=== PATIENT | female | born 1945 | race Caucasian/White ===

== ENCOUNTER → 2017-10-27 08:13 | Outpatient (CLI) | payer MEDICARE, OTHER, SELFPAY ==
[2017-10-27 10:37] LABS: AST(SGOT) 28 U/L (15-37); Alanine Aminotransfer ALT/SGPT 30 U/L (13-56); Albumin, Serum 3.7 g/dL (3.2-5.0); Alkaline Phosphatase 87 U/L (45-117); Bilirubin, Direct 0.11 mg/dL (0.00-0.30); Cholesterol 174 mg/dL (200); Globulin 3.9 g/dL (2.2-4.2); High Density Lipoprotein 54 mg/dL; Protein, Total 7.6 g/dL (6.4-8.2); Triglycerides 175 mg/dL; Very Low Density Lipoprotein 35 mg/dL (5-40)
== END ==
PROVIDERS: Family Provider Nurse Practitioner Family; PCP Nurse Practitioner Family; Visit Provider Internal Medicine Cardiovascular Disease
DX: E78.5 Hyperlipidemia, unspecified (principal); Z79.899 Other long term (current) drug therapy
CPT/HCPCS: 36415; 80061; 80076

== ENCOUNTER → 2017-12-30 12:24 | Outpatient (CLI) | payer MEDICARE, OTHER, SELFPAY ==
[2017-12-30 14:24] LABS: Absolute Neutrophil Count 4.5 X10^3/uL (2.0-7.7); Basophil# 0.02 X10^3/uL; Basophil% 0.3 % (0-1); Eosinophil# 0.13 X10^3/uL; Hematocrit 38.9 % (37-47); Hemoglobin 13.1 g/dl (12.0-15.0); Lymphocyte % 19.9 % (19-41); Mean Corp Hgb Conc 33.7 g/gl (32-36); Mean Corpuscular Hgb 30.3 pg (27.0-32.0); Mean Platelet Vol. 10.5 fl (6.2-12.0); Monocyte# 0.57 X10^3/uL; Monocyte% 8.7 % (0-10); Neutrophil % 68.9 % (47-70); Platelet Count 205 K/mm3 (150-450); RBC Distribution Width CV 12.7 % (11.6-14.6); RBC Distribution Width SD 40.9 fl (35.1-43.9); Red Blood Count 4.32 M/mm3 (4.2-5.4); White Blood Count 6.5 K/mm3 (4.4-11.0)
[2017-12-30 14:35] LABS: POSITIVE COUNT NO; POSITIVE DIFFERENTIAL NO; POSITIVE MORPHOLOGY NO
== END ==
PROVIDERS: Family Provider Nurse Practitioner Family; PCP Nurse Practitioner Family; Visit Provider Internal Medicine Gastroenterology
DX: K62.5 Hemorrhage of anus and rectum (principal)
CPT/HCPCS: 36415; 85025

== ENCOUNTER → 2018-08-05 09:30 | Outpatient (CLI) | payer MEDICARE, OTHER, SELFPAY ==
[2018-08-05 12:34] LABS: AST(SGOT) 26 U/L (15-37); Alanine Aminotransfer ALT/SGPT 34 U/L (13-56); Albumin, Serum 3.9 g/dL (3.2-5.0); Alkaline Phosphatase 93 U/L (45-117); Bilirubin, Direct 0.15 mg/dL (0.00-0.30); Cholesterol 191 mg/dL (200); High Density Lipoprotein 59 mg/dL; Protein, Total 7.9 g/dL (6.4-8.2); Triglycerides 155 mg/dL; Very Low Density Lipoprotein 31 mg/dL (5-40)
== END ==
PROVIDERS: Family Provider Nurse Practitioner Family; PCP Nurse Practitioner Family; Referring Provider Internal Medicine Cardiovascular Disease; Visit Provider Internal Medicine Cardiovascular Disease
DX: E78.5 Hyperlipidemia, unspecified (principal)
CPT/HCPCS: 36415; 80061; 80076

== ENCOUNTER → 2019-06-01 08:41 | Outpatient (CLI) | payer MEDICARE, OTHER, SELFPAY ==
[2018-08-12 11:14] VITALS: BMI 27.8
[2019-06-01 11:09] LABS: AST(SGOT) 23 U/L (15-37); Alanine Aminotransfer ALT/SGPT 33 U/L (13-56); Albumin, Serum 3.8 g/dL (3.2-5.0); Alkaline Phosphatase 91 U/L (45-117); Bilirubin, Direct 0.11 mg/dL (0.00-0.30); Cholesterol 175 mg/dL (200); Globulin 3.8 g/dL (2.2-4.2); High Density Lipoprotein 58 mg/dL; Protein, Total 7.6 g/dL (6.4-8.2); Triglycerides 184 mg/dL; Very Low Density Lipoprotein 37 mg/dL (5-40)
== END ==
PROVIDERS: Family Provider Nurse Practitioner Family; PCP Nurse Practitioner Family; Referring Provider Internal Medicine Cardiovascular Disease; Visit Provider Internal Medicine Cardiovascular Disease
DX: E78.5 Hyperlipidemia, unspecified (principal)
CPT/HCPCS: 36415; 80061; 80076

== ENCOUNTER → 2019-08-22 07:51 | Outpatient (CLI) | payer MEDICARE, OTHER, SELFPAY ==
[2019-08-16 09:43] VITALS: BMI 28.1
--- NOTE | 2019-08-22 07:52 | CDU_ITS ---
Reason For Study: SYNCOPE Rt. Velocities/BP Lt. Velocities/BP Prox CCA 103.4/27.8 cm/sec. Prox CCA 119.8/26.7 cm/sec. Mid CCA 90.8/23.0 cm/sec. Mid CCA 118.0/30.3 cm/sec. Dist CCA 79.0/16.4 cm/sec. Dist CCA 132.5/12.0 cm/sec. Prox ICA 142.4/37.1 cm/sec. Prox ICA 121.5/26.6 cm/sec. Mid ICA 146.8/30.5 cm/sec. Mid ICA 123.3/23.0 cm/sec. Dist ICA 78.7/21.5 cm/sec. Dist ICA 94.1/19.2 cm/sec. Rt. ICA/CCA = 146.8/103.4=1.4. Lt. ICA/CCA = 123.3/132.5=0.9. Prox ECA 122.7/4.2 cm/sec. Prox ECA 114.2/4.7 cm/sec. Rt. Vert. 75.2/12.8 cm/sec. Lt. Vert. 65.8/14.2 cm/sec. Right Extracranial There is homogeneous, smooth atherosclerotic plaque noted in the right common carotid artery. There is homogeneous, smooth atherosclerotic plaque noted in the right internal carotid artery. There is homogeneous, smooth atherosclerotic plaque noted in the right external carotid artery. Antegrade flow is noted in the right vertebral artery. There is heterogeneous, irregular atherosclerotic plaque noted in the left bulb. Left Extracranial There is homogeneous, smooth atherosclerotic plaque noted in the left common carotid artery. There is homogeneous, smooth atherosclerotic plaque noted in the left internal carotid artery. There is homogeneous, smooth atherosclerotic plaque noted in the left external carotid artery. Antegrade flow is noted in the left vertebral artery. There is homogeneous, smooth atherosclerotic plaque noted in the left bulb. Interpretation Summary Moderate (50-69%) stenosis right extracranial internal carotid. Moderate (50-69%) stenosis left extracranial internal carotid. Flow within the vertebral arteries is antegrade bilaterally. Ordering Physician: Wild Watkins Referring Physician: Jacob Claudio Performed By: Tammy Nichols, ASA, RVT
== END ==
PROVIDERS: PCP Nurse Practitioner Family; Referring Provider Internal Medicine Cardiovascular Disease; Visit Provider Internal Medicine Cardiovascular Disease
DX: I65.23 Occlusion and stenosis of bilateral carotid arteries (principal)
CPT/HCPCS: 93880

== ENCOUNTER → 2020-06-04 08:07 | Outpatient (CLI) | payer MEDICARE, OTHER, SELFPAY ==
[2019-08-16 09:43] VITALS: BMI 28.1
[2020-06-04 10:29] LABS: AST(SGOT) 22 U/L (15-37); Alanine Aminotransfer ALT/SGPT 32 U/L (13-56); Albumin, Serum 3.8 g/dL (3.2-5.0); Alkaline Phosphatase 89 U/L (45-117); Bilirubin, Direct 0.13 mg/dL (0.00-0.30); Cholesterol 193 mg/dL (200); Globulin 3.8 g/dL (2.2-4.2); High Density Lipoprotein 76 mg/dL; Protein, Total 7.6 g/dL (6.4-8.2); Triglycerides 84 mg/dL; Very Low Density Lipoprotein 17 mg/dL (5-40)
== END ==
PROVIDERS: PCP Nurse Practitioner Family; Referring Provider Internal Medicine Cardiovascular Disease; Visit Provider Internal Medicine Cardiovascular Disease
DX: E78.5 Hyperlipidemia, unspecified (principal); I25.10 Atherosclerotic heart disease of native coronary artery without angina pectoris; I73.9 Peripheral vascular disease, unspecified; I77.9 Disorder of arteries and arterioles, unspecified
CPT/HCPCS: 36415; 80061; 80076

== ENCOUNTER → 2020-10-18 10:17 | Outpatient (CLI) | payer MEDICARE, OTHER, SELFPAY ==
[2019-08-16 09:43] VITALS: BMI 28.1
--- NOTE | 2020-10-18 10:26 | BD_ITS ---
STUDY: DUAL ENERGY X-RAY ABSORPTIOMETRY / DXA REASON FOR EXAM: Female, 75 years old. [id number] -- POST SHAUNA. TECHNIQUE: Bone Mineral Density (BMD) measurements of lumbar spine and bilateral hips were obtained. COMPARISON: Comparison is made with prior study dated 06/02/2017. FINDINGS: Lumbar Spine (L1-L4): g/cm2 (1.077) / T-score (-0.9) / Z-score (0.9) Findings are suggestive of normal bone density with a low fracture risk. Left Femur Total: g/cm2 (1.069) / T-score (0.5) / Z-score (2.3) Left Femoral Neck: g/cm2 (1.012) / T-score (-0.2) / Z-score (1.8) Right Femur Total: g/cm2 (1.109) / T-score (0.8) / Z-score (2.6) Right Femoral Neck: g/cm2 (1.024) / T-score (-0.1) / Z-score (1.9) The T-Scores on the most recent prior examination were: Lumbar Spine (L1-L4): There has been worsening of bone density since the previous examination. Left Femur Total: which represents an improvement of 1.4%. Right Femur Total: which represents an improvement of 0.2%. BD/Dexa Bone Density Study IMPRESSION: The patient is considered normal as outlined below according to [place] Organization (WHO) criteria with a low fracture risk. There has been improvement of bone density since the previous examination. Reference Information: The T-score is the number of standard deviations above or below the standard which is normal for young adults at their peak bone mineral density. The World Health Organization (WHO) interprets the T-scores as follows: Above -1 Normal bone density Between -1 and -2.5 Osteopenia Equal to / or below -2.5 Osteoporosis As a practical clinical guideline, osteopenia may be graded as follows: Mild -1 through -1.5 Moderate -1.6 through -2.0 Severe -2.1 through -2.4 The Z-score is the number of standard deviations above or below age-matched controls. A Z-score of less than -1.5 would be considered abnormal. References: 1. NIH Osteoporosis and Related Bone Diseases www osteo.org 2. International Society for Clinical Densitometry www iscd.org 3. National Osteoporosis Foundation www nof.org Electronically Signed: Jake Starr MD at 12:21 EDT , Service support ,
== END ==
PROVIDERS: PCP Nurse Practitioner Family; Referring Provider Nurse Practitioner Family; Visit Provider Nurse Practitioner Family
DX: Z78.0 Asymptomatic menopausal state (principal)
CPT/HCPCS: 77080

== ENCOUNTER 2021-02-05 10:45 | Emergency (ER) | payer MEDICARE, OTHER, SELFPAY ==
[2021-02-05 10:47] VITALS: BP 177/80; PULSE 56; RESP 18; TEMP 36.1; O2SAT 100; BMI 29.5
[2021-02-05 11:01] VITALS: PULSE 59
--- NOTE | 2021-02-05 11:09 | NURSING ---
NO OLD EKGS
--- NOTE | 2021-02-05 11:28 | EKG12_ITS ---
Test Reason : CHEST PAIN Blood Pressure : / mmHG Vent. Rate : 059 BPM Atrial Rate : 059 BPM P-R Int : 124 ms QRS Dur : 072 ms QT Int : 428 ms P-R-T Axes : 056 035 047 degrees QTc Int : 423 ms Sinus bradycardia Otherwise normal ECG Confirmed by SARAH BARR, ALFA ([id number]), staff editor FRANNY ALEJANDRO ([id number]) on 02/07/2021 9:56:42 AM Referred By: DACIA Confirmed By:ALFA SMITH MD
--- NOTE | 2021-02-05 11:29 | EDS_ITS ---
HPI History of Present Illness Chief Complaint: Palpitations Informant: patient Narrative Narrative: 75-year-old female presents to the emergency room with palpitations. Patient states that between the hours of 3-5 she felt her heart racing. She states that it would not go away. Finally it did subside and she went to bed but was not having much restful sleep throughout the course of the morning. When she got up she felt an uneasy feeling in her chest and some slight dyspnea. She states she has had coronary artery disease and follows with Dr. Watkins. She denies any history of palpitations or dysrhythmias. The patient states that she has had episodes of heart racing but they have only lasted a few minutes and gone away. She has never had a Holter monitor. [facility] Medical History Atherosclerotic heart disease of [place] coronary artery without angina pectoris CAD (coronary artery disease) Carotid artery disease Carotid bruit CHF (congestive heart failure) Chronic diastolic (congestive) heart failure HLD (hyperlipidemia) Hypertension PVD (peripheral vascular disease) Renal artery stenosis Home Medications aspirin 81 mg PO DAILY 04/10/17 [History Last Taken Unknown] nitroglycerin 0.4 mg sublingual tablet 0.4 mg SUBLINGUAL Q5M PRN #90 tab 08/12/18 [Rx Last Taken Unknown] atenolol 50 mg tablet 50 mg PO DAILY #90 tab 03/15/20 [Rx Last Taken Unknown] clopidogrel 75 mg tablet 75 mg PO DAILY #90 tab 03/15/20 [Rx Last Taken Unknown] hydrochlorothiazide 25 mg tablet 25 mg PO DAILY #90 tab 03/15/20 [Rx Last Taken Unknown] lisinopril 40 mg tablet 40 mg PO DAILY #90 tab 03/15/20 [Rx Last Taken Unknown] simvastatin 40 mg tablet 40 mg PO DAILY #90 tab 03/15/20 [Rx Last Taken Unknown] Allergy/AdvReac Type Severity Reaction Status Date / Time PAIN MEDICATION AdvReac Nausea Uncoded 11/04/17 13:42 Family History Father CAD (coronary artery disease) Mother CAD (coronary artery disease) CVA (cerebral vascular accident) Brother CAD (coronary artery disease) Sister CAD (coronary artery disease) Hypertension Sister Hypertension Brother Hypertension Surgical History History of bilateral carotid endarterectomy History of dental surgery History of tubal ligation Presence of stent in coronary artery Social History Smoking Status: Former smoker alcohol intake: never substance use type: does not use ROS ROS ED Constitutional Constitutional ED: Denies chills or weight loss Eyes Eyes: Denies change in vision or diplopia ENT ENT ED: Denies ear pain, rhinorrhea or sore throat Cardiovascular Cardiovascular: Reports chest pain and racing heartbeat; Denies orthopnea Respiratory/Chest Respiratory/Chest: Reports dyspnea; Denies cough or orthopnea Gastrointestinal Gastrointestinal: Denies abdominal pain, diarrhea, nausea or vomiting Genitourinary Genitourinary ED: Denies dysuria, hematuria or urinary frequency Musculoskeletal Musculoskeletal: Denies arthralgias or myalgias Integumentary Denies abscess or rash Neurologic Neurologic: Denies headache(s) or weakness Psychiatric Psychiatric: Denies anxiety, depression, suicidal ideation or suicidal thoughts Endocrine Endocrinology: Denies polydipsia, polyphagia or polyuria Allergic/Immunologic Allergic/Immunologic ED: Denies mouth swelling, tongue swelling or urticaria EXAM Physical Exam Const Vital Signs: 02/05/21 10:47 02/05/21 10:58 02/05/21 11:01 Temperature 96.9 F L Temperature Source Temporal Pulse Rate 56 L 59 L Respiratory Rate 18 Respiratory Effort Normal Non-Labored Blood Pressure 177/80 H Blood Pressure Mean 112 Pulse Ox 100 Oxygen Delivery Method 02/05/21 12:08 Temperature Temperature Source Pulse Rate 109 H Respiratory Rate 23 H Respiratory Effort Blood Pressure 159/102 H Blood Pressure Mean 121 Pulse Ox 93 Oxygen Delivery Method Room Air Positive well nourished and well developed General Appearance ED: well developed HEENT Reports normocephalic, head/scalp atraumatic and moist mucous membranes Eyes PERRL and EOMs intact bilaterally Neck no lymphadenopathy, supple and no JVD Resp normal respiratory effort and clear to auscultation bilaterally Cardio regular rate, regular rhythm and no murmurs GI normal to inspection, nondistended, normoactive bowel sounds and non-tender Palpation: soft Back/Spine no CVA tenderness and normal ROM Extremity normal to inspection General Extremety ED: Negative for edema General Extremity: Negative for edema Neuro oriented x3 and CN's II-XII intact bilaterally Sensorium / Orientation: alert Motor Exam: strength 5/5 throughout Psych mental status grossly normal Mood & Affect: Negative for depressed or tearful Skin no rashes or lesions noted and no wounds Heart Score History: Slightly/Non-Suspicious ECG: Normal Age: >/= 65 years Risk Factors: >/= 3 Risk Factors or History of CAD Troponin: </= Normal Limit Score: 4 MDM MDM MDM Narrative Medical decision making narrative: Basic blood work is normal. D-dimer 0.32. TSH 2.93. Troponin negative magnesium negative. Mitral rotation of the chest x-ray is no acute process. Patient has been in a normal sinus rhythm her ED visit. She will be discharged home instructions to follow-up with cardiology she may require a Holter monitor. Lab Data Attestation: I reviewed the patient's lab results. Labs: Laboratory Results - last 24 hr 02/05/21 02/05/21 02/05/21 11:33 11:33 11:40 WBC 8.1 RBC 4.63 Hgb 14.0 Hct 42.5 MCV 91.8 MCH 30.2 MCHC 32.9 RDW Std Deviation 42.5 RDW Coeff of Manav 12.6 Plt Count 237 MPV 10.0 Immature Gran % (Auto) 0.200 Neut % (Auto) 78.7 H Lymph % (Auto) 13.7 L [place] % (Auto) 5.7 Eos % (Auto) 1.1 Baso % (Auto) 0.6 Absolute Neuts (auto) 6.4 Absolute Lymphs (auto) 1.11 Nucleated RBC % 0 D-Dimer Quant (PE/DVT) 0.32 Sodium 137 Potassium 3.8 Chloride 101 Carbon Dioxide 35.0 H Anion Gap 1 L BUN 16 Creatinine 0.66 Estim Creat Clear Calc 50.04 Est GFR (MDRD) Af Amer 113 Est GFR (MDRD) Non-Af 93 BUN/Creatinine Ratio 24.4 H Glucose 133 H Calcium 9.8 Magnesium 2.1 Troponin I High Sens 28 TSH 2.93 Radiography Diagnostic Testing: Radiology Impression Chest X-Ray 02/05/21 12:30 IMPRESSION: Normal x-ray examination of the chest. Electronically Signed: Jake Starr MD at 12:49 EDT , Service support , EKG Initial EKG: Attestation: I personally reviewed and interpreted this EKG as follows: Comments: Sinus bradycardia with a ventricular rate of 59 bpm. Discharge Plan Triage Chief Complaint: Palpitations ED Provider: Richie Whiteside Dx/Rx/DC Orders Prescriptions: No Action nitroglycerin [Nitrostat] 0.4 mg tablet, sublingual 0.4 mg SUBLINGUAL Q5M PRN (Reason: chest pain) Qty: 90 RF: 6 aspirin 81 MG tablet,chewable 81 mg PO DAILY RF: 0 clopidogrel 75 mg tablet 75 mg PO DAILY Qty: 90 RF: 6 atenolol 50 mg tablet 50 mg PO DAILY Qty: 90 RF: 6 lisinopril 40 mg tablet 40 mg PO DAILY Qty: 90 RF: 6 simvastatin 40 mg tablet 40 mg PO DAILY Qty: 90 RF: 6 hydrochlorothiazide 25 mg tablet 25 mg PO DAILY Qty: 90 RF: 6 Primary Care Provider: Jacob Claudio NP Referrals: Jacob Claudio NP, REGULATORY AFFAIRS ASSISTANT-C [Primary Care Provider] -
[2021-02-05 11:43] LABS: Absolute Lymphocyte Count 1.11 X10^3/uL (0.83-4.51); Absolute Neutrophil Count 6.4 X10^3/uL (2.0-7.7); Basophil# 0.05 X10^3/uL; Basophil% 0.6 % (0-1); Eosinophil# 0.09 X10^3/uL; Eosinophils% 1.1 % (0-5); Hematocrit 42.5 % (37-47); Lymphocyte # 1.11 X10^3/ul (0.83-4.51); Lymphocyte % 13.7 % (19-41); Mean Corp Hgb Conc 32.9 g/dL (32-36); Mean Corpuscular Hgb 30.2 pg (27.0-32.0); Mean Corpuscular Volume 91.8 fL (81-99); Monocyte# 0.46 X10^3/uL; Monocyte% 5.7 % (0-10); NRBC Flagged by Analyzer 0 % (0-5); Neutrophil # 6.37 X10^3/uL (2.7-7.7); Neutrophil % 78.7 % (47-70); Platelet Count 237 K/mm3 (150-450); RBC Distribution Width CV 12.6 % (11.6-14.6); RBC Distribution Width SD 42.5 fl (35.1-43.9); Red Blood Count 4.63 M/mm3 (4.2-5.4); White Blood Count 8.1 K/mm3 (4.4-11.0)
[2021-02-05] MEDS: Aspirin 81 MG TAB.CHEW 324 MG PO (11:44)
[2021-02-05 11:57] LABS: D-Dimer Quantitative (DVT/PE) 0.32 FEU/ug/m (0.27-0.49)
[2021-02-05 12:08] VITALS: BP 159/102; PULSE 109; RESP 23; O2SAT 93
[2021-02-05 12:08] LABS: Anion Gap 1 (5-15); BUN 16 mg/dL (7-18); BUN/Creat Ratio 24.4 RATIO (10-20); Calcium,Total 9.8 mg/dL (8.5-10.1); Chloride 101 mmol/L (98-107); Creatinine, Serum 0.66 mg/dL (0.55-1.02); EST Glomerular Filtration Rate 93 mL/min (>60); Est Glom Filt Rate - Afr Amer 113 mL/min (>60); Estimated Creatinine Clearance 50.04 ml/min; Glucose 133 mg/dL (74-106); Magnesium 2.1 mg/dL (1.6-2.6); Potassium 3.8 mmol/L (3.5-5.1); Sodium Level 137 mmol/L (136-145); Thyroid Stim Hormone (TSH) 2.93 uIU/mL (0.358-3.74); Troponin-I HS 28 pg/mL (3.0-54.0)
--- NOTE | 2021-02-05 12:30 | RAD_ITS ---
STUDY: X-RAY CHEST REASON FOR EXAM: Female, 75 years old. Tachycardia. Chest pressure. TECHNIQUE: Single AP portable view of the chest. COMPARISON: Comparison is made with prior examination 05/09/2014. FINDINGS: EKG electrodes are seen. The lungs are clear and expanded. There is no demonstrated pleural abnormality. Normal size heart. Normal mediastinum and ele. Normal visualized pulmonary arteries. There is atherosclerotic calcification of the aortic arch with tortuosity. Normal visualized thoracic spine. Normal visualized ribs, clavicles, and shoulders. There is no demonstrated abnormality of the visualized soft tissue structures of the upper abdomen. RAD/Chest 1 View (Portable) IMPRESSION: Normal x-ray examination of the chest. Electronically Signed: Jake Starr MD at 12:49 EDT , Service support ,
[2021-02-05 13:08] VITALS: BP 193/73; PULSE 75; RESP 16
== END 2021-02-05 13:09 | disposition home or self-care (01) ==
PROVIDERS: Emergency Provider Emergency Medicine; PCP Nurse Practitioner Family
DX: R00.2 Palpitations (principal); I25.10 Atherosclerotic heart disease of native coronary artery without angina pectoris; I11.0 Hypertensive heart disease with heart failure; I50.32 Chronic diastolic (congestive) heart failure; E78.5 Hyperlipidemia, unspecified; Z79.82 Long term (current) use of aspirin; Z79.02 Long term (current) use of antithrombotics/antiplatelets; Z79.899 Other long term (current) drug therapy; Z87.891 Personal history of nicotine dependence
CPT/HCPCS: 71045; 80048; 83735; 84443; 84484; 85025; 85379; 93005; 99284

== ENCOUNTER → 2021-02-11 07:53 | Outpatient (CLI) | payer MEDICARE, OTHER, SELFPAY | PROVIDERS: PCP Nurse Practitioner Family; Referring Provider Internal Medicine Cardiovascular Disease; Visit Provider Internal Medicine Cardiovascular Disease | DX: R00.2 Palpitations (principal); I25.10 Atherosclerotic heart disease of native coronary artery without angina pectoris; I11.0 Hypertensive heart disease with heart failure; I50.32 Chronic diastolic (congestive) heart failure | CPT/HCPCS: 93225; 93226 ==

== ENCOUNTER → 2021-02-13 08:58 | Outpatient (CLI) | payer MEDICARE, OTHER, SELFPAY ==
[2021-02-13 10:44] LABS: BNP,B-Type NATRIURETIC PEPTIDE 100.7 pg/mL (0-100)
[2021-02-13 10:56] LABS: AST(SGOT) 18 U/L (15-37); Alanine Aminotransfer ALT/SGPT 29 U/L (13-56); Albumin, Serum 3.8 g/dL (3.2-5.0); Alkaline Phosphatase 92 U/L (45-117); Bilirubin, Direct 0.14 mg/dL (0.00-0.30); Cholesterol 176 mg/dL (200); Globulin 3.8 g/dL (2.2-4.2); High Density Lipoprotein 61 mg/dL; Protein, Total 7.6 g/dL (6.4-8.2); Triglycerides 122 mg/dL; Very Low Density Lipoprotein 24 mg/dL (5-40)
== END ==
PROVIDERS: PCP Nurse Practitioner Family; Referring Provider Internal Medicine Cardiovascular Disease; Visit Provider Internal Medicine Cardiovascular Disease
DX: E78.00 Pure hypercholesterolemia, unspecified (principal); R05 Cough; R00.2 Palpitations; I25.10 Atherosclerotic heart disease of native coronary artery without angina pectoris; I50.32 Chronic diastolic (congestive) heart failure; I11.0 Hypertensive heart disease with heart failure; I77.9 Disorder of arteries and arterioles, unspecified; I70.1 Atherosclerosis of renal artery; Z95.5 Presence of coronary angioplasty implant and graft
CPT/HCPCS: 36415; 80061; 80076; 83880

== ENCOUNTER → 2021-04-23 12:36 | Outpatient (CLI) | payer MEDICARE, OTHER, SELFPAY ==
--- NOTE | 2021-04-23 12:57 | RAD_ITS ---
STUDY: X-RAY CHEST REASON FOR EXAM: Female, 75 years old. CHRONIC COUGH TECHNIQUE: PA and lateral views of the chest. COMPARISON: 05/08/2014, 02/05/2021 FINDINGS: The lungs are clear and expanded. Chronically coarsened lung markings. There is no demonstrated pleural abnormality. Normal size heart. Normal mediastinum and ele. Normal visualized pulmonary arteries. There is atherosclerotic calcification of the aortic arch with tortuosity. Calcific abdominal aorta. RAD/Chest PA and Lateral IMPRESSION: No acute abnormal cardiopulmonary finding. Chronically coarsened lung markings. Electronically Signed: Miquel Chaidez MD at 6:39 EST Tel , Service support ,
[2021-04-23 13:25] LABS: Hematocrit 39.6 % (37-47); Hemoglobin 13.1 g/dL (12.0-15.0); Mean Corp Hgb Conc 33.1 g/dL (32-36); Mean Corpuscular Hgb 30.9 pg (27.0-32.0); Mean Corpuscular Volume 93.4 fL (81-99); Mean Platelet Vol. 10.5 fl (6.2-12.0); Platelet Count 222 K/mm3 (150-450); RBC Distribution Width CV 13.4 % (11.6-14.6); RBC Distribution Width SD 45.4 fl (35.1-43.9); Red Blood Count 4.24 M/mm3 (4.2-5.4); White Blood Count 6.6 K/mm3 (4.4-11.0)
[2021-04-23 14:12] LABS: BNP,B-Type NATRIURETIC PEPTIDE 355.5 pg/mL (0-100)
[2021-04-23 14:22] LABS: ALB/GLOB Ratio 0.9 RATIO (0.9-2.4); AST(SGOT) 25 U/L (15-37); Alanine Aminotransfer ALT/SGPT 33 U/L (13-56); Albumin, Serum 3.6 g/dL (3.2-5.0); Alkaline Phosphatase 103 U/L (45-117); Anion Gap 3 (5-15); BUN 16 mg/dL (7-18); CRP 4.11 mg/L (0.0-3.0); Calcium,Total 9.1 mg/dL (8.5-10.1); Chloride 106 mmol/L (98-107); Creatinine, Serum 0.73 mg/dL (0.55-1.02); EST Glomerular Filtration Rate 83 mL/min (>60); Est Glom Filt Rate - Afr Amer 100 mL/min (>60); Globulin 3.8 g/dL (2.2-4.2); Glucose 110 mg/dL (74-106); Potassium 4.1 mmol/L (3.5-5.1); Protein, Total 7.4 g/dL (6.4-8.2); Sodium Level 139 mmol/L (136-145)
[2021-04-26 13:39] LABS: B. pertussis IgA 1.9 index (0.0-0.9); B. pertussis IgG 2.97 index (0.00-0.94); B. pertussis IgM 1.1 index (0.0-0.9)
== END ==
PROVIDERS: PCP Nurse Practitioner Family; Referring Provider Nurse Practitioner Family; Visit Provider Nurse Practitioner Family
DX: R05.3 Chronic cough (principal); R06.2 Wheezing; R01.1 Cardiac murmur, unspecified
CPT/HCPCS: 36415; 71046; 80053; 83880; 85027; 85379; 86140

== ENCOUNTER → 2021-05-03 12:55 | Outpatient (CLI) | payer MEDICARE, OTHER, SELFPAY ==
--- NOTE | 2021-05-03 13:00 | ECHOD_ITS ---
Reason For Study: Palpitations, Murmur Procedure This was a 2D Doppler, Color Flow transthoracic echocardiogram. Exam performed in department. Left Ventricle Normal LV size. Left ventricular systolic function is normal. The estimated ejection fraction is 60 %. Stage 1 diastolic dysfunction. No regional wall motion abnormalities noted. Right Ventricle Normal RV size. Normal systolic function. Atria The left atrium is mildly enlarged. Normal right atrium. Mitral Valve Normal mitral valve. Tricuspid Valve Normal tricuspid valve. Mild (1+) tricuspid valve insufficiency. Aortic Valve Trisinus/trileaflet aortic valve. Mild focal aortic valve calcification. Pulmonic Valve Normal pulmonic valve. Mild (1+) pulmonic valve insufficiency. Great Vessels Normal aortic root. The pulmonary artery is normal size. Normal inferior vena cava. Pericardium/Pleural No pericardial effusion. MMode/2D Measurements & Calculations LVIDd: 4.4 cm IVSd: 0.86 cm LVOT diam: 1.9 cm LVIDs: 2.6 cm LVPWd: 1.0 cm LVOT area: 2.8 cm2 FS: 41.2 % LA dimension: 3.9 cm LAV(MOD-bp): 56.8 ml LA A4 area: 19.0 cm2 LAV(MOD-bp) Indexed: 34.7 ml/m2 LAV(MOD-sp2): 60.3 ml LAV(MOD-sp4): 53.6 ml RA A4 area: 13.3 cm2 Time Measurements MV dec time: 0.20 sec Doppler Measurements & Calculations MV E max mayank: 123.5 cm/sec Lat Peak E' [place]: 6.6 cm/sec Med Peak E' [place]ank: 7.2 cm/sec MV A max mayank: 53.9 cm/sec E/E' lat: 18.6 E/E' med: 17.1 MV E/A: 2.3 MV V2 max: 153.1 cm/sec MV P1/2t max mayank: 153.1 cm/sec Ao V2 max: 166.5 cm/sec MV max P.4 mmHg MV P1/2t: 81.9 msec Ao max P.1 mmHg MV V2 mean: 57.5 cm/sec MV dec slope: 547.8 cm/sec2 Ao V2 mean: 116.9 cm/sec MV mean P.9 mmHg Ao mean P.1 mmHg MV V2 VTI: 42.1 cm MVA(P1/2t): 2.7 cm2 Ao V2 VTI: 41.4 cm MVA(VTI): 1.3 cm2 GABRIEL(I,D): 1.4 cm2 GABRIEL(V,D): 1.4 cm2 LV V1 max: 83.0 cm/sec MR max mayank: 507.3 cm/sec SV(LVOT): 55.9 ml LV V1 max P.8 mmHg MR max P.9 mmHg LV V1 mean P.4 mmHg LV V1 mean: 55.7 cm/sec LV V1 VTI: 20.3 cm PA V2 max: 103.0 cm/sec PI end-d mayank: 112.7 cm/sec TR max mayank: 300.1 cm/sec TR max P.0 mmHg ECHO/Echo Complete Interpretation Summary Normal LV size. Left ventricular systolic function is normal. The estimated ejection fraction is 60 %. Stage 1 diastolic dysfunction. Ordering Physician: Jacob Claudio Referring Physician: Jacob Claudio Performed By: Hi Gomez RCS
== END ==
PROVIDERS: PCP Nurse Practitioner Family; Referring Provider Nurse Practitioner Family; Visit Provider Nurse Practitioner Family
DX: R01.1 Cardiac murmur, unspecified (principal); R00.2 Palpitations; R05.3 Chronic cough
CPT/HCPCS: 93306

== ENCOUNTER → 2022-01-13 | Outpatient (CLI) | payer MEDICARE, OTHER, SELFPAY ==
[2022-01-13 15:32] LABS: Absolute Lymphocyte Count 1.94 X10^3/uL (0.83-4.51); Absolute Neutrophil Count 5.2 X10^3/uL (2.0-7.7); Basophil# 0.07 X10^3/uL; Basophil% 0.9 % (0-1); Eosinophil# 0.37 X10^3/uL; Eosinophils% 4.5 % (0-5); Hematocrit 42.7 % (37-47); Hemoglobin 13.7 g/dL (12.0-15.0); Lymphocyte # 1.94 X10^3/ul (0.83-4.51); Lymphocyte % 23.8 % (19-41); Mean Corp Hgb Conc 32.1 g/dL (32-36); Mean Corpuscular Hgb 29.4 pg (27.0-32.0); Mean Corpuscular Volume 91.6 fL (81-99); Mean Platelet Vol. 10.5 fl (6.2-12.0); Monocyte# 0.52 X10^3/uL; Monocyte% 6.4 % (0-10); NRBC Flagged by Analyzer 0 % (0-5); Neutrophil # 5.23 X10^3/uL (2.7-7.7); Neutrophil % 64.2 % (47-70); Platelet Count 252 K/mm3 (150-450); RBC Distribution Width CV 12.4 % (11.6-14.6); RBC Distribution Width SD 41.5 fl (35.1-43.9); Red Blood Count 4.66 M/mm3 (4.2-5.4); White Blood Count 8.2 K/mm3 (4.4-11.0)
[2022-01-13 16:35] LABS: Anion Gap 4 (5-15); BUN 24 mg/dL (7-18); BUN/Creat Ratio 30.7 RATIO (10-20); Calcium,Total 9.5 mg/dL (8.5-10.1); Chloride 99 mmol/L (98-107); Creatinine, Serum 0.78 mg/dL (0.55-1.02); EST Glomerular Filtration Rate 76 mL/min (>60); Est Glom Filt Rate - Afr Amer 92 mL/min (>60); Glucose 111 mg/dL (74-106); Magnesium 2.2 mg/dL (1.6-2.6); Potassium 3.8 mmol/L (3.5-5.1); Sodium Level 137 mmol/L (136-145)
== END | disposition home or self-care (01) ==
LOC: LAB 14:26
PROVIDERS: PCP Nurse Practitioner Family; Referring Provider Physician Assistant Medical; Visit Provider Physician Assistant Medical
DX: R00.2 Palpitations (principal); I25.10 Atherosclerotic heart disease of native coronary artery without angina pectoris; I10 Essential (primary) hypertension; E78.00 Pure hypercholesterolemia, unspecified
CPT/HCPCS: 36415; 80048; 83735; 84443; 85025

== ENCOUNTER → 2022-04-21 | Outpatient (CLI) | payer MEDICARE, OTHER, SELFPAY ==
[2022-04-21 10:39] LABS: AST(SGOT) 18 U/L (15-37); Alanine Aminotransfer ALT/SGPT 22 U/L (13-56); Albumin, Serum 3.6 g/dL (3.2-5.0); Alkaline Phosphatase 81 U/L (45-117); Bilirubin, Direct 0.11 mg/dL (0.00-0.30); Cholesterol 185 mg/dL (200); Globulin 3.7 g/dL (2.2-4.2); High Density Lipoprotein 57 mg/dL; Protein, Total 7.3 g/dL (6.4-8.2); Triglycerides 168 mg/dL; Very Low Density Lipoprotein 34 mg/dL (5-40)
== END | disposition home or self-care (01) ==
PROVIDERS: PCP Nurse Practitioner Family; Referring Provider Internal Medicine Cardiovascular Disease; Visit Provider Internal Medicine Cardiovascular Disease
DX: E78.00 Pure hypercholesterolemia, unspecified (principal)
CPT/HCPCS: 36415; 80061; 80076

== ENCOUNTER 2023-02-02 16:40 | Emergency (ER) | payer MEDICARE, OTHER, SELFPAY ==
[2023-02-02 16:41] VITALS: BP 221/89; PULSE 67; RESP 18; TEMP 36.3; O2SAT 99; BMI 26.8
--- NOTE | 2023-02-02 17:19 | EDS_ITS ---
HPI History of Present Illness Chief Complaint: Hypertension Narrative Narrative: 77-year-old female presenting with nausea/vomiting. She states that she had dinner on Thursday and had fish and after this she became ill and had nausea and vomiting. She states that Thursday and Thursday she did take her blood pressure medicine due to being nauseous. She says she was able to eat some food and drink some fluids. Just ate some cereal yesterday and today. She has not vomited. She is making urine and stool. Patient has not had a fever at home. She went with her to an office visit for him to get a shot in his shoulder today and wanted to check her blood pressure and she states that her 's primary care physician said her pressure was too high. She cannot tell me the number but she states it was high. Patient denies any acute onset headache. Visual changes. She is able to ambulate without difficulty. No paresthesias. She is using all 4 extremities. [facility] Medical History Atherosclerotic heart disease of [place] coronary artery without angina pectoris Carotid artery disease Carotid bruit Chronic diastolic (congestive) heart failure Essential hypertension HLD (hyperlipidemia) PVD (peripheral vascular disease) Renal artery stenosis Home Medications aspirin 81 mg chewable tablet 81 mg PO DAILY 04/10/17 [History Last Taken Unknown] nitroglycerin 0.4 mg sublingual tablet (Nitrostat) 0.4 mg sublingual Q5-15M PRN chest pain #25 tabs 01/13/22 [Rx Last Taken Unknown] atenolol 25 mg tablet 25 mg PO DAILY #90 tabs 05/07/22 [Rx Last Taken Unknown] clopidogrel 75 mg tablet 75 mg PO DAILY #90 tabs 05/07/22 [Rx Last Taken Unknown] losartan 50 mg tablet 50 mg PO DAILY #90 tabs 05/07/22 [Rx Last Taken Unknown] simvastatin 40 mg tablet 40 mg PO DAILY #90 tabs 05/07/22 [Rx Last Taken Unknown] hydrochlorothiazide 25 mg tablet 25 mg PO DAILY #90 tabs 08/05/22 [Rx Last Taken Unknown] ondansetron 4 mg disintegrating tablet 4 mg PO Q8H PRN PRN Nausea #14 tabs 02/02/23 [Rx Last Taken Unknown] Allergy/AdvReac Type Severity Reaction Status Date / Time lisinopril AdvReac cough Verified 02/02/23 16:41 PAIN MEDICATION AdvReac Nausea Uncoded 05/07/22 13:39 Family History Father CAD (coronary artery disease) Mother CAD (coronary artery disease) CVA (cerebral vascular accident) Brother CAD (coronary artery disease) Sister CAD (coronary artery disease) Hypertension Sister Hypertension Brother Hypertension Surgical History History of bilateral carotid endarterectomy History of coronary artery stent placement (05/18/14) History of dental surgery History of tubal ligation Social History Smoking Status: Former smoker alcohol intake: never substance use type: does not use ROS ROS ED Constitutional Constitutional ED: Denies chills, fever(s) or sweats Eyes Eyes: Denies blurry vision or change in vision ENT ENT ED: Denies ear pain or sore throat Cardiovascular Cardiovascular: Denies chest pain, palpitations or racing heartbeat Respiratory/Chest Respiratory/Chest: Denies cough, dyspnea or sputum Gastrointestinal Gastrointestinal: Reports nausea; Denies abdominal pain, constipation, diarrhea or vomiting Genitourinary Genitourinary ED: Denies dysuria, hematuria or urinary frequency Musculoskeletal Musculoskeletal: Denies arthralgias, myalgias or neck pain Integumentary Denies abscess, Abrasions or rash Neurologic Neurologic: Denies headache(s), paresthesias or weakness Psychiatric Psychiatric: Denies anxiety, depression, suicidal ideation or suicidal thoughts Endocrine Endocrinology: Denies polydipsia or polyuria EXAM Physical Exam Const Vital Signs: 02/02/23 16:41 02/02/23 17:28 02/02/23 17:38 Temperature 97.3 F L Temperature Source Temporal Pulse Rate 67 57 L Respiratory Rate 18 20 H Respiratory Effort Normal Respiratory Pattern Normal Blood Pressure 221/89 H 214/76 H Blood Pressure Mean 133 122 Pulse Ox 99 98 Oxygen Delivery Method Room Air Room Air 02/02/23 18:02 02/02/23 18:25 02/02/23 21:33 Temperature Temperature Source Pulse Rate 61 Respiratory Rate 12 Respiratory Effort Respiratory Pattern Blood Pressure 207/83 H 201/79 H 174/68 H Blood Pressure Mean 124 119 103 Pulse Ox 97 Oxygen Delivery Method Room Air Positive well nourished General Appearance ED: NAD; Negative for pallor HEENT Reports moist mucous membranes Eyes PERRL and EOMs intact bilaterally Chest Wall inspection of chest normal and palpation of chest normal Resp normal respiratory effort and clear to auscultation bilaterally Auscultation: Negative for rales, rhonchi or wheezes Cardio regular rate and regular rhythm GI normal to inspection, nondistended, normoactive bowel sounds Neuro oriented x3 and CN's II-XII intact bilaterally Sensorium / Orientation: alert Motor Exam: strength 5/5 throughout Skin no rashes or lesions noted General Skin Exam: Negative for jaundice or pallor MDM MDM MDM Narrative Medical decision making narrative: Patient with nausea/vomiting which started 3 days ago after eating fish. Her symptoms are improving and she is able to eat and drink however she has not taken her blood pressure medicine. Her blood pressure here is 161/100 after being left to settle. Her note procedural arriving blood pressure was 221/89. Patient does not have any acute stroke symptoms or acute onset headache symptoms. She only has nausea and vomiting which she presumes is due to food poisoning. Differential includes dehydration, electrolyte normalities, UTI, food poisoning. Patient has not taken her atenolol 25 mg p.o., hydrochlorothiazide 25 mg p.o., losartan 50 mg p.o. x3 days. Patient will be given Zofran and a liter of normal saline. I will obtain a CBC to assess white blood cell count, hemoglobin, platelets. CMP to assess liver function, renal function, electrolytes. Lipase to assess for pancreatitis. Urinalysis to assess for UTI. CBC shows no leukocytosis. Hemoglobin hematocrit stable. Platelets are normal. Liver function, renal function and within normal limits. Electrolytes are normal. Lipase is negative. On reevaluation the patient still having some nausea and she was given Phenergan. Given her blood pressure is still high and she still having nausea and vomiting I did opt to have a CT brain. She was given hydralazine 5 mg to bring her blood pressure down. Its currently 182/94. Blood pressure is now improved at 1 7468. Patient's nausea is better. She ambulated to the bathroom and feels much better. She will be given a prescription for Zofran for home. I recommend she follow-up with her PCP to ensure resolution. Turn precautions discussed. Impression: 1. Food poisoning 2. Nausea/vomiting sign 3. Hypertension Lab Data Attestation: I reviewed the patient's lab results. Labs: Laboratory Results - last 24 hr 02/02/23 17:00 WBC 8.4 RBC 4.84 Hgb 14.4 Hct 44.9 MCV 92.8 MCH 29.8 MCHC 32.1 RDW Std Deviation 41.6 RDW Coeff of Manav 12.2 Plt Count 266 MPV 9.9 Immature Gran % (Auto) 0.200 Neut % (Auto) 66.9 Lymph % (Auto) 21.8 [place] % (Auto) 8.2 Eos % (Auto) 2.1 Baso % (Auto) 0.8 Absolute Neuts (auto) 5.6 Absolute Lymphs (auto) 1.84 Nucleated RBC % 0 Sodium 137 Potassium 3.5 Chloride 101 Carbon Dioxide 31.0 Anion Gap 5 BUN 14 Creatinine 0.70 Estim Creat Clear Calc 44.12 Est GFR (MDRD) Af Amer 105 Est GFR (MDRD) Non-Af 86 BUN/Creatinine Ratio 20.1 H Glucose 125 H Calcium 10.1 Total Bilirubin 0.40 AST 19 ALT 24 Alkaline Phosphatase 91 Total Protein 8.2 Albumin 4.1 Globulin 4.1 Albumin/Globulin Ratio 1.0 Lipase 62 Radiography Diagnostic Testing: Clinical Impression(s) from Imaging Studies Brain CT 02/02/23 18:46 IMPRESSION: No acute intracranial findings. Electronically Signed: Blue Bass MD at 20:10 EDT Reading Location ID and State: [facility] [place] Tel , Service support , Discharge Plan Triage Chief Complaint: Hypertension ED Provider: Luc Campos Dx/Rx/DC Orders Instructions: ED Food Poisoning (Adult), ED Hypertension, Established Prescriptions: New ondansetron 4 mg tablet,disintegrating 4 mg PO Q8H PRN PRN (Reason: Nausea) Qty: 14 0RF No Action atenolol 25 mg tablet 25 mg PO DAILY Qty: 90 3RF clopidogrel 75 mg tablet 75 mg PO DAILY Qty: 90 3RF simvastatin 40 mg tablet 40 mg PO DAILY Qty: 90 3RF losartan 50 mg tablet 50 mg PO DAILY Qty: 90 3RF nitroglycerin [Nitrostat] 0.4 mg tablet, sublingual 0.4 mg SUBLINGUAL Q5-15M PRN (Reason: chest pain) Qty: 25 3RF aspirin 81 MG tablet,chewable 81 mg PO DAILY hydrochlorothiazide 25 mg tablet 25 mg PO DAILY Qty: 90 3RF Primary Care Provider: Jacob Claudio NP Referrals: Jacob Claudio NP, CONTRACTS OFFICER-C [Primary Care Provider] - Disposition Disposition: Home, Self Care Discharge Date/Time: 02/02/23 21:34
[2023-02-02] MEDS: Ondansetron 4 MG/2 ML Vial IV (17:24)
[2023-02-02] MEDS: 0.9% Normal Saline 1,000 ML 1000 ML IV (17:24)
[2023-02-02 17:28] LABS: Absolute Lymphocyte Count 1.84 X10^3/uL (0.83-4.51); Absolute Neutrophil Count 5.6 X10^3/uL (2.0-7.7); Basophil# 0.07 X10^3/uL; Basophil% 0.8 % (0-1); Eosinophil# 0.18 X10^3/uL; Eosinophils% 2.1 % (0-5); Hematocrit 44.9 % (37-47); Hemoglobin 14.4 g/dL (12.0-15.0); Lymphocyte # 1.84 X10^3/ul (0.83-4.51); Lymphocyte % 21.8 % (19-41); Mean Corp Hgb Conc 32.1 g/dL (32-36); Mean Corpuscular Hgb 29.8 pg (27.0-32.0); Mean Corpuscular Volume 92.8 fL (81-99); Mean Platelet Vol. 9.9 fl (6.2-12.0); Monocyte# 0.69 X10^3/uL; Monocyte% 8.2 % (0-10); NRBC Flagged by Analyzer 0 % (0-5); Neutrophil # 5.63 X10^3/uL (2.7-7.7); Neutrophil % 66.9 % (47-70); Platelet Count 266 K/mm3 (150-450); RBC Distribution Width CV 12.2 % (11.6-14.6); RBC Distribution Width SD 41.6 fl (35.1-43.9); Red Blood Count 4.84 M/mm3 (4.2-5.4); White Blood Count 8.4 K/mm3 (4.4-11.0)
[2023-02-02 17:38] VITALS: BP 214/76; PULSE 57; RESP 20; O2SAT 98
[2023-02-02 17:44] LABS: AST(SGOT) 19 U/L (15-37); Alanine Aminotransfer ALT/SGPT 24 U/L (13-56); Albumin, Serum 4.1 g/dL (3.2-5.0); Alkaline Phosphatase 91 U/L (45-117); Anion Gap 5 (5-15); BUN 14 mg/dL (7-18); BUN/Creat Ratio 20.1 RATIO (10-20); Calcium,Total 10.1 mg/dL (8.5-10.1); Chloride 101 mmol/L (98-107); EST Glomerular Filtration Rate 86 mL/min (>60); Est Glom Filt Rate - Afr Amer 105 mL/min (>60); Estimated Creatinine Clearance 44.12 ml/min; Globulin 4.1 g/dL (2.2-4.2); Glucose 125 mg/dL (74-106); Potassium 3.5 mmol/L (3.5-5.1); Protein, Total 8.2 g/dL (6.4-8.2); Sodium Level 137 mmol/L (136-145)
[2023-02-02 17:54] LABS: Lipase 62 U/L (13-75)
[2023-02-02 18:02] VITALS: BP 207/83; PULSE 61; RESP 12; O2SAT 97
[2023-02-02 18:25] VITALS: BP 201/79
--- NOTE | 2023-02-02 18:46 | CT_ITS ---
INDICATION: Nausea, hypertension EXAMINATION: CT BRAIN - CT Head or Brain W/O Contrast Injection TECHNIQUE: Multiple axial images were obtained of the head without intravenous contrast. A radiation dose optimization technique was used for this scan. IV Contrast dosage and agent: None. COMPARISON: None. FINDINGS: BRAIN PARENCHYMA: No intra- or extra-axial hemorrhage. No evidence of acute infarct. No intracranial mass or mass effect. Posterior fossa structures are unremarkable. CSF SPACES: Appropriate for age. No hydrocephalus. Basal cisterns are patent. CALVARIUM, SKULL BASE, PARANASAL SINUSES AND MASTOID AIR CELLS: Clear. No discrete lytic or blastic abnormalities. CT/Brain/Head without Contrast IMPRESSION: No acute intracranial findings. Electronically Signed: Blue Bass MD at 20:10 EDT ,
[2023-02-02] MEDS: proMETHazine 25 MG/ML Syringe 12.5 MG IM (18:52)
[2023-02-02] MEDS: hydrALAZINE 10 MG Tablet 5 MG PO (19:14)
[2023-02-02 21:33] VITALS: BP 174/68
== END 2023-02-02 21:34 | disposition home or self-care (01) ==
PROVIDERS: Emergency Provider Student in an Organized Health Care Education/Training Program; PCP Nurse Practitioner Family; Visit Provider Student in an Organized Health Care Education/Training Program
DX: I11.0 Hypertensive heart disease with heart failure (principal); I50.32 Chronic diastolic (congestive) heart failure; T61.771A Other fish poisoning, accidental (unintentional), initial encounter; R11.2 Nausea with vomiting, unspecified; E78.5 Hyperlipidemia, unspecified; I25.10 Atherosclerotic heart disease of native coronary artery without angina pectoris; Z95.5 Presence of coronary angioplasty implant and graft; Z79.02 Long term (current) use of antithrombotics/antiplatelets; Z79.899 Other long term (current) drug therapy; Z87.891 Personal history of nicotine dependence
CPT/HCPCS: 70450; 80053; 83690; 85025; 93005; 96365; 96372; 96375; 99283; J7030; A4216; J2405

== ENCOUNTER → 2023-06-05 | Outpatient (CLI) | payer MEDICARE, OTHER, SELFPAY ==
--- NOTE | 2023-06-05 09:57 | ART_ITS ---
Reason For Study: BLE CRAMPS, COLDNESS, CLAUDICATION Procedure A bilateral lower extremity continuous wave Doppler with analog waveform analysis and ankle brachial indexes. Left Segmental Pressures Left brachial= 135mmHg. Left posterior tibial artery = 136mmHg. Left dorsalis pedis artery = 147mmHg. The left posterior tibial artery waveforms are triphasic. The left dorsalis pedis waveforms are triphasic. Right Segmental Pressures Right brachial= 138mmHg. Right posterior tibial artery = 140mmHg. Right dorsalis pedis artery = 134mmHg. The right posterior tibial artery waveforms are triphasic. The right dorsalis pedis waveforms are triphasic. Indices The right resting ankle brachial index is 1.01. The right ankle brachial index by the posterior tibial artery is 1.01. The right ankle brachial index by the dorsalis pedis is 0.97. The left resting ankle brachial index is 1.07. The left ankle brachial index by the posterior tibial artery is 0.99. The left ankle brachial index by the dorsalis pedis is 1.07. VL/Ankle Brachial Index Interpretation Summary Right JOHANA 1.01, normal. Doppler/PVR waveforms of the right leg normal at rest. Left JOHANA 1.07, normal. Doppler/PVR waveforms of the left leg normal at rest. Ordering Physician: Linnette Xiong Referring Physician: Jacob Claudio Performed By: Tammy Nichols RVT, RDCS
== END | disposition home or self-care (01) ==
LOC: CVS 09:56
PROVIDERS: PCP Nurse Practitioner Family; Referring Provider Nurse Practitioner Gerontology; Visit Provider Nurse Practitioner Gerontology
DX: I73.9 Peripheral vascular disease, unspecified (principal); R20.8 Other disturbances of skin sensation; R25.2 Cramp and spasm
CPT/HCPCS: 93922

== ENCOUNTER → 2023-06-17 | Outpatient (CLI) | payer MEDICARE, OTHER, SELFPAY ==
[2023-06-17 10:34] LABS: AST(SGOT) 18 U/L (15-37); Alanine Aminotransfer ALT/SGPT 27 U/L (13-56); Albumin, Serum 3.5 g/dL (3.2-5.0); Alkaline Phosphatase 95 U/L (45-117); Anion Gap 4 (5-15); BUN 23 mg/dL (7-18); Bilirubin, Direct 0.14 mg/dL (0.00-0.30); Calcium,Total 9.7 mg/dL (8.5-10.1); Chloride 105 mmol/L (98-107); Cholesterol 166 mg/dL (200); Creatinine, Serum 0.74 mg/dL (0.55-1.02); EST Glomerular Filtration Rate 80 mL/min (>60); Est Glom Filt Rate - Afr Amer 97 mL/min (>60); Globulin 3.9 g/dL (2.2-4.2); Glucose 96 mg/dL (74-106); High Density Lipoprotein 60 mg/dL; Potassium 3.6 mmol/L (3.5-5.1); Protein, Total 7.4 g/dL (6.4-8.2); Sodium Level 139 mmol/L (136-145); Triglycerides 120 mg/dL; Very Low Density Lipoprotein 24 mg/dL (5-40)
== END | disposition home or self-care (01) ==
LOC: LAB 09:02
PROVIDERS: PCP Nurse Practitioner Family; Referring Provider Internal Medicine Cardiovascular Disease; Visit Provider Internal Medicine Cardiovascular Disease
DX: I25.10 Atherosclerotic heart disease of native coronary artery without angina pectoris (principal); I50.32 Chronic diastolic (congestive) heart failure; E78.00 Pure hypercholesterolemia, unspecified; R25.2 Cramp and spasm
CPT/HCPCS: 36415; 80048; 80061; 80076

== ENCOUNTER → 2024-07-15 | Outpatient (CLI) | payer MEDICARE, OTHER, SELFPAY ==
--- NOTE | 2024-07-15 07:00 | CDU_ITS ---
Reason For Study: Carotid Bruit Rt. Velocities/BP Lt. Velocities/BP Prox CCA 55/11 cm/sec. Prox CCA 83/15 cm/sec. Mid CCA 64/14 cm/sec. Mid CCA 83/14 cm/sec. Dist CCA 50/13 cm/sec. Dist CCA 69/14 cm/sec. Prox ICA 120/23 cm/sec. Prox ICA 92/18 cm/sec. Mid ICA 147/36 cm/sec. Mid ICA 101/24 cm/sec. Dist ICA 118/25 cm/sec. Dist ICA 101/25 cm/sec. Rt. ICA/CCA = 2.3. Lt. ICA/CCA = 1.2. Prox ECA 169/3 cm/sec. Prox ECA 83/7 cm/sec. Rt. Vert. 61/14 cm/sec. Lt. Vert. 53/12 cm/sec. Right Extracranial There is heterogeneous, irregular atherosclerotic plaque noted in the right common carotid artery. There is heterogeneous, irregular atherosclerotic plaque noted in the right internal carotid artery. The right internal carotid artery is very tortuous. There is intimal thickening but no significant atherosclerotic plaque noted in the right external carotid artery. Antegrade flow is noted in the right vertebral artery. Left Extracranial There is heterogeneous, irregular atherosclerotic plaque noted in the left common carotid artery. There is intimal thickening but no significant atherosclerotic plaque noted in the left internal carotid artery. There is homogeneous, smooth atherosclerotic plaque noted in the left external carotid artery. Antegrade flow is noted in the left vertebral artery. Procedure Carotid Duplex 15796. This is a Carotid Duplex examination using B-mode, color flow and specral Doppler. Exam performed in department. VL/Carotid Duplex Ultrasound Interpretation Summary Moderate (50-69%) stenosis right extracranial internal carotid. Normal left extracranial internal carotid. Patent and antegrade vertebrals bilaterally. Ordering Physician: Court Anderson Referring Physician: Jacob Claudio Performed By: Alicia Fonseca, ASA, RVT
--- NOTE | 2024-07-15 07:00 | ECHOD_ITS ---
Reason For Study: MURMUR Procedure This was a 2D Doppler, Color Flow transthoracic echocardiogram. Exam performed in department. Left Ventricle Normal LV size. Left ventricular systolic function is normal. The left ventricular ejection fraction is 65 %. Stage 3 diastolic dysfunction. No regional wall motion abnormalities noted. Right Ventricle Normal RV size. Normal systolic function. Atria Normal left atrium. Normal right atrium. Mitral Valve Bileaflet diffuse mitral valve thickening. Mild (1+) eccentric mitral valve insufficiency. Tricuspid Valve Normal tricuspid valve. Mild (1+) tricuspid valve insufficiency. Pulmonary artery systolic pressure is 36 mmHg. Aortic Valve Trisinus/trileaflet aortic valve. Moderate focal aortic valve calcification. Mild (1+) aortic valve insufficiency. Great Vessels Normal aortic root. The pulmonary artery is normal size. Inferior vena cava collapse with respiration. Pericardium/Pleural No pericardial effusion. MMode/2D Measurements & Calculations LVIDd: 4.2 cm IVSd: 0.76 cm LVOT diam: 1.7 cm LVIDs: 2.4 cm LVPWd: 0.87 cm LVOT area: 2.4 cm2 RVDd: 2.9 cm FS: 42.9 % _ Ao root diam: 2.5 cm LAV(MOD-bp): 39.9 ml LVAd ap4: 21.3 cm2 LAV(MOD-bp) Indexed: 25.3 ml/m2 LVLd ap4: 6.3 cm LAV(MOD-sp2): 36.0 ml EDV(MOD- sp4): 57.7 ml LAV(MOD-sp4): 39.5 ml EDV(sp4- el): 60.9 ml LVAs ap4: 10.1 cm2 LVLs ap4: 5.0 cm ESV(MOD- sp4): 16.9 ml ESV(sp4- el): 17.3 ml EF(MOD- sp4): 70.7 % EF(sp4- el): 71.6 % _ SV(MOD-sp4): 40.8 ml SV(sp4-el): 43.6 ml LA A4 area: 16.5 cm2 SI(MOD-sp4): 25.9 ml/m2 _ LA dimension(2D): 3.9 cm RA A4 area: 13.5 cm2 TAPSE: 2.0 cm Time Measurements MV dec time: 0.24 sec Doppler Measurements & Calculations MV E max mayank: 126.4 cm/sec Lat Peak E' Mayank: 6.9 cm/sec Med Peak E' Mayank: 7.3 cm/sec MV A max mayank: 48.0 cm/sec E/E' lat: 18.4 E/E' med: 17.3 MV E/A: 2.6 _ Ao V2 max: 205.1 cm/sec AI max mayank: 356.9 cm/sec LV V1 max: 99.1 cm/sec Ao max P.8 mmHg AI max P.9 mmHg LV V1 max P.9 mmHg Ao V2 mean: 145.0 cm/sec LV V1 mean P.0 mmHg Ao mean P.3 mmHg AI dec slope: 183.7 cm/sec2 LV V1 mean: 66.2 cm/sec Ao V2 VTI: 52.0 cm AI P1/2t: 569.1 msec LV V1 VTI: 23.9 cm AV (velocity ratio): 0.46 GABRIEL(I,D): 1.1 cm2 GABRIEL(V,D): 1.1 cm2 _ SV(LVOT): 56.5 ml PA V2 max: 95.8 cm/sec TR max mayank: 283.8 cm/sec TR max P.2 mmHg ECHO/Echo Complete Interpretation Summary Normal LV size. Left ventricular systolic function is normal. Moderate focal aortic valve calcification. The left ventricular ejection fraction is 65 %. Stage 3 diastolic dysfunction. Mild (1+) aortic valve insufficiency. Ordering Physician: Court Anderson Referring Physician: CYRUS QUICK Performed By: Catherine Marcelo RDCS
--- NOTE | 2024-07-15 16:27 | STRESSREP ---
Stress Test Report Exercise myocardial perfusion stress test. 78-year-old lady with a history of chest discomfort Stress protocol: Resting EKG demonstrates sinus bradycardia 50bpm resting blood pressure is 164/78 mmHg. The patient exercised according to the regular Ramos protocol for a total duration of 4 minutes attaining a maximum heart rate of 125 bpm which was 88% of maximum predicted heart rate; the maximum workload was 6.9 metabolic equivalents. At rest there were no ST or T wave changes noted to suggest ischemia and at peak exercise approximately [address] depression were noted in lead aVF, V5 and V6 suggestive but not diagnostic of ischemia. No clinical angina was noted the test was terminated due to target heart rate achieved and fatigue. The peak blood pressure was 164/78 with a rate-pressure product of 15,200 Myocardial perfusion protocol. 12 mCi of technetium 99m sestamibi was injected at rest. The patient exercised according to regular Ramos protocol for total duration of 4 minutes and at peak exercise 36 mCi of technetium 99m sestamibi was injected stress images were obtained stress and rest images were reconstructed in comparing the short axis vertical long and horizontal long axis. Gated images were also obtained. Perfusion SPECT analysis: Review of the stress images demonstrate normal uptake of tracer noted in all areas of the myocardium. The resting images similarly demonstrate normal uptake of tracer noted in all areas of the myocardium. No areas of reversibility are noted to suggest ischemia no previous infarct was noted. Gated SPECT analysis: The gated ejection fraction is over 80%. Conclusion: Normal exercise myocardial perfusion stress test at a low to moderate workload Preserved ejection fraction. Nondiagnostic EKG findings
== END | disposition home or self-care (01) ==
PROVIDERS: PCP Nurse Practitioner Family; Referring Provider Physician Assistant Medical; Visit Provider Physician Assistant Medical
DX: R09.89 Other specified symptoms and signs involving the circulatory and respiratory systems (principal); I25.10 Atherosclerotic heart disease of native coronary artery without angina pectoris; I65.21 Occlusion and stenosis of right carotid artery; R01.1 Cardiac murmur, unspecified
CPT/HCPCS: 78452; 93017; 93306; 93880; A9500; A4216

== ENCOUNTER → 2024-11-04 | Outpatient (CLI) | payer MEDICARE, OTHER, SELFPAY | END | disposition home or self-care (01) | LOC: LABSPEC 14:59 | PROVIDERS: PCP Nurse Practitioner Family; Referring Provider Nurse Practitioner Family; Visit Provider Nurse Practitioner Family | DX: R05.9 Cough, unspecified (principal) ==

== ENCOUNTER → 2024-11-17 | Outpatient (CLI) | payer MEDICARE, OTHER, SELFPAY ==
--- OUTSIDE RECORDS SUMMARY | 2024-11-17 07:45 | XMS RPT_ITS | CCD ---
Author Organization [facility]ini[facility] Care Team Providers Care Tankage Supervisor Name Role Phone MD Roland, Wild S Unavailable Uzma Miner Y Unavailable Unavailable AUREA, IVAN B Unavailable Unavailable CHESTER, BALJEET Unavailable Unavailable ABUQAYYAS, CARLOS Unavailable Unavailable AUREA, IVAN Unavailable Unavailable ABUQAYYAS, CALROS Unavailable Unavailable CHESTER, BALJEET Unavailable Unavailable Jeff James (Rust) Primary Care Provider GONZÁLEZ CHARLES - CYRUS CANDELARIO Primary Care Phys ician MD Roland, Wild S Unavailable Uzma Miner Unavailable Unavailable Uriel RN, Court Rudd Unavailable [phone] Anita Christianson Unavailable Unavailable Anita Christianson Unavailable Unavailable González PIN CLEANER, PIN CLEANER-C Cyrus Mendieta Primary Care Pr ovider González PIN CLEANER, PIN CLEANER-C Cyrus Mendieta Referring Provi heather Monica MARTÍNEZ, PA Court Parson Attending Provider CYRUS CLAUDIO CNP Primary Care Unavaila ble GONZÁLEZ MALLIKA, CYRUS Higgins Attending Unavaila ble GONZÁLEZ MALLIKA, CYRUS Higgins Primary Care Unavaila ble GONZÁLEZ MALLIKA, CYRUS Higgins Attending Unavaila ble GONZÁLEZ MALLIKA, CYRUS Higgins Primary Care Unavaila ble GONZÁLEZ MALLIKA, CYRUS Higgins Attending Unavaila ble GONZÁLEZ MALLIKA, CYRUS Higgins Attending Unavaila ble GONZÁLEZ MALLIKA, CYRUS Higgins Primary Care Unavaila ble González PIN CLEANER, PIN CLEANER-C Cyrus Mendieta Primary Care Pr ovider Dr. Grant Beyer Attending Provider GONZÁLEZ GRANADOSN - LEAD IOS DEVELOPER, CYRUS Higgins Attending U navailable GONZÁLEZ CARPENTER MOLD - LEAD IOS DEVELOPER, CYRUS Higgins Primary Care U navailable GONZÁLEZ CARPENTER MOLD - LEAD IOS DEVELOPER, CYRUS Higgins Primary Care U navkristal WATKINS MD, MR ROME S Attending Unavailable González PIN CLEANER-C, Cyrus Mendieta Primary [facility] Provi heather Monica MARTÍNEZ, Court Parson Attending Provider [phone] Monica MARTÍNEZ, Court Parson Referring Provider Kayleen BARR, Dr. Burns Attending Provider [phone] Roland BARR, Dr. Rome Attending Provider Todd PIN CLEANER-C, Cyrus Mendieta Referring Provider Matthew PIN CLEANER-C, Sandy Parson Attending Provider Veraer PIN CLEANER-C, Sandy Parson Referring Provider Todd PIN CLEANER, Cyrus Mendieta Referring Unav ailable González PIN CLEANER, [facility] Primary Care Unav ailable Court Rachel Attending Unavail able Todd PIN CLEANER, Cyrus Mendieta Primary Care Unav ailable Court Rachel Referring Unavail able Monica MARTÍNEZ, Court Parson Attending Unavail able Sandy Castro Attending Unavailable González PIN CLEANER, Cyrus Anam Primary [facility] Unav ailable RuSandy bragg Referring Unavailable RufenerSandy Referring Unavailable RufenSandy cho Attending Unavailable González PIN CLEANER, Cyrus Mendieta Primary Care Unav ailable Sandy Castro Attending Unavailable González PIN CLEANER, Cyrus Anam Primary Care Unav ailable RufenerSandy Referring Unavailable Todd PIN CLEANER, Cyrus Anam Primary Care Unav ailable Grant Beyer Attending Unavailable Monica MARTÍNEZ, Court Parson Referring Unavail able González PIN CLEANER, Cyrus Mendieta Primary [facility] Unav ailable Wild Watkins Attending Unavailable RuSandy bragg Attending Unavailable González PIN CLEANER, Cyrus Mendieta Referring Unav ailable González PIN CLEANER, Cyrus Anam Primary [facility] Unav ailable Allergies Allergy Classification Reported Allergen(s) Allergy Type Date of Onset Reaction(s) Facility (5 sources) acetaminophen / HYDROcodone; Translations: [HYDROCODONE-ACET AMINOPHEN] Drug Allergy 1 GI Upset [facility] Repository (5 sources) morphine; Translations: [MORPHINE] Drug Allergy 1 GI Upset [facility] Repository (5 sources) Acetaminophen / HYDROcodone; Translations: [acetaminophen-hy drocodone] Drug Allergy Vomiting (disorder) [facility] (4 sources) Lisinopril Drug Allergy 2 cough [facility] (1 source) PAIN MEDICATION Propensity to adverse reactions 2 Nausea [facility] Work Phone: (3 sources) Opioids - Morphine Analogues Allergy to substance 3 Nausea [facility] (1 source) Lisinopril Drug Allergy 5 [facility] Repository (1 source) Opioids - Morphine Analogues Drug allergy (disorder) 5 [facility] Repository Medications Current Medications Medication Drug Class(es) Dates Sig (Normalized) Sig (Original) Aspirin (20 sources) Platelet Aggregation Inhibitor, Nonsteroidal Anti-inflammatory Drug Start: 01-17-2022 aspirin 0 Refill(s) Start Date: 01/17/22 Status: Ordered Start: 04-10-2017 take 1 tablet by bridger th once daily Aspirin 81 MG tablet,chewable Active 81 mg PO DAILY April 10, 2017 12:00am Start: 10-25-2010 take 1 tablet by bridger th once daily ASPIRIN 81 MG TABS One tablet by mouth daily Enteric coated ASPIRIN [id number] Shelly Cruz Start: 10-25-2010 take 1 tablet by bridger th once daily aspirin, enteric coated (ADULT LOW DOSE ASPIRIN) 81 mg EC tablet Take 1 tablet by mouth once daily. 30 tablet 0 04/16/2017 Active Comment on above: Take 1 tablet by bridger th once daily. atenolol 25 mg oral tablet (20 sources) beta-Adrenergic Rick Start: 05-07-2022 End: 06-20-2024 take 1 tablet by mouth once daily Atenolol 25 mg tablet Active 25 mg PO DAILY June 20, 2024 10:37am Start: 04-16-2017 take 1 tablet by bridger th once daily atenolol (TENORMIN) 25 mg tablet Take 1 tablet by mouth once daily. 30 tablet 0 04/16/2017 Active Start: 10-25-2010 End: 05-07-2022 take 1 tablet by mouth once daily Atenolol 50 mg tablet Discontinued 50 mg PO DAILY March 27, 2021 5:05pm May 07, 2022 3:12pm Comment on above: Take 1 tablet by bridger th once daily. Azithromycin (3 sources) Macrolide Antimicrobial Start: 05-17-2021 AZITHROMYCIN 250 MG TABLET AZITHROMYCIN 250 MG TABLET, 0 Refill(s), 67.9 Start Date: 05/17/21 Status: Ordered Start: 05-17-2021 AZITHROMYCIN 2 50 MG TABLET AZITHROMYCIN 250 MG TABLET, See Instructions, Take per package instructions, 0 Refill(s), 67.9 Start Date: 05/17/21 Status: Ordered Start: 05-17-2021 AZITHROMYCIN 2 50MG TAB AZITHROMYCIN 250MG TAB, 0 Refill(s), 67.9 Start Date: 05/17/21 Status: Ordered cetirizine hydrochloride 10 mg oral tablet (1 source) Histamine-1 Receptor Antagonist Start: 11-04-2024 take 1 tablet by mouth once daily Cetirizine 10 mg tablet Active 10 mg PO daily November 04, 2024 12:00am Folic Acid (20 sources) Start: 01-17-2022 folic acid qDa y, 0 Refill(s) Start Date: 01/17/22 Status: Ordered Start: 10-25-2010 End: 09-20-2015 take 1 tablet by mouth once daily FOLIC ACID TABS (0.4Mg) One tablet by mouth daily FOLIC ACID TABS [id number] Wild Watkins MD 12 hr guaiFENesin 600 mg extended release oral tablet (1 source) Start: 03-03-2022 End: 03-13-2022 guaiFENesin 600 mg oral tablet, extended release Dose : 600 mg = 1 tab(s), Oral, q12h, X 10 day(s), # 20 tab(s), 0 Refill(s), 03/13/22 16:23:00 EDT, Pharmacy: [facility]/pharmacy #[id number], Chronic cough, 150.5, cm, 03/03/22 15:46:00 EDT, Height Start Date: 03/03/22 Stop Date: 03/13/22 Status: Ordered hydroCHLOROthiazide 25 mg oral tablet (20 sources) Thiazide Diuretic Start: 05-10-2014 End: 09-21-2024 take 1 tablet by mouth once daily Hydrochlorothiazide 25 mg tablet Active 25 mg PO DAILY September 21, 2024 11:19am Start: 05-10-2014 HYDROCHLOROTHI AZIDE 25 MG TABS 05/25/2014 HOLD for 1 week while taking Lasix 40 mg daily, then resume HYDROCHLOROTHIAZIDE [id number] Viridiana Pratt RN Start: 10-25-2010 End: 06-28-2013 take 1 tablet by mouth once daily hydroCHLOROthiazide (HYDRODIURIL, ESIDRIX) 25 mg tablet Take 1 tablet by mouth once daily. 30 tablet 0 04/16/2017 Active Comment on above: Take 1 tablet by bridger th once daily. levothyroxine sodium 0.025 mg oral tablet (20 sources) l-Thyroxine Start: 01-17-2022 End: 07-16-2022 levothyroxine 25 mcg (0.025 mg) oral tablet Dose : 25 mcg = 1 tab(s), Oral, qDay, # 90 tab(s), 1 Refill(s), Pharmacy: [facility]/pharmacy #[id number], Hypothyroidism, 150.5, cm, 01/17/22 13:52:00 EDT, Height Start Date: 01/17/22 Stop Date: 07/16/22 Status: Ordered Start: 08-20-2011 End: 06-28-2013 take 1 tablet by mouth once daily LEVOTHROID 50 MCG TABS One tablet by mouth daily LEVOTHYROXINE SODIUM [id number] Wild Watkins MD Start: 08-20-2011 take 1 tablet by bridger th once daily LEVOTHROID 50 MCG TABS One tablet by mouth daily LEVOTHYROXINE SODIUM [id number] Viridiana Pratt RN Start: 08-20-2011 take 1 tablet by bridger th once daily LEVOTHROID 50 MCG TABS One tablet by mouth daily LEVOTHYROXINE SODIUM [id number] Viridiana Pratt RN Start: 08-20-2011 End: 06-28-2013 take 1 tablet by mouth once daily LEVOTHROID 50 MCG TABS One tablet by mouth daily LEVOTHYROXINE SODIUM [id number] Wild Watkins MD Start: 10-25-2010 take 1 tablet by bridger th once daily LEVOTHYROXINE SODIUM 25 MCG TABS One tablet by mouth daily LEVOTHYROXINE SODIUM [id number] Shelly Solange Anthony meclizine hydrochloride 12.5 mg oral tablet (1 source) Antiemetic Start: 12-06-2019 take 1 tablet by mouth three times daily as needed for dizziness meclizine 12.5 mg oral tablet TAKE 1 TABLET BY MOUTH THREE TIMES A DAY NEEDED FOR DIZZINESS Start Date: 12/06/19 Status: Ordered nitroglycerin 0.4 mg sublingual tablet (20 sources) Nitrate Vasodilator Start: 01-13-2022 End: 06-26-2023 Nitroglycerin (Nitrostat) 0.4 mg tablet, sublingual Active 0.4 mg SL every 5 to 15 minutes as needed for chest pain June 26, 2023 4:02pm Start: 11-02-2017 End: 01-13-2022 Nitroglycerin (Nitrostat) 0. 4 mg tablet, sublingual Discontinued 0.4 mg SL Q5M as needed for chest pain August 12, 2018 12:29pm January 13, 2022 1:49pm Start: 11-02-2017 End: 01-13-2022 Nitroglycerin (Nitrostat) 0. 4 mg tablet, sublingual Discontinued 0.4 MG SL Q5M August 12, 2018 11:29am January 13, 2022 12:49pm Start: 10-25-2010 NITROLINGUAL 0 .4 MG/SPRAY SOLN 1 spray under tongue every 5min up to 3 X NITROGLYCERIN [id number] Wild Watkins MD Start: 10-25-2010 NITROSTAT 0.4 MG SUBL 1 tablet under tongue every 5 min up to 3 X NITROGLYCERIN [id number] KINGS MendezC ondansetron 4 mg disintegrating oral tablet (3 sources) Serotonin-3 Receptor Antagonist Start: 02-02-2023 take 1 tablet by mouth every eight hours as needed for nausea Ondansetron 4 mg tablet,disintegrating Active 4 mg PO EVERY 8 HOURS NEEDED as needed for Nausea February 02, 2023 12:00am pantoprazole 40 mg delayed release oral tablet (1 source) Proton Pump Inhibitor Start: 03-20-2022 pantoprazole 40 mg oral enteric coated tablet Dose : 40 mg = 1 tab(s), Oral, qDayAC, Discontinue Omeprazole, # 30 tab(s), 2 Refill(s), Pharmacy: [facility]/pharmacy #[id number], 151, cm, 03/20/22 13:30:00 EDT, Height Start Date: 03/20/22 Status: Ordered Spiriva Respimat 60 ACT 2.5 mcg/inh inhalation aerosol (1 source) Start: 05-17-2021 End: 07-16-2021 take 2 puff(s) by inhalation once daily Spiriva Respimat 60 ACT 2.5 mcg/inh inhalation aerosol 2 puff(s), Inhalation, qDay, # 1 EA, 1 Refill(s), Pharmacy: [facility]/pharmacy #[id number], 151, cm, 04/23/21 10:51:00 EST, Height, kg, 04/23/21 10:51:00 EST, Dosing Weight Start Date: 05/17/21 Stop Date: 07/16/21 Status: Ordered Symbicort 160 mcg-4.5 mcg/inh Inhaler (1 source) Start: 03-03-2022 End: 05-02-2022 take 1 dose by inhalation twice daily Symbicort 160 mcg-4.5 mcg/inh Inhaler Dose = 2 puff(s), Inhalation, BID, # 1 EA, 1 Refill(s), Pharmacy: [facility]/pharmacy #[id number], Chronic cough Seasonal allergies, 150.5, cm, 03/03/22 15:46:00 EDT, Height Start Date: 03/03/22 Stop Date: 05/02/22 Status: Ordered Completed/Discontinued Medications Medication Drug Class(es) Dates Sig (Normalized) Sig (Original) [id number] 200 actuat albuterol 0.09 mg/actuat metered dose inhaler (7 sources) beta2-Adrenergic Agonist Start: 07-02-2021 End: 01-28-2022 take 1 puff(s) by inhalation every four hours Proventil HFA MDI (90 mcg/inh) inhalation aerosol 1 puff(s), Inhalation, q4h, May substitute generic alternative or brand-name alternative if Proventil not on preferred status., # 6.7 gram(s), 6 Refill(s), Pharmacy: [facility]/pharmacy #[id number], Wheezing on auscultation Chronic cough, 151, cm, 07/02/21 14:27... Start Date: 07/02/21 Stop Date: 01/28/22 Status: Ordered Start: 05-07-2021 End: 01-13-2022 Albuterol Sulfate 90 mcg/act uation HFA aerosol inhaler Discontinued 1 NMA INHALATION Q8H as needed May 07, 2021 1:00am January 13, 2022 1:46pm Start: 05-07-2021 End: 01-13-2022 Albuterol Sulfate Discontinu ed 1 INH INHALATION Q8H May 07, 2021 12:00am January 13, 2022 12:46pm Start: 04-23-2021 End: 06-22-2021 take 1 puff(s) by inhalation every four hours Proventil HFA MDI (90 mcg/inh) inhalation aerosol 1 puff(s), Inhalation, q4h, May substitute generic alternative or brand-name alternative if Proventil not on preferred status., # 6.7 gram(s), 1 Refill(s), Pharmacy: [facility]/pharmacy #[id number], Wheezing on auscultation Chronic cough, 151, cm, 04/23/21 10:51... Start Date: 04/23/21 Stop Date: 06/22/21 Status: Ordered clopidogrel 75 mg oral tablet (20 sources) [id number] Platelet Inhibitor Start: 10-25-2010 End: 06-20-2024 take 1 tablet by mouth once daily Clopidogrel 75 mg tablet Discontinued 75 mg PO DAILY March 27, 2021 5:05pm May 07, 2022 3:12pm Comment on above: Take 75 mg by mouth once daily. estradiol 1 mg oral tablet (18 sources) Estrogen Start: 10-25-2010 End: 06-28-2013 take 1 tablet by mouth once daily ESTRADIOL 1 MG TABS One tablet by mouth daily ESTRADIOL [id number] Shelly Cruz furosemide 40 mg oral tablet (20 sources) Loop Diuretic Start: 05-25-2014 End: 09-12-2014 take 1 tablet by mouth once daily LASIX 40 MG TABS One tablet by mouth daily X 1 week FUROSEMIDE [id number] Wild Watkins MD ipratropium bromide 0.2 mg/ml inhalation solution (2 sources) Anticholinergic Start: 07-02-2021 End: 08-31-2021 take 1 dose by inhalation twice daily ipratropium 500 mcg/2.5 mL inhalation solution Dose : 500 mcg = 2.5 mL, Inhalation, BID, # 150 mL, 1 Refill(s), other reason (Rx), Chronic cough Start Date: 07/02/21 Stop Date: 08/31/21 Status: Ordered levocetirizine dihydrochloride 5 mg oral tablet (5 sources) Histamine-1 Receptor Antagonist Start: 10-12-2020 End: 01-13-2022 take 1 tablet by mouth at bedtime Levocetirizine 5 mg tablet Discontinued 5 mg PO AT BEDTIME May 07, 2021 1:00am January 13, 2022 1:47pm lisinopril 40 mg oral tablet (20 sources) Angiotensin Converting Enzyme Inhibitor Start: 10-25-2010 End: 02-13-2021 take 1 tablet by mouth once daily Lisinopril 40 mg tablet Discontinued 40 mg PO DAILY March 15, 2020 9:35am February 13, 2021 4:59pm Comment on above: Take 1 tablet by [facility] once daily. losartan potassium 50 mg oral tablet (19 sources) Angiotensin 2 Receptor Rick Start: 02-13-2021 End: 06-20-2024 take 1 tablet by mouth once daily Losartan 50 mg tablet Discontinued 50 mg PO DAILY March 26, 2022 1:22pm May 07, 2022 3:12pm medroxyPROGESTERone acetate 2.5 mg oral tablet (18 sources) Progestin Start: 10-25-2010 End: 12-01-2012 take 1 tablet by mouth once daily PROVERA 2.5 MG TABS One tablet by mouth daily MEDROXYPROGESTERONE ACETATE [id number] Shelly Cruz montelukast 10 mg oral tablet (5 sources) Leukotriene Receptor Antagonist Start: 10-12-2020 End: 01-13-2022 take 1 tablet by mouth once daily Montelukast 10 mg tablet Discontinued 10 mg PO DAILY May 07, 2021 1:00am January 13, 2022 1:47pm Nasacort Allergy 24HR 55 mcg/inh nasal spray (1 source) Start: 10-12-2020 End: 05-10-2021 take 1 dose nasal route once daily Nasacort Allergy 24HR 55 mcg/inh nasal spray Dose = 2 spray(s), Nostril, each, qDay, # 10 mL, 6 Refill(s), Pharmacy: [facility]/pharmacy #[id number], Seasonal allergies, 151, cm, 10/12/20 10:48:00 EDT, Height, kg, 10/12/20 10:48:00 EDT, Dosing Weight Start Date: 10/12/20 Stop Date: 05/10/21 Status: Ordered rosuvastatin calcium 20 mg oral tablet (20 sources) HMG-CoA Reductase Inhibitor Start: 10-25-2010 End: 06-28-2013 take 1 tablet by mouth once daily CRESTOR 20 MG TABS One tablet by mouth daily ROSUVASTATIN CALCIUM [id number] Wild Watkins MD simvastatin 40 mg oral tablet (20 sources) HMG-CoA Reductase Inhibitor Start: 06-28-2013 End: 06-20-2024 take 1 tablet by mouth once daily Simvastatin 40 mg tablet Discontinued 40 mg PO DAILY March 27, 2021 5:05pm May 07, 2022 3:12pm take 1 tablet by bridger th once daily at bedtime simvastatin (ZOCOR) 20 mg tablet Take 20 mg by mouth daily at bedtime. 0 Active Comment on above: Take 20 mg by mouth daily at bedtime. Problems Active Problems Problem Classification Problem Date Documented Date Episodic/Chronic Acute bronchitis (4 sources) Acute bronchitis, unspecified; Translations: [Acute bronchitis] Onset: 05-27-2024 Episodic Asthma (4 sources) Other asthma; Translations: [Seasonal asthma] Onset: 05-27-2024 Chronic Bacterial infection; unspecified site (4 sources) Pertussis; Translations: [Whooping cough, unspecified species without pneumonia] 05-07-2021 Episodic Biliary tract disease (1 source) Disease of biliary tract, unspecified; Translations: [Disease of biliary tract, unspecified] Onset: 04-11-2017 Chronic Congestive heart failure; nonhypertensive (20 sources) Chronic diastolic (congestive) heart failure; Translations: [Congestive heart failure] Onset: 05-10-2014 04-18-2016 Chronic Comment on above: 05/03/2021 Echocardi ogram SUMMARY: 1. Normal LV size. 2. Left ventricular systolic function is normal. 3. The estimated ejection fraction is 60%. 4. Stage I diastolic dysfunction. Coronary atherosclerosis and other heart disease (20 sources) Coronary atherosclerosis; Translations: [Coronary arteriosclerosis] Onset: 10-25-2010 Resolved: 09-14-2015 09-14-2015 Chronic Diabetes mellitus without complication (4 sources) Impaired fasting glycemia 01-17-2022 Episodic Disorders of lipid metabolism (20 sources) Hyperlipidemia; Translations: [Hyperlipidemia, unspecified] Onset: 10-25-2010 10-25-2010 Chronic Esophageal disorders (3 sources) Esophageal dysmotility 03-20-2022 Chronic Comment on above: (03/11/2022 09:04 ED T XR Upper GI) FINDINGS: The swallowing mechanism is fluoroscopically normal. The cervical esophagus shows no obvious fixed narrowing or diverticulum. The thoracic esophagus shows normal distensibility and mucosal pattern. No fixed narrowing, mass or ulceration is seen. There is mild to moderate esophageal dysmotility with tertiary contractions and holdup of barium in the esophagus that is more prominent in the recumbent position. The GE junction is normal with no obvious hiatal hernia. No significant gastroesophageal reflux is seen. The stomach shows normal mucosal fold pattern. Gastric coating and distension is less than optimal but there is no obvious ulceration, mass or diverticulum. The duodenal bulb and C-loop are also unremarkable. Gastric emptying is prompt. IMPRESSION: 1. Mild to moderate esophageal dysmotility. 2. No other significant abnormality. Essential hypertension (20 sources) Hypertensive disorder; Translations: [Essential (primary) hypertension] Onset: 10-25-2010 10-25-2010 Chronic Comment on above: 05/03/2021 Echocardi ogram SUMMARY: 1. Normal LV size. 2. Left ventricular systolic function is normal. 3. The estimated ejection fraction is 60%. 4. Stage I diastolic dysfunction. Fluid and electrolyte disorders (2 sources) Hyperosmolality and hypernatremia; Translations: [Hyperosmolality and hypernatremia] Onset: 05-27-2024 Episodic Occlusion or stenosis of precerebral arteries (13 sources) Disorder of carotid artery; Translations: [Occlusion and stenosis of unspecified carotid artery] Onset: 12-28-2013 12-28-2013 Chronic Comment on above: bilateral CEA 2009; Moderate (50-69%) stenosis right extracranial internal carotid. Moderate (50-69%) stenosis leftextracranial internal carotid. Flow within the vertebral arteries is antegrade bilaterally. U/S 08/2019 Other circulatory disease (1 source) Disorder of arteries and arterioles, unspecified; Translations: [Disorder of arteries and arterioles, unspecified] Onset: 06-28-2024 Chronic Other circulatory disease (13 sources) Carotid bruit; Translations: [Other specified symptoms and signs involving the circulatory and respiratory systems] Onset: 10-25-2010 10-25-2010 Episodic Other connective tissue disease (3 sources) Cramp in lower limb; Translations: [Cramp and spasm] 05-29-2023 Episodic Other lower respiratory disease (5 sources) Cough; Translations: [Cough] 05-06-2021 Episodic Other lower respiratory disease (4 sources) Chronic cough 03-03-2022 Episodic Comment on above: Chest x-ray results: 04/23/2021 FINDINGS: The lungs are clear and expanded. Chronically coarsened lung markings. There is no demonstrated pleural abnormality. Normal-sized heart. Normal mediastinum and ele. Normal visualized pulmonary arteries. There is arthrosclerotic calcification of the aortic arch with tortuosity. Calcified abdominal aorta. IMPRESSION: 1. No acute abnormal cardiopulmonary findings. 2. Chronically coarsened lung markings. Other nervous system disorders (3 sources) Cold feet; Translations: [Unspecified disturbances of skin sensation] 05-29-2023 Episodic Other upper respiratory disease (5 sources) Seasonal allergy 09-08-2019 Chronic Peripheral and visceral atherosclerosis (20 sources) Renal artery stenosis; Translations: [Peripheral vascular disease] Onset: 10-25-2010 03-15-2015 Chronic Residual codes; unclassified (5 sources) Increased body mass index 10-02-2020 Episodic Residual codes; unclassified (5 sources) Postmenopausal state 10-02-2020 Episodic Residual codes; unclassified (4 sources) Chronic back pain 07-02-2021 Episodic Residual codes; unclassified (4 sources) Past history of procedure 07-02-2021 Episodic Comment on above: PFT RESULTS: 05/2021 FINDINGS: FVC normal at 81, FEV1 is reduced to 79, FEV1/FVC is normal at 97. There is no significant bronchodilator response. TLC is normal at 83, RV is normal at 86 and RV/TLC is elevated at 48. DLCO reduced at 72. IMPRESSION: Normal spirometry, lung volumes demonstrate air trapping and mildly reduced DLCO may indicate impaired gas exchange. Thyroid disorders (6 sources) Hypothyroidism; Translations: [Hypothyroidism, unspecified] Onset: 04-10-2022 01-17-2022 Chronic Unclassified (3 sources) Placement of stent in coronary artery ; Translations: [Presence of coronary angioplasty implant and graft] Onset: 10-25-2010 09-20-2015 Unclassified (3 sources) Long-term drug therapy; Translations: [Other fdc (current) drug therapy] Onset: 10-25-2010 10-25-2010 Unclassified (1 source) Unknown / UNK(Unknown) Onset: 04-11-2017 Unclassified (5 sources) Patient encounter status 10-02-2020 Unclassified (1 source) Other specified cough; Translations: [Other specified cough] Onset: 05-27-2024 Unclassified (2 sources) Cough, unspecified; Translations: [Cough, unspecified] Onset: 11-09-2024 Past or Other Problems Problem Classification Problem Date Documented Da te Episodic/Chronic Abdominal pain (1 source) Generalized abdominal pain; Translations: [Generalized abdominal pain] Onset: 04-11-2017 Episodic Cardiac dysrhythmias (13 sources) Palpitations; Translations: [Palpitations] Onset: 06-28-2024 Episodic Coronary atherosclerosis and other heart disease (9 sources) Coronary angioplasty status; Translations: [Percutaneous transluminal coronary angioplasty status] Onset: 10-25-2010 10-25-2010 Episodic Gastrointestinal hemorrhage (2 sources) Melena; Translations: [Hemorrhage of anus and rectum] Onset: 04-11-2017 Episodic Heart valve disorders (4 sources) Heart murmur; Translations: [Cardiac murmur, unspecified] Onset: 06-28-2024 12-02-2022 Episodic Comment on above: 05/03/2021 ECHOCARDI OGRAM: IMPRESSION: 1. Normal LV size. 2. Left ventricular systolic function is normal. 3. The estimated ejection fraction is 60%. 4. Stage I diastolic dysfunction. Noninfectious gastroenteritis (1 source) Noninfective gastroenteritis and colitis, unspecified; Translations: [Noninfective gastroenteritis and colitis, unspecified] Onset: 04-11-2017 Episodic Other aftercare (6 sources) Long-term drug therapy; Translations: [Other intermediate manager (current) drug therapy] Onset: 10-25-2010 10-25-2010 Episodic Other circulatory disease (1 source) Other specified symptoms and signs involving the circulatory and respiratory systems; Translations: [Other specified symptoms and signs involving the circulatory and respiratory systems] Onset: 07-31-2024 Episodic Other gastrointestinal disorders (1 source) Diarrhea, unspecified; Translations: [Diarrhea, unspecified] Onset: 04-11-2017 Episodic Other lower respiratory disease (18 sources) Dyspnea; Translations: [Shortness of breath] Onset: 05-10-2014 Resolved: 09-14-2015 09-14-2015 Episodic Residual codes; unclassified (12 sources) Family history of stroke; Translations: [FH: Hypertension] 06-14-2014 Episodic Residual codes; unclassified (6 sources) FH: Hypertension; Translations: [Family history of ischemic heart disease and other diseases of the circulatory system] 06-14-2014 Episodic Unclassified (1 source) Diarrhea, unspecified Onset: 04-11-2017 Unclassified (1 source) Other specified cough; Translations: [Other specified cough] Onset: 05-27-2024 Results Test Name Value Interpretation Reference Range Facility Respiratory Cultureon 2024 RESPC Mixed normal respira tory sixto. No Haemophilus, Streptococcus pneumoniae, beta-hemolytic Streptococcus or Staphylococcus aureus isolated. Normal [facility] Comment on above: Performed By: #### M 100.2400, M1 #### [facility] [address] [place], [address] Gram Stainon 11-04-2024 GS Acceptable Specimen? Yes (<25 Epithelial cells per/lpf) Gram Stain 2+ Gram positive cocci Rare Epithelial cells 2+ Gram positive rods 2+ Gram negative rods No White Blood Cells Normal [facility] Comment on above: Performed By: #### M 100.2400, M1 #### [facility] [address] [place], [address] Pulmonary Visit Reporton Pulmonary Visit Report [facility] [place] [address] [place] [address] OFFICE VISIT Date of Service: 11/04/24 MR#: [id number] Acct: [id number] Name: BAUDILIO TORRES Rep #: [id number] : 1945 Provider: Sandy Castro NP Age/Sex: 79/F Location: [facility] [place].[facility] Status: Signed Assessment and Plan Assessment and Plan (1) Cough: Status: Chronic Qualifiers: Cough type: unspecified Qualified Code(s): R05.9 - Cough, unspecified Plan: Chronic cough for at least 2 years and the differential diagnosis does include asthma versus GERD as I am not convinced that she trialed complete PPI regimen. Also in the differential is use of losartan as there is a 29% incidence of cough with this medication. Her NIOX is not elevated today but this test is only specific for a certain asthma phenotype. I have recommended repeating the PFT to obtain objective data as the previous one did suggest small airway disease. I have also recommended a chest CT at this time due to history of workplace exposure as interstitial lung disease could also be in the differential for cough. A sputum for smear and culture will also be sent today. The patient is agreeable to this testing. I have recommended that she follow-up in the next 8 weeks to discuss the results. Orders: Orders NIOX Today R05.9 - Cough, unspecified PFT Complete - DLCO, Spirometry b/a bronchodilators, lung volumes 11/17/24 R05.9 - Cough, unspecified Culture, Sputum Today R05.9 - Cough, unspecified Chest without Contrast Today R05.9 - Cough, unspecified Plan The patient is aware that her pulmonary artery pressure is elevated on her recent echocardiogram, likely from diastolic heart failure. I will be looking for correlation on testing including a reduced gas transfer on the PFT and enlarged pulmonary artery on the CT to determine if further workup is warranted for pulmonary hypertension. Plan Details Follow Up: 8 Weeks (LMR) HPI HPI Comments Details: Patient is an 79-year-old female who presents today for evaluation of cough. She is ambulatory currently on room air. She is being referred by Patrice Cuba, PCP. The patient reports that her cough has been present for 2 years. She was evaluated by her PCP in March 2024 for acute bronchitis and a PA and lateral chest x-ray has been performed along with lab work. She has a history of seasonal asthma she does have Airsupra available to be used 2 inhalations twice daily as needed. She has Proventil HFA to be used 1 puff every 4 hours as needed. She did use Zyrtec 10 mg consistently with Singulair for at least 6 weeks and there was no benefit in regards to cough. She has stopped using Zyrtec now.. She will also use montelukast 10 mg daily, ipratropium inhalation solution nebulized 2 times daily as needed. She also uses nasal saline spray and [place] pot. She will use honey and honey and vinegar. She has attempted OTC nasal spray for her cough. She has used pantoprazole without success. She does not recall if she took this medication on an empty stomach or with food. She does recall taking it in the morning. She reports that she has no acid reflux symptoms. She reports that her cough is moist and productive with thin to moderate amount of sputum. After she sneezes she has temporary cough relief. She denies shortness of breath, wheeze, chest congestion. She denies chest pain and chest tightness. She feels like her left side of her nose is blocked and occasionally has nose dripping which is clear. She denies fatigue and pedal edema. She reports that she lives a very active lifestyle. She has used her husbands albuterol solution nebulized and this does help her cough. She reports that she underwent a thorough cardiac workup. An echocardiogram on July 15, 2024 which showed pulmonary artery systolic pressure of 36 mmHg, ejection fraction is 65% and stage III diastolic dysfunction. She has been on losartan since 2020. She was changed from lisinopril to losartan at that time. She did have pertussis in 2020. She is a lifetime non-smoker. 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 CBC from May 27, 2024 shows eosinophil count at 162. PFT from June 13, 2021 shows possible early obstructive pulmonary impairment suggested by the reduced FEF 25-75 with a normal FVC and FEV1. Finding can be due to a mild degree of a small airway disease and/or early stages of emphysema. Repeat testing following bronchodilator administration is recommended. There was no indication of a diffusion defect. NIOX 11ppb today. Intake Vital Signs 06/28/24 13:34 11/04/24 08:32 Height 4 ft 11 in 4 ft 11 in Weight: 146 lb BMI 29.5 BP 175/89 H Position Sitting Respiration 16 Pulse 86 Pulse Source Doppler Temp 97.8 F Temperature Source Temporal Artery (more content not included)... Normal [facility] Carotid Duplex Ultrasoundon 07-15-2024 Carotid Duplex Ultrasound [facility] [address] [place] [address] Carotid Duplex Ultrasound 07/15/24 1014 MR#: [id number] Acct: [id number] Name: BAUDILIO TORRES Rep #: [id number] : 1945 78 From: Grant Beyer MD Attending Dr: TANYA Mendez Status: REG CLI Ordering Dr: Court Anderson PA Date: 06/17 07/09 Location: [facility] Sex: F C Admitted: Reason For Study: Carotid Bruit Rt. Velocities/BP Lt. Velocities/BP Prox CCA 55/11 cm/sec. Prox CCA 83/15 cm/sec. Mid CCA 64/14 cm/sec. Mid CCA 83/14 cm/sec. Dist CCA 50/13 cm/sec. Dist CCA 69/14 cm/sec. Prox ICA 120/23 cm/sec. Prox ICA 92/18 cm/sec. Mid ICA 147/36 cm/sec. Mid ICA 101/24 cm/sec. Dist ICA 118/25 cm/sec. Dist ICA 101/25 cm/sec. Rt. ICA/CCA = 2.3. Lt. ICA/CCA = 1.2. Prox ECA 169/3 cm/sec. Prox ECA 83/7 cm/sec. Rt. Vert. 61/14 cm/sec. Lt. Vert. 53/12 cm/sec. Right Extracranial There is heterogeneous, irregular atherosclerotic plaque noted in the right common carotid artery. There is heterogeneous, irregular atherosclerotic plaque noted in the right internal carotid artery. The right internal carotid artery is very tortuous. There is intimal thickening but no significant atherosclerotic plaque noted in the right external carotid artery. Antegrade flow is noted in the right vertebral artery. Left Extracranial There is heterogeneous, irregular atherosclerotic plaque noted in the left common carotid artery. There is intimal thickening but no significant atherosclerotic plaque noted in the left internal carotid artery. There is homogeneous, smooth atherosclerotic plaque noted in the left external carotid artery. Antegrade flow is noted in the left vertebral artery. Procedure Carotid Duplex 25396. This is a Carotid Duplex examination using B-mode, color flow and specral Doppler. Exam performed in department. VL/Carotid Duplex Ultrasound Interpretation Summary Moderate (50-69%) stenosis right extracranial internal carotid. Normal left extracranial internal carotid. Patent and antegrade vertebrals bilaterally. Ordering Physician: Court Anderson Referring Physician: Cyrus Claudio Performed By: Alicia Fonseca, RDCS, RVT 07/18/24 1145 Date Grant Beyer MD CC: PIN CLEANER-Erin Claudio; TANYA Mendez Date Dictated: 07/15/24 1014 Date Transcribed: 07/18/24 1145 Coat Tailor: Signed Normal [facility] Echo Completeon 07-15-2024 Echo Complete [facility] [address] [place] [address] Echo Complete 07/15/241014 MR#: [id number] Acct: [id number] Name: BAUDILIO TORRES Rep #: [id number] : 1945 78 From: Wild Watkins MD Attending Dr: TANYA Mendez Status: REG CLI Ordering Dr: Court Anderson Date: 06/17 07/09 Location: [facility] Sex: F C Admitted: Reason For Study: MURMUR Procedure This was a 2D Doppler, Color Flow transthoracic echocardiogram. Exam performed in department. Left Ventricle Normal LV size. Left ventricular systolic function is normal. The left ventricular ejection fraction is 65 %. Stage 3 diastolic dysfunction. No regional wall motion abnormalities noted. Right Ventricle Normal RV size. Normal systolic function. Atria Normal left atrium. Normal right atrium. Mitral Valve Bileaflet diffuse mitral valve thickening. Mild (1+) eccentric mitral valve insufficiency. Tricuspid Valve Normal tricuspid valve. Mild (1+) tricuspid valve insufficiency. Pulmonary artery systolic pressure is 36 mmHg. Aortic Valve Trisinus/trileaflet aortic valve. Moderate focal aortic valve calcification. Mild (1+) aortic valve insufficiency. Great Vessels Normal aortic root. The pulmonary artery is normal size. Inferior vena cava collapse with respiration. Pericardium/Pleural No pericardial effusion. MMode/2D Measurements Calculations LVIDd: 4.2 cm IVSd: 0.76 cm LVOT diam: 1.7 cm LVIDs: 2.4 cm LVPWd: 0.87 cm LVOT area: 2.4 cm2 RVDd: 2.9 cm FS: 42.9 % Ao root diam: 2.5 cm LAV(MOD-bp): 39.9 ml LVAd ap4: 21.3 cm2 LAV(MOD-bp) Indexed: 25.3 ml/m2 LVLd ap4: 6.3 cm LAV(MOD-sp2): 36.0 ml EDV(MOD-sp4): 57.7 ml LAV(MOD-sp4): 39.5 ml EDV(sp4-el): 60.9 ml LVAs ap4: 10.1 cm2 LVLs ap4: 5.0 cm ESV(MOD-sp4): 16.9 ml ESV(sp4-el): 17.3 ml EF(MOD-sp4): 70.7 % EF(sp4-el): 71.6 % SV(MOD-sp4): 40.8 ml SV(sp4-el): 43.6 ml LA A4 area: 16.5 cm2 SI(MOD-sp4): 25.9 ml/m2 LA dimension(2D): 3.9 cm RA A4 area: 13.5 cm2 TAPSE: 2.0 cm Time Measurements MV dec time: 0.24 sec Doppler Measurements Calculations MV E max jillian: 126.4 cm/sec Lat Peak E' Jillian: 6.9 cm/sec Med Peak E' Jillian: 7.3 cm/sec MV A max jillian: 48.0 cm/sec E/E' lat: 18.4 E/E' med: 17.3 MV E/A: 2.6 Ao V2 max: 205.1 cm/sec AI max jillian: 356.9 cm/sec LV V1 max: 99.1 cm/sec Ao max P.8 mmHg AI max P.9 mmHg LV V1 max P.9 mmHg Ao V2 mean: 145.0 cm/sec LV V1 mean P.0 mmHg Ao mean P.3 mmHg AI dec slope: 183.7 cm/sec2 LV V1 mean: 66.2 cm/sec Ao V2 VTI: 52.0 cm AI P1/2t: 569.1 msec LV V1 VTI: 23.9 cm AV (velocity ratio): 0.46 GABRIEL(I,D): 1.1 cm2 GABRIEL(V,D): 1.1 cm2 SV(LVOT): 56.5 ml PA V2 max: 95.8 cm/sec TR max jillian: 283.8 cm/sec TR max P.2 mmHg ECHO/Echo Complete Interpretation Summary Normal LV size. Left ventricular systolic function is normal. Moderate focal aortic valve calcification. The left ventricular ejection fraction is 65 %. Stage 3 diastolic dysfunction. Mild (1+) aortic valve insufficiency. Ordering Physician: Court Anderson Referring Physician: CYRUS CLAUDIO Performed By: Catherine Marcelo RDCS 07/15/24 1525 Date Wild Watkins MD CC: ANDREW Claudio; TANYA Mendez Date Dictated: 07/15/24 1015 Date Transcribed: 07/15/24 1525 Coat Tailor: Signed [facility] Stress Reporton 07-15-2024 Stress Report [facility] [address] [place] [address] MR#: [id number] Acct: [id number] Name: BAUDILIO TORRES Rep #: [id number] : 1945 78 From: Wild Watkins MD Primary Care: Cyrus Claudio, PIN CLEANER-C Status: REG CLI Referring Dr: Court Anderson Sex: F C Stress Test Report Exercise myocardial perfusion stress test. 78-year-old lady with a history of chest discomfort Stress protocol: Resting EKG demonstrates sinus bradycardia 50bpm resting blood pressure is 164/78 mmHg. The patient exercised according to the regular Ramos protocol for a total duration of 4 minutes attaining a maximum heart rate of 125 bpm which was 88% of maximum predicted heart rate; the maximum workload was 6.9 metabolic equivalents. At rest there were no ST or T wave changes noted to suggest ischemia and at peak exercise approximately [address] depression were noted in lead aVF, V5 and V6 suggestive but not diagnostic of ischemia. No clinical angina was noted the test was terminated due to target heart rate achieved and fatigue. The peak blood pressure was 164/78 with a rate- pressure product of 15,200 Myocardial perfusion protocol. 12 mCi of technetium 99m sestamibi was injected at rest. The patient exercised according to regular Ramos protocol for total duration of 4 minutes and at peak exercise 36 mCi of technetium 99m sestamibi was injected stress images were obtained stress and rest images were reconstructed in comparing the short axis vertical long and horizontal long axis. Gated images were also obtained. Perfusion SPECT analysis: Review of the stress images demonstrate normal uptake of tracer noted in all areas of the myocardium. The resting images similarly demonstrate normal uptake of tracer noted in all areas of the myocardium. No areas of reversibility are noted to suggest ischemia no previous infarct was noted. Gated SPECT analysis: The gated ejection fraction is over 80%. Conclusion: Normal exercise myocardial perfusion stress test at a low to moderate workload Preserved ejection fraction. Nondiagnostic EKG findings 07/15/24 1631 Date Wild Watkins MD CC: PIN CLEANER-C Cyrus Claudio; TANYA Mendez Date Dictated: 07/15/241626 Date Transcribed: 07/15/241626 Coat Tailor: [place] Signed Normal [facility] Cardiology Visit Reporton Cardiology Visit Report [facility] [address] [place] [address] OFFICE VISIT Date of Service: 06/28/24 MR#: [id number] Acct: [id number] Name: BAUDILIO TORRES Rep #: [id number] : 1945 Provider: TANYA Mishra Age/Sex: 78/F Location: [facility] Status: Signed HPI HPI History of Present Illness Details: BAUDILIO TORRES, is a 78 F history of hypertension, hyperlipidemia, carotid endarterectomy, coronary artery disease status post angioplasty and stenting in 2001, and 2013 to her circumflex artery. She presents here today for a cardiovascular follow up. She was in to see Dr. Ayers for venous insuff. She did have several procedures done. This has helped with her swelling. She is still wearing compression stockings. She has not noticed any further palpitations. She does not have any chest pain. She does not have any worsening SOB. She does not have any palpitations. She does not have any lightheadedness/dizziness. She does walk [address] Intake Vital Signs 06/26/23 14:43 06/28/24 13:34 Height 4 ft 11 in 4 ft 11 in Weight: 142 lb BMI 28.6 BP 144/78 H Blood Pressure Location Lt brachial Position Sitting Respiration 18 Pulse 57 L Pulse Source Monitor Pulse Oximetry (%) 97 Intake Visit Reasons: 1 Y FU Through Operator Required: No Is patient in pain?: No Allergies Opioids - Morphine Analogues Allergy (Mild, Verified 06/28/24 13:34) Nausea lisinopril Adverse Reaction (Verified 06/28/24 13:34) cough Medications ???Medication ???Instructions ???Recorded ???Confirmed ???Type aspirin 81 mg chewable tablet 81 mg PO DAILY 10/27/17 01/14/25 History ondansetron 4 mg disintegrating 4 mg PO Q8H PRN PRN Nausea #14 tabs 02/02/23 06/28/24 Rx tablet hydrochlorothiazide 25 mg tablet 25 mg PO DAILY #90 tabs 06/26/23 06/28/24 Rx nitroglycerin 0.4 mg sublingual 0.4 mg sublingual Q5-15M PRN chest 06/26/23 06/28/24 Rx tablet (Nitrostat) pain #25 tabs atenolol 25 mg tablet 25 mg PO DAILY #90 tabs 06/20/24 06/28/24 Rx clopidogrel 75 mg tablet 75 mg PO DAILY #90 tabs 06/20/24 06/28/24 Rx losartan 50 mg tablet 50 mg PO DAILY #90 tabs 06/20/24 06/28/24 Rx simvastatin 40 mg tablet 40 mg PO DAILY #90 tabs 06/20/24 06/28/24 Rx Have you fallen in the past year?: No PFSH Medical History Atherosclerotic heart disease of [place] coronary artery without angina pectoris Carotid artery disease Carotid bruit Chronic diastolic (congestive) heart failure Essential hypertension HLD (hyperlipidemia) PVD (peripheral vascular disease) Renal artery stenosis Surgical History History of bilateral carotid endarterectomy History of coronary artery stent placement (05/18/14) History of dental surgery History of tubal ligation Family History Father CAD (coronary artery disease) Mother CAD (coronary artery disease) CVA (cerebral vascular accident) Brother CAD (coronary artery disease) Sister CAD (coronary artery disease) Hypertension Sister Hypertension Brother Hypertension Social History Smoking Status: Former smoker alcohol intake: never substance use type: does not use ROS Const Const: Negative for fatigue, weakness, headache(s), daytime sleepiness or difficulty sleeping Eyes Eyes: Negative for change in vision ENT ENT: Negative for headache(s), dizziness or Nosebleed/epistaxis Cardio Chest Pain: No Palpitations: No Edema: None Resp Respiratory: Negative for SOB with activity, SOB at rest, SOB orthopnea SOB lying down or Cough GI GI: Negative nausea, vomiting or heartburn Neuro Neuro: Negative for dizziness, lightheadedness, near syncope, headache(s) or weakness Endo Endo: Negative for fatigue Cardiology Exam Const Appearance: cooperative, no acute distress and well developed Orientation: alert, awake and oriented x3 Head Head: normocephalic and atraumatic Mouth: moist mucous membranes Eyes General: appearance normal, both eyes and all related structures Conjunctivae: conjunctivae normal Pupils: PERRL EOM: EOM intact bilaterally Neck Neck: normal visual inspection, no lymphadenopathy and no JVD Carotids: bruit Bilateral carotid endarterectomy: Bilateral Neck Mass: Negative Neck mass Chest Chest inspection: normal inspection of the chest and symmetric chest movement Auscultation: Bilateral: Clear to Auscultation Cardio Palpation: normal PMI Rate: regular rate Rhythm: regular rhythm Heart sounds: S1 normal, S2 normal and murmur; Negative rub or gallop Murmur: Grade 1/6, soft and mid systolic GI GI: normal to i (more content not included)... Normal [facility] .Auto Diffon 05-27-2024 Basophil, Absolute 0.1 10 3/mcL Normal 0.0-0.2 [facility] Comment on above: Performed By: #### G FR, ADIFF, CBC, ANEU, CMP #### [address] [address] Basophils/100 WBC (Bld) 1.5 % Normal 0.0-2.5 [facility] Comment on above: Performed By: #### G FR, ADIFF, CBC, ANEU, CMP #### [address] [address] Eosinophil, Absolute 0.2 10 3/mcL Normal 0.0-0.7 [facility] Comment on above: Performed By: #### G FR, ADIFF, CBC, ANEU, CMP #### [address] [place], [place] [address] Eosinophils/100 WBC (Bld) 3.6 % Normal 0.0-7.0 [facility] Comment on above: Performed By: #### G FR, ADIFF, CBC, ANEU, CMP #### [address] [address] Lymphocyte, Absolute 1.5 10 3/mcL Normal 0.9-4.3 [facility] Comment on above: Performed By: #### G FR, ADIFF, CBC, ANEU, CMP #### [address] [address] Lymphocytes/100 WBC (Bld) 33.6 % Normal 20.0-40.0 [facility] Comment on above: Performed By: #### G FR, ADIFF, CBC, ANEU, CMP #### [address] [address] Monocyte, Absolute 0.4 10 3/mcL Normal 0.1-1.4 [facility] Comment on above: Performed By: #### G FR, ADIFF, CBC, ANEU, CMP #### [address] [address] Monocytes/100 WBC (Bld) 10.0 % Normal 2.0-13.0 [facility] Comment on above: Performed By: #### G FR, ADIFF, CBC, ANEU, CMP #### [address] [address] Neutrophils/100 WBC (Bld) 51.3 % Normal 50.0-75.0 [facility] Comment on above: Performed By: #### G FR, ADIFF, CBC, ANEU, CMP #### [address] [address] .GFRon 05-27-2024 GFR 101 ml/min/1.73sqm Normal [facility] Comment on above: Result Comment: GFR Population mean for , Non- Americans Ages 20-29 = 116 mL/min/1.73 sq.m. Ages 30-39 = 107 mL/min/1.73 sq.m. Ages 40-49 = 99 mL/min/1.73 sq.m. Ages 50-59 = 93 mL/min/1.73 sq.m. Ages 60-69 = 85 mL/min/1.73 sq.m. Ages 70+ = 75 mL/min/1.73 sq.m. Chronic Kidney Disease: Less than 60 mL/min/1.73 square meters End Stage Renal Disease: Less than 15 mL/min/1.73 square meters Performed By: #### G FR, ADIFF, CBC, ANEU, CMP #### [address] [address] GFR Non- 83 ml/min/1.73sqm Normal [facility] Comment on above: Result Comment: GFR Population mean for , Non- Americans Ages 20-29 = 116 mL/min/1.73 sq.m. Ages 30-39 = 107 mL/min/1.73 sq.m. Ages 40-49 = 99 mL/min/1.73 sq.m. Ages 50-59 = 93 mL/min/1.73 sq.m. Ages 60-69 = 85 mL/min/1.73 sq.m. Ages 70+ = 75 mL/min/1.73 sq.m. Chronic Kidney Disease: Less than 60 mL/min/1.73 square meters End Stage Renal Disease: Less than 15 mL/min/1.73 square meters Performed By: #### G FR, ADIFF, CBC, ANEU, CMP #### [address] [address] .NEUABSon 05-27-2024 Neutrophil, Absolute 2.3 10 3/mcL Normal 2.3-8.1 [facility] Comment on above: Performed By: #### G FR, ADIFF, CBC, ANEU, CMP #### [address] [address] CBCon 05-27-2024 Erythrocyte distribution width (RBC) [Ratio] 12.7 % Normal 11.5-15.5 [facility] Comment on above: Performed By: #### G FR, ADIFF, CBC, ANEU, CMP #### [address] [address] Hematocrit (Bld) [Volume fraction] 38.3 % Normal 34.0-46.0 [facility] Comment on above: Performed By: #### G FR, ADIFF, CBC, ANEU, CMP #### [address] [address] Hgb 13.0 G/dL Normal 12.0-16.0 [facility] Comment on above: Performed By: #### G FR, ADIFF, CBC, ANEU, CMP #### [place] [address] MCH (RBC) [Entitic mass] 30.7 pg Normal 27.0-33.0 [facility] Comment on above: Performed By: #### G FR, ADIFF, CBC, ANEU, CMP #### [place] [address] MCHC 33.8 G/dL Normal 32.0-36.0 [facility] Comment on above: Performed By: #### G FR, ADIFF, CBC, ANEU, CMP #### [place] [address] MCV (RBC) [Entitic vol] 90.7 fL Normal 80.0-99.0 [facility] Comment on above: Performed By: #### G FR, ADIFF, CBC, ANEU, CMP #### [place] [address] Platelet 198 10 3/mcL Normal 150-450 [facility] Comment on above: Performed By: #### G FR, ADIFF, CBC, ANEU, CMP #### [place] [address] Platelet mean volume (Bld) [Entitic vol] 8.1 fL Normal 6.6-10.5 [facility] Comment on above: Performed By: #### G FR, ADIFF, CBC, ANEU, CMP #### [place] [address] RBC 4.23 10 6/mcL Normal 4.10-5.30 [facility] Comment on above: Performed By: #### G FR, ADIFF, CBC, ANEU, CMP #### [place] [address] WBC 4.5 10 3/mcL Normal 4.5-10.8 [facility] Comment on above: Performed By: #### G FR, ADIFF, CBC, ANEU, CMP #### [address] [address] CMPon 05-27-2024 Albumin Level 3.6 G/dL Normal 3.4-4.8 [facility] Comment on above: Performed By: #### G FR, ADIFF, CBC, ANEU, CMP #### [address] [address] Albumin/Globulin [Mass ratio] 1.2 {ratio} Normal 1.1-2.5 [facility] Comment on above: Performed By: #### G FR, ADIFF, CBC, ANEU, CMP #### [address] [address] ALP [Catalytic activity/Vol] 91 U/L Normal 40-135 [facility] Comment on above: Performed By: #### G FR, ADIFF, CBC, ANEU, CMP #### [address] [address] ALT [Catalytic activity/Vol] 26 U/L Normal 14-59 [facility] Comment on above: Performed By: #### G FR, ADIFF, CBC, ANEU, CMP #### [address] [address] AST [Catalytic activity/Vol] 29 U/L Normal 10-40 [facility] Comment on above: Performed By: #### G FR, ADIFF, CBC, ANEU, CMP #### [address] [address] Bili Total 0.6 mg/dL Normal 0.2-1.0 [facility] Comment on above: Result Comment: Use of this assay is not recommended for patients undergoing treatment with eltrombopag due to the potential for falsely elevated results. Performed By: #### G FR, ADIFF, CBC, ANEU, CMP #### [address] [address] BUN/Creatinine Ratio 21 ratio Normal 7-27 [facility] Comment on above: Performed By: #### G FR, ADIFF, CBC, ANEU, CMP #### [address] [address] Calcium [Mass/Vol] 9.1 mg/dL Normal 8.4-10.2 [facility] Comment on above: Performed By: #### G FR, ADIFF, CBC, ANEU, CMP #### [address] [address] Chloride [Moles/Vol] 100 mmol/L Normal 98-107 [facility] Comment on above: Performed By: #### G FR, ADIFF, CBC, ANEU, CMP #### [place] [address] CO2 [Moles/Vol] 34 mmol/L High 23-31 [facility] Comment on above: Performed By: #### G FR, ADIFF, CBC, ANEU, CMP #### [address] [address] Creatinine [Mass/Vol] 0.68 mg/dL Normal 0.55-1.02 [facility] Comment on above: Result Comment: Test ing performed on Siemens Dimension EXL analyzer using a modified kinetic Khurram technique. Performed By: #### G FR, ADIFF, CBC, ANEU, CMP #### [address] [address] Electrolyte Balance 5.0 mEq/L Normal 4.0-15.0 [facility] Comment on above: Performed By: #### G FR, ADIFF, CBC, ANEU, CMP #### [address] [address] Globulin 3.0 G/dL Normal [facility] Comment on above: Performed By: #### G FR, ADIFF, CBC, ANEU, CMP #### [address] [address] Glucose [Mass/Vol] 92 mg/dL Normal 83-110 [facility] Comment on above: Performed By: #### G FR, ADIFF, CBC, ANEU, CMP #### [address] [address] Potassium [Moles/Vol] 3.4 mmol/L Low 3.5-5.1 [facility] Comment on above: Performed By: #### G FR, ADIFF, CBC, ANEU, CMP #### [address] [address] Sodium [Moles/Vol] 139 mmol/L Normal 136-145 [facility] Comment on above: Performed By: #### G FR, ADIFF, CBC, ANEU, CMP #### [address] [address] Total Protein 6.6 G/dL Normal 6.4-8.2 [facility] Comment on above: Performed By: #### G FR, ADIFF, CBC, ANEU, CMP #### [address] [address] Urea nitrogen [Mass/Vol] 14 mg/dL Normal 7-18 [facility] Comment on above: Performed By: #### G FR, ADIFF, CBC, ANEU, CMP #### [address] [address] HFPon 05-27-2024 Bili Indirect 0.4 mg/dL Normal [facility] Comment on above: Performed By: #### L IPID, HFP #### [address] [address] Albumin Level 3.7 G/dL Normal 3.4-4.8 [facility] Comment on above: Performed By: #### L IPID, HFP #### [address] [address] Albumin/Globulin [Mass ratio] 1.3 {ratio} Normal 1.1-2.5 [facility] Comment on above: Performed By: #### L IPID, HFP #### [address] [address] ALP [Catalytic activity/Vol] 92 U/L Normal 40-135 [facility] Comment on above: Performed By: #### L IPID, HFP #### [address] [address] ALT [Catalytic activity/Vol] 34 U/L Normal 14-59 [facility] Comment on above: Performed By: #### L IPID, HFP #### [place] [address] AST [Catalytic activity/Vol] 28 U/L Normal 10-40 [facility] Comment on above: Performed By: #### L IPID, HFP #### [place] [address] Bili Direct 0.2 mg/dL Normal 0.0-0.2 [facility] Comment on above: Result Comment: Use of this assay is not recommended for patients undergoing treatment with eltrombopag due to the potential for falsely elevated results. Performed By: #### L IPID, HFP #### [place] [address] Bili Total 0.6 mg/dL Normal 0.2-1.0 [facility] Comment on above: Result Comment: Use of this assay is not recommended for patients undergoing treatment with eltrombopag due to the potential for falsely elevated results. Performed By: #### L IPID, HFP #### [place] [address] Globulin 2.9 G/dL Normal [facility] Comment on above: Performed By: #### L IPID, HFP #### [place] [address] Total Protein 6.6 G/dL Normal 6.4-8.2 [facility] Comment on above: Performed By: #### L IPID, HFP #### [place] [address] LABORATORYOrdered By: SYSTEM SYSTEM on 05-27-2024 Albumin BCP dye [Mass/Vol] 3.7 G/dL Normal 3.4 - 4.8 G/dL AO ADM SS Albumin/Globulin [Mass ratio] 1.3 {ratio} Normal 1.1 - 2.5 ratio AO ADM SS ALP [Catalytic activity/Vol] 92 U/L Normal 40 - 135 U/L AO ADM SS ALT With P-5'-P [Catalytic activity/Vol] 34 U/L Normal 14 - 59 U/L AO ADM SS AST With P-5'-P [Catalytic activity/Vol] 28 U/L Normal 10 - 40 U/L AO ADM SS Bilirubin [Mass/Vol] 0.6 mg/dL Normal 0.2 - 1.0 mg/dL AO ADM SS Comment on above: Interpretive Data: U se of this assay is not recommended for patients undergoing treatment with eltrombopag due to the potential for falsely elevated results. Bilirubin.direct [Mass/Vol] 0.2 mg/dL Normal 0.0 - 0.2 mg/dL AO ADM SS Comment on above: Interpretive Data: U se of this assay is not recommended for patients undergoing treatment with eltrombopag due to the potential for falsely elevated results. Bilirubin.direct [Mass/Vol] 0.4 mg/dL Invalid Interpretation Code AO Chemistry S Globulin 2.9 G/dL Invalid Interpretation Code AO ADM SS Protein [Mass/Vol] 6.6 G/dL Normal 6.4 - 8.2 G/dL AO ADM SS Albumin BCP dye [Mass/Vol] 3.6 G/dL Normal 3.4 - 4.8 G/dL AO ADM SS Albumin/Globulin [Mass ratio] 1.2 {ratio} Normal 1.1 - 2.5 ratio AO ADM SS ALP [Catalytic activity/Vol] 91 U/L Normal 40 - 135 U/L AO ADM SS ALT With P-5'-P [Catalytic activity/Vol] 26 U/L Normal 14 - 59 U/L AO ADM SS AST With P-5'-P [Catalytic activity/Vol] 29 U/L Normal 10 - 40 U/L AO ADM SS Basophils (Bld) [#/Vol] 0.1 103/mcL Normal 0.0 - 0.2 10^3/mcL AO Workflow SS Basophils/100 WBC (Bld) 1.5 % Normal 0.0 - 2.5 % AO Workflow SS Bilirubin [Mass/Vol] 0.6 mg/dL Normal 0.2 - 1.0 mg/dL AO ADM SS Comment on above: Interpretive Data: U se of this assay is not recommended for patients undergoing treatment with eltrombopag due to the potential for falsely elevated results. Calcium [Mass/Vol] 9.1 mg/dL Normal 8.4 - 10. 2 mg/dL AO ADM SS Chloride [Moles/Vol] 100 mmol/L Normal 98 - 107 mmol/L AO ADM SS CO2 [Moles/Vol] 34 mmol/L High 23 - 31 mmol/L AO ADM SS Creatinine [Mass/Vol] 0.68 mg/dL Normal 0.55 - 1.02 mg/dL AO ADM SS Comment on above: Interpretive Data: T esting performed on Siemens Dimension EXL analyzer using a modified kinetic Khurram technique. Electrolyte Balance 5.0 mEq/L Normal 4.0 - 15 .0 mEq/L AO ADM SS Eosinophil, Absolute 0.2 103/mcL Normal 0.0 - 0.7 10^3/mcL AO Workflow SS Eosinophils/100 WBC (Bld) 3.6 % Normal 0.0 - 7.0 % AO Workflow SS Erythrocyte distribution width (RBC) [Ratio] 12.7 % Normal 11.5 - 15.5 % AO Workflow SS GFR/1.73 sq M.predicted among blacks MDRD (S/P/Bld) [Vol rate/Area] 101 ml/min/1.73sqm Invalid Interpretation Code AO Chemistry S Comment on above: Interpretive Data: GFR Population mean for , Non- Americans Ages 20-29 = 116 mL/min/1.73 sq.m. Ages 30-39 = 107 mL/min/1.73 sq.m. Ages 40-49 = 99 mL/min/1.73 sq.m. Ages 50-59 = 93 mL/min/1.73 sq.m. Ages 60-69 = 85 mL/min/1.73 sq.m. Ages 70+ = 75 mL/min/1.73 sq.m. Chronic Kidney Disease: Less than 60 mL/min/1.73 square meters End Stage Renal Disease: Less than 15 mL/min/1.73 square meters GFR/1.73 sq M.predicted among non-blacks MDRD (S/P/Bld) [Vol rate/Area] 83 ml/min/1.73sqm Invalid Interpretation Code AO Chemistry S Comment on above: Interpretive Data: GFR Population mean for , Non- Americans Ages 20-29 = 116 mL/min/1.73 sq.m. Ages 30-39 = 107 mL/min/1.73 sq.m. Ages 40-49 = 99 mL/min/1.73 sq.m. Ages 50-59 = 93 mL/min/1.73 sq.m. Ages 60-69 = 85 mL/min/1.73 sq.m. Ages 70+ = 75 mL/min/1.73 sq.m. Chronic Kidney Disease: Less than 60 mL/min/1.73 square meters End Stage Renal Disease: Less than 15 mL/min/1.73 square meters Globulin 3.0 G/dL Invalid Interpretation Code AO ADM SS Glucose [Mass/Vol] 92 mg/dL Normal 83 - 110 mg/dL AO ADM SS Hematocrit (Bld) [Volume fraction] 38.3 % Normal 34.0 - 46.0 % AO Workflow SS Hemoglobin (Bld) [Mass/Vol] 13.0 G/dL Normal 12.0 - 16.0 G/dL AO Workflow SS Lymphocytes (Bld) [#/Vol] 1.5 103/mcL Normal 0.9 - 4.3 10^3/mcL AO Workflow SS Lymphocytes/100 WBC (Bld) 33.6 % Normal 20.0 - 40.0 % AO Workflow SS MCH (RBC) [Entitic mass] 30.7 pg Normal 27.0 - 33.0 pg AO Workflow SS MCHC 33.8 G/dL Normal 32.0 - 36.0 G/dL AO Workflow SS MCV (RBC) [Entitic vol] 90.7 fL Normal 80.0 - 99.0 fL AO Workflow SS Monocytes (Bld) [#/Vol] 0.4 103/mcL Normal 0.1 - 1.4 10^3/mcL AO Workflow SS Monocytes/100 WBC (Bld) 10.0 % Normal 2.0 - 13.0 % AO Workflow SS Neutrophils (Bld) [#/Vol] 2.3 103/mcL Normal 2.3 - 8.1 10^3/mcL AO Workflow SS Neutrophils/100 WBC (Bld) 51.3 % Normal 50.0 - 75.0 % AO Workflow SS Platelet mean volume (Bld) [Entitic vol] 8.1 fL Normal 6.6 - 10.5 fL AO Workflow SS Platelets (Bld) [#/Vol] 198 103/mcL Normal 150 - 450 10^3/mcL AO Workflow SS Potassium [Moles/Vol] 3.4 mmol/L Low 3.5 - 5.1 mmol/L AO ADM SS Protein [Mass/Vol] 6.6 G/dL Normal 6.4 - 8.2 G/dL AO ADM SS RBC (Bld) [#/Vol] 4.23 106/mcL Normal 4.10 - 5.30 10^6/mcL AO Workflow SS Sodium [Moles/Vol] 139 mmol/L Normal 136 - 145 mmol/L AO ADM SS Urea nitrogen [Mass/Vol] 14 mg/dL Normal 7 - 18 mg/dL AO ADM SS Urea nitrogen/Creatinine [Mass ratio] 21 ratio Normal 7 - 27 ratio AO ADM SS WBC (Bld) [#/Vol] 4.5 103/mcL Normal 4.5 - 10.8 10^3/mcL AO Workflow SS LABORATORYOrdered By: Germania Dumont on 05-27-2024 Cholesterol [Mass/Vol] 184 mg/dL Normal 0 - 200 mg/dL AO ADM SS Comment on above: Interpretive Data: C holesterol Reference Interval: Less than 200 Desirable 200-239 Borderline high risk 240 and above High risk Cholesterol in HDL [Mass/Vol] 57 mg/dL Normal 40 - 60 mg/dL AO ADM SS Cholesterol in LDL [Mass/Vol] 107 mg/dL Normal 0 - 130 mg/dL AO ADM SS Triglyceride [Mass/Vol] 102 mg/dL Normal 0 - 150 mg/dL AO ADM SS Comment on above: Interpretive Data: T riglyceride Reference Interval: Less than 150 Normal 150-199 Borderline high risk 200-499 High risk 500 or higher Very high risk LIPIDon 05-27-2024 Cholesterol [Mass/Vol] 184 mg/dL Normal 0-200 [facility] Comment on above: Result Comment: Chol esterol Reference Interval: Less than 200 Desirable 200-239 Borderline high risk 240 and above High risk Performed By: #### L IPID, [facility] #### [address] [address] Cholesterol in HDL [Mass/Vol] 57 mg/dL Normal 40-60 [facility] Comment on above: Performed By: #### L IPID, HFP #### [address] [address] Cholesterol in LDL [Mass/Vol] 107 mg/dL Normal 0-130 [facility] Comment on above: Performed By: #### L IPID, HFP #### [place] [address] [place], [place] [address] Triglyceride [Mass/Vol] 102 mg/dL Normal 0-150 [facility] Comment on above: Result Comment: Trig lyceride Reference Interval: Less than 150 Normal 150-199 Borderline high risk 200-499 High risk 500 or higher Very high risk Performed By: #### L IPID, [facility] #### [place] [address] [place], [place] [address] Basophil percentageOrdered B y: Wild Roland on 06-17-2023 Bilirubin [Mass/Vol] 0.60 mg/dL 0.20-1.00 [facility] Comment on above: For patients on eltr ombopag therapy, use of Dimension [place] TBIL is not recommended. Chloride [Moles/Vol] 105 mmol/L 98-107 [facility] Cholesterol [Mass/Vol] 166 mg/dL <200 [facility] Comment on above: <200 mg/dL Desirable 200-240 mg/dL Borderline >240 mg/dL High Risk Glucose [Mass/Vol] 96 mg/dL 74-106 [facility] Potassium [Moles/Vol] 3.6 mmol/L 3.5-5.1 [facility] Protein [Mass/Vol] 7.4 g/dL 6.4-8.2 [facility] Sodium [Moles/Vol] 139 mmol/L 136-145 [facility] Triglyceride [Mass/Vol] 120 mg/dL <199 [facility] Comment on above: The drugs N-Acetylcy steine and Metamizole may falsely depress this assay.Serum Triglycerides Reference Interval Normal <150 mg/dL Borderline high 150 - 199 mg/dL High 200 - 499 mg/dL Very High > or = 500 mg/dL Direct bilirubinOrdered By: Wild Roland on 06-17-2023 Bilirubin.direct [Mass/Vol] 0.14 mg/dL 0.00-0.30 [facility] Laboratory - Chemistry and C hemistry - challengeOrdered By: Wild Roland on 01-03-2024 ALP [Catalytic activity/Vol] 95 U/L 45-117 [facility] ALT [Catalytic activity/Vol] 27 U/L 13-56 [facility] CO2 [Moles/Vol] 30.0 mmol/L 21.0-32.0 [facility] Globulin (S) [Mass/Vol] 3.9 g/dL 2.2-4.2 [facility] Urea nitrogen/Creatinine [Mass ratio] 31.0 mg/mg 10-20 [facility] No Panel InformationOrdered By: Wild Watkins on 06-17-2023 Estimated GFR (MDRD) Amer 97 mL/min >60 [facility] Comment on above: GFR Calc Estimated GFR (MDRD) Non-Af Amer 80 mL/min >60 [facility] Comment on above: Non- GFR Calc Serum or plasma albumin power urement (mass/volume)Ordered By: Wild Watkins on 06-17-2023 Albumin [Mass/Vol] 3.5 g/dL 3.2-5.0 [facility] Serum or plasma calcium power urement (mass/volume)Ordered By: Wild Watkins on 06-17-2023 Calcium [Mass/Vol] 9.7 mg/dL 8.5-10.1 [facility] Serum or plasma cholesterol in HDL measurement (mass/volume)Ordered By: Wild Watkins on 06-17-2023 Cholesterol in HDL [Mass/Vol] 60 mg/dL >40 [facility] Comment on above: The drugs N-Acetylcy steine and Metamizole may falsely depress this assay. Reference Range HDL <40 mg/dL Low HDL Cholesterol HDL >or= 60 mg/dL High HDL Cholesterol Serum or plasma cholesterol in VLDL measurement (mass/volume)Ordered By: Wild Watkins on 06-17-2023 Cholesterol in VLDL [Mass/Vol] 24 mg/dL 5-40 [facility] Serum or plasma creatinine m easurement (mass/volume)Ordered By: Wild Watkins on 06-17-2023 Creatinine [Mass/Vol] 0.74 mg/dL 0.55-1.02 [facility] Comment on above: The validity of the calculated GFR & GFRAA in patients over 70 years has not been determined. Clinical correlation is essential. Serum or plasma low density lipoprotein (LDL) cholesterol measurement (mass/volume)Ordered By: Wild Watkins on 06-17-2023 Cholesterol in LDL [Mass/Vol] 82 mg/dL 0-130 [facility] Serum or plasma urea nitroge n measurement (mass/volume)Ordered By: Wild Watkins on 06-17-2023 Urea nitrogen [Mass/Vol] 23 mg/dL 7-18 [facility] Thin prep Papanicolaou smear with manual screeningOrdered By: Wild Watkins on 06-17-2023 Thin prep Papanicolaou smear with manual screening 18 U/L 15-37 [facility] Thin prep Papanicolaou smear with manual screening 4 5-15 [facility] FT4on 04-10-2022 Free T4 [Mass/Vol] 1.11 ng/dL Normal 0.76-1.46 [facility] ([place]) Comment on above: Performed By: #### F T4, TSH #### [place] [address] LABORATORYOrdered By: Bhakti Milligan on 04-10-2022 Free T4 [Mass/Vol] 1.11 ng/dL Invalid Interpretation Code 0.76 - 1.46 ng/dL AO ADM SS TSH Qn 2.90 m[IU]/L Invalid Interpretation Code 0.36 - 3.74 mcIU/mL AO ADM SS TSHon 04-10-2022 TSH Qn 2.90 m[IU]/L Normal 0.36-3.74 [facility] ([place]) Comment on above: Performed By: #### F T4, TSH #### [address] [address] MISCon 03-20-2022 Mis. Send Out See Comments Normal [facility] ([place]) Comment on above: Order Comment: Aller gen, Mouse Urine IgE Result Comment: Comp lete reference lab report scanned to EMR. Performed By: #### F T4, TSH #### [address] [address] ATENSon 03-13-2022 Alternaria tenuis-Class Class 0 Normal Class 0 [facility] ([place]) Comment on above: Result Comment: Perf ormed By: [place] [address] Performance Management Consultant: Devendra Pro III, M.D. CLIA#: [id number] Performed By: #### O AK, CATDND, BRMUDA, ELM, SRAGWD, ATENS, K9DND, ENGPLT, DPTERN, JUNEGR, MISC, DFARN #### [address] [address] Alternaria tenuis/alternata, IgE <0.35 Normal <0.35 [facility] ([place]) Comment on above: Result Comment: Perf ormed By: [place] [address] Performance Management Consultant: Devendra Pro III, M.D. CLIA#: [id number] Performed By: #### O AK, CATDND, BRMUDA, ELM, SRAGWD, ATENS, K9DND, ENGPLT, DPTERN, JUNEGR, MISC, DFARN #### [address] [address] BRMUDAon 03-13-2022 [place] Class Class 0 Normal Class 0 [facility] ([place]) Comment on above: Result Comment: Perf ormed By: [place] [address] Performance Management Consultant: Devendra Pro III, M.D. CLIA#: [id number] Performed By: #### O AK, CATDND, BRMUDA, ELM, SRAGWD, ATENS, K9DND, ENGPLT, DPTERN, JUNEGR, MISC, DFARN #### [address] [address] [place] IgE <0.35 Normal <0.35 [facility] ([place]) Comment on above: Result Comment: Perf ormed By: [place] [address] Performance Management Consultant: Devendra Pro III, M.D. CLIA#: [id number] Performed By: #### O AK, CATDND, BRMUDA, ELM, SRAGWD, ATENS, K9DND, ENGPLT, DPTERN, JUNEGR, MISC, DFARN #### [place] [address] CATDNDon 03-13-2022 Cat Dander IgE <0.35 Normal <0.35 [facility] ([place]) Comment on above: Result Comment: Perf ormed By: [facility] [email or web address] [address] [place] [address] Performance Management Consultant: Devendra Pro III, M.D. CLIA#: [id number] Performed By: #### O AK, CATDND, BRMUDA, ELM, SRAGWD, ATENS, K9DND, ENGPLT, DPTERN, JUNEGR, MISC, DFARN #### [place] [address] Cat Dander-Class Class 0 Normal Class 0 [facility] ([place]) Comment on above: Result Comment: Perf ormed By: [facility] [email or web address] [address] [place] [address] Performance Management Consultant: Devendra Pro III, M.D. CLIA#: [id number] Performed By: #### O AK, CATDND, BRMUDA, ELM, SRAGWD, ATENS, K9DND, ENGPLT, DPTERN, JUNEGR, MISC, DFARN #### [place] [address] DFARNon 03-13-2022 Dermatoph. farinae-Class Class 0 Normal Class 0 [facility] ([place]) Comment on above: Result Comment: Perf ormed By: [facility] [email or web address] [facility] [place] [address] Performance Management Consultant: Devendra Pro III, M.D. CLIA#: [id number] Performed By: #### O AK, CATDND, BRMUDA, ELM, SRAGWD, ATENS, K9DND, ENGPLT, DPTERN, JUNEGR, MISC, DFARN #### [place] [id number] Dermatophagoides farinae IgE <0.35 Normal <0.35 [facility] ([place]) Comment on above: Result Comment: Perf ormed By: [place] [address] Performance Management Consultant: Devendra Pro III, M.D. CLIA#: [id number] Performed By: #### O AK, CATDND, BRMUDA, ELM, SRAGWD, ATENS, K9DND, ENGPLT, DPTERN, JUNEGR, MISC, DFARN #### [place] [address] DPTERNon 03-13-2022 Dermatophagoides pteronyssinus Class Class 0 Normal Class 0 [facility] ([place]) Comment on above: Result Comment: Perf ormed By: [place] [address] Performance Management Consultant: Devendra Pro III, M.D. CLIA#: [id number] Performed By: #### O AK, CATDND, BRMUDA, ELM, SRAGWD, ATENS, K9DND, ENGPLT, DPTERN, JUNEGR, MISC, DFARN #### [place] [address] Dermatophagoides pteronyssinus IgE <0.35 Normal <0.35 [facility] ([place]) Comment on above: Result Comment: Perf ormed By: [place] [address] Performance Management Consultant: Devendra Pro III, M.D. CLIA#: [id number] Performed By: #### O AK, CATDND, BRMUDA, ELM, SRAGWD, ATENS, K9DND, ENGPLT, DPTERN, JUNEGR, MISC, DFARN #### [place] [address] ELMon 03-13-2022 [place] Class Class 0 Normal Class 0 [facility] ([place]) Comment on above: Result Comment: Perf ormed By: [address] [address] Performance Management Consultant: Devendra Pro III, M.D. CLIA#: [id number] Performed By: #### O AK, CATDND, BRMUDA, ELM, SRAGWD, ATENS, K9DND, ENGPLT, DPTERN, JUNEGR, MISC, DFARN #### [place] [address] [place] IgE <0.35 Normal <0.35 [facility] ([place]) Comment on above: Result Comment: Perf ormed By: [place] [address] Performance Management Consultant: Devendra Pro III, M.D. CLIA#: [id number] Performed By: #### O AK, CATDND, BRMUDA, ELM, SRAGWD, ATENS, K9DND, ENGPLT, DPTERN, JUNEGR, MISC, DFARN #### [place] [address] [facility] [place] Plantain Class Class 0 Normal Class 0 [facility] ([place]) Comment on above: Result Comment: Perf ormed By: [place] [address] Performance Management Consultant: Devendra Pro III, M.D. CLIA#: [id number] Performed By: #### F T4, TSH #### [place] [address] [place] Plantain IgE <0.35 Normal <0.35 [facility] ([place]) Comment on above: Result Comment: Perf ormed By: [place] [address] Performance Management Consultant: Devendra Pro III, M.D. CLIA#: [id number] Performed By: #### F T4, TSH #### [address] 03-13-2022 [facility]-Class Class 0 Normal Class 0 [facility] ([place]) Comment on above: Result Comment: Perf ormed By: [place] [address] Performance Management Consultant: Devendra Pro III, M.D. CLIA#: [id number] Performed By: #### F T4, TSH #### [place] [address] [place] IgE <0.35 Normal <0.35 [facility] ([place]) Comment on above: Result Comment: Perf ormed By: [place] [address] Performance Management Consultant: Devendra Pro III, M.D. CLIA#: [id number] Performed By: #### F T4, TSH #### [place] [address] F2BIOgq 03-13-2022 Dog Dander Class Class 0 Normal Class 0 [facility] ([place]) Comment on above: Result Comment: Perf ormed By: [place] [address] Performance Management Consultant: Devendra Pro III, M.D. CLIA#: [id number] Performed By: #### O AK, CATDND, BRMUDA, ELM, SRAGWD, ATENS, K9DND, ENGPLT, DPTERN, JUNEGR, MISC, DFARN #### [place] [address] Dog Dander IgE <0.35 Normal <0.35 [facility] ([place]) Comment on above: Result Comment: Perf ormed By: [place] [address] Performance Management Consultant: Devendra Pro III, M.D. CLIA#: [id number] Performed By: #### O AK, CATDND, BRMUDA, ELM, SRAGWD, ATENS, K9DND, ENGPLT, DPTERN, JUNEGR, MISC, DFARN #### [place] [address] OAKon 03-13-2022 [place] Class Class 0 Normal Class 0 [facility] ([place]) Comment on above: Result Comment: Perf ormed By: [facility] [email or web address] [address] [place] [address] Performance Management Consultant: Devendra Pro III, M.D. CLIA#: [id number] Performed By: #### F T4, TSH #### [address] [address] [place] IgE <0.35 Normal <0.35 [facility] ([place]) Comment on above: Result Comment: Perf ormed By: [place] [address] Performance Management Consultant: Devendra Pro III, M.D. CLIA#: [id number] Performed By: #### F T4, TSH #### [place] [address] SRAGWDon 03-13-2022 Short Ragweed IgE <0.35 Normal <0.35 [facility] ([place]) Comment on above: Result Comment: Perf ormed By: [facility] [email or web address] [address] [place] [address] Performance Management Consultant: Devendra Pro III, M.D. CLIA#: [id number] Performed By: #### F T4, TSH #### [place] [address] Short Ragweed-Class Class 0 Normal Class 0 [facility] ([place]) Comment on above: Result Comment: Perf ormed By: [place] [address] Performance Management Consultant: Devendra Pro III, M.D. CLIA#: [id number] Performed By: #### F T4, TSH #### [place] [id number] XR UPPER GIon 03-11-2022 XR UPPER GI ORIGINAL EXAMINATION: DOUBLE CONTRAST UPPER GI SERIES03/11/2022 9:08 am TECHNIQUE: Number of fluoroscopic images: 45 Fluoroscopic time: 3.2 minutes Total dose: 61 mGy COMPARISON: None HISTORY: ORDERING SYSTEM PROVIDED HISTORY: Reason for Exam: chronic cough for over 6 months FINDINGS: The swallowing mechanism is fluoroscopically normal. The cervical esophagus shows no obvious fixed narrowing or diverticulum. The thoracic esophagus shows normal distensibility and mucosal pattern. No fixed narrowing, mass or ulceration is seen. There is mild to moderate esophageal dysmotility with tertiary contractions and holdup of barium in the esophagus that is more prominent in the recumbent position. The GE junction is normal with no obvious hiatal hernia. No significant gastroesophageal reflux is seen. The stomach shows normal mucosal fold pattern. Gastric coating and distension is less than optimal but there is no obvious ulceration, mass or diverticulum. The duodenal bulb and C-loop are also unremarkable. Gastric emptying is prompt. IMPRESSION: Mild to moderate esophageal dysmotility. No other significant abnormality. Interpreted by: Jose Anthony MD Preliminary Report By: Jose Anthony MD Electronically signed By Jose Anthony MD Dictated Date: 03/11/2022 4:50:50 PM Prelim Date: 03/11/2022 4:53:26 PM Sign Date: 03/11/2022 4:53:26 PM Ordering Provider: CYRUS CLAUDIO [facility] ([place]) Absolute lymphocyte counton 01-13-2022 Lymphocytes Auto (Unsp spec) [#/Vol] 1.94 10*3/uL 0.83-4.51 [facility] Work Phone: Basophil percentageon 2021 Basophils/100 WBC (Bld) 0.9 % 0-1 [facility] Work Phone: Chloride [Moles/Vol] 99 mmol/L 98-107 [facility] Work Phone: Eosinophils/100 WBC (Bld) 4.5 % 0-5 [facility] Work Phone: Glucose [Mass/Vol] 111 mg/dL 74-106 [facility] Work Phone: Comment on above: Fasting Glucose resu lt from 100 to 125 mg/dL suggests IMPAIRED HOMEOSTASIS per A.D.A. criteria. Neutrophils (Bld) [#/Vol] 5.2 10*3/uL 2.0-7.7 [facility] Work Phone: Neutrophils/100 WBC (Bld) 64.2 % 47-70 [facility] Work Phone: [phone] Potassium [Moles/Vol] 3.8 mmol/L 3.5-5.1 [facility] Work Phone: [phone] Sodium [Moles/Vol] 137 mmol/L 136-145 [facility] Work Phone: WBC (Bld) [#/Vol] 8.2 10*3/uL 4.4-11.0 [facility] Work Phone: Blood erythrocytes count (nu mber/volume)on 01-13-2022 RBC (Bld) [#/Vol] 4.66 10*6/uL 4.2-5.4 [facility] Work Phone: Blood hemoglobin measurement (mass/volume)on 01-13-2022 Hemoglobin (Bld) [Mass/Vol] 13.7 g/dL 12.0-15.0 [facility] Work Phone: Blood lymphocytes/100 leukoc yteson 01-13-2022 Lymphocytes/100 WBC (Bld) 23.8 % 19-41 [facility] Work Phone: Blood monocytes/100 leukocyt eson 01-13-2022 Monocytes/100 WBC (Bld) 6.4 % 0-10 [facility] Work Phone: [phone] Blood platelet mean volumeon 01-13-2022 Platelet mean volume (Bld) [Entitic vol] 10.5 fL 6.2-12.0 [facility] Work Phone: [phone] Determination of erythrocyte mean corpuscular volume (MCV)on 01-13-2022 MCV (RBC) [Entitic vol] 91.6 fL 81-99 [facility] Work Phone: [phone] Hematocrit Auto (Bld) [Volum e fraction]on 01-13-2022 Hematocrit (Bld) [Volume fraction] 42.7 % 37-47 [facility] Work Phone: Laboratory - Chemistry and C hemistry - challengeon 01-13-2022 CO2 [Moles/Vol] 34.0 mmol/L 21.0-32.0 [facility] Work Phone: Magnesium [Mass/Vol] 2.2 mg/dL 1.6-2.6 [facility] Work Phone: Urea nitrogen/Creatinine [Mass ratio] 30.7 mg/mg 10-20 [facility] Work Phone: Laboratory - Hematology and Cell countson 01-13-2022 Erythrocyte distribution width (RBC) [Entitic vol] 41.5 fL 35.1-43.9 [facility] Work Phone: Erythrocyte distribution width (RBC) [Ratio] 12.4 % 11.6-14.6 [facility] Work Phone: Immature granulocytes/100 WBC (Bld) 0.200 % 0.0-0.9 [facility] Work Phone: Comment on above: IG% - Immature Granu locytes (promyelocytes, myelocytes and metamyelocytes) > 1% indicates that a LEFT SHIFT is Present. MCH (RBC) [Entitic mass] 29.4 pg 27.0-32.0 [facility] Work Phone: Nucleated RBC/100 WBC (Bld) [Ratio] 0 % 0-5 [facility] Work Phone: MCHC Auto (RBC) [Mass/Vol]on 01-13-2022 MCHC (RBC) [Mass/Vol] 32.1 g/dL 32-36 [facility] Work Phone: No Panel Informationon 01-13 Estimated GFR (MDRD) Amer 92 mL/min >60 [facility] Work Phone: Comment on above: GFR Calc Estimated GFR (MDRD) Non-Af Amer 76 mL/min >60 [facility] Work Phone: Comment on above: Non- GFR Calc Thyroid Stimulating Hormone (TSH) 5.30 uIU/mL 0.358-3.74 [facility] Work Phone: Platelets bldon 01-13-2022 Platelets (Bld) [#/Vol] 252 10*3/uL 150-450 [facility] Work Phone: Serum or plasma calcium power urement (mass/volume)on 01-13-2022 Calcium [Mass/Vol] 9.5 mg/dL 8.5-10.1 [facility] Work Phone: Serum or plasma creatinine m easurement (mass/volume)on 01-13-2022 Creatinine [Mass/Vol] 0.78 mg/dL 0.55-1.02 [facility] Work Phone: Comment on above: The validity of the calculated GFR & GFRAA in patients over 70 years has not been determined. Clinical correlation is essential. Serum or plasma urea nitroge n measurement (mass/volume)on 01-13-2022 Urea nitrogen [Mass/Vol] 24 mg/dL 7-18 [facility] Work Phone: Thin prep Papanicolaou smear with manual screeningon 01-13-2022 Thin prep Papanicolaou smear with manual screening 4 -15 [facility] Work Phone: Office Visiton 05-05-2017 Documentation of current medications (procedure) Done Invalid Interpretation Code [facility] Work Phone: [phone] Fall risk assessment No Invalid Interpretation Code [facility] Work Phone: [phone] Lab Report: Bilirubin, Direc ton 04-29-2017 Bilirubin (direct) 0.13 mg/dL Invalid Interpretation Code 0.00-0.30 [facility] Work Phone: [phone] Lab Report: CBC W/Diff, Auto matedon 04-29-2017 Absolute Neut 2.3 X10 3/UL Invalid Interpretation Code 2.0-7.7 [facility] Work Phone: [phone] Basophils/100 WBC (Bld) 1.9 % High 0-1 [facility] Work Phone: [phone] Basophils/100 WBC Auto (Bld) 1.9 % High 0-1 [facility] Work Phone: [phone] Eosinophils/100 leukocytes 6.3 % High 0-5 [facility] Work Phone: [phone] Eosinophils/100 WBC (Bld) 6.3 % High 0-5 [facility] Work Phone: [phone] Erythrocyte distribution width (RBC) [Ratio] 12.4 % Invalid Interpretation Code 11.6-14.6 [facility] Work Phone: [phone] Erythrocyte distribution width Auto Ratio (RBC) 12.4 % Invalid Interpretation Code 11.6-14.6 [facility] Work Phone: [phone] Erythrocytes (RBC) 4.15 10*6/uL Low 4.2-5.[address] [facility] Work Phone: [phone] Hematocrit (Bld) [Volume fraction] 38.2 % Invalid Interpretation Code 37-47 [facility] Work Phone: [phone] Hematocrit (HCT) 38.2 % Invalid Interpretation Code 37-47 [facility] Work Phone: [phone] Hemoglobin mass conc (Bld) 12.4 g/dL Invalid Interpretation Code 12.0-15.0 [facility] Work Phone: [phone] Immature granulocytes/100 WBC (Bld) 0.000 % Invalid Interpretation Code 0.0-0.9 [facility] Work Phone: [phone] Lymphocytes 1.82 X10 3/UL Invalid Interpretation Code 0.83-4.51 [facility] Work Phone: [phone] Lymphocytes (Bld) [#/Vol] 1.82 X10 3/UL Invalid Interpretation Code 0.83-4.51 [facility] Work Phone: [phone] Lymphocytes/100 leukocytes 38.1 % Invalid Interpretation Code 19-41 [facility] Work Phone: [phone] Lymphocytes/100 WBC (Bld) 38.1 % Invalid Interpretation Code 19-41 [facility] Work Phone: [phone] MCH 29.9 pg Invalid Interpretation Code 27.0-32.0 [facility] Work Phone: [phone] MCH (RBC) [Entitic mass] 29.9 pg Invalid Interpretation Code 27.0-32.0 [facility] Work Phone: [phone] MCHC mass conc (RBC) 32.5 G/GL Invalid Interpretation Code 32-36 [facility] Work Phone: [phone] MCV 92.0 fL Invalid Interpretation Code 81-99 [facility] Work Phone: [phone] MCV (RBC) [Entitic vol] 92.0 fL Invalid Interpretation Code 81-99 [facility] Work Phone: mean corpuscular hemoglobin concentration, RBC 32.5 G/GL Invalid Interpretation Code 32-36 [facility] Work Phone: [phone] Monocytes/100 leukocytes 6.7 % Invalid Interpretation Code 0-10 [facility] Work Phone: [phone] Monocytes/100 WBC (Bld) 6.7 % Invalid Interpretation Code 0-10 [facility] Work Phone: neutrophil count, blood 2.3 X10 3/UL Invalid Interpretation Code 2.0-7.7 [facility] Work Phone: Neutrophils/100 WBC (Bld) 47.0 % Invalid Interpretation Code 47-70 [facility] Work Phone: Neutrophils/100 WBC Auto (Bld) 47.0 % Invalid Interpretation Code 47-70 [facility] Work Phone: Platelet mean volume (Bld) [Entitic vol] 10.9 fL Invalid Interpretation Code 6.2-12.0 [facility] Work Phone: Platelets 299 10*3/mm3 Invalid Interpretation Code 150-450 [facility] Work Phone: Platelets (Bld) [#/Vol] 299 10*3/uL Invalid Interpretation Code 150-450 [facility] Work Phone: PMV by Cece 10.9 fL Invalid Interpretation Code 6.2-12.0 [facility] Work Phone: RBC (Bld) [#/Vol] 4.15 10*6/uL Low 4.2-5.4 [facility] Work Phone: RDW SD 41.0 fL Invalid Interpretation Code 35.1-43.9 [facility] Work Phone: red blood cell distribution width, size density 41.0 fL Invalid Interpretation Code 35.1-43.9 [facility] Work Phone: [phone] WBC (Bld) [#/Vol] 4.8 10*3/uL Invalid Interpretation Code 4.4-11.0 [facility] Work Phone: [phone] WBC (Leukocytes) 4.8 10*3/uL Invalid Interpretation Code 4.4-11.0 [facility] Work Phone: [phone] Lab Report: [facility] 04-29-2017 Alanine aminotransferase (ALT) 21 U/L Invalid Interpretation Code 12-78 [facility] Work [phone] Albumin 3.7 g/dL Invalid Interpretation Code 3.4-5.0 [facility] Work Phone: [phone] Albumin/Globulin [Mass ratio] 1.4656594 {ratio} Invalid Interpretation Code 0.9-2.4 [facility] Work Phone: [phone] Albumin/Globulin Ratio 1 {ratio} Invalid Interpretation Code 0.9-2.4 [facility] Work Phone: [phone] Alkaline phosphatase (ALP) 66 U/L Invalid Interpretation Code 45-117 [facility] Work Phone: [phone] ALP (Bld) [Catalytic activity/Vol] 66 U/L Invalid Interpretation Code 45-117 [facility] Work Phone: [phone] Anion gap 7 mmol/L Invalid Interpretation Code 5-15 [facility] Work Phone: [phone] Anion gap [Moles/Vol] 7 mmol/L Invalid Interpretation Code 5-15 [facility] Work Phone: [phone] Aspartate aminotransferase (AST) 18 U/L Invalid Interpretation Code 15-37 [facility] Work Phone: [phone] Bilirubin (total) 0.60 mg/dL Invalid Interpretation Code 0.20-1.00 [facility] Work Phone: [phone] BUN/Creatinine Ratio 28.7 RATIO High 10-20 [facility] Work Phone: [phone] Calcium 9.1 mg/dL Invalid Interpretation Code 8.5-10.1 [facility] Work Phone: [phone] Chloride 101 mmol/L Invalid Interpretation Code 98-107 [facility] Work Phone: [phone] CO2 31.0 mmol/L Invalid Interpretation Code 21.0-32.0 [facility] Work Phone: [phone] CO2 (BldV) [Partial pressure] 31.0 mmol/L Invalid Interpretation Code 21.0-32.0 [facility] Work Phone: [phone] Creatinine 0.70 mg/dL Invalid Interpretation Code 0.55-1.02 [facility] Work Phone: [phone] eGFR (non-black) 106 mL/min/{1.73_m2} Invalid Interpretation Code >60 [facility] Work Phone: [phone] eGFR (non-black) 88 mL/min/{1.73_m2} Invalid Interpretation Code >60 [facility] Work Phone: [phone] Globulin 3.8 g/dL Invalid Interpretation Code 2.2-4.2 [facility] Work Phone: [phone] Globulin (S) [Mass/Vol] 3.8 g/dL Invalid Interpretation Code 2.2-4.2 [facility] Work Phone: [phone] Glomerular Filtration rate 106 mL/min Invalid Interpretation Code >60 [facility] Work Phone: [phone] Glucose mass conc 103 mg/dL Invalid Interpretation Code 70-110 [facility] Work Phone: [phone] Potassium molar conc 3.6 mmol/L Invalid Interpretation Code 3.5-5.1 [facility] Work Phone: [phone] Protein 7.5 g/dL Invalid Interpretation Code 6.4-8.2 [facility] Work Phone: [phone] Sodium 139 mmol/L Invalid Interpretation Code 136-145 [facility] Work Phone: [phone] Urea nitrogen 20 mg/dL High 7-18 [facility] Work Phone: [phone] Urea nitrogen/Creatinine [Mass ratio] 28.9401117 mg/mg High 10-20 [facility] Work Phone: [phone] Lab Report: Lipid Profileon 04-29-2017 Cholesterol 183 mg/dL Invalid Interpretation Code 200 [facility] Work Phone: HDL Cholesterol 49 mg/dL Invalid Interpretation Code [facility] Work Phone: LDL Cholesterol 93 mg/dL Invalid Interpretation Code 0-130 [facility] Work Phone: Triglyceride 206 mg/dL High [facility] Work Phone: very low density lipoproteins 41 mg/dL High 5-40 [facility] Work Phone: Otheron 04-17-2017 CONVERTED CLINICAL HISTORY OPERATIVE PROCEDURE: Colonoscopy CLINICAL INFORMATION: Ischemic [facility] CONVERTED ELECTRONIC SIGNATURE DENIZ ART M.D. (Electronic signature on file) Final Signed Out: 04/17/2017 15:19 [facility] CONVERTED FINAL DIAGNOSIS FINAL DIAGNOSIS: A) LEFT COLON BIOPSY - FEATURES CONSISTENT WITH ISCHEMIC COLITIS WITH ULCERATION AND ACUTE INFLAMMATION. B) RECTAL BIOPSY - TUBULAR ADENOMA. [facility] CONVERTED GROSS DESCRIPTION GROSS DESCRIPTION: A) Left colon biopsy Received in formalin labeled left colon biopsy are multiple rabago soft tissues aggregating to 1 x 0.8 x 0.2 cm which are totally submitted in cassette A. Levels x 3. B) Rectal polyp Received in formalin labeled rectal polyp is a rabago soft tissue measuring 0.2 x 0.1 x 0.1 cm which is totally submitted in cassette B. Levels x 3. BMP:[facility] CONVERTED ORDERING PROVIDER Ordering Provider: LUIS F DANIELLE [facility] Basic Panelon 04-16-2017 Creatinine 0.70 mg/dL Normal 0.51-0.95 [facility] Comment on above: Performed By: #### P HOS ####[address] [address] Anion gap 7 mmol/L Low 8-16 [facility] Comment on above: Performed By: #### P HOS ####[address] [address] CO2 29 mmol/L Normal 21-32 [facility] Comment on above: Performed By: #### P HOS ####[address] [address] Glucose mass conc 90 mg/dL Normal 70-99 [facility] Comment on above: Performed By: #### P HOS ####[facility] [place] [address] Urea nitrogen 9 mg/dL Normal 7-18 [facility] Comment on above: Performed By: #### P HOS ####[facility] [place], [place] [address] Calcium 8.5 mg/dL Normal 8.5-10.1 [facility] Comment on above: Performed By: #### P HOS ####[facility] [place] [address] Chloride 106 mmol/L Normal 98-107 [facility] Comment on above: Performed By: #### P HOS ####[facility] [place] [address] Potassium molar conc 4.3 mmol/L Normal 3.5-5.1 [facility] Comment on above: Performed By: #### P HOS ####[place] [address] Sodium 138 mmol/L Normal 136-145 [facility] Comment on above: Performed By: #### P HOS ####[place] [address] CASE MANAGEMon 04-16-2017 CASE MANAGEM HNO ID: [id number] Author: Eleanor (Rn) AGUSTINA Gentile Service: Care Management Author Type: Registered Nurse Type: Care Mgt Progress Note Filed: 04/16/2017 11:45 AM Note Text: PATIENT TO NE HOME WITH NO NEEDS AT THIS TIME. Normal [facility] CNDSon 04-16-2017 CNDS HNO ID: [id number] thor: MAYRA Marshervice: Hospital MedicineAuthor Type: PhysicianType: Discharge SummariesFiled: 04/16/2017 12:19 PMNote Text:DISCHARGE SUMMARYPATIENT NAME: Baudilio TorresMRN: [id number] Information Admission Information ADMIT DATE: 04/10/2017DISCHARGE DATE: 04/16/2017MY DOCTORS AND MEDICAL TEAM:[facility] Main [facility] Doctor: Viry Marsh Care Provider: Jeff James MD (Inactive)My Medical Team Members: Treatment Team:Attending Provider: VINOD Marshonsulting: Baljeet Page CONDITION AT DISCHARGE: StableREASON I WAS IN THE HOSPITAL: abdominal pain, vomiting and diarrheaSUMMARY OF WHAT HAPPENED WHILE I WAS IN THE HOSPITAL: Patient presentedwith diarrhea, some bloody. Initial CT showed concern for colitis. Shehad GI consult and colonoscopy that showed polyps and concern for ischemiccolitis. CTA of A/P without ischemia. Patient will be DCd to home withF/U to GI and PCPOTHER PROBLEMS/DIAGNOSIS:Principal Problem (Resolved): Rectal bleedingActive Problems: * No active hospital problems. *Resolved Problems: Infectious colitis Lower GI bleed Acute diastolic CHF (congestive heart failure) (HCC) Coronary artery disease involving mohegan coronary artery of mohegan heartwithout angina pectoris Essential hypertensionOPERATIONS PERFORMED WHILE IN THE HOSPITAL: colonoscopyIMPORTANT TEST/PROCEDURES:Colonoscopy, CTA of abdomen Discharge Disposition Discharge Disposition: Home With Self CareActivity When You Leave the Hospital Resume pre-hospital activityDiet Instructions Resume your pre-hospital dietCall Your Doctor If For the following: Bloody bowel movementsFollow Up Appointments Follow-Up Appointment When: In: Comment - call for appointmentPatient/Parents to call for appointment?: Elizabeth [phone] [place] [place] [id number] Requested Referral Follow-Up Appointment With: Primary Care, Dr. Partida: In 1 weekPatient/Parents to call for appointment?: YesFOLLOW-UP APPOINTMENTS ALREADY SCHEDULED WITH A [facility] PROVIDERNo future appointments.DISCHARGE MEDICATION: Current Discharge Medication ListCONTINUE these medications which have NOT CHANGEDclopidogrel (PLAVIX) 75 mgTake 75 mg by mouth once daily.ATENOLOL, BULK, MISC 40 mg40 mg once daily.LISINOPRIL, BULK, MISC 40 mg40 mg once daily.simvastatin (ZOCOR) 20 mgTake 20 mg by mouth daily at bedtime.ASPIRIN, BULK, MISC 81 mg81 mg once daily.HYDROCHLOROTHIAZIDE, BULK, MISC 2.5 mg2.5 mg once daily.TIME OF CARE: Discharge Management: I personally spent greater than 30minutes involved in the discharge management of this patient.SIGNATURE: Joleen Mitchell CNP PAGER/CONTACT #:DATE: April 16, 2017TIME: 10:41 AM Adde ndum:Patient was seen and examined. See separate note.She will continue taking asa and plavix and advised to stop them and cometo the ER if she starts seeing blood in stoolAlso will resume her BP meds at discharge as she was hypertensive with SBP> 180 at some point . Scripts providedPatient was advised to see PCP in 10 days and GI after 3 weeks to see whatthe polyp biopsy will showSami MD Swetha12:19 PMNovember 2016 Normal [facility] Hemogramon 04-16-2017 Erythrocyte distribution width Auto Ratio (RBC) 12.0 % Normal 11.7-14.4 [facility] Comment on above: Performed By: #### P HOS ####[place] [address] Erythrocytes (RBC) 3.60 mil/cmm Low 3.93-5.22 [facility] Comment on above: Performed By: #### P HOS ####[place] [address] Hematocrit (HCT) 31.5 % Low 34.1-44.9 [facility] Comment on above: Performed By: #### P HOS ####[place] [address] Hemoglobin mass conc (Bld) 10.9 g/dL Low 11.2-15.7 [facility] Comment on above: Performed By: #### P HOS ####[place] [address] MCH 30.3 pg Normal 25.6-32.2 [facility] Comment on above: Performed By: #### P HOS ####[place] [address] MCHC mass conc (RBC) 34.6 % Normal 31.6-34.8 [facility] Comment on above: Performed By: #### P HOS ####[place] [address] MCV 87.5 fL Normal 79.4-94.8 [facility] Comment on above: Performed By: #### P HOS ####[facility] [place] [address] Platelet mean volume (PMV) 9.6 fL Normal 9.4-12.3 [facility] Comment on above: Performed By: #### P HOS ####[facility] [place] [address] Platelets 206 thou/cmm Normal 182-369 [facility] Comment on above: Performed By: #### P HOS ####[place] [address] RDW SD 38.8 fl Normal 36.4-46.3 [facility] Comment on above: Performed By: #### P HOS ####[place] [address] WBC (Leukocytes) 7.54 thou/cmm Normal 3.98-10.04 [facility] Comment on above: Performed By: #### P HOS ####[place] [address] MDRD GFRon 04-16-2017 eGFR (non-black) mL/min/{1.73_m2} Normal >60mL/m in/ 1.73m2 [facility] Comment on above: Result Comment: If t he patient is , multiply the result by 1.210. Performed By: #### P HOS ####[place] [address] PROGRESSon 04-16-2017 PROGRESS HNO ID: [id number] thor: Joleen (Mallika) Jonas: [facility] MedicineAuthor Type: Nurse PractitionerType: Progress NotesFiled: 04/16/2017 8:17 AMNote Text: Attes tation signed by Carlos Posada MD at 04/16/2017 10:29 AMAttending Note:Riggs findings confirmed. Patient examined. Discussed with the nursepractitioner and the patient. Plan as outlined.Her CTA :The celiac trunk and its branches and the superior mesenteric artery are widelypatent with no evidence of stenosis or thrombus.?There may be a mild to moderate degree of stenosis at the origin of theinferiormesenteric artery which is difficult to quantify due to the small size of theIMA.? Distal to the narrowing the ALEXANDRA and its branches are well perfused.?The splenic flexure, descending and sigmoid colon are mildly thickened afindingwhich may be seen with colitis including infectious, inflammatory or ischemiccolitis.Based on these imaging studies and the fact that she has well perfused branchesand no evidence of veion thrombosis and arterial stenosis, we will restart herplavix today and discharge her home.She was advised to come back if she starts having bloody bowel movementsShe will need to F/U with PCP and Hernando Posada MD10:29 AMDate [facility] MEDICINEPROESS NOTESERVICE DATE: 04/16/2017SERVICE TIME: 8:10 AMNIGHT AND WEEKEND COVERAGE:After 7pm please page [phone] COMPLAINT: F/U for GIBSUBJECTIVE: Patient had one liquid BM today, no bleeding. Hgb is stable. She denies abdominal pain or nausea. No CP or dyspnea.OBJECTIVE:PHYSICAL EXAM: BP 148/80 Pulse 67 Temp (Src) 98.2 (Oral) Resp 18 Ht 5' 1.2 (1.55m) Wt 156 lb 15.5 oz (71.2kg) SpO2 95% BMI 29.48kg/(m2).General - NADCV - RRR S1 S2RESP - CTA B/L No wheezes, ronchi, ralesABD - soft, NT, ND +BSEXT-no clubbing, cyanosis or edemaNEURO-AANDOX3, speech fluentDATA:Diagnostic tests reviewed for today's visit:CBC:Recent Labs WBC 7.54RBC 3.60*HB 10.9*HCT 31.5*PLT 206MCV 87.5MCH 30.3MPV 9.6Coags: No results for input(s): INR, APTT in the last 24 hours.Invalid input(s): PTBMP:Recent Labs NA 138K 4.3CHLOR 106CO2 29BUN 9CREAT 0.70GLUC 90CMP:Recent Labs NA 138K 4.3CHLOR 106CO2 29BUN 9CREAT 0.70GLUC 90CA 8.5ANION 7*Cardiac Enzymes: No results for input(s): CK, MB, CKMB, TROPT in the last24 hours.Liver Function, Amylase, Lipase: No results for input(s): TPROT, ALB, ALT,AST, ALKPHOS, TBILI, AMYLASE, LIPASE, LACTATE in the last 24 hours.MG/PHOS: No results for input(s): MG, P in the last 24 hours.Renal Panel:Recent Labs CREAT 0.70BUN 9GLUC 90CA 8.5CHLOR 106K 4.3CO2 29NA 138Heme: No results for input(s): RETICP, ABSRETIC, LD, ANT, FE, TIBC,TRANSFERSAT in the last 24 hours.No results found for: UALBCRMEDICATIONS:Current hospital medications:potassium chloride ER 40 mEq tab(s) (K-DUR, KLOR-CON) 40 mEq ORAL BIDiv contrast (radiology procedure) INTRAVENOUS DIRECTED PRNhydrALAZINE 12.5 mg tab(s) (APRESOLINE) 12.5 mg ORAL q [address] mg tab(s) (PROTONIX) 40 mg ORAL DAILY (6 AM)acetaminophen 650 mg tab(s) (TYLENOL) 650 mg ORAL q 6 H PRNmelatonin 3 mg tab(s) 3 mg ORAL AT BEDTIMEipratropium-albuterol 3 mL nebulizer solution (DUONEB) 3 mL INHALATION q 4H PRNoxyCODONE-acetaminophen 5-325 mg 0.5 tablet (PERCOCET) 0.5 tablet ORAL q 4H PRNlisinopril 40 mg tab(s) (ZESTRIL, PRINIVIL) 40 mg ORAL DAILYaspirin 81 mg chewable tab(s) 81 mg ORAL DAILYatenolol 50 mg tab(s) (TENORMIN) 50 mg ORAL DAILYondansetron (PF) 4 mg injection (ZOFRAN) 4 mg INTRAVENOUS q 4 H PRNatorvastatin 10 mg tab(s) (LIPITOR) 10 mg ORAL AT BEDTIMEASSESSMENT/PLAN1. LGIB- s/p colonoscopy yesterday that showed polyps and evidence ofischemic colitis. CTA done yesterday evening, results pending.2. CAD s/p NAHUM-will restart plavix, continue Aspirin3. PVD4. HTN-monitor, eventually resume home antihypertensives5. Possible infective colitis-monitoring off antibiotics.VTE Prophylaxis: Pneumatic Compression DeviceDisposition: HomePlan of care discussed with: PatientSIGNATURE: Joleen Mitchell CNP PATIENT NAME: Baudilio TorresDATE: April 16, 2017 : 8:10 AM PAGER/CONTACT #: [phone] [facility] PT EDon 04-16-2017 PT ED HNO ID: [id number] thor: Lucian Stallworth (Pharmacist)Service: PharmacyAuthor Type: PharmacistType: Patient EducationFiled: 04/16/2017 11:56 AMNote Text:DISCHARGE MEDICATION REVIEW AND COUNSELING BY PHARMACYPatient Name: Baudilio Torres Account #: Data UnavailableMRN: [id number] Admission Date: 04/10/2017Date of Contact: April 16, 2017 Time of Contact: 11:55 AMLEARNERSPersons Present: PatientPrimary Learner: PatientMedication list was reviewed by a Pharmacist for drug interactions or drugrelated problems:YesThe patient was counseled on the medication(s) listed below and was giventhe opportunity to ask questions regarding indication, dosage, sideeffects and drug interactionsREADINESS TO LEARNCOGNITIVE ABILITY:Alert and orientedMOTIVATION TO LEARN:EagerFAMILY SUPPORT:Unable to assess - Family not presentINSTRUCTION PROVIDED TO:PatientPATIENT LEARNS BEST BY:Multiple MethodsFACTORS AFFECTING LEARNING:NonePHYSICAL LIMITATIONS AFFECTING LEARNING:NoneLEARNING RESPONSEPATIENT / FAMILY RESPONSE:Verbalizes understanding of: The signs andsymptoms of a worsening condition that warrant a call to the physician.The correct actions to take to manage symptoms associated with his/herdisease/illness.The physical restrictions and recommendations after discharge from thehospital.Accurate knowledge of prescribed medication prior to discharge.The correct action to take if medication dose is missed.The side effects associated with the medication that warrant a call to thephysician.Post discharge follow up instructionFluid restrictionsDiet / weight monitoringADRIEN NavasNov2016 11:55 AMMedication ListSTART taking these medications aspirin, enteric coated 81 mg EC tabletCommonly known as: ADULT LOW DOSE ASPIRINTake 1 tablet by mouth once daily.Replaces: ASPIRIN (BULK) MISC atenolol 25 mg tabletCommonly known as: TENORMINTake 1 tablet by mouth once daily.Replaces: ATENOLOL (BULK) MISC hydroCHLOROthiazide 25 mg tabletCommonly known as: HYDRODIURIL, ESIDRIXTake 1 tablet by mouth once daily.Replaces: HYDROCHLOROTHIAZIDE (BULK) MISC lisinopril 40 mg tabletCommonly known as: ZESTRIL, PRINIVILTake 1 tablet by mouth once daily.Replaces: LISINOPRIL (BULK) MISCCONTINUE taking these medications PLAVIX 75 mg tabletGeneric drug: clopidogrel ZOCOR 20 mg tabletGeneric drug: simvastatinSTOP taking these medications ASPIRIN (BULK) MISCReplaced by: aspirin, enteric coated 81 mg EC tablet ATENOLOL (BULK) MISCReplaced by: atenolol 25 mg tablet HYDROCHLOROTHIAZIDE (BULK) MISCReplaced by: hydroCHLOROthiazide 25 mg tablet LISINOPRIL (BULK) MISCReplaced by: lisinopril 40 mg tabletWhere to Get Your MedicationsInformation about where to get these medications is not yet available ! Ask your nurse or doctor about these medications - aspirin, enteric coated 81 mg EC tablet- atenolol 25 mg tablet- hydroCHLOROthiazide 25 mg tablet- lisinopril 40 mg tablet Normal [facility] ANES Oc 04-15-2017 ANES POST HNO ID: [id number] thor: Cameron R KaufmannService: AnesthesiologyAuthor Type: PhysicianType: Anesthesia PostOpFiled: 04/15/2017 3:07 PMNote Text:POST ANESTHESIA EVALUATION NOTESERVICE DATE: 04/15/2017SERVICE TIME: 3:07 PMDOB: 1945Vitals: 538404/15/1707Temp: 36.6 ?C (97.9 ?F) 36.5 ?C (97.7 ?F) 36.6 ?C (97.9 ?F) 36.6 ?C (97.9?F) 04/15/1712BP: 172/71 178/88 (!) 99/38 135/53 04/15/1712Pulse: 65 63 (!) 58 (!) 59 04/15/1712Resp: 16 16 16 16 04/15/1712SpO2: 98% 97% 99% 99%Validated Vital Signs: YesPOST ANES STATUS: No apparent anesthetic complications. The patient isappropriately hydrated with stable respiratory and cardiovascular status.Patient has safe and adequate airway control. The patient has appropriatepain relief and no significant post operative nausea or vomiting. Thepatient has achieved baseline mental status.Further assessment by Anesthesia Service: NoneOther Remarks:SIGNATURE: Cameron Han MD PATIENT NAME: Baudilio TorresDATE: April 15, 2017 : 3:07 PM PAGER/CONTACT #: [phone] [facility] ANES PREOPon 04-15-2017 ANES PREOP HNO ID: [id number] thor: Marco Ruizervice: AnesthesiologyAuthor Type: PhysicianType: Anesthesia PreOpFiled: 04/15/2017 12:38 PMNote Text: ANESTHESIOLOGY DAY OF SURGERY NOTESERVICE DATE: 04/15/2017SERVICE TIME:12:23 PMDOB: 1945Procedure(s) (LRB):COLONOSCOPY (Left)Surgeon(s):Luis F Davidson body mass index is 27.78 kg/(m2) as calculated from thefollowing: Height as of this encounter: 155.4 cm (5' 1.2). Weight as of this encounter: 67.1 kg (148 lb).Most recent hematocrit and potassium results:Hematocrit 34.5 04/15/2017Potassium 3.1 04/15/2017ANES DOS/PREOP NOTE:Vitals: 741 115 04/15/1712BP: 166/73 155/68 172/71 178/88Pulse: 62 63 65 63Resp: 18 16 16Temp: 36.6 ?C (97.9 ?F) 36.6 ?C (97.9 ?F)TempSrc: Oral OralSpO2: 98% 97% 98% 97%Weight: 67.1 kg (148 lb)Height: 155.4 cm (5' 1.2)ACTIVE PROBLEM LISTInfectious ColitisLower GI BleedAcute Diastolic Chf (Congestive Heart Failure) (Hcc)Coronary Artery Disease Involving [place] Coronary Artery of [place] HeartWithout Angina PectorisEssential HypertensionRectal BleedingPAST MEDICAL HISTORYDiagnosis Date- CAD (coronary artery disease)- Carotid stenosis- CHF (congestive heart failure) (HCC)- HLD (hyperlipidemia)- HTN (hypertension)PAST SURGICAL HISTORYProcedure Laterality Date- CAROTID ENDARTERECTOMY Bilateral- DRUG-ELUTING STENTS,EACH ADDHistory reviewed. No pertinent family history.Social History:Social HistorySubstance Use Topics- Smoking status: Former Smoker- Smokeless tobacco: Not on file- Alcohol use NoNo current facility-administered medications on file prior to encounter.No current outpatient prescriptions on file prior to encounter.Current Facility-Administered Medications:potassium chloride ER 40 mEq tab(s) (K-DUR, KLOR-CON) 40 mEq ORAL BID SamiAbuqayyas, MDacetaminophen 650 mg tab(s) (TYLENOL) 650 mg ORAL q 6 H PRN Richie JWheeler 650 mg at 04/14/17 2357furosemide 20 mg injection (LASIX) 20 mg INTRAVENOUS DAILY Swetha Byrfme67 mg at 04/14/[address] 20 mg tab(s) (PROTONIX) 20 mg ORAL DAILY (6 AM) NataliaTetyuk 20 mg at 04/14/17 0600melatonin 3 mg tab(s) 3 mg ORAL AT BEDTIME Swetha Tetyuk 3 mg at 703013zztrfjzlmwt-pvjckg rol 3 mL nebulizer solution (DUONEB) 3 mL INHALATION q 4H PRN Swetha Tetyuk 3 mL at 04/12/17 2315oxyCODONE-acetaminophen 5-325 mg 0.5 tablet (PERCOCET) 0.5 tablet ORAL q 4H PRN Tone Mapara 0.5 tablet at 04/12/17 0314ciprofloxacin 400 mg in D5W 200 mL (CIPRO) 400 mg INTRAVENOUS q 12 HSulaiman Mapara 400 mg at 04/14/17 2115metroNIDAZOLE 500 mg PREMIX piggyback (FLAGYL) 500 mg INTRAVENOUS q 8 HSulaiman Mapara 500 mg at 04/15/17 0318lisinopril 40 mg tab(s) (ZESTRIL, PRINIVIL) 40 mg ORAL DAILY SulaimanMapara 40 mg at 04/14/17 0856aspirin 81 mg chewable tab(s) 81 mg ORAL DAILY Tone Mapara 81 mg at1 0853atenolol 50 mg tab(s) (TENORMIN) 50 mg ORAL DAILY Tone Mapara 50 mg at1 0854ondansetron (PF) 4 mg injection (ZOFRAN) 4 mg INTRAVENOUS q 4 H PRNSulaiman Mapara 4 mg at 04/12/17 2124atorvastatin 10 mg tab(s) (LIPITOR) 10 mg ORAL AT BEDTIME Tone Nwpqnv39 mg at 04/14/17 2007Allergies:ALLERGIESAllerge n Reactions- Hydrocodone-Acetami* GI Upset- Morphine GI UpsetDOS EXAM: Adequate NPO status: YesAnesthetic risks, benefits, alternatives, personnel and consent discussed:YesPatient agrees to proceed: YesPrevious Anesthesia: SEVERE POST OP VOMITINGAirway Assessment: MP 2; Neck ROM: Full ROM without neurologic symptoms;Airway Evaluation: No significant abnormalitiesSymptoms of Sleep Apnea: NoneDentition: Dentures: bothAdditional Physical Exam:Lungs: Patient health status unchanged since recent history and physical.See history and physical for exam findings.Cardiac: Patient health status unchanged since recent history andphysical. See history and physical for exam findings.Additional Pertinent Findings: PT WENT INTO DIASTOLIC CHF WITH INITIALFLUID RESUSCITATION. COMPENSATED NOW.Blood Products: Not anticipated for this procedure.Anesthetic Plan: MAC with Sedation and CAUTIOUS IV ADMINISTRATION, NOOPIOIDS. ZOFRAN. METOPROLOL FOR HR>70Pain Management Plan: Parenteral or OralASA Class: 4Other Medical Problems: S/P BILAT CEA AND CARDIAC STENTS. LAST PLAVIX 5DAYS AGO.Chronic Beta Rick medication administered within 24 hours: No: BBLOCKER NOT GIVEN BECAUSE PT WAS IN ENDO SUITE WHEN MED DUE FORADMINISTRATIONI have interviewed and examined the patient. I have reviewed the medicalrecord and/or the pre-anesthesia evaluation, pertinent labs, and testresults.Significant changes in the patient's condition since the History andPhysical, not otherwise documented in primary service progress notes: No-SAO2 99% RAThis contains updated information obtained within 48 hours ofSurgery/Procedure.SIGNATURE: Marco Robins MD PATIENT NAME: Baudilio TorresDATE: April 15, 2017 : 12:12 PM CSN: [id number] [facility] BRIEF OP NOTon 04-15-2017 BRIEF OP NOT HNO ID: [id number] thor: Luis F DanielleService: GastroenterologyAuthor Type: PhysicianType: Brief Op NoteFiled: 04/15/2017 2:45 PMNote Text:BRIEF OPERATIVE / PROCEDURE NOTELOG ID: [id number]/PROCEDURE DATE: 04/15/2017INCISION/PROCEDURE START TIME: 2:11 PMINCISION CLOSE/PROCEDURE END TIME: 2:35 PMSURGEON(S)/PROCEDURALIST(S) AND COOKER PIE FILLING(S):Surgeon(s) and Role: * Luis F Mora Additional StaffPROCEDURE(S): ColonoscopyANESTHESIA: Monitored Anesthesia CareFINDINGS: 1. Suspect Ischemic colitis Desc. Colon and sigmoid colon 2.Rectal polypESTIMATED BLOOD LOSS: NoneSPECIMENS: 1. L colon bx's 2. Rectal polypCOMPLICATIONS: NonePRE-OP/PRE-PROCEDURE DIAGNOSIS: 1. Rectal bleeding 2. Abd pain 3.diarrheaPOST-OP/POST-PROCEDU RE DIAGNOSIS: As aboveSIGNATURE: Luis F Danielle MD PATIENT NAME: Baudilio TorresDATE: April 15, 2017 : 2:42 PM PAGER/CONTACT #: Normal [facility] Basic Panelon 04-15-2017 Creatinine 0.74 mg/dL Normal 0.51-0.95 [facility] Comment on above: Performed By: #### P HOS ####[address] [address] Anion gap 9 mmol/L Normal 8-16 [facility] Comment on above: Performed By: #### P HOS ####[address] [address] CO2 31 mmol/L Normal 21-32 [facility] Comment on above: Performed By: #### P HOS ####[address] [address] Glucose mass conc 96 mg/dL Normal 70-99 [facility] Comment on above: Performed By: #### P HOS ####[address] [address] Urea nitrogen 10 mg/dL Normal 7-18 [facility] Comment on above: Performed By: #### P HOS ####[address] [address] Calcium 8.7 mg/dL Normal 8.5-10.1 [facility] Comment on above: Performed By: #### P HOS ####[address] [address] Chloride 101 mmol/L Normal 98-107 [facility] Comment on above: Performed By: #### P HOS ####[address] [address] Potassium molar conc 3.1 mmol/L Low 3.5-5.1 [facility] Comment on above: Performed By: #### P HOS ####[address] [address] Sodium 138 mmol/L Normal 136-145 [facility] Comment on above: Performed By: #### P HOS ####[place] [address] CASE MANAGEMon 04-15-2017 CASE MANAGEM HNO ID: [id number] thor: Eleanor (Rn) Seferino, RNService: Care ManagementAuthor Type: Registered NurseType: Care Mgt Progress NoteFiled: 04/15/2017 9:52 AMNote Text:CHART REVIEWED. DC PLAN WILL BE HOME ONCE MEDICALLY STABLE. WILL FOLLOWFOR ANY NEEDS. Normal [facility] CTA ABD/PEL W IV CONon 04-15 CTA ABD/PEL W IV CON Performed at [facility] APPROVED BY: Baljinder Vogt MD EXAMINATION: CT ANGIOGRAM ABDOMEN AND PELVIS CLINICAL HISTORY: Ischemic colitis TECHNIQUE: CT scanning was performed from the lung bases through the pubic symphysis prior to the administration of intravenous contrast. Nonionic intravenous contrast was administered and CT scanning from the lung bases through the pubic symphysis performed during the arterial phase of contrast enhancement.M: CTAP_3 Contrast: 150 mL Omnipaque 350 IVContrast oral: NoneCT Dose-Length Product: 1851.87 mGy*cmCT Dose Reduction Employed: 1. Automated exposure control (AEC) was used. COMPARISON: MRI abdomen 04/12/2017 RESULT: Vascular findings: There is a moderate amount of atherosclerotic calcification in the abdominal aorta. The abdominal aorta is normal in caliber and widely patent. Celiac trunk is widely patent. The splenic, common and proper hepatic arteries are widely patent. The superior mesenteric artery and its branches are widely patent. There may be a mild to moderate degree of stenosis at the origin of the inferior mesenteric artery which is difficult to quantify due to the small size of the ALEXANDRA. The ALEXANDRA and its branches are well perfused distally. There is a single right and single left renal artery both of which are widely patent. The common iliac arteries are normal in caliber. The common, external and internal iliac arteries are widely patent. Lower thorax: Lung bases are unremarkable. Liver: No mass. Biliary: No bile duct dilation. The gallbladder is unremarkable. Spleen: No mass. No splenomegaly. Pancreas: No mass or duct dilation. Adrenals: No mass. Kidneys: Kidneys enhance symmetrically. No evidence of any enhancing renal mass or hydronephrosis. GI tract: There is mild wall thickening involving the splenic flexure, descending colon and proximal sigmoid colon. No dilated loops of large or small bowel. The appendix is is not definitively identified. There are no findings to suggest acute appendicitis. Lymph nodes: No abdominal or pelvic lymphadenopathy. Mesentery/Peritoneum: No ascites or mass. Retroperitoneum: No mass. Pelvis: No mass, ascites or fluid collection. Bones/Soft Tissues: Osseous structures are unremarkable. Soft tissues are unremarkable. IMPRESSION: The celiac trunk and its branches and the superior mesenteric artery are widely patent with no evidence of stenosis or thrombus. There may be a mild to moderate degree of stenosis at the origin of the inferior mesenteric artery which is difficult to quantify due to the small size of the ALEXANDRA. Distal to the narrowing the ALEXANDRA and its branches are well perfused. The splenic flexure, descending and sigmoid colon are mildly thickened a finding which may be seen with colitis including infectious, inflammatory or ischemic colitis. Normal [facility] Hemogram/Diffon 04-15-2017 Basophils Auto #/vol (Bld) 0.07 thou/cmm Normal 0.01-0.08 [facility] Comment on above: Performed By: #### M AG ####[address] [address] Basophils/100 WBC Auto (Bld) 0.7 % Normal [facility] Comment on above: Performed By: #### M AG ####[address] [address] Eosinophils 0.47 thou/cmm High 0.00-0.31 [facility] Comment on above: Performed By: #### M AG ####[address] [address] Eosinophils/100 leukocytes 4.8 % Normal [facility] Comment on above: Performed By: #### M AG ####[address] [address] Erythrocyte distribution width Auto Ratio (RBC) 11.9 % Normal 11.7-14.4 [facility] Comment on above: Performed By: #### M AG ####[address] [address] Erythrocytes (RBC) 3.90 mil/cmm Low 3.93-5.22 [facility] Comment on above: Performed By: #### M AG ####[facility] [place] [address] Hematocrit (HCT) 34.5 % Normal 34.1-44.9 [facility] Comment on above: Performed By: #### M AG ####[place] [address] Hemoglobin mass conc (Bld) 11.8 g/dL Normal 11.2-15.7 [facility] Comment on above: Performed By: #### M AG ####[place] [address] Immature Grans 0.90 % Normal [facility] Comment on above: Performed By: #### M AG ####[place] [address] Immature Grans # 0.09 thou/cmm High 0.00-0.05 [facility] Comment on above: Performed By: #### M AG ####[place] [address] Lymphocytes 1.79 thou/cmm Normal 1.18-3.74 [facility] Comment on above: Performed By: #### M AG ####[place] [address] Lymphocytes/100 leukocytes 18.1 % Normal [facility] Comment on above: Performed By: #### M AG ####[place] [address] MCH 30.3 pg Normal 25.6-32.2 [facility] Comment on above: Performed By: #### M AG ####[place] [address] MCHC mass conc (RBC) 34.2 % Normal 31.6-34.8 [facility] Comment on above: Performed By: #### M AG ####[place] [address] MCV 88.5 fL Normal 79.4-94.8 [facility] Comment on above: Performed By: #### M AG ####[facility] [place], [place] [address] Monocytes 0.68 thou/cmm Normal 0.27-0.70 [facility] Comment on above: Performed By: #### M AG ####[address] [address] Monocytes/100 leukocytes 6.9 % Normal [facility] Comment on above: Performed By: #### M AG ####[place] [address] Platelet mean volume (PMV) 9.9 fL Normal 9.4-12.3 [facility] Comment on above: Performed By: #### M AG ####[place] [address] Platelets 211 thou/cmm Normal 182-369 [facility] Comment on above: Performed By: #### M AG ####[place] [address] RDW SD 38.4 fl Normal 36.4-46.3 [facility] Comment on above: Performed By: #### M AG ####[address] [address] Seg Neutrophil 68.6 % Normal [facility] Comment on above: Performed By: #### M AG ####[place] [address] Seg. Neut.# 6.78 thou/cmm High 1.56-6.13 [facility] Comment on above: Performed By: #### M AG ####[place] [address] WBC (Leukocytes) 9.88 thou/cmm Normal 3.98-10.04 [facility] Comment on above: Performed By: #### M AG ####[place] [address] MDRD GFRon 04-15-2017 eGFR (non-black) mL/min/{1.73_m2} Normal >60mL/m in/ 1.73m2 [facility] Comment on above: Result Comment: If t he patient is , multiply the result by 1.210. Performed By: #### P HOS ####[place] [address] OPERATIVE NOon 04-15-2017 OPERATIVE NO HNO ID: [id number] thor: Luis F DanielleService: GastroenterologyAuthor Type: PhysicianType: Operative ReportFiled: 04/24/2017 3:32 PMNote Text:[facility] - Operative ReportSURGEON: JAIME CharlesATIENT NAME: BAUDILIO TORRES GMRN: [id number] CSN: [id number] OF SURGERY: 04/15/2017DATE OF : 1945 SEX/AGE: F/71PATIENT TYPE: I HOSP SVC: INTM LOCATION: [id number] OF SURGERY: 04/15/2017SURGEON: JAIME CharlesROCEDURE PERFORMED: Colonoscopy with biopsies.PREPROCEDURE DIAGNOSES:1. Rectal bleeding.2. History of abdominal pain.3. Diarrhea.POSTPROCEDURE DIAGNOSES:1. Suspect ischemic colitis as described.2. Mild left-sided diverticulosis.3. Rectal polyp.CONSENT: Risks and benefits of the procedure were discussed with thepatient and consent was obtained.ENDOSCOPE: Olympus pediatric colonoscope.MEDICATIONS: MAC sedation.DESCRIPTION OF THE PROCEDURE: The procedure was performed in theendoscopy suite. The patient was placed in left lateral decubitusposition. The patient wasmonitored throughout. Once the patient was sedated, a perianal exam wasperformed, which was normal. Digital examination revealed no rectalmasses. The endoscope was pulled into the anorectal canal and advancedall the way to the cecum. The appendiceal orifice and ileocecal valvewere identified and photo documented. The terminal ileum was intubated afew centimeters distally and revealed a normal mucosal pattern. Theendoscope was then brought back slowly. There was slightly exudativeerosive changes with erythematous edematous mucosa from about the distaldescending colon to the rectosigmoid area. This was from about 40-15 cmfrom the anal verge. Multiple biopsies were obtained. This wassuspicious for ischemic colitis, which was xbbc-vj-peinamtz in degree.There was a diminutive rectal polyp removed with cold forceps. Therewere a few diverticula seen in the sigmoid colon. Retroflexed view ofthe distal rectum wasunremarkable. The endoscope was then completely withdrawn. The patientwas transferred to the recovery room in stable condition.RECOMMENDATIONS:1. Follow up biopsies.2. Advance diet.3. Okay to resume baby aspirin at discharge, would hold Plavix for anotherweek after discharge and then resume.Luis F Danielle MDGastroenterologyJRN:modlD: 04/15/2017 14:49:48T: 04/15/2017 23:59:29Job #: [id number] Normal [facility] PROGRESSon 04-15-2017 PROGRESS HNO ID: [id number] thor: MAYRA Marshervice: [facility] MedicineAuthor Type: PhysicianType: Progress NotesFiled: 04/15/2017 3:58 PMNote Text: Hospital Medicine Progress NotePatient Name: Baudilio TorresMRN: [id number] Date: 04/10/2017Reason For Admission:GIB, abdominal pain, vomiting and diarrheaIMPRESSION AND PLAN:? Rectal bleeding: S/P colonoscopy today showing polyps and evidence ofischemic colitis in the inferior mesetric artery territoryWill hold plavix for todayCTA abdomen and pelvis to check on the mesenteric circulation as she hasHx of PVD with CAD and bilateral carotid stenosisIf hgb stable tomorrow and no bleeding then plavix can be restarted? PVD - see plan for CAD? CAD S/P NAHUM with last one was 3 years ago- continue ASA , restart plavixtomorrow? HTN - holding HCTZ and lisinopril and lasix as she will get contrast forthe CTA- restart these meds gradually afterward- in the mean time will addhydralazine prn? Infectious colitis: it is not clear if there is any source of infection,I will hold ABx as most likely her colitis is due to ischemic rather thaninfectionPLAN FOR TODAYCTA abdomen and pelvisIV hydrationMonitor HANDHRestart plavix likely tomorrowContinue ASACase discussed with Dr. Danielle and I updated her familyPatient ChecklistProphylaxis: VTE - Yes PPI - YesCode Status: fullDisposition: homeSami Abuqayyas, MD Interval History:S/P colonoscopy showing evidence of ischemic colitis and polyps s/p biopsyPatient has been well overnight.Patient has been hemodynamically stable.No acute events.PERTINENT ROS: No fever, chills , night sweats, no chest pain, off oxygen,no ankle edema, no abd pain, no dysuriaTemp Av.5 ?C (97.7 ?F) Min: 36.3 ?C (97.3 ?F) Max: 36.6 ?C (97.9?F)Pulse Av Min: 58 Max: 66No Data RecordedCuff BP Min: 99/38 Max: 183/86Pain Score: 0/10MEDICATIONS:clopidogrel (PLAVIX) 75 mg tablet Take 75 mg by mouth once daily.ATENOLOL, BULK, MISC 40 mg once daily.LISINOPRIL, BULK, MISC 40 mg once daily.simvastatin (ZOCOR) 20 mg tablet Take 20 mg by mouth daily at bedtime.ASPIRIN, BULK, MISC 81 mg once daily.HYDROCHLOROTHIAZIDE, BULK, MISC 2.5 mg once daily.Current hospital medications:potassium chloride ER 40 mEq tab(s) (K-DUR, KLOR-CON) 40 mEq ORAL BIDlactated ringers infusion 5-30 mL/hr INTRAVENOUS CONTINUOUSiv contrast (radiology procedure) INTRAVENOUS DIRECTED PRNNaCl 0.9% iv infusion 75 mL/hr INTRAVENOUS CONTINUOUShydrALAZINE 12.5 mg tab(s) (APRESOLINE) 12.5 mg ORAL q 8 H PRNacetaminophen 650 mg tab(s) (TYLENOL) 650 mg ORAL q [address] 20 mg tab(s) (PROTONIX) 20 mg ORAL DAILY (6 AM)melatonin 3 mg tab(s) 3 mg ORAL AT BEDTIMEipratropium-albuterol 3 mL nebulizer solution (DUONEB) 3 mL INHALATION q 4H PRNoxyCODONE-acetaminophen 5-325 mg 0.5 tablet (PERCOCET) 0.5 tablet ORAL q 4H PRNlisinopril 40 mg tab(s) (ZESTRIL, PRINIVIL) 40 mg ORAL DAILYaspirin 81 mg chewable tab(s) 81 mg ORAL DAILYatenolol 50 mg tab(s) (TENORMIN) 50 mg ORAL DAILYondansetron (PF) 4 mg injection (ZOFRAN) 4 mg INTRAVENOUS q 4 H PRNatorvastatin 10 mg tab(s) (LIPITOR) 10 mg ORAL AT BEDTIMEPHYSICAL EXAM:BP 183/86 Pulse 66 Temp 36.3 ?C (97.3 ?F) (Oral) Resp 16 Ht 155.4cm (5' 1.2) Wt 67.1 kg (148 lb) SpO2 100% BMI 27.78 kg/b5GCKPTEVS EXAMINATION:General appearance: Well appearing, alert, in no acute distress,well-hydrated, well nourished.Skin: Skin color, texture, turgor normal, no suspicious rashes or lesionsLungs: Lungs clear to auscultation. No wheezing, rhonchi, rales, nonlaboredHeart: RRR, normal s1s2, no murmursAbdomen: Abdomen soft, non-tender. Bowel sounds normal. No masses,Extremities: No deformities, edema, skin discoloration, clubbing orcyanosis.Lab data:CBC:Recent Labs 04/14/1712WBC 9.88 -- -- -- -- 15.28* -- 16.74* -- 13.33*HB 11.8 11.8 11.3 12.3 11.6 11.2 11.1* 11.9 < > 13.0HCT 34.5 -- -- -- -- 34.1 -- 35.0 -- 38.5PLT 211 -- -- -- -- 152* -- 169* -- 198MCV 88.5 -- -- -- -- 91.7 -- 90.2 -- 88.9< > = values in this interval not displayed.COAG: No results for input(s): APTT, INR in the last 168 hours.BMP:Recent Labs 04/14/1702GLUC 96 99 108* 130*NA 138 140 142 140K 3.1* 3.4* 3.3* 3.2*CHLOR 101 104 109* 106CO2 31 28 28 26ANION 9 11 8 11BUN 10 9 17 23*CREAT 0.74 0.68 0.77 1.14*CHEM:Recent Labs 04/14/1702ALB -- -- -- 3.5TPROT -- -- -- 6.8CA 8.7 8.3* 8.0* 8.1*MG -- -- -- 2.1HEPATIC:Recent Labs 0 04/11/1702ALKPHOS -- -- 68ALT -- -- 24AST -- -- 28TBILI -- -- 0.6LIPASE 321 489* 3709*URINALYSIS:No results for input(s): PH, SPGR, UGLUC, UBILI, UKET, UHB,UPROT, UROBIL, UWBC, SSA in the last 168 hours.Invalid input(s): NITRCARDIAC:Recent Labs PBNP 4255Sasera Poasda MD3:53 PMNovember 2016 [facility] PT EDon 04-15-2017 PT ED HNO ID: [id number] thor: Chloé (Rn) MADY Llanoservice: (none)Author Type: Registered NurseType: Patient EducationFiled: 04/15/2017 3:02 PMNote Text:PATIENT EDUCATION TOPIC: PROCEDURE / SURGERY: Post Procedure Teaching:PATIENT NAME: Bauidlio TorresMRN: [id number] [facility]OREADINESS TO LEARNCOGNITIVE ABILITY: Alert and orientedMOTIVATION TO LEARN: InterestedFAMILY SUPPORT: High - Very involved in pt careINSTRUCTION PROVIDED TO: Patient and family memberPATIENT LEARNS BEST BY: Individual InstructionFACTORS AFFECTING LEARNING: NonePHYSICAL LIMITATIONS AFFECTING LEARNING: NoneLEARNING RESPONSEDIAGNOSIS: ADULT:PATIENT/FAMILY RESPONSE: Verbalizes understanding of: RDLC-ZPNDSEAEHATGDJDUACORS-Jzd rect actions to take to reduce post procedurecomplicationsMETHOD OF INSTRUCTION: Individual instructionFOLLOW-UP PLAN: Patient instructed to call with any further issuesINSTRUCTIONAL AIDS USED: NASUPPLEMENTAL MATERIAL PROVIDED TO PATIENT: NoneREFERRAL (RECOMMENDATION): NoneElectronically Signed By: Chloé Llanos RN [facility] PT ED HNO ID: [id number] thor: Court (Rn) MADY Silvermanervice: NursingAuthor Type: Registered NurseType: Patient EducationFiled: 04/15/2017 12:04 PMNote Text:ONGOING PATIENT EDUCATION TOPIC Reinforced: rectal bleedingPatient Name: Baudilio TorresMRN: [id number] Location: [place] [address]/[place] [address]*Readi ness To LearnMotivation To Learn: InterestedInstruction Provided To: PatientLearning ResponsePatient/Family Response: Verbalizes understanding of: OID-DGZWSSCFQSJHAPQUALQYU-Fbpw ect action to take to follow pre-operative instructionsMethod of Instruction: Individual instructionFollow-Up Plan: Patient instructed to call with any further issuesElectronically signed by: Court Silverman RN [facility] Surgical Tissue Examon 04-15 Surgical Tissue Exam Test performed at [address] [address]MZWT: BAUDILIO TORRES [phone] REQUESTING: LUIS F DANIELLE M.D.FINAL DIAGNOSIS:A) LEFT COLON BIOPSY - FEATURES CONSISTENT WITH ISCHEMIC COLITIS WITHULCERATION AND ACUTE INFLAMMATION.B) RECTAL BIOPSY - TUBULAR ADENOMA.OPERATIVE PROCEDURE: ColonoscopyCLINICAL INFORMATION: IschemicGROSS DESCRIPTION:A) Left colon biopsyReceived in formalin labeled left colon biopsy are multiple rabago softtissues aggregating to 1 x 0.8 x 0.2 cm which are totally submitted incassette A. Levels x 3.B) Rectal polypReceived in formalin labeled rectal polyp is a rabago soft tissuemeasuring 0.2 x 0.1 x 0.1 cm which is totally submitted in cassette B.Levels x 3. BMP:zheng ART M.D.(Electronic signature on file)Signed out: 04/17/2017 15:19PRINTED: 04/17/2017 Page 1 of 1 Normal [facility] Comment on above: Performed By: #### P HOS ####[place] [address] Basic Panelon 04-14-2017 Creatinine 0.68 mg/dL Normal 0.51-0.95 [facility] Comment on above: Performed By: #### M AG ####[place] [address] Glucose mass conc 99 mg/dL Normal 70-99 [facility] Comment on above: Performed By: #### M AG ####[place] [address] Urea nitrogen 9 mg/dL Normal 7-18 [facility] Comment on above: Performed By: #### M AG ####[place] [address] Anion gap 11 mmol/L Normal 8-16 [facility] Comment on above: Performed By: #### M AG ####[place] [address] Calcium 8.3 mg/dL Low 8.5-10.1 [facility] Comment on above: Performed By: #### M AG ####[place] [address] CO2 28 mmol/L Normal 21-32 [facility] Comment on above: Performed By: #### M AG ####[place] [address] Chloride 104 mmol/L Normal 98-107 [facility] Comment on above: Performed By: #### M AG ####[place] [address] Potassium molar conc 3.4 mmol/L Low 3.5-5.1 [facility] Comment on above: Performed By: #### M AG ####[facility] [place], [place] [address] Sodium 140 mmol/L Normal 136-145 [facility] Comment on above: Performed By: #### M AG ####[facility] [place], [place] [address] Hgbon 04-14-2017 Hemoglobin mass conc (Bld) 11.8 g/dL Normal 11.2-15.7 [facility] Comment on above: Performed By: #### M AG ####[facility] [place], [place] [address] Hemoglobin mass conc (Bld) 11.3 g/dL Normal 11.2-15.7 [facility] Comment on above: Performed By: #### M AG ####[address] [address] Lipase Bloodon 04-14-2017 Lipase Blood 321 U/L Normal 73-393 [facility] Comment on above: Performed By: #### M AG ####[address] [address] MDRD GFRon 04-14-2017 eGFR (non-black) mL/min/{1.73_m2} Normal >60mL/m in/ 1.73m2 [facility] Comment on above: Result Comment: If t he patient is , multiply the result by 1.210. Performed By: #### M AG ####[address] [address] PROGRESSon 04-14-2017 PROGRESS HNO ID: [id number] thor: Richie Tomlinervice: Hospital MedicineAuthor Type: PhysicianType: Progress NotesFiled: 04/14/2017 5:24 PMNote Text:[facility] MEDICINEPROGRESS NOTESERVICE DATE: 04/14/2017SERVICE TIME: 3:02 PMHospital Medicine/Primary Attending: Richie Aponte MDNIGHT AND WEEKEND COVERAGE:After 7pm please page [phone]: F/u GI Bleed. No Bleed, CP, SOB, NVD.OBJECTIVE:PHYSICAL EXAM: BP 140/59 Pulse 66 Temp (Src) 98.2 (Oral) Resp 18 Ht 1' 11.661 (0.60m) Wt 156 lb 1.4 oz (70.8kg) SpO2 94% BMI 196.01kg/(m2).General - AANDOx3, NAD, CalmCV - RRR S1 S2, No M/R/GRESP - CTA B/L No wheezes, ronchi, ralesABD - soft, NT, ND +BSENT- no icterusNeuro- No dysarthriaMEDICATIONS:Current hospital medications:bisacodyl EC 10 mg tab(s) (DULCOLAX) 10 mg ORAL ONCEpolyethylene glycol 3350 255 g oral powder (MIRALAX, GLYCOLAX) 255 g ORALONCEfurosemide 20 mg injection (LASIX) [address] 20 mg tab(s) (PROTONIX) 20 mg ORAL DAILY (6 AM)potassium chloride ER 40 mEq tab(s) (K-DUR, KLOR-CON) 40 mEq ORAL DAILYmelatonin 3 mg tab(s) 3 mg ORAL AT BEDTIMEipratropium-albuterol 3 mL nebulizer solution (DUONEB) 3 mL INHALATION q 4H PRNoxyCODONE-acetaminophen 5-325 mg 0.5 tablet (PERCOCET) 0.5 tablet ORAL q 4H PRNciprofloxacin 400 mg in D5W 200 mL (CIPRO) 400 mg INTRAVENOUS q 12 HmetroNIDAZOLE 500 mg PREMIX piggyback (FLAGYL) 500 mg INTRAVENOUS q 8 Hlisinopril 40 mg tab(s) (ZESTRIL, PRINIVIL) 40 mg ORAL DAILYaspirin 81 mg chewable tab(s) 81 mg ORAL DAILYatenolol 50 mg tab(s) (TENORMIN) 50 mg ORAL DAILYondansetron (PF) 4 mg injection (ZOFRAN) 4 mg INTRAVENOUS q 4 H PRNatorvastatin 10 mg tab(s) (LIPITOR) 10 mg ORAL AT BEDTIMEDATA:Diagnostic tests reviewed for today's visit:CBC:Recent Labs 229HB 11.8Coags: No results for input(s): INR, APTT in the last 24 hours.Invalid input(s): PTBMP:Recent Labs NA 140K 3.4*CHLOR 104CO2 28BUN 9CREAT 0.68GLUC 99CMP:Recent Labs NA 140K 3.4*CHLOR 104CO2 28BUN 9CREAT 0.68GLUC 99CA 8.3*ANION 11Cardiac Enzymes: No results for input(s): CK, MB, CKMB, TROPT in the last24 hours.Liver Function, Amylase, Lipase:Recent Labs LIPASE 321MG/PHOS: No results for input(s): MG, P in the last 24 hours.Renal Panel:Recent Labs CREAT 0.68BUN 9GLUC 99CA 8.3*CHLOR 104K 3.4*CO2 28NA 140Heme: No results for input(s): RETICP, ABSRETIC, LD, ANT, FE, TIBC,TRANSFERSAT in the last 24 hours.No results found for: UALBCRASSESSMENT/PLANPrincipal Problem: Rectal bleeding Assessment AND Plan: Coloscopy in AM. Hgb Stable.Active Problems: Infectious colitis POA: Yes Assessment AND Plan: Transition to PO in next 24 hours. 10-14 days. Lower GI bleed POA: Yes Assessment AND Plan: See above Acute diastolic CHF (congestive heart failure) (HCC) POA: No Assessment AND Plan: No pulm edema. SEPSIS: ResolvedVTE Prophylaxis: Pneumatic Compression DeviceDisposition: HomePlan of care discussed with: PatientSIGNATURE: Richie Aponte MD PATIENT NAME: Baudilio TorresDATE: April 14, 2017 : 3:02 PM PAGER/CONTACT #: My Pager Normal [facility] PROGRESS HNO ID: [id number] thor: Isabel Amador (Mallika) MALLIKA FriedService: GastroenterologyAuthor Type: Nurse PractitionerType: Progress NotesFiled: 04/14/2017 10:49 AMNote Text:CONSULT PROGRESS NOTESERVICE DATE: 04/14/2017SERVICE TIME: 10:41 AMCONSULTING SERVICE: GASTROENTEROLOGYSUBJECTIVEINTE RVAL HPI: Patient c/o b/l upper abdominal pain, still with diarrhea,tolerating clear liquid diet with no nausea and vomiting.Current hospital medications:furosemide 20 mg injection (LASIX) [address] 20 mg tab(s) (PROTONIX) 20 mg ORAL DAILY (6 AM)potassium chloride ER 40 mEq tab(s) (K-DUR, KLOR-CON) 40 mEq ORAL DAILYmelatonin 3 mg tab(s) 3 mg ORAL AT BEDTIMEipratropium-albuterol 3 mL nebulizer solution (DUONEB) 3 mL INHALATION q 4H PRNoxyCODONE-acetaminophen 5-325 mg 0.5 tablet (PERCOCET) 0.5 tablet ORAL q 4H PRNciprofloxacin 400 mg in D5W 200 mL (CIPRO) 400 mg INTRAVENOUS q 12 HmetroNIDAZOLE 500 mg PREMIX piggyback (FLAGYL) 500 mg INTRAVENOUS q 8 Hlisinopril 40 mg tab(s) (ZESTRIL, PRINIVIL) 40 mg ORAL DAILYaspirin 81 mg chewable tab(s) 81 mg ORAL DAILYatenolol 50 mg tab(s) (TENORMIN) 50 mg ORAL DAILYondansetron (PF) 4 mg injection (ZOFRAN) 4 mg INTRAVENOUS q 4 H PRNatorvastatin 10 mg tab(s) (LIPITOR) 10 mg ORAL AT BEDTIMEOBJECTIVEPHYSICAL EXAM: GENERAL: Alert, no distress, cooperativeLUNGS: Expiratory wheezing in right upper lobe, clear in all other lobesCARDIAC: Normal S1 and S2; no rubs, murmurs, or gallopsABDOMEN: Abdomen soft, BS normal, no distention, masses or organomegaly,RUQ pain on palpationPULSES: 2+ radialPatient Vitals for the past 24 hrs: BP Temp Temp src Pulse Resp SpO2 Eznicn19/31/17 0700 140/59 36.8 ?C (98.2 ?F) Oral 66 18 94 % -04/13/17 2200 149/68 - - - - - 70.8 kg (156 lb 1.4 oz)04/13/17 1910 180/84 36.9 ?C (98.4 ?F) Oral 66 18 98 % -04/13/17 1550 169/81 36.7 ?C (98.1 ?F) Oral 70 18 96 % -Body mass index is 196.02 kg/(m2).DATA:Diagnostic tests reviewed for today's visit:Most recent labs and imaging results.IMPRESSION/RECOMMENDAT IONS1). Colitis Assessment AND Plan: Colonoscopy tomorrow2). Lower GI bleed secondary to #1 Assessment AND Plan: Monitor H/H, transfuse as needed, colonoscopytomorrow3). Dilated CBD-MRCP yesterday, CBD trending down with no biliarystricture of choledocholithiasis Assessment AND Plan:SIGNATURE: Isabel Fried CNP PATIENT NAME: Baudilio TorresDATE: April 14, 2017 : 10:41 AM PAGER: Normal [facility] CASE MANAGEMon 04-13-2017 CASE MANAGEM HNO ID: [id number] Author: Eleanor (Rn) AGUSTINA Gentile Service: Care Management Author Type: Registered Nurse Type: Care Mgt Progress Note Filed: 04/13/2017 2:53 PM Note Text: PATIENT ALERT AND 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 WILL FOLLOW FOR NEEDS. Normal [facility] CHEST SINGLE VIEWon 04-13-20 17 CHEST SINGLE VIEW Performed at [facility] APPROVED BY: TRISTON FLORES MD CHEST RADIOGRAPH: AP view of the chest. Exam Date/Time: 04/12/2017 11:07 PMIndication: Shortness of breath and vomitingComparison: No relevant prior study available for comparison. RESULTS: Lines, Tubes, and Devices: None Lungs and Pleura: There are prominent bilateral interstitial markings. No pleural effusion or pneumothorax. Cardiomediastinal silhouette: AP technique accentuates the cardiac silhouette. Other: The bones of the chest are unremarkable. IMPRESSION:Bilateral interstitial opacities most likely due to pulmonary edema. Normal [facility] CONSULT PROGon 04-13-2017 CONSULT PROG HNO ID: [id number] thor: Luis F DanielleService: GastroenterologyAuthor Type: PhysicianType: Consult Progress NoteFiled: 04/13/2017 4:52 PMNote Text:GI CONSULT PROGRESS NOTESERVICE DATE: 04/13/2017SERVICE TIME: 4:46 PMCONSULTING SERVICE: GastroenterologySUBJECTIVEINTE RVAL HISTORY: Pt says diarrhea better and no rectal bleeding. Somefluid overload overnight and lasix given. Still some abd pain.MEDICATIONS:Current hospital medications:furosemide 20 mg injection (LASIX) [address] 20 mg tab(s) (PROTONIX) 20 mg ORAL DAILY (6 AM)potassium chloride ER 40 mEq tab(s) (K-DUR, KLOR-CON) 40 mEq ORAL DAILYmelatonin 3 mg tab(s) 3 mg ORAL AT BEDTIMEipratropium-albuterol 3 mL nebulizer solution (DUONEB) 3 mL INHALATION q 4H PRNoxyCODONE-acetaminophen 5-325 mg 0.5 tablet (PERCOCET) 0.5 tablet ORAL q 4H PRNciprofloxacin 400 mg in D5W 200 mL (CIPRO) 400 mg INTRAVENOUS q 12 HmetroNIDAZOLE 500 mg PREMIX piggyback (FLAGYL) 500 mg INTRAVENOUS q 8 Hlisinopril 40 mg tab(s) (ZESTRIL, PRINIVIL) 40 mg ORAL DAILYaspirin 81 mg chewable tab(s) 81 mg ORAL DAILYatenolol 50 mg tab(s) (TENORMIN) 50 mg ORAL DAILYondansetron (PF) 4 mg injection (ZOFRAN) 4 mg INTRAVENOUS q 4 H PRNatorvastatin 10 mg tab(s) (LIPITOR) 10 mg ORAL AT BEDTIMEOBJECTIVEPHYSICAL EXAM:VITALS:BP 169/81 Pulse 70 Temp 36.7 ?C (98.1 ?F) (Oral) Resp 18 Ht60.1 cm (1' 11.66) Wt 63.5 kg (140 lb) SpO2 96% BMI 175.82 kg/x2XFZPTUO:DATA:Diagnostic tests reviewed for today's visit:Most recent labs and imaging results.IMPRESSION/RECOMMENDAT IONS1) BPR and abd pian , diarrhea. Diff dx includes ischemic colitis, IBD,infectious colitis.2. Inc lipase and CBD dilation, MRCP pend.Rec: 1. colonoscopy prep tomorrow for . 2. F/up MRCPwill continue to f/u the patientSIGNATURE: Luis F Danielle MD PATIENT NAME: Baudilio TorresDATE: April 13, 2017 : 4:46 PM PAGER/CONTACT #: Normal [facility] Hemogram/Diffon 04-13-2017 Basophils Auto #/vol (Bld) 0.03 thou/cmm Normal 0.01-0.08 [facility] Comment on above: Result Comment: Smea r scanned; tech agrees with automated differential Performed By: #### P 14 ####[address] [address] Basophils/100 WBC Auto (Bld) 0.2 % Normal [facility] Comment on above: Performed By: #### P 14 ####[address] [address] Eosinophils 0.02 thou/cmm Normal 0.00-0.31 [facility] Comment on above: Performed By: #### P 14 ####[address] [address] Eosinophils/100 leukocytes 0.1 % Normal [facility] Comment on above: Performed By: #### P 14 ####[address] [address] Immature Grans 1.40 % Normal [facility] Comment on above: Performed By: #### P 14 ####[address] [address] Immature Grans # 0.21 thou/cmm High 0.00-0.05 [facility] Comment on above: Performed By: #### P 14 ####[address] [address] Lymphocytes 0.93 thou/cmm Low 1.18-3.74 [facility] Comment on above: Performed By: #### P 14 ####[address] [address] Lymphocytes/100 leukocytes 6.1 % Normal [facility] Comment on above: Performed By: #### P 14 ####[address] [address] Monocytes 0.83 thou/cmm High 0.27-0.70 [facility] Comment on above: Performed By: #### P 14 ####[address] [address] Monocytes/100 leukocytes 5.4 % Normal [facility] Comment on above: Performed By: #### P 14 ####[address] [address] Seg Neutrophil 86.8 % Normal [facility] Comment on above: Performed By: #### P 14 ####[facility] [place] [address] Seg. Neut.# 13.26 thou/cmm High 1.56-6.13 [facility] Comment on above: Performed By: #### P 14 ####[facility] [place] [address] Hgbon 04-13-2017 Hemoglobin mass conc (Bld) 12.3 g/dL Normal 11.2-15.7 [facility] Comment on above: Performed By: #### M AG ####[facility] [place] [address] Hemoglobin mass conc (Bld) 11.6 g/dL Normal 11.2-15.7 [facility] Comment on above: Performed By: #### P 14 ####[place] [address] Lipase Bloodon 04-13-2017 Lipase Blood 489 U/L High 73-393 [facility] Comment on above: Performed By: #### M AG ####[place] [address] MRI MRCP PANC/BILIARY W/O IV CONTRASTon 04-13-2017 MRI MRCP PANC/BILIARY W/O IV CONTRAST Performed at [facility] APPROVED BY: Baljinder Vogt MD TITLE: MRI OF THE ABDOMEN WITH IV CONTRAST DATE: 04/13/2017 17:42 COMPARISON: Right upper quadrant ultrasound 04/11/2017 INDICATION: Acute pancreatitis, TECHNIQUE: Multiplanar multisequence MRI imaging of the abdomen was performed. This study was protocoled as an MRCP study to evaluate the biliary tree. No IV contrast was administered limiting evaluation. FINDINGS: Limitations: No IV contrast was administered. There is patient motion on several sequences which also limits evaluation. Liver: No evidence of fatty liver infiltration. No liver mass is identified. Gallbladder and biliary tree: Gallbladder is unremarkable. There is no intrahepatic biliary dilatation. The common bile duct measures 7 mm in diameter which is at the upper limits of normal for a patient of this age. No biliary stricture or choledocholithiasis is identified. Adrenal glands: No adrenal mass. Spleen: Unremarkable. Pancreas: There is a trace amount of fluid/edema adjacent to the pancreas which may be seen with pancreatitis. Pancreatic duct is normal in caliber. No evidence of pancreatic divisum or pancreatic duct dilatation. Kidneys: No hydronephrosis. No renal mass is identified. Aorta and vasculature: Abdominal aorta is normal in caliber. Lymph nodes: No enlarged abdominal lymph nodes. Other findings: There are small bilateral pleural effusions. There is a small amount of free fluid in the pelvis. IMPRESSION: The common bile duct measures 7 mm in diameter which is at the upper limits of normal for a patient of this age. No evidence of choledocholithiasis. There is trace edema/fluid adjacent to the pancreas finding which may be seen with pancreatitis. Correlation with lipase levels is recommended. Small bilateral pleural effusions. Small amount of free fluid in the pelvis. Normal [facility] N-terminal Pro-BNPon 017 BNP 4255 pg/mL Normal [facility] Comment on above: Result Comment: Acut e CHF Rule-in <50 yrs old >= 450 pg/ml >50 yrs old >= 900 pg/ml Abnormal Pro-BNP All patients >=300 pg/ml Performed By: #### P 14 ####[place] [address] PROGRESSon 04-13-2017 PROGRESS HNO ID: [id number] thor: Isabel Amador (Traffic Control Signaler) MALLIKA FriedService: GastroenterologyAuthor Type: Nurse PractitionerType: Progress NotesFiled: 04/13/2017 2:53 PMNote Text:CONSULT PROGRESS NOTESERVICE DATE: 04/13/2017SERVICE TIME: 2:42 PMCONSULTING SERVICE: GASTROENTEROLOGYSUBJECTIVEINTE RVAL HPI: Patient still have LUQ abdominal pain described as musclespasm. Last blood diarrhea was yesterday, just diarrhea today. No nauseaor vomiting. Breathing improved with Lasix. Still need MRCP (going toradiology today).Current hospital medications:furosemide 20 mg injection (LASIX) [address] 20 mg tab(s) (PROTONIX) 20 mg ORAL DAILY (6 AM)potassium chloride ER 40 mEq tab(s) (K-DUR, KLOR-CON) 40 mEq ORAL DAILYmelatonin 3 mg tab(s) 3 mg ORAL AT BEDTIMEipratropium-albuterol 3 mL nebulizer solution (DUONEB) 3 mL INHALATION q 4H PRNoxyCODONE-acetaminophen 5-325 mg 0.5 tablet (PERCOCET) 0.5 tablet ORAL q 4H PRNciprofloxacin 400 mg in D5W 200 mL (CIPRO) 400 mg INTRAVENOUS q 12 HmetroNIDAZOLE 500 mg PREMIX piggyback (FLAGYL) 500 mg INTRAVENOUS q 8 Hlisinopril 40 mg tab(s) (ZESTRIL, PRINIVIL) 40 mg ORAL DAILYaspirin 81 mg chewable tab(s) 81 mg ORAL DAILYatenolol 50 mg tab(s) (TENORMIN) 50 mg ORAL DAILYondansetron (PF) 4 mg injection (ZOFRAN) 4 mg INTRAVENOUS q 4 H PRNatorvastatin 10 mg tab(s) (LIPITOR) 10 mg ORAL AT BEDTIMEOBJECTIVEPHYSICAL EXAM: GENERAL: Alert, no distress, cooperativeLUNGS: Lungs clear to auscultation, Good diaphragmatic excursionCARDIAC: Normal S1 and S2; no rubs, murmurs, or gallopsABDOMEN: Abdomen soft, BS normal, No distention, masses or organomegaly,LUQ pain on palpationPULSES: 2+ radialPatient Vitals for the past 24 hrs: BP Temp Temp src Pulse Resp LbJ06804/13/17 0700 153/66 37 ?C (98.6 ?F) Oral 73 18 98 %04/13/17 0055 172/61 - - 68 18 98 %04/12/17 2322 - - - 72 20 -04/12/17 2315 - - - 74 26 97 %04/12/17 2240 174/70 37 ?C (98.6 ?F) - 78 24 96 %04/12/17 2100 - - - - - 91 %04/12/17 1900 158/70 37 ?C (98.6 ?F) - 70 18 97 %04/12/17 1500 139/61 36.5 ?C (97.7 ?F) - 68 18 96 %Body mass index is 175.82 kg/(m2).DATA:Diagnostic tests reviewed for today's visit:Most recent labsIMPRESSION/RECOMMENDATIONS 1). Possible Infectious colitis Assessment AND Plan: Possible colonoscopy tomorrow will discuss withDr. Samaniego). Lower GI bleed likely secondary to #1-resolving Assessment AND Plan: Monitor H/H3). Dilated CBD-Lipase trending down but still elevated Assessment AND Plan: Going for MRCP todaySIGNATURE: Isabel Fried CNP PATIENT NAME: Baudilio TorresDATE: April 13, 2017 : 2:42 PM PAGER: Normal [facility] PROGRESS HNO ID: [id number] thor: Richie Tomlinervice: [facility] MedicineAuthor Type: PhysicianType: Progress NotesFiled: 04/13/2017 10:38 AMNote Text:[facility] MEDICINEPROGRESS NOTESERVICE DATE: 04/13/2017SERVICE TIME: 10:36 [facility]/Primary Attending: Richie Aponte MDNIGHT AND WEEKEND COVERAGE:After 7pm please page [phone]: F/u colitis. Had SOB last night from pulm edema. Resolvedwith lasix. No CP, SOB, V/D or bleed now. Some nausea.OBJECTIVE:PHYSICAL EXAM: BP 153/66 Pulse 73 Temp (Src) 98.6 (Oral) Resp 18 Ht 1' 11.661 (0.60m) Wt 140 lb (63.5kg) SpO2 98% BMI 175.81kg/(m2).General - AANDOx3, NAD, CalmCV - RRR S1 S2, No M/R/GRESP - CTA B/L No wheezes, ronchi, ralesABD - soft, NT, ND +BSENT- no icterusNeuro- No dysarthriaMEDICATIONS:Current hospital medications:furosemide 20 mg injection (LASIX) [address] 20 mg tab(s) (PROTONIX) 20 mg ORAL DAILY (6 AM)potassium chloride ER 40 mEq tab(s) (K-DUR, KLOR-CON) 40 mEq ORAL DAILYmelatonin 3 mg tab(s) 3 mg ORAL AT BEDTIMEipratropium-albuterol 3 mL nebulizer solution (DUONEB) 3 mL INHALATION q 4H PRNoxyCODONE-acetaminophen 5-325 mg 0.5 tablet (PERCOCET) 0.5 tablet ORAL q 4H PRNciprofloxacin 400 mg in D5W 200 mL (CIPRO) 400 mg INTRAVENOUS q 12 HmetroNIDAZOLE 500 mg PREMIX piggyback (FLAGYL) 500 mg INTRAVENOUS q 8 Hlisinopril 40 mg tab(s) (ZESTRIL, PRINIVIL) 40 mg ORAL DAILYaspirin 81 mg chewable tab(s) 81 mg ORAL DAILYatenolol 50 mg tab(s) (TENORMIN) 50 mg ORAL DAILYondansetron (PF) 4 mg injection (ZOFRAN) 4 mg INTRAVENOUS q 4 H PRNatorvastatin 10 mg tab(s) (LIPITOR) 10 mg ORAL AT BEDTIMEDATA:Diagnostic tests reviewed for today's visit:CBC:Recent Labs 04/12/1721WBC -- 15.28*RBC -- 3.72*HB 11.6 11.2HCT -- 34.1PLT -- 152*MCV -- 91.7MCH -- 30.1MPV -- 10.4Coags: No results for input(s): INR, APTT in the last 24 hours.Invalid input(s): PTBMP: No results for input(s): NA, K, CHLOR, CO2, BUN, CREAT, GLUC in thelast 24 hours.CMP: No results for input(s): NA, K, CHLOR, CO2, BUN, CREAT, GLUC, TPROT,CA, MG, ALBUMIN, TBILI, ALKPHOS, ALT, AST, ANION in the last 24 hours.Cardiac Enzymes: No results for input(s): CK, MB, CKMB, TROPT in the last24 hours.Liver Function, Amylase, Lipase:Recent Labs LIPASE 489*MG/PHOS: No results for input(s): MG, P in the last 24 hours.Renal Panel: No results for input(s): ALBUMIN, CREAT, BUN, GLUC, CA, P,CHLOR, K, CO2, NA in the last 24 hours.Heme: No results for input(s): RETICP, ABSRETIC, LD, ANT, FE, TIBC,TRANSFERSAT in the last 24 hours.No results found for: UALBCRASSESSMENT/PLANActive Problems: Infectious colitis POA: Yes Assessment AND Plan: Cipro and Flagyl Lower GI bleed POA: Yes Assessment AND Plan: Hgb stable, colonoscopy in AM Acute diastolic CHF (congestive heart failure) (HCC) POA: No Assessment AND Plan: Edema has resolved. Able to ambulate with no SOB Coronary artery disease involving mohegan coronary artery of mohegan heartwithout angina pectoris POA: Yes Assessment AND Plan: med manage Essential hypertension POA: Yes Assessment AND Plan: Stable. MonitorVTE Prophylaxis: Pneumatic Compression DeviceDisposition: HomePlan of care discussed with: PatientSIGNATURE: Richie Aponte MD PATIENT NAME: Baudilio TorresDATE: April 13, 2017 : 10:36 AM PAGER/CONTACT #: My Pager [facility] PROGRESS HNO ID: [id number] thor: Swetha Huerta: [facility] MedicineAuthor Type: PhysicianType: Progress NotesFiled: 04/13/2017 1:27 AMNote Text:I was called by RN earlier regarding increasing sob in patient with CHF.Chest xray showed pulmonary edema, 40 mg of Lasix IV given, IVFdiscontinued.I examined patient, she still has b/l crackles, will check BNP, dailyweights, continue IV Lasix. Patient is feeling much better after Lasix. [facility] PROGRESS HNO ID: [id number] thor: Chantel (Rn) MADY Gibbonservice: NursingAuthor Type: Registered NurseType: Progress NotesFiled: 04/12/2017 11:12 PMNote Text:Spoke with Dr. Beaver. Pt has increasing SOB and labored breathing. Ptvery anxious and concerned because she has a history of CHF. Ordersreceived for chest xray stat and duo nebs. Also IVF stopped. Wet read kathy called to [facility] PROGRESS HNO ID: [id number] thor: Chantel (Rn) MADY Gibbonservice: NursingAuthor Type: Registered NurseType: Progress NotesFiled: 04/12/2017 10:17 PMNote Text:Dr. Beaver notified that pt was put on 2Li, and was previously on RA. Ptwas sating 91% on RA and requesting oxygen. No new orders at this time. Noother complaints from patient at this time. [facility] Basic Panelon 04-12-2017 Creatinine 0.77 mg/dL Normal 0.51-0.95 [facility] Comment on above: Performed By: #### P 14 ####[facility] [place] [address] Anion gap 8 mmol/L Normal 8-16 [facility] Comment on above: Performed By: #### P 14 ####[place] [address] CO2 28 mmol/L Normal 21-32 [facility] Comment on above: Performed By: #### P 14 ####[place] [address] Glucose mass conc 108 mg/dL High 70-99 [facility] Comment on above: Performed By: #### P 14 ####[place] [address] Urea nitrogen 17 mg/dL Normal 7-18 [facility] Comment on above: Performed By: #### P 14 ####[place] [address] Calcium 8.0 mg/dL Low 8.5-10.1 [facility] Comment on above: Performed By: #### P 14 ####[place] [address] Chloride 109 mmol/L High 98-107 [facility] Comment on above: Performed By: #### P 14 ####[place] [address] Potassium molar conc 3.3 mmol/L Low 3.5-5.1 [facility] Comment on above: Performed By: #### P 14 ####[place] [address] Sodium 142 mmol/L Normal 136-145 [facility] Comment on above: Performed By: #### P 14 ####[place] [address] CONSULT PROGon 04-12-2017 CONSULT PROG HNO ID: [id number] thor: Cyrus Guevaraervice: GastroenterologyAuthor Type: PhysicianType: Consult Progress NoteFiled: 04/12/2017 11:24 AMNote Text:GI CONSULT PROGRESS NOTESERVICE DATE: 04/12/2017SERVICE TIME: 11:20 AMCONSULTING SERVICE: GastroenterologySUBJECTIVEINTE RVAL HISTORY: still with nausea and generalized abd discomfort, havingblood in stool stillMEDICATIONS:Current hospital medications:oxyCODONE-acetamin ophen 5-325 mg 0.5 tablet (PERCOCET) 0.5 tablet ORAL q 4H PRNciprofloxacin 400 mg in D5W 200 mL (CIPRO) 400 mg INTRAVENOUS q 12 HmetroNIDAZOLE 500 mg PREMIX piggyback (FLAGYL) 500 mg INTRAVENOUS q 8 Hlisinopril 40 mg tab(s) (ZESTRIL, PRINIVIL) 40 mg ORAL DAILYaspirin 81 mg chewable tab(s) 81 mg ORAL DAILYatenolol 50 mg tab(s) (TENORMIN) 50 mg ORAL DAILYondansetron (PF) 4 mg injection (ZOFRAN) 4 mg INTRAVENOUS q 4 H PRNatorvastatin 10 mg tab(s) (LIPITOR) 10 mg ORAL AT BEDTIMEdextrose 5% in NaCl 0.9% with KCl 20 mEq/L iv infusion 100 mL/hrINTRAVENOUS CONTINUOUSOBJECTIVEPHYSICAL EXAM:VITALS:BP 130/68 Pulse 77 Temp 36.8 ?C (98.2 ?F) Resp 18 Ht 60.1cm (1' 11.66) Wt 63.5 kg (140 lb) SpO2 100% BMI 175.82 kg/c7VMVYBPV: soft, ND, mild diffuse tenderness, + BSDATA:Diagnostic tests reviewed for today's visit:Most recent labs and imaging results.Recent Labs 04/12/1703WBC -- 16.74* -- -- 13.33*HB 11.1* 11.9 12.1 < > 13.0HCT -- 35.0 -- -- 38.5PLT -- 169* -- -- 198NA -- 142 -- -- 140K -- 3.3* -- -- 3.2*CHLOR -- 109* -- -- 106CO2 -- 28 -- -- 26CREAT -- 0.77 -- -- 1.14*BUN -- 17 -- -- 23*GLUC -- 108* -- -- 130*P -- -- -- -- 3.6TPROT -- -- -- -- 6.8ALB -- -- -- -- 3.5MG -- -- -- -- 2.1CA -- 8.0* -- -- 8.1*ALKPHOS -- -- -- -- 68TBILI -- -- -- -- 0.6AST -- -- -- -- 28ALT -- -- -- -- 24< > = values in this interval not displayed.U/s abd yesterdayIMPRESSION: Dilated common bile duct measuring 9 mm, etiology uncertain.?Consider?further ERCP or MRCP correlation.C dif PCR negativeOther stool studies pendingIMPRESSION/RECOMMENDATI ONS1. Bloody diarrhea - likely infectious colitis but cannot r/o ischemia,still with blood in stool but not as much volume Cont abx C dif negative, other stool studies pending May need colonoscopy prior to discharge but wouldnot do before Thursday (which would be day 5 of her being off Plavix)2. Colitis on CT As above3. Diffuse abd pain - due to colitis but given elevated lipase and pain inupper abdomen cannot r/o superimposed acute pancreatitis u/s showed normal pancreas but dilated CBD - givenelevated lipase cannot r/o GS pancreatitis but LFT's are normal Will order MRCP4. Dilate CBD As abovewill continue to f/u the patientSIGNATURE: Cyrus Garza MD PATIENT NAME: Baudilio TorresDATE: April 12, 2017 : 11:19 AM PAGER/CONTACT #: [phone] Normal [facility] Hemogram/Diffon 04-12-2017 Erythrocyte distribution width Auto Ratio (RBC) 12.5 % Normal 11.7-14.4 [facility] Comment on above: Performed By: #### P 14 ####[address] [address] Erythrocytes (RBC) 3.72 mil/cmm Low 3.93-5.22 [facility] Comment on above: Performed By: #### P 14 ####[address] [address] Hematocrit (HCT) 34.1 % Normal 34.1-44.9 [facility] Comment on above: Performed By: #### P 14 ####[place] [address] Hemoglobin mass conc (Bld) 11.2 g/dL Normal 11.2-15.7 [facility] Comment on above: Performed By: #### P 14 ####[place] [address] MCH 30.1 pg Normal 25.6-32.2 [facility] Comment on above: Performed By: #### P 14 ####[place] [address] MCHC mass conc (RBC) 32.8 % Normal 31.6-34.8 [facility] Comment on above: Performed By: #### P 14 ####[place] [address] MCV 91.7 fL Normal 79.4-94.8 [facility] Comment on above: Performed By: #### P 14 ####[place] [address] Platelet mean volume (PMV) 10.4 fL Normal 9.4-12.3 [facility] Comment on above: Performed By: #### P 14 ####[place] [address] Platelets 152 thou/cmm Low 182-369 [facility] Comment on above: Performed By: #### P 14 ####[place] [address] RDW SD 41.5 fl Normal 36.4-46.3 [facility] Comment on above: Performed By: #### P 14 ####[place] [address] WBC (Leukocytes) 15.28 thou/cmm High 3.98-10.04 [facility] Comment on above: Performed By: #### P 14 ####[place] [address] Basophils Auto #/vol (Bld) 0.02 thou/cmm Normal 0.01-0.08 [facility] Comment on above: Result Comment: Smea r scanned; tech agrees with automated differential Performed By: #### P 14 ####[address] [address] Basophils/100 WBC Auto (Bld) 0.1 % Normal [facility] Comment on above: Performed By: #### P 14 ####[address] [address] Eosinophils 0.02 thou/cmm Normal 0.00-0.31 [facility] Comment on above: Performed By: #### P 14 ####[address] [address] Eosinophils/100 leukocytes 0.1 % Normal [facility] Comment on above: Performed By: #### P 14 ####[address] [address] Immature Grans 0.70 % Normal [facility] Comment on above: Performed By: #### P 14 ####[address] [address] Immature Grans # 0.12 thou/cmm High 0.00-0.05 [facility] Comment on above: Performed By: #### P 14 ####[address] [address] Lymphocytes 1.82 thou/cmm Normal 1.18-3.74 [facility] Comment on above: Performed By: #### P 14 ####[address] [address] Lymphocytes/100 leukocytes 10.9 % Normal [facility] Comment on above: Performed By: #### P 14 ####[address] [address] Monocytes 0.87 thou/cmm High 0.27-0.70 [facility] Comment on above: Performed By: #### P 14 ####[address] [address] Monocytes/100 leukocytes 5.2 % Normal [facility] Comment on above: Performed By: #### P 14 ####[facility] [place] [address] Seg Neutrophil 83.0 % Normal [facility] Comment on above: Performed By: #### P 14 ####[facility] [place] [address] Seg. Neut.# 13.89 thou/cmm High 1.56-6.13 [facility] Comment on above: Performed By: #### P 14 ####[facility] [place] [address] Erythrocyte distribution width Auto Ratio (RBC) 12.5 % Normal 11.7-14.4 [facility] Comment on above: Performed By: #### P 14 ####[place] [address] Erythrocytes (RBC) 3.88 mil/cmm Low 3.93-5.22 [facility] Comment on above: Performed By: #### P 14 ####[place] [address] Hematocrit (HCT) 35.0 % Normal 34.1-44.9 [facility] Comment on above: Performed By: #### P 14 ####[place] [address] Hemoglobin mass conc (Bld) 11.9 g/dL Normal 11.2-15.7 [facility] Comment on above: Performed By: #### P 14 ####[place] [address] MCH 30.7 pg Normal 25.6-32.2 [facility] Comment on above: Performed By: #### P 14 ####[place] [address] MCHC mass conc (RBC) 34.0 % Normal 31.6-34.8 [facility] Comment on above: Performed By: #### P 14 ####[place] [address] MCV 90.2 fL Normal 79.4-94.8 [facility] Comment on above: Performed By: #### P 14 ####[facility] [place] [address] Platelet mean volume (PMV) 10.3 fL Normal 9.4-12.3 [facility] Comment on above: Performed By: #### P 14 ####[facility] [place] [id number] Platelets 169 thou/cmm Low 182-369 [facility] Comment on above: Performed By: #### P 14 ####[facility] [place] [address] RDW SD 40.8 fl Normal 36.4-46.3 [facility] Comment on above: Performed By: #### P 14 ####[place] [address] WBC (Leukocytes) 16.74 thou/cmm High 3.98-10.04 [facility] Comment on above: Performed By: #### P 14 ####[place] [address] Hgbon 04-12-2017 Hemoglobin mass conc (Bld) 11.1 g/dL Low 11.2-15.7 [facility] Comment on above: Performed By: #### P 14 ####[place] [address] MDRD GFRon 04-12-2017 eGFR (non-black) mL/min/{1.73_m2} Normal >60mL/m in/ 1.73m2 [facility] Comment on above: Result Comment: If t he patient is , multiply the result by 1.210. Performed By: #### P 14 ####[address] [address] PROGRESSon 04-12-2017 PROGRESS HNO ID: [id number] thor: Richie Tomlinervice: Hospital MedicineAuthor Type: PhysicianType: Progress NotesFiled: 04/12/2017 2:40 PMNote Text:DEPARTMENT OF HOSPITAL MEDICINEPROGRESS NOTESERVICE DATE: 04/12/2017SERVICE TIME: 2:38 PMHospital Medicine/Primary Attending: Richie Aponte MDNIGHT AND WEEKEND COVERAGE:After 7pm please page [phone]: F/u colitis. Still some nausea and SOB. Still not really ableto eat but says she is requiring less medications.OBJECTIVE:PHYSICAL EXAM: BP 130/68 Pulse 77 Temp (Src) 98.2 (Oral) Resp 18 Ht 1' 11.661 (0.60m) Wt 140 lb (63.5kg) SpO2 100% BMI 175.81kg/(m2).General - AANDOx3, NAD, CalmCV - RRR S1 S2, No M/R/GRESP - CTA B/L No wheezes, ronchi, ralesABD - soft, NT, ND +BSENT- no icterusNeuro- No dysarthriaMEDICATIONS:Current hospital medications:oxyCODONE-acetamin ophen 5-325 mg 0.5 tablet (PERCOCET) 0.5 tablet ORAL q 4H PRNciprofloxacin 400 mg in D5W 200 mL (CIPRO) 400 mg INTRAVENOUS q 12 HmetroNIDAZOLE 500 mg PREMIX piggyback (FLAGYL) 500 mg INTRAVENOUS q 8 Hlisinopril 40 mg tab(s) (ZESTRIL, PRINIVIL) 40 mg ORAL DAILYaspirin 81 mg chewable tab(s) 81 mg ORAL DAILYatenolol 50 mg tab(s) (TENORMIN) 50 mg ORAL DAILYondansetron (PF) 4 mg injection (ZOFRAN) 4 mg INTRAVENOUS q 4 H PRNatorvastatin 10 mg tab(s) (LIPITOR) 10 mg ORAL AT BEDTIMEdextrose 5% in NaCl 0.9% with KCl 20 mEq/L iv infusion 100 mL/hrINTRAVENOUS CONTINUOUSDATA:Diagnostic tests reviewed for today's visit:CBC:Recent Labs 04/12/1703WBC -- 16.74*RBC -- 3.88*HB 11.1* 11.9HCT -- 35.0PLT -- 169*MCV -- 90.2MCH -- 30.7MPV -- 10.3Coags: No results for input(s): INR, APTT in the last 24 hours.Invalid input(s): PTBMP:Recent Labs NA 142K 3.3*CHLOR 109*CO2 28BUN 17CREAT 0.77GLUC 108*CMP:Recent Labs 5NA 142K 3.3*CHLOR 109*CO2 28BUN 17CREAT 0.77GLUC 108*CA 8.0*ANION 8Cardiac Enzymes: No results for input(s): CK, MB, CKMB, TROPT in the last24 hours.Liver Function, Amylase, Lipase: No results for input(s): TPROT, ALB, ALT,AST, ALKPHOS, TBILI, AMYLASE, LIPASE, LACTATE in the last 24 hours.MG/PHOS: No results for input(s): MG, P in the last 24 hours.Renal Panel:Recent Labs 5CREAT 0.77BUN 17GLUC 108*CA 8.0*CHLOR 109*K 3.3*CO2 28NA 142Heme: No results for input(s): RETICP, ABSRETIC, LD, ANT, FE, TIBC,TRANSFERSAT in the last 24 hours.No results found for: UALBCRASSESSMENT/PLANActive Problems: Infectious colitis POA: Yes Assessment AND Plan: Cipro, Flagyl, supportive care Lower GI bleed POA: Yes Assessment AND Plan: Check CBC. May get scoped Thursday,Dilated CBD- MRCPVTE Prophylaxis: Pneumatic Compression DeviceDisposition: HomePlan of care discussed with: PatientSIGNATURE: Richie Aponte MD PATIENT NAME: Baudilio TorresDATE: April 12, 2017 : 2:38 PM PAGER/CONTACT #: My Pager Normal [facility] C. difficile by PCRon 2016 C. difficile by PCR Test performed at [facility] NEGATIVE for Toxigenic C. difficile Normal [facility] Comment on above: Performed By: #### C DIFX ####[place] [address] CONSULTon 04-11-2017 CONSULT HNO ID: [id number] thor: Cyrus Guevaraervice: GastroenterologyAuthor Type: PhysicianType: ConsultsFiled: 04/11/2017 11:32 AMNote Text:INITIAL CONSULT GASTROENTEROLOGYSERVICE DATE: 04/11/2017SERVICE TIME: 11:24 AMConsulting Service: SoundOpinion/advice regarding: bloody diarrhea, ? Infectious colitisSUBJECTIVEHPI: This is a 71 year old female who presents with to [place] ED withabd pain and blood diarrhea, also N/V. She states that yesterday morningshe had a sausage biscuit from [facility] and then went out to do someshopping with friends. An hour later she felt hot and dizzy. [facility] but could not pass stool.Subsequently she developed diffuse abdominal pain primarily localized toLLQ as well as some pain in the epigastric area followed by passing largeformed hard stool and then multiple episodes of bloody diarrhea. She hadsome N/V too. Today she c/o diffuse abd discomfort - no nausea. Has nothad BM yet. She had colonoscopy years ago. She has been to see a [facility] in past few months who suddenly but denies abx use inpast 3-4 mos.PAST MEDICAL HISTORYDiagnosis Date- CAD (coronary artery disease)- Carotid stenosis- CHF (congestive heart failure) (HCC)- HLD (hyperlipidemia)- HTN (hypertension)PAST SURGICAL HISTORYProcedure Laterality Date- CAROTID ENDARTERECTOMY Bilateral- DRUG-ELUTING STENTS,EACH ADDHistory reviewed. No pertinent family history.Social HistorySubstance Use Topics- Smoking status: Former Smoker- Smokeless tobacco: Not on file- Alcohol use NoMEDICATIONS:Prior to Admission Medications:clopidogrel (PLAVIX) 75 mg tablet Take 75 mg by mouth once daily.ATENOLOL, BULK, MISC 40 mg once daily.LISINOPRIL, BULK, MISC 40 mg once daily.simvastatin (ZOCOR) 20 mg tablet Take 20 mg by mouth daily at bedtime.ASPIRIN, BULK, MISC 81 mg once daily.HYDROCHLOROTHIAZIDE, BULK, MISC 2.5 mg once daily.Current hospital medications:oxyCODONE-acetamin ophen 5-325 mg 0.5 tablet (PERCOCET) 0.5 tablet ORAL q 4H PRNciprofloxacin 400 mg in D5W 200 mL (CIPRO) 400 mg INTRAVENOUS q 12 HmetroNIDAZOLE 500 mg PREMIX piggyback (FLAGYL) 500 mg INTRAVENOUS q 8 Hlisinopril 40 mg tab(s) (ZESTRIL, PRINIVIL) 40 mg ORAL DAILYaspirin 81 mg chewable tab(s) 81 mg ORAL DAILYatenolol 50 mg tab(s) (TENORMIN) 50 mg ORAL DAILYondansetron (PF) 4 mg injection (ZOFRAN) 4 mg INTRAVENOUS q 4 H PRNatorvastatin 10 mg tab(s) (LIPITOR) 10 mg ORAL AT BEDTIMEdextrose 5% in NaCl 0.9% with KCl 20 mEq/L iv infusion 100 mL/hrINTRAVENOUS CONTINUOUSALLERGIESAllergen Reactions- Hydrocodone-Acetami* GI Upset- Morphine GI UpsetGI SPECIFIC REVIEW OF SYSTEMS:As per HPIOTHER ROS:10 system review negative unless noted above in HPIOBJECTIVEPHYSICAL EXAM:BP 165/76 Pulse 77 Temp 37 ?C (98.6 ?F) (Oral) Resp 16 Ht 60.1 cm(1' 11.66) Wt 63.5 kg (140 lb) SpO2 96% BMI 175.82 kg/f3GKXBPKC- AAO x 3, no distressHEENT: Moist mucus membranes, no carotid bruitLUNGS: Clear to auscultation bilaterallyCARDIAC: S1, S2 heard, no murmur appreciatedABDOMEN: Soft, mild diffuse tenderness without guarding or rigidity,normal bowel soundsEXTREMITIES: No pedal edemaDATA:Diagnostic Tests Reviewed for Today's Visit:Recent Labs 04/11/192198VQK 13.33*HB 13.0HCT 38.5PLT 198NA 140K 3.2*CHLOR 106CO2 26CREAT 1.14*BUN 23*GLUC 130*P 3.6TPROT 6.8ALB 3.5MG 2.1CA 8.1*ALKPHOS 68TBILI 0.6AST 28ALT 24Lipase 3709Stool studies pendingCT abd/pelvis at [place] showed diffuse moderate thickening of descending,sigmoid and rectosigmoid colonIMPRESSION/RECOMMENDATION S1. Bloody diarrhea - likely infectious colitis but cannot r/o ischemia Cont abx Check stool studies including C dif May need colonoscopy prior to discharge but would not do before Thursday(which would be day 5 of her being off Plavix)2. Colitis on CT As above3. Diffuse abd pain - due to colitis but given elevated lipase and pain inupper abdomen cannot r/o superimposed acute pancreatitis Trial of clears todayThank you for this consultSIGNATURE: Cyrus Garza MD PATIENT NAME: Baudilio TorresDATE: April 11, 2017 : 11:24 AM PAGER/CONTACT #: [phone] Normal [facility] Comprehensive Panelon 2016 Alkaline phosphatase (ALP) 68 U/L Normal 46-116 [facility] Comment on above: Performed By: #### P 14 ####[facility] [place], [place] [address] Bilirubin Ql (U) 0.6 mg/dL Normal 0.2-1.0 [facility] Comment on above: Performed By: #### P 14 ####[address] [address] Protein 6.8 g/dL Normal 6.4-8.2 [facility] Comment on above: Performed By: #### P 14 ####[address] [address] Alanine aminotransferase (ALT) 24 U/L Normal 12-78 [facility] Comment on above: Performed By: #### P 14 ####[address] [address] Aspartate aminotransferase (AST) 28 U/L Normal 9-37 [facility] Comment on above: Performed By: #### P 14 ####[address] [address] Creatinine 1.14 mg/dL High 0.51-0.95 [facility] Comment on above: Performed By: #### P 14 ####[address] [address] Albumin 3.5 g/dL Normal 3.4-5.0 [facility] Comment on above: Performed By: #### P 14 ####[address] [address] Anion gap 11 mmol/L Normal 8-16 [facility] Comment on above: Performed By: #### P 14 ####[address] [address] Calcium 8.1 mg/dL Low 8.5-10.1 [facility] Comment on above: Performed By: #### P 14 ####[facility] [place], [place] [address] CO2 26 mmol/L Normal 21-32 [facility] Comment on above: Performed By: #### P 14 ####[facility] [place], [place] [address] Glucose mass conc 130 mg/dL High 70-99 [facility] Comment on above: Performed By: #### P 14 ####[facility] [place], [place] [address] Urea nitrogen 23 mg/dL High 7-18 [facility] Comment on above: Performed By: #### P 14 ####[place] [address] Chloride 106 mmol/L Normal 98-107 [facility] Comment on above: Performed By: #### P 14 ####[address] [address] Potassium molar conc 3.2 mmol/L Low 3.5-5.1 [facility] Comment on above: Performed By: #### P 14 ####[place] [address] Sodium 140 mmol/L Normal 136-145 [facility] Comment on above: Performed By: #### P 14 ####[place] [address] Cult Enteric Pathogenson Cult Enteric Pathogens Test performed at [facility] No Salmonella, Shigella, Campylobacter, or E. coli 0157 cultured. Reduced/Absence of normal enteric sixto noted. Normal [facility] Comment on above: Performed By: #### P 14 ####[place] [address] Fecal Lactoferrinon 04-11-20 17 Fecal Lactoferrin Test performed at [facility] POSITIVE for lactoferrin, which may indicate the presence of fecal white blood cells. Normal [facility] Comment on above: Performed By: #### M AG ####[place] [address] HISTORY PHYSICALon 7 HISTORY PHYSICAL HNO ID: [id number] thor: [facility]: [facility] MedicineAuthor Type: PhysicianType: HANDPFiled: 04/11/2017 12:24 AMNote Text:[facility] MEDICINEHISTORY AND PHYSICAL EXAMSERVICE DATE: 04/11/2017SERVICE TIME: 12:03 [facility]rih[facility] Care Physician: Jeff James MD (Inactive)SUBJECTIVECHIEF COMPLAINT: Abdominal pain, vomiting and diarrheaHPI: This is a 71 year old female with past medical history as outlinedbelow presented to [place] ED with above mentioned complaints. Patient wasaccompanied by her family. She states that this morning she had a sausagebiscuit from [facility] and then went out to do some shopping withfriends. An hour later she felt hot and dizzy. Went to the bathroom withthe urge to move bowel but could not pass stool. Subsequently shedeveloped diffuse abdominal pain primarily localized to LLQ as well assome pain in the epigastric area followed by passing large formed hardstool while on her way back home in the car ride. This was followed bymultiple episodes of non-bloody or coffee ground emesis. Then she hadmultiple episodes of loose watery diarrhea. After that she had BRBPR withsome liquid stool and then just bleeding per rectum. Denies any priorhistory of similar symptoms. Last colonoscopy 10 years back which wasnormal. Does not remember eating anything unusual in the past few days.Her friends had the same sausage biscuit this morning and did not developany symptoms.No recent travel or sick contacts. Upon arrival to ED she continued tohave rectal bleed. CT abdomen and pelvis was significant for moderatemucosal thickening primarily descending, sigmoid and rectosigmoid colonconsistent with colitis likely infectious or inflammatory. WBC was 18.5.Hgb 15.5, Lipase 6253. Lactate of 3. Hepatic panel and BMP were normal perED notes. She received IV fluids, zosyn and [facility].Upon my evaluation she feels a bit better. Abdominal pain has improved.She does not tolerate opioid medications due to excessive emesis but isagreeable to try percocet and low dose morphine with antiemetics.PAST MEDICAL HISTORYDiagnosis Date- CAD (coronary artery disease)- Carotid stenosis- CHF (congestive heart failure) (HCC)- HLD (hyperlipidemia)- HTN (hypertension)PAST SURGICAL HISTORYProcedure Laterality Date- CAROTID ENDARTERECTOMY Bilateral- DRUG-ELUTING STENTS,EACH ADDHistory reviewed. No pertinent family history.Social HistorySubstance Use Topics- Smoking status: Former Smoker- Smokeless tobacco: Not on file- Alcohol use NoPrescriptions Prior to Admission:clopidogrel (PLAVIX) 75 mg tablet Take 75 mg by mouth once daily. Disp:Rfl:ATENOLOL, BULK, MISC 40 mg once daily. Disp: Rfl:LISINOPRIL, BULK, MISC 40 mg once daily. Disp: Rfl:simvastatin (ZOCOR) 20 mg tablet Take 20 mg by mouth daily at bedtime.Disp: Rfl:ASPIRIN, BULK, MISC 81 mg once daily. Disp: Rfl:HYDROCHLOROTHIAZIDE, BULK, MISC 2.5 mg once daily. Disp: Rfl:ALLERGIESAllergen Reactions- Hydrocodone-Acetami* GI Upset- Morphine GI UpsetOBJECTIVEREVIEW OF SYSTEM:Review Of Systems:All systems reviewed and negative except as documented per HPI.Physical Exam: BP 169/60 Pulse 89 Temp 36.8 ?C (98.2 ?F) Resp 18 Ht 60.1 cm (1' 11.66) Wt 63.5 kg (140 lb) SpO2 98% BMI 175.82 kg/b2Gbnndrz appearance: Elderly female age appropriate lying in bed does notseem to be in acute distress.Skin: color, texture and turgor normal. No suspicious lesions or rashes.HEENT: Normocephalic, atraumatic. EOM intact. No conjuctival pallor oricterus. External ears normal, ear canals clear. Nares normal, mucosanormal, no drainage or sinus tenderness. Oropharyngeal mucosa normal. Noerythema or tonsillar exudates.Neck: Supple, no adenopathy, thyroid symmetric. No Carotid bruit. No JVD.Scars of endarterectomyBack: Normal exam.Respiratory: Non-labored breathing, no use of accessory muscles. Lungsclear to auscultation bilaterally, no ronchi, wheeze or rales.CVS: RRR without murmur, gallops or rubs.Gastrointestinal: Bowel sounds normal. Abdomen is soft, TTP primarily LLQand epigastric. No guarding, rigidity or rebound. No masses, organomegaly.Musculoskeletal: No joint swelling, deformity or tenderness. Extremitieswithout any cyanosis, clubbing or edema. Good capillary refill. Peripheralpulses normal.Neurological: No facial asymmetry, speech is clear, EOM intact, Moving all4 extremities, sensations symmetric.Psychiatric: Awake alert and oriented to time, place and person. Moodappropriate, affect good, insight and judgement intact.DATA:Diagnostic tests reviewed for today's visit:As outlined above in HPIASSESSMENT/PLAN1. 71 F with acute onset of abdominal pain, nausea, vomiting and diarrheawith findings of descending colitis likely infectious vs inflammatory.2. Acute pancreatitis without obvious imaging findings of inflammation3. Severe sepsis based upon tachycardia and leukocytosis 07/17 #14. CAD s/p cardiac stents. Last NAHUM placed 3 years back. On ASA andPlavix.5. Carotid stenosis s/p Bilateral endarterectomy6. History of CHF type unknown not on diuretics7 DVT PPX SCDs8. Full codePlan:- Admit to inpatient telemetry- Send stool studies for fecal lactoferrin, stool culture, shiga toxin Nitin.coli O157:H7- IV ciprofloxacin and flagyl.- IV fluids given history of CHF monitor volume status closely- Strict intake and output- GI c/s for further recommendations and monitor for clinical improvement.- NPO with ice chips and meds- US GB- CRP/ESR- IV morphine and percocet for pain. Pt wants to try with zofran.- D/c HCTZ and hold off onto plavix for now. If bleeding subsides then canresume plavix.Plan of care discussed with family in detail.VTE Prophylaxis: Pneumatic Compression DeviceDisposition: HomePlan of care discussed with: PatientSIGNATURE: Tone Nails MD PATIENT NAME: Baudilio TorresDATE: April 11, 2017 : 12:03 AM PAGER/CONTACT #: [phone] Normal [facility] Hemogramon 04-11-2017 Erythrocyte distribution width Auto Ratio (RBC) 12.2 % Normal 11.7-14.4 [facility] Comment on above: Performed By: #### C BC1 ####[address] [address] Erythrocytes (RBC) 4.33 mil/cmm Normal 3.93-5.22 [facility] Comment on above: Performed By: #### C BC1 ####[place] [address] Hematocrit (HCT) 38.5 % Normal 34.1-44.9 [facility] Comment on above: Performed By: #### C BC1 ####[place] [address] Hemoglobin mass conc (Bld) 13.0 g/dL Normal 11.2-15.7 [facility] Comment on above: Performed By: #### C BC1 ####[place] [address] MCH 30.0 pg Normal 25.6-32.2 [facility] Comment on above: Performed By: #### C BC1 ####[place] [address] MCHC mass conc (RBC) 33.8 % Normal 31.6-34.8 [facility] Comment on above: Performed By: #### C BC1 ####[place] [address] MCV 88.9 fL Normal 79.4-94.8 [facility] Comment on above: Performed By: #### C BC1 ####[place] [address] Platelet mean volume (PMV) 10.1 fL Normal 9.4-12.3 [facility] Comment on above: Performed By: #### C BC1 ####[place] [address] Platelets 198 thou/cmm Normal 182-369 [facility] Comment on above: Performed By: #### C BC1 ####[place] [address] RDW SD 39.2 fl Normal 36.4-46.3 [facility] Comment on above: Performed By: #### C BC1 ####[place] [address] WBC (Leukocytes) 13.33 thou/cmm High 3.98-10.04 [facility] Comment on above: Performed By: #### C BC1 ####[address] [address] Hgbon 04-11-2017 Hemoglobin mass conc (Bld) 12.1 g/dL Normal 11.2-15.7 [facility] Comment on above: Performed By: #### P 14 ####[place] [address] Hemoglobin mass conc (Bld) 12.3 g/dL Normal 11.2-15.7 [facility] Comment on above: Performed By: #### H GBI ####[place] [address] Lactic Acidon 04-11-2017 Lactate 1.3 mmol/L Normal 0.4-2.0 [facility] Comment on above: Performed By: #### L AC ####[address] [address] Lipase Bloodon 04-11-2017 Lipase Blood 3709 U/L High 73-393 [facility] Comment on above: Performed By: #### L IP ####[place] [address] MDRD GFRon 04-11-2017 eGFR (non-black) 46.77 mL/min/{1.73_m2} Normal > 60mL/min/ 1.73m2 [facility] Comment on above: Result Comment: If t he patient is , multiply the result by 1.210. Performed By: #### G FR ####[address] [address] Magnesium Bloodon 04-11-2017 Magnesium 2.1 mg/dL Normal 1.6-2.6 [facility] Comment on above: Performed By: #### M AG ####[address] [address] PROGRESSon 04-11-2017 PROGRESS HNO ID: [id number] thor: Richie Sparrowice: Hospital MedicineAuthor Type: PhysicianType: Progress NotesFiled: 04/11/2017 3:33 PMNote Text:DEPARTMENT OF HOSPITAL MEDICINEPROGRESS NOTESERVICE DATE: 04/11/2017SERVICE TIME: 3:31 PMHospital Medicine/Primary Attending: Richie Aponte MDNIGHT AND WEEKEND COVERAGE:After 7pm please page [phone]: F/u colitis. Still nausea, emesis and pain, still blood instool. No CP or SOB.OBJECTIVE:PHYSICAL EXAM: BP 125/93 Pulse 76 Temp (Src) 97.9 (Oral) Resp 16 Ht 1' 11.661 (0.60m) Wt 140 lb (63.5kg) SpO2 95% BMI 175.81kg/(m2).General - AANDOx3, NAD, CalmCV - RRR S1 S2, No M/R/GRESP - CTA B/L No wheezes, ronchi, ralesABD - soft, tender, ND +BSENT- no icterusNeuro- No dysarthriaMEDICATIONS:Current hospital medications:oxyCODONE-acetamin ophen 5-325 mg 0.5 tablet (PERCOCET) 0.5 tablet ORAL q 4H PRNciprofloxacin 400 mg in D5W 200 mL (CIPRO) 400 mg INTRAVENOUS q 12 HmetroNIDAZOLE 500 mg PREMIX piggyback (FLAGYL) 500 mg INTRAVENOUS q 8 Hlisinopril 40 mg tab(s) (ZESTRIL, PRINIVIL) 40 mg ORAL DAILYaspirin 81 mg chewable tab(s) 81 mg ORAL DAILYatenolol 50 mg tab(s) (TENORMIN) 50 mg ORAL DAILYondansetron (PF) 4 mg injection (ZOFRAN) 4 mg INTRAVENOUS q 4 H PRNatorvastatin 10 mg tab(s) (LIPITOR) 10 mg ORAL AT BEDTIMEdextrose 5% in NaCl 0.9% with KCl 20 mEq/L iv infusion 100 mL/hrINTRAVENOUS CONTINUOUSDATA:Diagnostic tests reviewed for today's visit:CBC:Recent Labs 04/11/1702WBC -- 13.33*RBC -- 4.33HB 12.3 13.0HCT -- 38.5PLT -- 198MCV -- 88.9MCH -- 30.0MPV -- 10.1Coags: No results for input(s): INR, APTT in the last 24 hours.Invalid input(s): PTBMP:Recent Labs NA 140K 3.2*CHLOR 106CO2 26BUN 23*CREAT 1.14*GLUC 130*CMP:Recent Labs NA 140K 3.2*CHLOR 106CO2 26BUN 23*CREAT 1.14*GLUC 130*TPROT 6.8CA 8.1*MG 2.1TBILI 0.6ALKPHOS 68ALT 24AST 28ANION 11Cardiac Enzymes: No results for input(s): CK, MB, CKMB, TROPT in the last24 hours.Liver Function, Amylase, Lipase:Recent Labs TPROT 6.8ALB 3.5ALT 24AST 28ALKPHOS 68TBILI 0.6LIPASE 3709*MG/PHOS:Recent Labs MG 2.1P 3.6Renal Panel:Recent Labs CREAT 1.14*BUN 23*GLUC 130*CA 8.1*P 3.6CHLOR 106K 3.2*CO2 26NA 140Heme: No results for input(s): RETICP, ABSRETIC, LD, ANT, FE, TIBC,TRANSFERSAT in the last 24 hours.No results found for: UALBCRASSESSMENT/PLANActive Problems: Infectious colitis POA: Yes Assessment AND Plan: IV abx and supportive care as we advance diet, butnot ready to advance yet. Lower GI bleed POA: Yes Assessment AND Plan: Stable. Monitor. May need colonoscopy Thursday ifstill here and not improved.VTE Prophylaxis: Pneumatic Compression DeviceDisposition: HomePlan of care discussed with: Patient and Family/Other: multiple relativesSIGNATURE: Richie Aponte MD PATIENT NAME: Baudilio TorresDATE: April 11, 2017 : 3:31 PM PAGER/CONTACT #: My Pager Normal [facility] Phosphorus Bloodon 7 Phosphate 3.6 mg/dL Normal 2.5-4.9 [facility] Comment on above: Performed By: #### P HOS ####[place] [address] US ABD RIGHT UPPER QUADRANTo n 04-11-2017 US ABD RIGHT UPPER QUADRANT Performed at [facility] APPROVED BY: Ernesto Joiner MD EXAM TITLE: ULTRASOUND OF THE RIGHT UPPER QUADRANT DATE: 04/11/2017 12:59 COMPARISON: Ultrasound abdomen 10/18/2009. CLINICAL INDICATION/HISTORY: Nausea and vomiting. Pancreatitis. TECHNIQUE: Scanning was performed by the technologist. Grayscale and color Doppler images were acquired. Images were stored in a permanent archive. FINDINGS: Liver: Unremarkable. Gallbladder: No gallstones. Normal gallbladder wall thickness, measuring 1 mm. No pericholecystic fluid. Negative sonographic Dumont's sign. Common bile duct is dilated, measuring 9 millimeters. Pancreas: Unremarkable. Right kidney: Unremarkable. No ascites seen. IMPRESSION: Dilated common bile duct measuring 9 mm, etiology uncertain. Consider further ERCP or MRCP correlation. Normal [facility] HOSPon 04-10-2017 HOSP Patient:Baudilio Torres GMRN: Height:5' 1.2(1.554 m)Weight:148 lb (67.132 kg)Outpatient Medications as of 04/15/17:clopidogrel (PLAVIX) 75 mg tabletATENOLOL, BULK, MISCLISINOPRIL, BULK, MISCsimvastatin (ZOCOR) 20 mg tabletASPIRIN, BULK, MISCHYDROCHLOROTHIAZIDE, BULK, MISCAdmission/Clinic Administered Medications as of 04/15/17:potassium chloride ER 40 mEq tab(s) (K-DUR, KLOR-CON)lactated ringers infusionacetaminophen 650 mg tab(s) (TYLENOL)furosemide 20 mg injection (LASIX)pantoprazole DR 20 mg tab(s) (PROTONIX)melatonin 3 mg tab(s)ipratropium-albuterol 3 mL nebulizer solution (DUONEB)oxyCODONE-acetaminophe n 5-325 mg 0.5 tablet (PERCOCET)ciprofloxacin 400 mg in D5W 200 mL (CIPRO)metroNIDAZOLE 500 mg PREMIX piggyback (FLAGYL)lisinopril 40 mg tab(s) (ZESTRIL, PRINIVIL)aspirin 81 mg chewable tab(s)atenolol 50 mg tab(s) (TENORMIN)ondansetron (PF) 4 mg injection (ZOFRAN)atorvastatin 10 mg tab(s) (LIPITOR)Problem List:Infectious colitis [A09]Lower GI bleed [K92.2]Acute diastolic CHF (congestive heart failure) ([facility]) [I50.31]Coronary artery disease involving mohegan coronary artery of mohegan heartwithout angina pectoris [I25.10]Essential hypertension [I10]Rectal bleeding [K62.5]Allergies:Hydrocodone-A cetaminophenMorphineDate Verified: 04/15/17Lab ValuesLab Value Units Date High LowPOTA* 3.1 mEq/L 04/15/2017 5.1 3.5HEMA* 34.5 % 04/15/2017 44.9 34.1Progress Notes ():Tone Nails MD 04/11/2017 12:24 AM SignedDEPARTMENT OF [facility] MEDICINEHISTORY AND PHYSICAL EXAMSERVICE DATE: 04/11/2017SERVICE TIME: 12:03 AMPrimar Care Physician: Jeff James MD (Inactive)SUBJECTIVECHIEF COMPLAINT: Abdominal pain, vomiting and diarrheaHPI: This is a 71 year old female with past medical history as outlined belowpresented to [place] with above mentioned complaints. Patient was accompaniedby her family. She states that this morning she had a sausage biscuit from[employer] and then went out to do some shopping with friends. An hour later shefelt hot and dizzy. Went to the bathroom with the urge to move bowel but couldnot pass stool. Subsequently she developed diffuse abdominal pain primarilylocalized to LLQ as well as some pain in the epigastric area followed by passinglarge formed hard stool while on her way back home in the car ride. This wasfollowed by multiple episodes of non-bloody or coffee ground emesis. Then shehad multiple episodes of loose watery diarrhea. After that she had BRBPR withsome liquid stool and then just bleeding per rectum. Denies any prior history ofsimilar symptoms. Last colonoscopy 10 years back which was normal. Does notremember eating anything unusual in the past few days. Her friends had the samesausage biscuit this morning and did not develop any symptoms.No recent travel or sick contacts. Upon arrival to ED she continued to haverectal bleed. CT abdomen and pelvis was significant for moderate mucosalthickening primarily descending, sigmoid and rectosigmoid colon consistent withcolitis likely infectious or inflammatory. WBC was 18.5. Hgb 15.5, Lipase 6253.Lactate of 3. Hepatic panel and BMP were normal per ED notes. She received IVfluids, zosyn and then transferred to [facility] for GI evaluation.Upon my evaluation she feels a bit better. Abdominal pain has improved. She doesnot tolerate opioid medications due to excessive emesis but is agreeable to trypercocet and low dose morphine with antiemetics.PAST MEDICAL HISTORYDiagnosis Date- CAD (coronary artery disease)- Carotid stenosis- CHF (congestive heart failure) (HCC)- HLD (hyperlipidemia)- HTN (hypertension)PAST SURGICAL HISTORYProcedure Laterality Date- CAROTID ENDARTERECTOMY Bilateral- DRUG-ELUTING STENTS,EACH ADDHistory reviewed. No pertinent family history.Social HistorySubstance Use Topics- Smoking status: Former Smoker- Smokeless tobacco: Not on file- Alcohol use NoPrescriptions Prior to Admission:clopidogrel (PLAVIX) 75 mg tablet Take 75 mg by mouth once daily. Disp: Rfl:ATENOLOL, BULK, MISC 40 mg once daily. Disp: Rfl:LISINOPRIL, BULK, MISC 40 mg once daily. Disp: Rfl:simvastatin (ZOCOR) 20 mg tablet Take 20 mg by mouth daily at bedtime. Disp:Rfl:ASPIRIN, BULK, MISC 81 mg once daily. Disp: Rfl:HYDROCHLOROTHIAZIDE, BULK, MISC 2.5 mg once daily. Disp: Rfl:ALLERGIESAllergen Reactions- Hydrocodone-Acetami* GI Upset- Morphine GI UpsetOBJECTIVEREVIEW OF SYSTEM:Review Of Systems:All systems reviewed and negative except as documented per HPI.Physical Exam: BP 169/60 Pulse 89 Temp 36.8 ?C (98.2 ?F) Resp 18 Ht 60.1cm (1' 11.66) Wt 63.5 kg (140 lb) SpO2 98% BMI 175.82 kg/b8Tikjxwz appearance: Elderly female age appropriate lying in bed does not seemto be in acute distress.Skin: color, texture and turgor normal. No suspicious lesions or rashes.HEENT: Normocephalic, atraumatic. EOM intact. No conjuctival pallor or icterus.External ears normal, ear canals clear. Nares normal, mucosa normal, no drainageor sinus tenderness. Oropharyngeal mucosa normal. No erythema or tonsillarexudates.Neck: Supple, no adenopathy, thyroid symmetric. No Carotid bruit. No JVD. Scarsof endarterectomyBack: Normal exam.Respiratory: Non-labored breathing, no use of accessory muscles. Lungs clear toauscultation bilaterally, no ronchi, wheeze or rales.CVS: RRR without murmur, gallops or rubs.Gastrointestinal: Bowel sounds normal. Abdomen is soft, TTP primarily LLQ andepigastric. No guarding, rigidity or rebound. No masses, organomegaly.Musculoskeletal: No joint swelling, deformity or tenderness. Extremities withoutany cyanosis, clubbing or edema. Good capillary refill. Peripheral pulsesnormal.Neurological: No facial asymmetry, speech is clear, EOM intact, Moving all 4extremities, sensations symmetric.Psychiatric: Awake alert and oriented to time, place and person. Moodappropriate, affect good, insight and judgement intact.DATA:Diagnostic tests reviewed for today's visit:As outlined above in HPIASSESSMENT/PLAN1. 71 F with acute onset of abdominal pain, nausea, vomiting and diarrhea withfindings of descending colitis likely infectious vs inflammatory.2. Acute pancreatitis without obvious imaging findings of inflammation3. Severe sepsis based upon tachycardia and leukocytosis 2/ #14. CAD s/p cardiac stents. Last NAHUM placed 3 years back. On ASA and Plavix.5. Carotid stenosis s/p Bilateral endarterectomy6. History of CHF type unknown not on diuretics7 DVT PPX SCDs8. Full codePlan:- Admit to inpatient telemetry- Send stool studies for fecal lactoferrin, stool culture, shiga toxin Nitin.coli O157:H7- IV ciprofloxacin and flagyl.- IV fluids given history of CHF monitor volume status closely- Strict intake and output- GI c/s for further recommendations and monitor for clinical improvement.- NPO with ice chips and meds- US GB- CRP/ESR- IV morphine and percocet for pain. Pt wants to try with zofran.- D/c HCTZ and hold off onto plavix for now. If bleeding subsides then canresume plavix.Plan of care discussed with family in detail.VTE Prophylaxis: Pneumatic Compression DeviceDisposition: HomePlan of care discussed with: PatientSIGNATURE: Tone Nails MD PATIENT NAME: Baudilio TorresDATE: April 11, 2017 : 12:03 AM PAGER/CONTACT #: [phone] Garza MD 04/11/2017 11:32 AM SignedINITIAL CONSULT GASTROENTEROLOGYSERVICE DATE: 04/11/2017SERVICE TIME: 11:24 AMConsulting Service: SoundOpinion/advice regarding: bloody diarrhea, ? Infectious colitisSUBJECTIVEHPI: This is a 71 year old female who presents with to [place] ED with abd painand blood diarrhea, also N/V. She states that yesterday morning she had asausage biscuit from [employer] and then went out to do some shopping withfriends. An hour later she felt hot and dizzy. Went to the bathroom with theurge to move bowel but could not pass stool. Subsequently she developed diffuseabdominal pain primarily localized to LLQ as well as some pain in the epigastricarea followed by passing large formed hard stool and then multiple episodes ofbloody diarrhea. She had some N/V too. Today she c/o diffuse abd discomfort - nonausea. Has not had BM yet. She had colonoscopy years ago. She has been toseea friend in hospital in past few months who suddenly but denies abxuse in past 3-4 mos.PAST MEDICAL HISTORYDiagnosis Date- CAD (coronary artery disease)- Carotid stenosis- CHF (congestive heart failure) (HCC)- HLD (hyperlipidemia)- HTN (hypertension)PAST SURGICAL HISTORYProcedure Laterality Date- CAROTID ENDARTERECTOMY Bilateral- DRUG-ELUTING STENTS,EACH ADDHistory reviewed. No pertinent family history.Social HistorySubstance Use Topics- Smoking status: Former Smoker- Smokeless tobacco: Not on file- Alcohol use NoMEDICATIONS:Prior to Admission Medications:clopidogrel (PLAVIX) 75 mg tablet Take 75 mg by mouth once daily.ATENOLOL, BULK, MISC 40 mg once daily.LISINOPRIL, BULK, MISC 40 mg once daily.simvastatin (ZOCOR) 20 mg tablet Take 20 mg by mouth daily at bedtime.ASPIRIN, BULK, MISC 81 mg once daily.HYDROCHLOROTHIAZIDE, BULK, MISC 2.5 mg once daily.Current hospital medications:oxyCODONE-acetamin ophen 5-325 mg 0.5 tablet (PERCOCET) 0.5 tablet ORAL q 4 H PRNciprofloxacin 400 mg in D5W 200 mL (CIPRO) 400 mg INTRAVENOUS q 12 HmetroNIDAZOLE 500 mg PREMIX piggyback (FLAGYL) 500 mg INTRAVENOUS q 8 Hlisinopril 40 mg tab(s) (ZESTRIL, PRINIVIL) 40 mg ORAL DAILYaspirin 81 mg chewable tab(s) 81 mg ORAL DAILYatenolol 50 mg tab(s) (TENORMIN) 50 mg ORAL DAILYondansetron (PF) 4 mg injection (ZOFRAN) 4 mg INTRAVENOUS q 4 H PRNatorvastatin 10 mg tab(s) (LIPITOR) 10 mg ORAL AT BEDTIMEdextrose 5% in NaCl 0.9% with KCl 20 mEq/L iv infusion 100 mL/hr INTRAVENOUSCONTINUOUSALLERGIES Allergen Reactions- Hydrocodone-Acetami* GI Upset- Morphine GI UpsetGI SPECIFIC REVIEW OF SYSTEMS:As per HPIOTHER ROS:10 system review negative unless noted above in HPIOBJECTIVEPHYSICAL EXAM:BP 165/76 Pulse 77 Temp 37 ?C (98.6 ?F) (Oral) Resp 16 Ht 60.1 cm (1'11.66) Wt 63.5 kg (140 lb) SpO2 96% BMI 175.82 kg/c9PEAVIJX- AAO x 3, no distressHEENT: Moist mucus membranes, no carotid bruitLUNGS: Clear to auscultation bilaterallyCARDIAC: S1, S2 heard, no murmur appreciatedABDOMEN: Soft, mild diffuse tenderness without guarding or rigidity, normalbowel soundsEXTREMITIES: No pedal edemaDATA:Diagnostic Tests Reviewed for Today's Visit:Recent Labs 250WBC 13.33*HB 13.0HCT 38.5PLT 198NA 140K 3.2*CHLOR 106CO2 26CREAT 1.14*BUN 23*GLUC 130*P 3.6TPROT 6.8ALB 3.5MG 2.1CA 8.1*ALKPHOS 68TBILI 0.6AST 28ALT 24Lipase 3709Stool studies pendingCT abd/pelvis [place] showed diffuse moderate thickening of descending,sigmoid and rectosigmoid colonIMPRESSION/RECOMMENDATION S1. Bloody diarrhea - likely infectious colitis but cannot r/o ischemia Cont abx Check stool studies including C dif May need colonoscopy prior to discharge but would not do before Thursday (whichwould be day 5 of her being off Plavix)2. Colitis on CT As above3. Diffuse abd pain - due to colitis but given elevated lipase and pain in upperabdomen cannot r/o superimposed acute pancreatitis Trial of clears todayThank you for this consultSIGNATURE: Cyrus Garza MD PATIENT NAME: Baudilio TorresDATE: April 11, 2017 : 11:24 AM PAGER/CONTACT #: [phone] Aponte MD 04/11/2017 3:33 PM SignedDEPARTMENT OF [facility] MEDICINEPROGRESS NOTESERVICE DATE: 04/11/2017SERVICE TIME: 3:31 PMHospital Medicine/Primary Attending: Richie Aponte MDNIGHT AND WEEKEND COVERAGE:After 7pm please page [phone]: F/u colitis. Still nausea, emesis and pain, still blood in stool.No CP or SOB.OBJECTIVE:PHYSICAL EXAM: BP 125/93 Pulse 76 Temp (Src) 97.9 (Oral) Resp 16 Ht 1'11.661 (0.60m) Wt 140 lb (63.5kg) SpO2 95% BMI 175.81 kg/(m2).General - AANDOx3, NAD, CalmCV - RRR S1 S2, No M/R/GRESP - CTA B/L No wheezes, ronchi, ralesABD - soft, tender, ND +BSENT- no icterusNeuro- No dysarthriaMEDICATIONS:Current hospital medications:oxyCODONE-acetamin ophen 5-325 mg 0.5 tablet (PERCOCET) 0.5 tablet ORAL q 4 H PRNciprofloxacin 400 mg in D5W 200 mL (CIPRO) 400 mg INTRAVENOUS q 12 HmetroNIDAZOLE 500 mg PREMIX piggyback (FLAGYL) 500 mg INTRAVENOUS q 8 Hlisinopril 40 mg tab(s) (ZESTRIL, PRINIVIL) 40 mg ORAL DAILYaspirin 81 mg chewable tab(s) 81 mg ORAL DAILYatenolol 50 mg tab(s) (TENORMIN) 50 mg ORAL DAILYondansetron (PF) 4 mg injection (ZOFRAN) 4 mg INTRAVENOUS q 4 H PRNatorvastatin 10 mg tab(s) (LIPITOR) 10 mg ORAL AT BEDTIMEdextrose 5% in NaCl 0.9% with KCl 20 mEq/L iv infusion 100 mL/hr INTRAVENOUSCONTINUOUSDATA:Diag nostic tests reviewed for today's visit:CBC:Recent Labs 04/11/1702WBC -- 13.33*RBC -- 4.33HB 12.3 13.0HCT -- 38.5PLT -- 198MCV -- 88.9MCH -- 30.0MPV -- 10.1Coags: No results for input(s): INR, APTT in the last 24 hours.Invalid input(s): PTBMP:Recent Labs NA 140K 3.2*CHLOR 106CO2 26BUN 23*CREAT 1.14*GLUC 130*CMP:Recent Labs NA 140K 3.2*CHLOR 106CO2 26BUN 23*CREAT 1.14*GLUC 130*TPROT 6.8CA 8.1*MG 2.1TBILI 0.6ALKPHOS 68ALT 24AST 28ANION 11Cardiac Enzymes: No results for input(s): CK, MB, CKMB, TROPT in the last 24hours.Liver Function, Amylase, Lipase:Recent Labs TPROT 6.8ALB 3.5ALT 24AST 28ALKPHOS 68TBILI 0.6LIPASE 3709*MG/PHOS:Recent Labs MG 2.1P 3.6Renal Panel:Recent Labs CREAT 1.14*BUN 23*GLUC 130*CA 8.1*P 3.6CHLOR 106K 3.2*CO2 26NA 140Heme: No results for input(s): RETICP, ABSRETIC, LD, ANT, FE, TIBC, TRANSFERSATin the last 24 hours.No results found for: UALBCRASSESSMENT/PLANActive Problems: Infectious colitis POA: Yes Assessment AND Plan: IV abx and supportive care as we advance diet, but notready to advance yet. Lower GI bleed POA: Yes Assessment AND Plan: Stable. Monitor. May need colonoscopy Thursday if stillhere and not improved.VTE Prophylaxis: Pneumatic Compression DeviceDisposition: HomePlan of care discussed with: Patient and Family/Other: multiple relativesSIGNATURE: Richie Aponte MD PATIENT NAME: Baudilio TorresDATE: April 11, 2017 : 3:31 PM PAGER/CONTACT #: Tabitha Jasmyne Garza MD 04/12/2017 11:24 AM SignedGI CONSULT PROGRESS NOTESERVICE DATE: 04/12/2017SERVICE TIME: 11:20 AMCONSULTING SERVICE: GastroenterologySUBJECTIVEINTE RVAL HISTORY: still with nausea and generalized abd discomfort, having bloodin stool stillMEDICATIONS:Current hospital medications:oxyCODONE-acetamin ophen 5-325 mg 0.5 tablet (PERCOCET) 0.5 tablet ORAL q 4 H PRNciprofloxacin 400 mg in D5W 200 mL (CIPRO) 400 mg INTRAVENOUS q 12 HmetroNIDAZOLE 500 mg PREMIX piggyback (FLAGYL) 500 mg INTRAVENOUS q 8 Hlisinopril 40 mg tab(s) (ZESTRIL, PRINIVIL) 40 mg ORAL DAILYaspirin 81 mg chewable tab(s) 81 mg ORAL DAILYatenolol 50 mg tab(s) (TENORMIN) 50 mg ORAL DAILYondansetron (PF) 4 mg injection (ZOFRAN) 4 mg INTRAVENOUS q 4 H PRNatorvastatin 10 mg tab(s) (LIPITOR) 10 mg ORAL AT BEDTIMEdextrose 5% in NaCl 0.9% with KCl 20 mEq/L iv infusion 100 mL/hr INTRAVENOUSCONTINUOUSOBJECTIVE PHYSICAL EXAM:VITALS:BP 130/68 Pulse 77 Temp 36.8 ?C (98.2 ?F) Resp 18 Ht 60.1 cm (1'11.66) Wt 63.5 kg (140 lb) SpO2 100% BMI 175.82 kg/w1OEBDKCD: soft, ND, mild diffuse tenderness, + BSDATA:Diagnostic tests reviewed for today's visit:Most recent labs and imaging results.Recent Labs 04/12/1703WBC -- 16.74* -- -- 13.33*HB 11.1* 11.9 12.1 < > 13.0HCT -- 35.0 -- -- 38.5PLT -- 169* -- -- 198NA -- 142 -- -- 140K -- 3.3* -- -- 3.2*CHLOR -- 109* -- -- 106CO2 -- 28 -- -- 26CREAT -- 0.77 -- -- 1.14*BUN -- 17 -- -- 23*GLUC -- 108* -- -- 130*P -- -- -- -- 3.6TPROT -- -- -- -- 6.8ALB -- -- -- -- 3.5MG -- -- -- -- 2.1CA -- 8.0* -- -- 8.1*ALKPHOS -- -- -- -- 68TBILI -- -- -- -- 0.6AST -- -- -- -- 28ALT -- -- -- -- 24< > = values in this interval not displayed.U/s abd yesterdayIMPRESSION: Dilated common bile duct measuring 9 mm, etiology uncertain.Consider?further ERCP or MRCP correlation.C dif PCR negativeOther stool studies pendingIMPRESSION/RECOMMENDATI ONS1. Bloody diarrhea - likely infectious colitis but cannot r/o ischemia, stillwith blood in stool but not as much volume Cont abx C dif negative, other stool studies pending May need colonoscopy prior to discharge but would not dobefore Thursday (which would be day 5 of her being off Plavix)2. Colitis on CT As above3. Diffuse abd pain - due to colitis but given elevated lipase and pain in upperabdomen cannot r/o superimposed acute pancreatitis u/s showed normal pancreas but dilated CBD - givenelevated lipase cannot r/o GS pancreatitis but LFT's are normal Will order MRCP4. Dilate CBD As abovewill continue to f/u the patientSIGNATURE: Cyrus Garza MD PATIENT NAME: Baudilio TorresDATE: April 12, 2017 : 11:19 AM PAGER/CONTACT #: [phone] Aponte MD 04/12/2017 2:40 PM SignedDEPARTMENT [facility] MEDICINEPROGRESS NOTESERVICE DATE: 04/12/2017SERVICE TIME: 2:38 PMHospital Medicine/Primary Attending: Richie Aponte MDNIGHT AND WEEKEND COVERAGE:After 7pm please page [phone]: F/u colitis. Still some nausea and SOB. Still not really able toeat but says she is requiring less medications.OBJECTIVE:PHYSICAL EXAM: BP 130/68 Pulse 77 Temp (Src) 98.2 (Oral) Resp 18 Ht 1'11.661 (0.60m) Wt 140 lb (63.5kg) SpO2 100% BMI 175.81 kg/(m2).General - AANDOx3, NAD, CalmCV - RRR S1 S2, No M/R/GRESP - CTA B/L No wheezes, ronchi, ralesABD - soft, NT, ND +BSENT- no icterusNeuro- No dysarthriaMEDICATIONS:Current hospital medications:oxyCODONE-acetamin ophen 5-325 mg 0.5 tablet (PERCOCET) 0.5 tablet ORAL q 4 H PRNciprofloxacin 400 mg in D5W 200 mL (CIPRO) 400 mg INTRAVENOUS q 12 HmetroNIDAZOLE 500 mg PREMIX piggyback (FLAGYL) 500 mg INTRAVENOUS q 8 Hlisinopril 40 mg tab(s) (ZESTRIL, PRINIVIL) 40 mg ORAL DAILYaspirin 81 mg chewable tab(s) 81 mg ORAL DAILYatenolol 50 mg tab(s) (TENORMIN) 50 mg ORAL DAILYondansetron (PF) 4 mg injection (ZOFRAN) 4 mg INTRAVENOUS q 4 H PRNatorvastatin 10 mg tab(s) (LIPITOR) 10 mg ORAL AT BEDTIMEdextrose 5% in NaCl 0.9% with KCl 20 mEq/L iv infusion 100 mL/hr INTRAVENOUSCONTINUOUSDATA:Diag nostic tests reviewed for today's visit:CBC:Recent Labs 04/12/1703WBC -- 16.74*RBC -- 3.88*HB 11.1* 11.9HCT -- 35.0PLT -- 169*MCV -- 90.2MCH -- 30.7MPV -- 10.3Coags: No results for input(s): INR, APTT in the last 24 hours.Invalid input(s): PTBMP:Recent Labs NA 142K 3.3*CHLOR 109*CO2 28BUN 17CREAT 0.77GLUC 108*CMP:Recent Labs 5NA 142K 3.3*CHLOR 109*CO2 28BUN 17CREAT 0.77GLUC 108*CA 8.0*ANION 8Cardiac Enzymes: No results for input(s): CK, MB, CKMB, TROPT in the last 24hours.Liver Function, Amylase, Lipase: No results for input(s): TPROT, ALB, ALT, AST,ALKPHOS, TBILI, AMYLASE, LIPASE, LACTATE in the last 24 hours.MG/PHOS: No results for input(s): MG, P in the last 24 hours.Renal Panel:Recent Labs 5CREAT 0.77BUN 17GLUC 108*CA 8.0*CHLOR 109*K 3.3*CO2 28NA 142Heme: No results for input(s): RETICP, ABSRETIC, LD, ANT, FE, TIBC, TRANSFERSATin the last 24 hours.No results found for: UALBCRASSESSMENT/PLANActive Problems: Infectious colitis POA: Yes Assessment AND Plan: Cipro, Flagyl, supportive care Lower GI bleed POA: Yes Assessment AND Plan: Check CBC. May get scoped Thursday,Dilated CBD- MRCPVTE Prophylaxis: Pneumatic Compression DeviceDisposition: HomePlan of care discussed with: PatientSIGNATURE: Richie Aponte MD PATIENT NAME: Baudilio TorresDATE: April 12, 2017 : 2:38 PM PAGER/CONTACT #: My PagerMlary Gibbons, RN, RN 04/12/2017 10:17 PM SignedDrArtemio Beaver notified that pt was put on 2Li, and was previously on RA. Pt wassating 91% on RA and requesting oxygen. No new orders at this time. No othercomplaints from patient at this time.Chantel Gibbons, RN, RN 04/12/2017 11:[address] Beaver. Pt has increasing SOB and labored breathing. Pt veryanxious and concerned because she has a history of CHF. Orders received forchest xray stat and duo nebs. Also IVF stopped. Wet read will be called to Dr.Natalia Saranya MD 04/13/2017 1:27 AM SignedI was called by RN earlier regarding increasing sob in patient with CHF. Chestxray showed pulmonary edema, 40 mg of Lasix IV given, IVF discontinued.I examined patient, she still has b/l crackles, will check BNP, daily weights,continue IV Lasix. Patient is feeling much better after Lasix.Richie Aponte MD 04/13/2017 10:38 AM SignedDEPARTMENT [facility] NOTESERVICE DATE: 04/13/2017SERVICE TIME: 10:36 [facility] Medicine/Primary Attending: Richie Aponte MDNIGHT AND WEEKEND COVERAGE:After 7pm please page [phone]: F/u colitis. Had SOB last night from pulm edema. Resolved withlasix. No CP, SOB, V/D or bleed now. Some nausea.OBJECTIVE:PHYSICAL EXAM: BP 153/66 Pulse 73 Temp (Src) 98.6 (Oral) Resp 18 Ht 1'11.661 (0.60m) Wt 140 lb (63.5kg) SpO2 98% BMI 175.81 kg/(m2).General - AANDOx3, NAD, CalmCV - RRR S1 S2, No M/R/GRESP - CTA B/L No wheezes, ronchi, ralesABD - soft, NT, ND +BSENT- no icterusNeuro- No dysarthriaMEDICATIONS:Current hospital medications:furosemide 20 mg injection (LASIX) [address] 20 mg tab(s) (PROTONIX) 20 mg ORAL DAILY (6 AM)potassium chloride ER 40 mEq tab(s) (K-DUR, KLOR-CON) 40 mEq ORAL DAILYmelatonin 3 mg tab(s) 3 mg ORAL AT BEDTIMEipratropium-albuterol 3 mL nebulizer solution (DUONEB) 3 mL INHALATION q 4 H PRNoxyCODONE-acetaminophen 5-325 mg 0.5 tablet (PERCOCET) 0.5 tablet ORAL q 4 H PRNciprofloxacin 400 mg in D5W 200 mL (CIPRO) 400 mg INTRAVENOUS q 12 HmetroNIDAZOLE 500 mg PREMIX piggyback (FLAGYL) 500 mg INTRAVENOUS q 8 Hlisinopril 40 mg tab(s) (ZESTRIL, PRINIVIL) 40 mg ORAL DAILYaspirin 81 mg chewable tab(s) 81 mg ORAL DAILYatenolol 50 mg tab(s) (TENORMIN) 50 mg ORAL DAILYondansetron (PF) 4 mg injection (ZOFRAN) 4 mg INTRAVENOUS q 4 H PRNatorvastatin 10 mg tab(s) (LIPITOR) 10 mg ORAL AT BEDTIMEDATA:Diagnostic tests reviewed for today's visit:CBC:Recent Labs 04/12/1721WBC -- 15.28*RBC -- 3.72*HB 11.6 11.2HCT -- 34.1PLT -- 152*MCV -- 91.7MCH -- 30.1MPV -- 10.4Coags: No results for input(s): INR, APTT in the last 24 hours.Invalid input(s): PTBMP: No results for input(s): NA, K, CHLOR, CO2, BUN, CREAT, GLUC in the last 24hours.CMP: No results for input(s): NA, K, CHLOR, CO2, BUN, CREAT, GLUC, TPROT, CA,MG, ALBUMIN, TBILI, ALKPHOS, ALT, AST, ANION in the last 24 hours.Cardiac Enzymes: No results for input(s): CK, MB, CKMB, TROPT in the last 24hours.Liver Function, Amylase, Lipase:Recent Labs LIPASE 489*MG/PHOS: No results for input(s): MG, P in the last 24 hours.Renal Panel: No results for input(s): ALBUMIN, CREAT, BUN, GLUC, CA, P, CHLOR,K, CO2, NA in the last 24 hours.Heme: No results for input(s): RETICP, ABSRETIC, LD, ANT, FE, TIBC, TRANSFERSATin the last 24 hours.No results found for: UALBCRASSESSMENT/PLANActive Problems: Infectious colitis POA: Yes Assessment AND Plan: Cipro and Flagyl Lower GI bleed POA: Yes Assessment AND Plan: Hgb stable, colonoscopy in AM Acute diastolic CHF (congestive heart failure) (HCC) POA: No Assessment AND Plan: Edema has resolved. Able to ambulate with no SOB Coronary artery disease involving mohegan coronary artery of mohegan heartwithout angina pectoris POA: Yes Assessment AND Plan: med manage Essential hypertension POA: Yes Assessment AND Plan: Stable. MonitorVTE Prophylaxis: Pneumatic Compression DeviceDisposition: HomePlan of care discussed with: PatientSIGNATURE: Richie Aponte MD PATIENT NAME: Baudilio TorresDATE: April 13, 2017 : 10:36 AM PAGER/CONTACT #: My PagerSherbeckie Fried CNP, MALLIKA 04/13/2017 2:53 PM SignedCONSULT PROGRESS NOTESERVICE DATE: 04/13/2017SERVICE TIME: 2:42 PMCONSULTING SERVICE: GASTROENTEROLOGYSUBJECTIVEINTE RVAL HPI: Patient still have LUQ abdominal pain described as muscle spasm.Last blood diarrhea was yesterday, just diarrhea today. No nausea or vomiting.Breathing improved with Lasix. Still need MRCP (going to radiology today).Current hospital medications:furosemide 20 mg injection (LASIX) [address] 20 mg tab(s) (PROTONIX) 20 mg ORAL DAILY (6 AM)potassium chloride ER 40 mEq tab(s) (K-DUR, KLOR-CON) 40 mEq ORAL DAILYmelatonin 3 mg tab(s) 3 mg ORAL AT BEDTIMEipratropium-albuterol 3 mL nebulizer solution (DUONEB) 3 mL INHALATION q 4 H PRNoxyCODONE-acetaminophen 5-325 mg 0.5 tablet (PERCOCET) 0.5 tablet ORAL q 4 H PRNciprofloxacin 400 mg in D5W 200 mL (CIPRO) 400 mg INTRAVENOUS q 12 HmetroNIDAZOLE 500 mg PREMIX piggyback (FLAGYL) 500 mg INTRAVENOUS q 8 Hlisinopril 40 mg tab(s) (ZESTRIL, PRINIVIL) 40 mg ORAL DAILYaspirin 81 mg chewable tab(s) 81 mg ORAL DAILYatenolol 50 mg tab(s) (TENORMIN) 50 mg ORAL DAILYondansetron (PF) 4 mg injection (ZOFRAN) 4 mg INTRAVENOUS q 4 H PRNatorvastatin 10 mg tab(s) (LIPITOR) 10 mg ORAL AT BEDTIMEOBJECTIVEPHYSICAL EXAM: GENERAL: Alert, no distress, cooperativeLUNGS: Lungs clear to auscultation, Good diaphragmatic excursionCARDIAC: Normal S1 and S2; no rubs, murmurs, or gallopsABDOMEN: Abdomen soft, BS normal, No distention, masses or organomegaly, LUQpain on palpationPULSES: 2+ radialPatient Vitals for the past 24 hrs: BP Temp Temp src Pulse Resp NoU50204/13/17 0700 153/66 37 ?C (98.6 ?F) Oral 73 18 98 %04/13/17 0055 172/61 - - 68 18 98 %04/12/17 2322 - - - 72 20 -04/12/17 2315 - - - 74 26 97 %04/12/17 2240 174/70 37 ?C (98.6 ?F) - 78 24 96 %04/12/17 2100 - - - - - 91 %04/12/17 1900 158/70 37 ?C (98.6 ?F) - 70 18 97 %04/12/17 1500 139/61 36.5 ?C (97.7 ?F) - 68 18 96 %Body mass index is 175.82 kg/(m2).DATA:Diagnostic tests reviewed for today's visit:Most recent labsIMPRESSION/RECOMMENDATIONS 1). Possible Infectious colitis Assessment AND Plan: Possible colonoscopy tomorrow will discuss with 2). Lower GI bleed likely secondary to #1-resolving Assessment AND Plan: Monitor H/H3). Dilated CBD-Lipase trending down but still elevated Assessment AND Plan: Going for MRCP todaySIGNATURE: Isabel Fried, MALLIKA PATIENT NAME: Baudilio TorresDATE: April 13, 2017 : 2:42 PM PAGER:Eleanor Gentile, RN, RN 04/13/2017 2:53 PM SignedPATIENT ALERT AND 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 WILL FOLLOW FOR NEEDS.Luis F Danielle MD 04/13/2017 4:52 PM SignedGI CONSULT PROGRESS NOTESERVICE DATE: 04/13/2017SERVICE TIME: 4:46 PMCONSULTING SERVICE: GastroenterologySUBJECTIVEINTE RVAL HISTORY: Pt says diarrhea better and no rectal bleeding. Some fluidoverload overnight and lasix given. Still some abd pain.MEDICATIONS:Current hospital medications:furosemide 20 mg injection (LASIX) [address] 20 mg tab(s) (PROTONIX) 20 mg ORAL DAILY (6 AM)potassium chloride ER 40 mEq tab(s) (K-DUR, KLOR-CON) 40 mEq ORAL DAILYmelatonin 3 mg tab(s) 3 mg ORAL AT BEDTIMEipratropium-albuterol 3 mL nebulizer solution (DUONEB) 3 mL INHALATION q 4 H PRNoxyCODONE-acetaminophen 5-325 mg 0.5 tablet (PERCOCET) 0.5 tablet ORAL q 4 H PRNciprofloxacin 400 mg in D5W 200 mL (CIPRO) 400 mg INTRAVENOUS q 12 HmetroNIDAZOLE 500 mg PREMIX piggyback (FLAGYL) 500 mg INTRAVENOUS q 8 Hlisinopril 40 mg tab(s) (ZESTRIL, PRINIVIL) 40 mg ORAL DAILYaspirin 81 mg chewable tab(s) 81 mg ORAL DAILYatenolol 50 mg tab(s) (TENORMIN) 50 mg ORAL DAILYondansetron (PF) 4 mg injection (ZOFRAN) 4 mg INTRAVENOUS q 4 H PRNatorvastatin 10 mg tab(s) (LIPITOR) 10 mg ORAL AT BEDTIMEOBJECTIVEPHYSICAL EXAM:VITALS:BP 169/81 Pulse 70 Temp 36.7 ?C (98.1 ?F) (Oral) Resp 18 Ht 60.1cm (1' 11.66) Wt 63.5 kg (140 lb) SpO2 96% BMI 175.82 kg/v5REXDVNT:DATA:Diagnostic tests reviewed for today's visit:Most recent labs and imaging results.IMPRESSION/RECOMMENDAT IONS1) BPR and abd pian , diarrhea. Diff dx includes ischemic colitis, IBD,infectious colitis.2. Inc lipase and CBD dilation, MRCP pend.Rec: 1. colonoscopy prep tomorrow for . 2. F/up MRCPwill continue to f/u the patientSIGNATURE: Luis F Danielle MD PATIENT NAME: Baudilio TorersDATE: April 13, 2017 : 4:46 PM PAGER/CONTACT #:Isabel Fried CNP, MALLIKA 04/14/2017 10:49 AM SignedCONSULT PROGRESS NOTESERVICE DATE: 04/14/2017SERVICE TIME: 10:41 AMCONSULTING SERVICE: GASTROENTEROLOGYSUBJECTIVEINTE RVAL HPI: Patient c/o b/l upper abdominal pain, still with diarrhea,tolerating clear liquid diet with no nausea and vomiting.Current hospital medications:furosemide 20 mg injection (LASIX) [address] 20 mg tab(s) (PROTONIX) 20 mg ORAL DAILY (6 AM)potassium chloride ER 40 mEq tab(s) (K-DUR, KLOR-CON) 40 mEq ORAL DAILYmelatonin 3 mg tab(s) 3 mg ORAL AT BEDTIMEipratropium-albuterol 3 mL nebulizer solution (DUONEB) 3 mL INHALATION q 4 H PRNoxyCODONE-acetaminophen 5-325 mg 0.5 tablet (PERCOCET) 0.5 tablet ORAL q 4 H PRNciprofloxacin 400 mg in D5W 200 mL (CIPRO) 400 mg INTRAVENOUS q 12 HmetroNIDAZOLE 500 mg PREMIX piggyback (FLAGYL) 500 mg INTRAVENOUS q 8 Hlisinopril 40 mg tab(s) (ZESTRIL, PRINIVIL) 40 mg ORAL DAILYaspirin 81 mg chewable tab(s) 81 mg ORAL DAILYatenolol 50 mg tab(s) (TENORMIN) 50 mg ORAL DAILYondansetron (PF) 4 mg injection (ZOFRAN) 4 mg INTRAVENOUS q 4 H PRNatorvastatin 10 mg tab(s) (LIPITOR) 10 mg ORAL AT BEDTIMEOBJECTIVEPHYSICAL EXAM: GENERAL: Alert, no distress, cooperativeLUNGS: Expiratory wheezing in right upper lobe, clear in all other lobesCARDIAC: Normal S1 and S2; no rubs, murmurs, or gallopsABDOMEN: Abdomen soft, BS normal, no distention, masses or organomegaly, RUQpain on palpationPULSES: 2+ radialPatient Vitals for the past 24 hrs: BP Temp Temp src Pulse Resp SpO2 Cyvjfg95/31/17 0700 140/59 36.8 ?C (98.2 ?F) Oral 66 18 94 % -04/13/17 2200 149/68 - - - - - 70.8 kg (156 lb 1.4 oz)04/13/17 1910 180/84 36.9 ?C (98.4 ?F) Oral 66 18 98 % -04/13/17 1550 169/81 36.7 ?C (98.1 ?F) Oral 70 18 96 % -Body mass index is 196.02 kg/(m2).DATA:Diagnostic tests reviewed for today's visit:Most recent labs and imaging results.IMPRESSION/RECOMMENDAT IONS1). Colitis Assessment AND Plan: Colonoscopy tomorrow2). Lower GI bleed secondary to #1 Assessment AND Plan: Monitor H/H, transfuse as needed, colonoscopy tomorrow3). Dilated CBD-MRCP yesterday, CBD trending down with no biliary stricture ofcholedocholithiasis Assessment AND Plan:SIGNATURE: Isabel Fried CNP PATIENT NAME: Baudilio TorresDATE: April 14, 2017 : 10:41 AM PAGER:Richie Aponte MD 04/14/2017 5:24 PM AddendumDEPARTMENT [facility] MEDICINEPROGRESS NOTESERVICE DATE: 04/14/2017SERVICE TIME: 3:02 PMHospital Medicine/Primary Attending: Richie Aponte MDNIGHT AND WEEKEND COVERAGE:After 7pm please page [phone]: F/u GI Bleed. No Bleed, CP, SOB, NVD.OBJECTIVE:PHYSICAL EXAM: BP 140/59 Pulse 66 Temp (Src) 98.2 (Oral) Resp 18 Ht 1'11.661 (0.60m) Wt 156 lb 1.4 oz (70.8kg) SpO2 94% BMI 196.01 kg/(m2).General - AANDOx3, NAD, CalmCV - RRR S1 S2, No M/R/GRESP - CTA B/L No wheezes, ronchi, ralesABD - soft, NT, ND +BSENT- no icterusNeuro- No dysarthriaMEDICATIONS:Current hospital medications:bisacodyl EC 10 mg tab(s) (DULCOLAX) 10 mg ORAL ONCEpolyethylene glycol 3350 255 g oral powder (MIRALAX, GLYCOLAX) 255 g ORAL ONCEfurosemide 20 mg injection (LASIX) [address] 20 mg tab(s) (PROTONIX) 20 mg ORAL DAILY (6 AM)potassium chloride ER 40 mEq tab(s) (K-DUR, KLOR-CON) 40 mEq ORAL DAILYmelatonin 3 mg tab(s) 3 mg ORAL AT BEDTIMEipratropium-albuterol 3 mL nebulizer solution (DUONEB) 3 mL INHALATION q 4 H PRNoxyCODONE-acetaminophen 5-325 mg 0.5 tablet (PERCOCET) 0.5 tablet ORAL q 4 H PRNciprofloxacin 400 mg in D5W 200 mL (CIPRO) 400 mg INTRAVENOUS q 12 HmetroNIDAZOLE 500 mg PREMIX piggyback (FLAGYL) 500 mg INTRAVENOUS q 8 Hlisinopril 40 mg tab(s) (ZESTRIL, PRINIVIL) 40 mg ORAL DAILYaspirin 81 mg chewable tab(s) 81 mg ORAL DAILYatenolol 50 mg tab(s) (TENORMIN) 50 mg ORAL DAILYondansetron (PF) 4 mg injection (ZOFRAN) 4 mg INTRAVENOUS q 4 H PRNatorvastatin 10 mg tab(s) (LIPITOR) 10 mg ORAL AT BEDTIMEDATA:Diagnostic tests reviewed for today's visit:CBC:Recent Labs HB 11.8Coags: No results for input(s): INR, APTT in the last 24 hours.Invalid input(s): PTBMP:Recent Labs NA 140K 3.4*CHLOR 104CO2 28BUN 9CREAT 0.68GLUC 99CMP:Recent Labs NA 140K 3.4*CHLOR 104CO2 28BUN 9CREAT 0.68GLUC 99CA 8.3*ANION 11Cardiac Enzymes: No results for input(s): CK, MB, CKMB, TROPT in the last 24hours.Liver Function, Amylase, Lipase:Recent Labs LIPASE 321MG/PHOS: No results for input(s): MG, P in the last 24 hours.Renal Panel:Recent Labs CREAT 0.68BUN 9GLUC 99CA 8.3*CHLOR 104K 3.4*CO2 28NA 140Heme: No results for input(s): RETICP, ABSRETIC, LD, ANT, FE, TIBC, TRANSFERSATin the last 24 hours.No results found for: UALBCRASSESSMENT/PLANPrincipal Problem: Rectal bleeding Assessment AND Plan: Coloscopy in AM. Hgb Stable.Active Problems: Infectious colitis POA: Yes Assessment AND Plan: Transition to PO in next 24 hours. 10-14 days. Lower GI bleed POA: Yes Assessment AND Plan: See above Acute diastolic CHF (congestive heart failure) (HCC) POA: No Assessment AND Plan: No pulm edema. SEPSIS: ResolvedVTE Prophylaxis: Pneumatic Compression DeviceDisposition: HomePlan of care discussed with: PatientSIGNATURE: Richie Aponte MD PATIENT NAME: Baudilio TorresDATE: April 14, 2017 : 3:02 PM PAGER/CONTACT #: My PagerPrevious Melo Gentile, RN, RN 04/15/2017 9:52 AM SignedCHART REVIEWED. DC PLAN WILL BE HOME ONCE MEDICALLY STABLE. WILL FOLLOW FOR ANYNEEDS.Court Silverman RN, RN 04/15/2017 12:04 PM SignedONGOING PATIENT EDUCATION TOPIC Reinforced: rectal bleedingPatient Name: Baudilio TorresMRN: [id number] Location: [place] [address]/[place] [address]*Readi ness To LearnMotivation To Learn: InterestedInstruction Provided To: PatientLearning ResponsePatient/Family Response: Verbalizes understanding of: [id number]-Ezkm ect action to take to follow pre-operative instructionsMethod of Instruction: Individual instructionFollow-Up Plan: Patient instructed to call with any further issuesElectronically signed by: Roby Krause MD 04/15/2017 12:38 PM Signed ANESTHESIOLOGY DAY OF SURGERY NOTESERVICE DATE: 04/15/2017SERVICE TIME:12:23 PMDOB: 1945Procedure(s) (LRB):COLONOSCOPY (Left)Surgeon(s):Luis F Ibarraimadevendra body mass index is 27.78 kg/(m2) as calculated from the following: Height as of this encounter: 155.4 cm (5' 1.2). Weight as of this encounter: 67.1 kg (148 lb).Most recent hematocrit and potassium results:Hematocrit 34.5 04/15/2017Potassium 3.1 04/15/2017ANES DOS/PREOP NOTE:Vitals: 741 115 149 BP: 166/73 155/68 172/71 178/88Pulse: 62 63 65 63Resp: 18 20 16 16Temp: 36.6 ?C (97.9 ?F) 36.6 ?C (97.9 ?F)TempSrc: Oral OralSpO2: 98% 97% 98% 97%Weight: 67.1 kg (148 lb)Height: 155.4 cm (5' 1.2)ACTIVE PROBLEM LISTInfectious ColitisLower GI BleedAcute Diastolic Chf (Congestive Heart Failure) (Hcc)Coronary Artery Disease Involving [place] Coronary Artery of [place] Heart WithoutAngina PectorisEssential HypertensionRectal BleedingPAST MEDICAL HISTORYDiagnosis Date- CAD (coronary artery disease)- Carotid stenosis- CHF (congestive heart failure) (HCC)- HLD (hyperlipidemia)- HTN (hypertension)PAST SURGICAL HISTORYProcedure Laterality Date- CAROTID ENDARTERECTOMY Bilateral- DRUG-ELUTING STENTS,EACH ADDHistory reviewed. No pertinent family history.Social History:Social HistorySubstance Use Topics- Smoking status: Former Smoker- Smokeless tobacco: Not on file- Alcohol use NoNo current facility-administered medications on file prior to encounter.No current outpatient prescriptions on file prior to encounter.Current Facility-Administered Medications:potassium chloride ER 40 mEq tab(s) (K-DUR, KLOR-CON) 40 mEq ORAL BID Jojo Joaquin 650 mg tab(s) (TYLENOL) 650 mg ORAL q 6 H PRN Richie Aponte 650mg at 04/14/17 2357furosemide 20 mg injection (LASIX) 20 mg INTRAVENOUS DAILY Swetha Tetyuk 20 mgat 04/14/[address] 20 mg tab(s) (PROTONIX) 20 mg ORAL DAILY (6 AM) Swetha Mfoqdw94 mg at 04/14/17 0600melatonin 3 mg tab(s) 3 mg ORAL AT BEDTIME Swetha Tety[place] 3 mg at 04/13/17 2103ipratropium-albuterol 3 mL nebulizer solution (DUONEB) 3 mL INHALATION q 4 H PRNNatalia Tetyuk 3 mL at 04/12/17 2315oxyCODONE-acetaminophen 5-325 mg 0.5 tablet (PERCOCET) 0.5 tablet ORAL q 4 H PRNSulaiman Mapara 0.5 tablet at 04/12/17 0314ciprofloxacin 400 mg in D5W 200 mL (CIPRO) 400 mg INTRAVENOUS q 12 H SulaimanMapara 400 mg at 04/14/172114metroNIDAZOLE 500 mg PREMIX piggyback (FLAGYL) 500 mg INTRAVENOUS q 8 H SulaimanMapara 500 mg at 04/15/17 0318lisinopril 40 mg tab(s) (ZESTRIL, PRINIVIL) 40 mg ORAL DAILY Tone Mapara 40mg at 04/14/17 0856aspirin 81 mg chewable tab(s) 81 mg ORAL DAILY Tone Mapara 81 mg at [id number] 50 mg tab(s) (TENORMIN) 50 mg ORAL DAILY Tone Mapara 50 mg at1 0854ondansetron (PF) 4 mg injection (ZOFRAN) 4 mg INTRAVENOUS q 4 H PRN SulaimanMapara 4 mg at 04/12/174atorvastatin 10 mg tab(s) (LIPITOR) 10 mg ORAL AT BEDTIME Tone Mapara 10 mgat 04/14/17 2007Allergies:ALLERGIESAllerge n Reactions- Hydrocodone-Acetami* GI Upset- Morphine GI UpsetDOS EXAM: Adequate NPO status: YesAnesthetic risks, benefits, alternatives, personnel and consent discussed: YesPatient agrees to proceed: YesPrevious Anesthesia: SEVERE POST OP VOMITINGAirway Assessment: MP 2; Neck ROM: Full ROM without neurologic symptoms; AirwayEvaluation: No significant abnormalitiesSymptoms of Sleep Apnea: NoneDentition: Dentures: bothAdditional Physical Exam:Lungs: Patient health status unchanged since recent history and physical. Seehistory and physical for exam findings.Cardiac: Patient health status unchanged since recent history and physical. Seehistory and physical for exam findings.Additional Pertinent Findings: PT WENT INTO DIASTOLIC CHF WITH INITIAL FLUIDRESUSCITATION. COMPENSATED NOW.Blood Products: Not anticipated for this procedure.Anesthetic Plan: MAC with Sedation and CAUTIOUS IV ADMINISTRATION, NO OPIOIDS.ZOFRAN. METOPROLOL FOR HR>70Pain Management Plan: Parenteral or OralASA Class: 4Other Medical Problems: S/P BILAT CEA AND CARDIAC STENTS. LAST PLAVIX 5 DAYSAGO.Chronic Beta Rick medication administered within 24 hours: No: B RICK NOTGIVEN BECAUSE PT WAS IN ENDO SUITE WHEN MED DUE FOR ADMINISTRATIONI have interviewed and examined the patient. I have reviewed the medical recordand/or the pre-anesthesia evaluation, pertinent labs, and test results.Significant changes in the patient's condition since the History and Physical,not otherwise documented in primary service progress notes: No- SAO2 99% RAThis contains updated information obtained within 48 hours of Surgery/Procedure.SIGNATURE: Marco Robins MD PATIENT NAME: Baudilio TorresDATE: April 15, 2017 : 12:12 PM CSN: [id number] F Danielle MD 04/15/2017 12:42 PM SignedNo changes since H+P Normal [facility] Office Visit: [facility] 11-04-19 Documentation of current medications (procedure) Done Invalid Interpretation Code [employer] Work Phone: [phone] Fall risk assessment No Invalid Interpretation Code [employer] Work Phone: [phone] Tobacco smoking status Tobacco smoking status NHIS Invalid Interpretation Code [employer] Work Phone: [phone] Tobacco use status CPHS Former smoker Invalid Interpretation Code [employer] Work Phone: [phone] Clinical Lists Update: Prelo biomedical specialist 10-31-2016 Left ventricular Ejection fraction 65 % Invalid Interpretation Code [employer] Work Phone: [phone] Lab Report: Lipid Profileon 10-29-2016 Cholesterol [Mass/Vol] 183 mg/dL Invalid Interpretation Code 200 [employer] Work Phone: [phone] Cholesterol in HDL [Mass/Vol] 55 mg/dL Invalid Interpretation Code [employer] Work Phone: [phone] Cholesterol in LDL [Mass/Vol] 93 mg/dL Invalid Interpretation Code 0-130 [employer] Work Phone: [phone] Lipoprotein.pre-bet a [Mass/Vol] 35 mg/dL Invalid Interpretation Code 5-40 [employer] Work Phone: [phone] Triglyceride [Mass/Vol] 173 mg/dL Invalid Interpretation Code [employer] Work Phone: [phone] Lab Report: Liver Profileon 10-29-2016 Albumin [Mass/Vol] 3.7 g/dL Invalid Interpretation Code 3.4-5.0 [employer] Work Phone: [phone] ALP (Bld) [Catalytic activity/Vol] 89 U/L Invalid Interpretation Code 45-117 [employer] Work Phone: [phone] ALT [Catalytic activity/Vol] 31 U/L Invalid Interpretation Code 12-78 [employer] Work Phone: [phone] AST [Catalytic activity/Vol] 27 U/L Invalid Interpretation Code 15-37 [employer] Work Phone: [phone] Bilirubin [Mass/Vol] 0.50 mg/dL Invalid Interpretation Code 0.20-1.00 [employer] Work Phone: [phone] Bilirubin.direct [Mass/Vol] 0.07 mg/dL Invalid Interpretation Code 0.00-0.30 [facility] Phone: [phone] Globulin (S) [Mass/Vol] 3.5 g/dL Invalid Interpretation Code 2.3-3.5 [employer] Work Phone: [phone] Protein [Mass/Vol] 7.2 g/dL Invalid Interpretation Code 6.4-8.2 [facility] Phone: [phone] Office Visiton 09-20-2015 Tobacco use status [facility] Former smoker Invalid Interpretation Code [employer] Phone: [phone] Clinical Lists Update: Prelo biomedical specialist 09-14-2015 Left ventricular Ejection fraction 65 % Invalid Interpretation Code [facility] Phone: [phone] Lab Report: Basic Metabolic Profile (BMP)on 06-16-2014 Anion gap [Moles/Vol] 3 mmol/L Critically low 5-15 [employer] Work Phone: [phone] Calcium [Mass/Vol] 9.0 mg/dL Invalid Interpretation Code 8.5-10.1 [employer] Work Phone: [phone] Chloride [Moles/Vol] 103 mmol/L Invalid Interpretation Code 98-107 [employer] Work Phone: [phone] CO2 (BldV) [Partial pressure] 33.0 mmol/L Critically high 21.0-32.0 [employer] Work Phone: [phone] Creatinine [Mass/Vol] 0.9 mg/dL Invalid Interpretation Code 0.6-1.0 [employer] Work Phone: [phone] GFR/1.73 sq M.predicted among non-blacks MDRD (S/P/Bld) [Vol rate/Area] 66 mL/min/{1.73_m2} Invalid Interpretation Code >60 [employer] Work Phone: [phone] Glomerular Filtration rate 80 mL/min Invalid Interpretation Code >60 [employer] Work Phone: [phone] Glucose [Mass/Vol] 109 mg/dL Invalid Interpretation Code 70-110 [employer] Work Phone: [phone] Potassium [Moles/Vol] 3.9 mmol/L Invalid Interpretation Code 3.5-5.1 [facility] Phone: [phone] Sodium [Moles/Vol] 139 mmol/L Invalid Interpretation Code 136-145 [employer] Work Phone: [phone] Urea nitrogen [Mass/Vol] 19 mg/dL Critically high 7-18 [employer] Work Phone: [phone] Urea nitrogen/Creatinine [Mass ratio] 21.0826777 mg/mg Critically high 10-20 [employer] Work Phone: [phone] Office Visit: [facility] 06-14-20 14 cardiac risk group C Invalid Interpretation Code [facility] Phone: [phone] General cardiovascular disease 10Y risk [#] Mcalpin.D'Agosti no N/A Invalid Interpretation Code [facility] Phone: [phone] Tobacco smoking status Never Invalid Interpretation Code [facility] Phone: [phone] Replaced Document: Arin Gardineron 06-14-2014 EKG QRS axis 22 deg Invalid Interpretation Code [facility] Phone: [phone] electrocardiogram interpretation Marked sinus Bradycardia -Short MD syndrome Kylah = 118 BORDERLINE RHYTHM Invalid Interpretation Code [facility] Phone: [phone] GE use only - for [employer] import when terms are not otherwise specified 431 ms Invalid Interpretation Code [facility] Phone: [phone] Heart rate 48 /min Invalid Interpretation Code [facility] Phone: [phone] Interpretation Marked sinus Bradyca rdia -Short MD syndrome Kylah = 118BORDERLINE RHYTHM Invalid Interpretation Code [place] [facility] [facility] Work Phone: [phone] [place] 50 deg Invalid Interpretation Code [place] [facility] [facility] Work Phone: [phone] P wave axis, electrocardiogram 50 deg Invalid Interpretation Code [place] [facility] Work Phone: [phone] MD Interval 118 ms Invalid Interpretation Code [place] [facility] Work Phone: [phone] MD interval, electrocardiogram 118 ms Invalid Interpretation Code [facility] Work Phone: [phone] QRS axis, electrocardiogram 22 deg Invalid Interpretation Code [place] [facility] Work Phone: [phone] QRS Duration 78 ms Invalid Interpretation Code [facility] Work Phone: [phone] QRS duration, electrocardiogram 78 ms Invalid Interpretation Code [place] [facility] Work Phone: [phone] QT Interval new path ms Invalid Interpretation Code [place] [facility] Work Phone: [phone] QT interval, electrocardiogram new path ms Invalid Interpretation Code [place] [facility] Work Phone: [phone] QTc Tamez 431 ms Invalid Interpretation Code [facility] [facility] Work Phone: [phone] T [place] 34 deg Invalid Interpretation Code [place] [facility] Work Phone: [phone] T wave axis, electrocardiogram 34 deg Invalid Interpretation Code [facility] [facility] Work Phone: [phone] Clinical Lists Update: Prelo biomedical specialist 05-08-2014 Hematocrit (Bld) [Volume fraction] 39.7 % Invalid Interpretation Code [facility] [facility] Work Phone: [phone] Hemoglobin (Bld) [Mass/Vol] 13.2 g/dL Invalid Interpretation Code [facility] [facility] Work Phone: [phone] Platelets (Bld) [#/Vol] 199 10*3/uL Invalid Interpretation Code [place] [facility] Work Phone: [phone] WBC (Bld) [#/Vol] 9.7 10*3/uL Invalid Interpretation Code [employer] Work Phone: [phone] Replaced Document: Arin Gardineron 12-01-2012 Pulse (Heart Rate) 433 ms Invalid Interpretation Code [employer] Work Phone: [phone] QT interval/QT interval (corrected for heart rate), electrocardiogram 433 ms Invalid Interpretation Code [facility] Phone: Lab Reporton 06-07-2011 Band form neutrophils/100 WBC (Bld) 84.0 % Invalid Interpretation Code [employer] Work Phone: [phone] basophils as percent of blood leukocytes, manual count 0.2 % Invalid Interpretation Code [employer] Work Phone: [phone] eosinophils as percent of blood leukocytes, manual count 0.7 % Invalid Interpretation Code [employer] Work Phone: [phone] Lymphocytes/100 WBC (Bld) 11.8 % Invalid Interpretation Code [employer] Work Phone: [phone] MCH (RBC) [Entitic mass] 30.5 pg Invalid Interpretation Code [employer] Work Phone: [phone] MCV (RBC) [Entitic vol] 88.8 fL Invalid Interpretation Code [employer] Work Phone: [phone] Monocytes/100 WBC (Bld) 3.3 % Invalid Interpretation Code [facility] Phone: [phone] neutrophils, band form as percent of blood leukocytes, manual count 84.0 % Invalid Interpretation Code [employer] Work Phone: [phone] RBC (Bld) [#/Vol] 4.64 10*6/uL Invalid Interpretation Code [facility] Phone: Otheron 11-19-2009 CONVERTED CLINICAL HISTORY OPERATIVE PROCEDURE: Right carotid endarterectomy with bovine patch angioplasty CLINICAL INFORMATION: Right carotid stenosis [facility] CONVERTED FINAL DIAGNOSIS FINAL DIAGNOSIS: RIGHT CAROTID ARTERY, ENDARTERECTOMY - CALCIFIC ATHEROSCLEROTIC PLAQUE. SPECIMEN: PLAQUE [facility] CONVERTED GROSS DESCRIPTION GROSS DESCRIPTION: Right carotid plaque Received in a container labeled right carotid plaque. Received are portions of soft to partially calcified yellow-rabago plaque measuring 3 x 1 x 1 cm in aggregate. [employer] Monitor sample submitted in a single cassette following decal. SMS:HONG:solange MICROSCOPIC DESCRIPTION: Slides reviewed. SDS/lrs [facility] CONVERTED ORDERING PROVIDER Ordering Provider: ANAM KIM [facility] Thyroidon 11-19-2009 TSH Gemma ARMSTRONG M.D., PATHOLOGIST (Electronic signature on file) Final Signed Out: 11/19/2009 13:40 [facility] Otheron 10-16-2009 CONVERTED CLINICAL HISTORY OPERATIVE PROCEDURE: Left internal carotid endarterectomy with bovine patch angioplasty CLINICAL INFORMATION: Severe left internal carotid artery stenosis [facility] CONVERTED FINAL DIAGNOSIS FINAL DIAGNOSIS: LEFT CAROTID ARTERY, ENDARTERECTOMY - CALCIFIC ATHEROSCLEROTIC PLAQUE. SPECIMEN: PLAQUE [facility] CONVERTED GROSS DESCRIPTION GROSS DESCRIPTION: Plaque from left carotid artery Received in a container labeled plaque from left carotid. Received is a bifurcating portion of calcified yellow-gallo plaque measuring 1 x 1 x 0.8 cm in aggregate. Specimen totally submitted in a single cassette following decal. SMS:ATP:hlm MICROSCOPIC DESCRIPTION: Slides reviewed. SDS/gpl [facility] CONVERTED ORDERING PROVIDER Ordering Provider: ANAM KIM [facility] Thyroidon 10-16-2009 TSH Qn LUCIAN ARMSTRONG M.D., PATHOLOGIST (Electronic signature on file) Final Signed Out: 10/16/2009 12:34 [facility] Lab Reporton 10-20-2008 Thyroid stimulating hormone (TSH) 4.11 u[iU]/mL Invalid Interpretation Code [facility] Work Phone: TSH Qn 4.11 m[IU]/L Invalid Interpretation Code [facility] Work Phone: Vital Signs Date Time Vital Sign Value Performing Clinician Juan fried 11-04-2024 08:32-0400 Body height 149.86 cm Cyrus Claudio PIN CLEANER-C Work Phone: [facility] 11-04-2024 08:32-0400 Body mass index (BMI) [Ratio] 29.5 kg/m2 Cyrus Claudio PIN CLEANER-C Work Phone: [facility] 11-04-2024 08:32-0400 Body temperature 97.8 [degF] Cyrus Claudio PIN CLEANER-C Work Phone: [facility] 11-04-2024 08:32-0400 Body weight 66.22 kg Cyrus Claudio PIN CLEANER-C Work Phone: [facility] 11-04-2024 08:32-0400 Diastolic blood pressure 89 mm[Hg] Cyrus Claudio PIN CLEANER-C Work Phone: [facility] 11-04-2024 08:32-0400 Heart rate 86 /min Cyrus Claudio PIN CLEANER-C Work Phone: [facility] 11-04-2024 08:32-0400 Respiratory rate 16 /min Cyrus Claudio PIN CLEANER-C Work Phone: [facility] 11-04-2024 08:32-0400 SaO2% (BldA) [Mass fraction] 94 % Cyrus Claudio PIN CLEANER-C Work Phone: [facility] 11-04-2024 08:32-0400 Systolic blood pressure 175 mm[Hg] Cyrus Claudio PIN CLEANER-C Work Phone: [facility] 01-13-2022 13:39-0400 Body height 149.86 cm PIN CLEANER-C Cyrus Cowartpkins PIN CLEANER Work Phone: [facility] Work Phone: 01-13-2022 13:39-0400 Body mass index (BMI) [Ratio] 28.7 kg/m2 PIN CLEANER-C Cyrus Cowartpkins PIN CLEANER Work Phone: [facility] Work Phone: 01-13-2022 13:39-0400 Body weight 64.46 kg PIN CLEANER-C Cyrus Claudio PIN CLEANER Work Phone: [facility] Work Phone: 01-13-2022 13:39-0400 Diastolic blood pressure 60 mm[Hg] PIN CLEANER-C Cyrus Cowartpkins PIN CLEANER Work Phone: [facility] Work Phone: 01-13-2022 13:39-0400 Heart rate 48 /min PIN CLEANER-C Cyrus Cowartpkins PIN CLEANER Work Phone: [facility] Work Phone: 01-13-2022 13:39-0400 Respiratory rate 16 /min PIN CLEANER-C Cyrus Todd PIN CLEANER Work Phone: [facility] Work Phone: 01-13-2022 13:39-0400 Systolic blood pressure 128 mm[Hg] PIN CLEANEREfraín Claudio NP Work Phone: [facility] Work Phone: 05-05-2017 07:59-0500 BMI (Body Mass Index) 27.36 kg/m2 MD [facility] Work Phone: 05-05-2017 07:59-0500 Body weight 65.68 kg Wild Watkins MD [facility] Work Phone: 05-05-2017 07:59-0500 BP Diastolic 60 mm[Hg] Wild Watkins MD [facility] Work Phone: 05-05-2017 07:59-0500 BP Systolic 120 mm[Hg] Wild Watkins MD [facility] Work Phone: 05-05-2017 07:59-0500 Height 154.94 cm Wild Watkins MD [facility] Work Phone: 05-05-2017 07:59-0500 Pulse (Heart Rate) 64 /min Wild Watkins MD [facility] Work Phone: 05-05-2017 07:59-0500 Respiratory Rate 20 /min Wild Watkins MD [facility] Work Phone: 05-05-2017 07:59-0500 Weight 65.68 kg Wild Watkins MD [facility] Work Phone: 11-03-2016 09:35-0400 Body height 154.94 cm [facility] Work Phone: 11-03-2016 09:35-0400 Body mass index (BMI) [Ratio] 28.23 kg/m2 [facility] Work Phone: 11-03-2016 09:35-0400 Body weight 67.77 kg Anita Christianson [facility] Work Phone: 11-03-2016 09:35-0400 Diastolic blood pressure 54 mm[Hg] [facility] Work Phone: 11-03-2016 09:35-0400 Heart rate 70 /min [facility] Work Phone: 11-03-2016 09:35-0400 Systolic blood pressure 110 mm[Hg] An[facility] Work Phone: 11-03-2016 09:35-0400 Weight 67.77 kg Wild Watkins MD [facility] Work Phone: 04-29-2016 10:41-0500 Body mass index (BMI) [Ratio] 25.18 kg/m2 Wild Watkins MD [facility] Work Phone: 04-29-2016 10:41-0500 Body surface area Derived from formula 1.74 m2 Wild Watkins MD [facility] Work Phone: 04-29-2016 10:41-0500 Body weight 67.59 kg Wild Watkins MD [facility] Work Phone: 04-29-2016 10:41-0500 Diastolic blood pressure 60 mm[Hg] Wild Watkins MD [facility] Work Phone: 04-29-2016 10:41-0500 Heart rate 56 /min Wild Watkins MD [facility] Work Phone: 04-29-2016 10:41-0500 Respiratory rate 20 /min Wild Watkins MD [facility] Work Phone: 04-29-2016 10:41-0500 Systolic blood pressure 110 mm[Hg] Wild Watkins MD [place] [facility] Work Phone: 09-20-2015 08:47-0400 Body height 163.83 cm Wild Watkins MD [facility] Work Phone: Encounters Encounter Date Encounter Type Care Provider Facility Start: 11-30-2024 ambulatory Sandy Parson Matthew Facili ty:[facility] Start: 11-17-2024 ambulatory Sandy Parosn Matthew Facili ty:[facility] Start: 11-04-2024 End: 11-04-2024 ambulatory Cyrus Claudio PIN CLEANER-C Work Phone: [facility] Work Phone: Start: 11-04-2024 End: 11-04-2024 Patient encounter procedure PIN CLEANER Sandy Castro -Laboratory Specimen Work Phone: Start: 11-04-2024 End: 11-04-2024 Patient encounter procedure PIN CLEANER Sandy Castro -[facility] Work Phone: Start: 11-04-2024 End: 11-04-2024 ambulatory Sandy M Veramarquis Facility:[facility] [place] [facility] Start: 11-04-2024 End: 11-04-2024 ambulatory Sandy Parson Matthew Facility:[facility] Start: 07-15-2024 ambulatory Cyrus Claudio PIN CLEANER Facility:[facility] [place] [facility] Start: 07-15-2024 Non-patient / Non-visit Dr. Glen BARR -[facility] Start: 07-15-2024 End: 07-15-[address] Anderson PA -Cardiovascular Services Work Phone: Start: 07-15-2024 End: 07-15-2024 ambulatory Cyrus Claudio PIN CLEANER Facility:[facility] Start: 06-28-2024 End: 06-28-2024 ambulatory Cyrus Claudio PIN CLEANER Facility:[facility] [place] [facility] Start: 05-27-2024 End: 05-31-2024 ambulatory CYRUS CLAUDIO CARPENTER MOLD - LEAD IOS DEVELOPER Facility:[facility] Start: 05-27-2024 End: 05-31-2024 Outreach Lab MR WILD Choe ROLAND BARR [facility] Start: 06-17-2023 End: 06-17-2023 ambulatory PIN CLEANER-C Cyrus Claudio PIN CLEANER Work Phone: [facility] Work Phone: Start: 06-17-2023 End: 06-17-2023 Patient encounter procedure PIN CLEANER-C Cyrus Claudio PIN CLEANER Work Phone: [facility]-Laboratory Work Phone: Start: 06-05-2023 Non-patient / Non-visit PIN CLEANER-C Alexis Claudio PIN CLEANER Work Phone: [facility] Start: 06-05-2023 End: 06-05-2023 ambulatory PIN CLEANER-C Cyrus Claudio PIN CLEANER Work Phone: [facility] Work Phone: Start: 06-05-2023 End: 06-05-2023 Patient encounter procedure PIN CLEANER-C Cyrus Claudio PIN CLEANER Work Phone: [facility]-Cardiovascular Services Work Phone: Start: 04-10-2022 End: 04-15-2022 ambulatory CYRUS CLAUDIO LEAD IOS DEVELOPER Facility:[facility] Start: 04-10-2022 End: 04-14-2022 Outreach Lab CYRUS CLAUDIO CARPENTER MOLD - LEAD IOS DEVELOPER [facility] Start: 03-11-2022 End: 03-12-2022 ambulatory CYRUS CLAUDIO LEAD IOS DEVELOPER Facility:[facility] Start: 03-05-2022 End: 03-06-2022 ambulatory CYRUS CLAUDIO LEAD IOS DEVELOPER Facility:[facility] Start: 03-05-2022 End: 03-05-2022 Patient encounter procedure CYRUS CLAUDIO CARPENTER MOLD - LEAD IOS DEVELOPER [facility] Start: 01-13-2022 End: 01-13-2022 Patient encounter procedure PIN CLEANER-C Cyrus Claudio PIN CLEANER Work Phone: [facility] Start: 06-13-2021 End: 06-14-2021 ambulatory CYRUS CLAUDIO LEAD IOS DEVELOPER Facility: Start: 06-13-2021 End: 06-13-2021 Patient encounter procedure CYRUS CLAUDIO CARPENTER MOLD - LEAD IOS DEVELOPER [facility] Start: 04-15-2017 End: 04-15-2017 Patient encounter procedure Luis F Santizo Precious Work Phone: [facility] Start: 04-15-2017 Results Only Luis F campbell Work Phone: [facility] Start: 04-11-2017 End: 04-16-2017 Evaluation and management of inpatient IVAN VILLAR Facility:[facility] Start: 11-16-2009 End: 11-16-2009 Patient encounter procedure Anam Kim Work Phone: [facility] Start: 11-16-2009 Results Only Anam Kim Work Phone: [facility] Start: 10-12-2009 End: 10-12-2009 Patient encounter procedure Anam Kim Work Phone: [facility] Start: 10-12-2009 Results Only Anam Kim Work Phone: [facility] Procedures Date Procedure Procedure Detail Performing Clinician Start: 07-15-2024 Radionuclide imaging of perfusion of myocardium under exercise stress Cyrus Claudio PIN CLEANER-C Work Phone: Start: 06-15-2018 Cataract (morphologi c abnormality) CYRUS CLAUDIO CARPENTER MOLD - LEAD IOS DEVELOPER Start: 05-05-2017 End: 05-05-2017 Documentation of current medications Wild Watkins MD Start: 04-29-2017 End: 04-29-2017 *Hepatic Function Panel Solange Rodriguez Start: 04-29-2017 End: 04-29-2017 Lipid 1996 panel - Serum or Plasma Wild Watkins MD Start: 04-29-2017 End: 04-29-2017 Hepatic function 2000 panel - Serum or Plasma Wild Watkins MD Start: 04-29-2017 End: 04-29-2017 Lipid 1996 panel - Serum or Plasma Wild Watkins MD Start: 04-15-2017 CONVERTED SURGICAL PATHOLOGY Luis F Sukhdev Danielle Work Phone: Start: 11-03-2016 End: 11-03-[address] Anderson PA-C Work Phone: Start: 11-03-2016 End: 11-03-2016 Follow Up Appt [address] how[address] PA-C Work Phone: Start: 11-03-2016 End: 11-03-2016 Documentation of current medications Anita Christianson Start: 11-03-2016 End: 11-03-[address] Anderson PA-C Work Phone: Start: 11-03-2016 End: 11-03-2016 Follow Up Appt [address] howell PA-C Work Phone: Start: 10-21-2016 End: 10-29-2016 *Hepatic Function Panel Solange Rodriguez Start: 10-21-2016 End: 10-29-2016 Lipid Dulce panel - Serum or Plasma Wild Watkins MD Start: 10-21-2016 End: 10-29-2016 Hepatic function 2000 panel - Serum or Plasma Wild Watkins MD Start: 10-21-2016 End: 10-29-2016 Lipid 1996 panel - Serum or Plasma Wild Watkins MD Start: 06-15-2016 Surgery (qualifier value) CYRUS CLAUDIO CARPENTER MOLD - LEAD IOS DEVELOPER Comment on above: Bowel surgery Start: 04-29-2016 End: 04-29-2016 Follow Up Appt 6 months Solange Rodriguez Start: 04-29-2016 End: 04-29-2016 MALA Watkins MD Start: 04-29-2016 End: 04-29-2016 Documentation of current medications Wild Watkins MD Start: 04-29-2016 End: 04-29-2016 Follow Up Appt 6 months Solange Rodriguez Start: 04-29-2016 End: 04-29-2016 MALA Watkins MD Start: 03-13-2016 End: 04-23-2016 *Hepatic Function Panel Solange Rodriguez Start: 03-13-2016 End: 04-23-2016 Lipid 1996 panel - Serum or Plasma Wild Watkins MD Start: 03-13-2016 End: 04-23-2016 Hepatic function 2000 panel - Serum or Plasma Wild Watkins MD Start: 03-13-2016 End: 04-23-2016 Lipid 1996 panel - Serum or Plasma Wild Watkins MD Start: 09-20-2015 End: 09-20-2015 Follow Up Appt 6 months Solange Rodriguez Start: 09-20-2015 End: 09-20-2015 MALA Watkins MD Start: 09-20-2015 End: 09-20-2015 Follow Up Appt 6 months Solange Rodriguez Start: 09-20-2015 End: 09-20-2015 MALA Watkins MD Start: 09-07-2015 End: 09-11-2015 *Hepatic Function Panel Solange Rodriguez Start: 09-07-2015 End: 09-11-2015 Lipid 1996 panel - Serum or Plasma Wild Watkins MD Start: 09-07-2015 End: 09-11-2015 Hepatic function 2000 panel - Serum or Plasma Wild Watkins MD Start: 09-07-2015 End: 09-11-2015 Lipid 1996 panel - Serum or Plasma Wild Watkins MD Start: 03-15-2015 End: 03-15-2015 JEROME Anderson PA-C Work Phone: Start: 03-15-2015 End: 03-15-2015 Follow Up Appt [address] howell PA-C Work Phone: Start: 03-15-2015 End: 03-15-2015 JEROME Anderson PA-C Work Phone: Start: 03-15-2015 End: 03-15-2015 Follow Up Appt [address] howell PA-C Work Phone: Start: 02-13-2015 End: 03-09-2015 *Hepatic Function Panel Solange Rodriguez Start: 02-13-2015 End: 03-09-2015 Lipid 1996 panel - Serum or Plasma Wild Watkins MD Start: 02-13-2015 End: 03-09-2015 Hepatic function 2000 panel - Serum or Plasma Wild Watkins MD Start: 02-13-2015 End: 03-09-2015 Lipid 1996 panel - Serum or Plasma Wild Watkins MD Start: 11-27-2014 End: 12-11-2014 *Hepatic Function Panel Solange Rodriguez Start: 11-27-2014 End: 12-11-2014 Lipid 1996 panel - Serum or Plasma Wild Watkins MD Start: 11-27-2014 End: 12-11-2014 Hepatic function 2000 panel - Serum or Plasma Wild Watkins MD Start: 11-27-2014 End: 12-11-2014 Lipid 1996 panel - Serum or Plasma Wild Watkins MD Start: 09-12-2014 End: 09-13-2014 Documentation of current medications Wild Watkins MD Start: 09-12-2014 End: 09-12-2014 Follow Up Appt 6 months Solange Rodriguez Start: 09-12-2014 End: 09-12-2014 MMM Wild Watkins MD Start: 09-12-2014 End: 09-13-2014 Documentation of current medications Wild Watkins MD Start: 09-12-2014 End: 09-12-2014 Follow Up Appt 6 months Solange Rodriguez Start: 09-12-2014 End: 09-12-2014 MMSolange Watkins MD Start: 06-14-2014 End: 06-16-2014 *BMP Court Anderson PA-C Work Phone: Start: 06-14-2014 End: 06-16-[address] Anderson PA-C Work Phone: Start: 06-14-2014 End: 06-14-[address] Anderson PA-C Work Phone: Start: 06-14-2014 End: 06-15-2014 Documentation of current medications Court Anderson PA-C Work Phone: Start: 06-14-2014 End: 06-14-2014 Ecg routine ecg w/least 12 lds w/i&r Court Anderson PA-C Work Phone: Start: 06-14-2014 End: 06-14-2014 Follow Up Appt [address] howell PA-C Work Phone: Start: 06-14-2014 End: 06-16-2014 Basic metabolic 2000 panel - Serum or Plasma Court Anderson PA-C Work Phone: Start: 06-14-2014 End: 06-16-[address] Anderson PA-C Work Phone: Start: 06-14-2014 End: 06-14-[address] Anderson PA-C Work Phone: Start: 06-14-2014 End: 06-15-2014 Documentation of current medications Court Anderson PA-C Work Phone: Start: 06-14-2014 End: 06-14-2014 Ecg routine ecg w/least 12 lds w/i&r Court Anderson PA-C Work Phone: Start: 06-14-2014 End: 06-14-2014 Follow Up Appt [address] howell PA-C Work Phone: Start: 06-01-2014 End: 06-01-2014 *BMP Wild Watkins MD Start: 06-01-2014 End: 06-01-2014 *Hepatic Function Panel Solange Rodriguez Start: 06-01-2014 End: 06-01-2014 Lipid 1996 panel - Serum or Plasma Wild Watkins MD Start: 06-01-2014 End: 06-01-2014 Basic metabolic 2000 panel - Serum or Plasma Wild Watkins MD Start: 06-01-2014 End: 06-01-2014 Hepatic function 2000 panel - Serum or Plasma Wild Watkins MD Start: 06-01-2014 End: 06-01-2014 Lipid 1996 panel - Serum or Plasma Wild Watkins MD Start: 05-25-2014 End: 05-25-2014 Nurse, Teaching, Wound Check (no charge) Wild Watkins MD Start: 05-25-2014 End: 05-25-2014 Nurse, Teaching, Wound Check (no charge) Wild Watkins MD Start: 05-18-2014 History of placement of stent for coronary artery disease History of coronary artery stent placement PIN CLEANEREfraín Claudio NP Work Phone: Comment on above: [id number] LCx ; PCI-NAHUM-ISR Prox LCx 05/18/2014 Start: 05-15-2014 End: 05-19-2014 Renal doppler Wild Watkins MD Start: 05-15-2014 End: 05-19-2014 Renal doppler Wild Watkins MD Start: 12-28-2013 End: 01-03-[address] Anderson PA-C Work Phone: Start: 12-28-2013 End: 12-28-[address] Anderson PA-C Work Phone: Start: 12-28-2013 End: 12-28-2013 Follow Up Appt [address] howell PA-C Work Phone: Start: 12-28-2013 End: 01-03-[address] Anderson PA-C Work Phone: Start: 12-28-2013 End: 12-28-2013 JEROME Anderson PA-C Work Phone: Start: 12-28-2013 End: 12-28-2013 Follow Up Appt [address] howell PA-C Work Phone: Start: 12-13-2013 End: 12-15-2013 *Hepatic Function Panel Solange Rodriguez Start: 12-13-2013 End: 12-15-2013 Lipid 1996 panel - Serum or Plasma Wild Watkins MD Start: 12-13-2013 End: 12-15-2013 Hepatic function 2000 panel - Serum or Plasma Wild Watkins MD Start: 12-13-2013 End: 12-15-2013 Lipid 1996 panel - Serum or Plasma Wild Watkins MD Start: 06-28-2013 End: 06-28-2013 Follow Up Appt 6 months Solange Rodriguez Start: 06-28-2013 End: 06-28-2013 MMM Wild Watkins MD Start: 06-28-2013 End: 06-28-2013 Follow Up Appt 6 months Solange Rodriguez Start: 06-28-2013 End: 06-28-2013 MMM Wild Watkins MD Start: 05-15-2013 End: 06-17-2013 *Hepatic Function Panel Solange Rodriguez Start: 05-15-2013 End: 06-17-2013 Lipid 1996 panel - Serum or Plasma Wild Watkins MD Start: 05-15-2013 End: 06-17-2013 Hepatic function 2000 panel - Serum or Plasma Wild Watkins MD Start: 05-15-2013 End: 06-17-2013 Lipid 1996 panel - Serum or Plasma Wild Watkins MD Start: 12-01-2012 End: 12-01-[address] Anderson PA-C Work Phone: Start: 12-01-2012 End: 12-01-2012 Follow Up Appt [address] howell PA-C Work Phone: Start: 12-01-2012 End: 12-01-2012 Follow Up Appt Other Court rudd PA-C Work Phone: Start: 12-01-2012 End: 12-01-[address] Anderson PA-C Work Phone: Start: 12-01-2012 End: 12-01-2012 Follow Up Appt [address] howell PA-C Work Phone: Start: 12-01-2012 End: 12-01-2012 Follow Up Appt Other Court rudd PA-C Work Phone: Start: 11-13-2012 End: 11-30-2012 *Hepatic Function Panel Solange Rodriguez Start: 11-13-2012 End: 11-30-2012 Lipid 1996 panel - Serum or Plasma Wild Watkins MD Start: 11-13-2012 End: 11-30-2012 Hepatic function 2000 panel - Serum or Plasma Wild Watkins MD Start: 11-13-2012 End: 11-30-2012 Lipid 1996 panel - Serum or Plasma Wild Watkins MD Start: 06-01-2012 End: 06-01-2012 Follow Up Appt 6 months Solange Rodriguez Start: 06-01-2012 End: 06-01-2012 Follow Up Appt 6 months Solange Rodriguez Start: 02-10-2012 End: 05-27-2012 *Hepatic Function Panel Solange Rodriguez Start: 02-10-2012 End: 05-27-2012 Lipid 1996 panel - Serum or Plasma Wild Watkins MD Start: 02-10-2012 End: 05-27-2012 Hepatic function 2000 panel - Serum or Plasma Wild Watkins MD Start: 02-10-2012 End: 05-27-2012 Lipid 1996 panel - Serum or Plasma Wild Watkins MD Start: 08-20-2011 End: 08-20-2011 eRx Transmitted during this visit (Medicare only) Wild Watkins MD Start: 08-20-2011 End: 11-19-2012 Follow Up Appt 6 months Solange Rodriguez Start: 08-20-2011 End: 11-19-2012 Follow Up Appt 6 months Solange Rodriguez Start: 08-20-2011 End: 08-20-2011 Prescrip transmit via erx sy Wild Watkins MD Start: 10-25-2010 Placement of stent i n coronary artery Status post cardiac stent placement Wild Watkisn MD Start: 11-16-2009 CONVERTED SURGICAL PATHOLOGY Anamjayant Kim Work Phone: Start: 10-12-2009 CONVERTED SURGICAL PATHOLOGY Anam Sanchez Kim Work Phone: Start: 06-15-2001 Stent, device (physi mayo object) CYRUS CLAUDIO CARPENTER MOLD pic5 Comment on above: Heart Arterial structure ( body structure) CYRUS CLAUDIO CARPENTER MOLD pic5 Comment on above: Corotid Plan of Treatment Date Care Activity Detail Author Start: 11-17-2024 Measurement of respiratory function [facility] Start: 04-16-2020 DIABETES SCREEN DIABETES SCREEN [facility] Start: 02-14-2020 Influenza vaccination INFLUENZA (#1) [facility] Start: 05-18-2019 LIPID SCREEN LIPID SCREEN [facility] Start: 11-04-2017 End: 11-04-2017 Appointment Appointment [facility] Work Phone: Start: 10-27-2017 End: 04-30-2017 *Hepatic Function Panel *Hepatic Function Panel [facility] [employer] Work Phone: Start: 10-27-2017 End: 04-30-2017 Lipid panel [AGGREGATE] *Lipid Profile CC PCP [facility] Work Phone: Start: 10-27-2017 End: 04-30-2017 Hepatic function 2000 panel - Serum or Plasma *Hepatic Function Panel [facility] Work Phone: Start: 10-27-2017 End: 04-30-2017 Lipid 1996 panel - Serum or Plasma *Lipid Profile CC PCP [facility] Work Phone: Start: 05-05-2017 End: 05-05-2017 Follow Up Appt 6 months Follow Up Appt 6 months [facility] Work Phone: Start: 05-05-2017 End: 05-05-2017 MMM MMM [facility] Work Phone: Start: 05-05-2017 End: 05-05-2017 Appointment Appointment [facility] Work Phone: Start: 05-05-2017 End: 05-05-2017 Follow Up Appt 6 months Follow Up Appt 6 months [facility] Work Phone: Start: 05-05-2017 End: 05-05-2017 MMM MMM [facility] Work Phone: Start: 04-29-2017 End: 04-29-2017 *Hepatic Function Panel *Hepatic Function Panel [facility] Work Phone: Start: 04-29-2017 End: 04-29-2017 Lipid panel [AGGREGATE] *Lipid Profile CC PCP [facility] Work Phone: Start: 04-29-2017 End: 04-29-2017 Hepatic function 2000 panel - Serum or Plasma *Hepatic Function Panel [facility] Work Phone: Start: 04-29-2017 End: 04-29-2017 Lipid 1996 panel - Serum or Plasma *Lipid Profile CC PCP [facility] Work Phone: Start: 11-03-2016 End: 11-03-2016 AQUATIC INSTRUCTOR AQUATIC INSTRUCTOR [facility] Work Phone: Start: 11-03-2016 End: 11-03-2016 Follow Up Appt 6 months Follow Up Appt 6 months [facility] Work Phone: Start: 11-03-2016 End: 11-03-2016 Patient encounter procedure Appointment [facility] Work Phone: Start: 11-03-2016 End: 11-03-2016 AQUATIC INSTRUCTOR AQUATIC INSTRUCTOR [facility] Work Phone: Start: 11-03-2016 End: 11-03-2016 Follow Up Appt 6 months Follow Up Appt 6 months [facility] Work Phone: Start: 10-21-2016 End: 10-29-2016 *Hepatic Function Panel *Hepatic Function Panel [facility] Work Phone: Start: 10-21-2016 End: 10-29-2016 Lipid panel [AGGREGATE] *Lipid Profile CC PCP [facility] Work Phone: Start: 10-21-2016 End: 10-29-2016 Hepatic function 2000 panel - Serum or Plasma *Hepatic Function Panel [facility] Work Phone: Start: 10-21-2016 End: 10-29-2016 Lipid 1996 panel - Serum or Plasma *Lipid Profile CC PCP [facility] Work Phone: Start: 04-29-2016 End: 04-29-2016 Follow Up Appt 6 months Follow Up Appt 6 months [facility] Work Phone: Start: 04-29-2016 End: 04-29-2016 MMM MMM [facility] Work Phone: Start: 04-29-2016 End: 04-29-2016 Follow Up Appt 6 months Follow Up Appt 6 months [facility] Work Phone: Start: 04-29-2016 End: 04-29-2016 MMM MMM [facility] Work Phone: Start: 03-13-2016 End: 04-23-2016 *Hepatic Function Panel *Hepatic Function Panel [facility] Work Phone: Start: 03-13-2016 End: 04-23-2016 Lipid panel [AGGREGATE] *Lipid Profile CC PCP [facility] Work Phone: Start: 03-13-2016 End: 04-23-2016 Hepatic function 2000 panel - Serum or Plasma *Hepatic Function Panel [facility] Work Phone: Start: 03-13-2016 End: 04-23-2016 Lipid 1996 panel - Serum or Plasma *Lipid Profile CC PCP [facility] Work Phone: Start: 09-20-2015 End: 09-20-2015 Follow Up Appt 6 months Follow Up Appt 6 months [facility] Work Phone: Start: 09-20-2015 End: 09-20-2015 MMM MMM [facility] Work Phone: Start: 09-20-2015 End: 09-20-2015 Follow Up Appt 6 months Follow Up Appt 6 months [facility] Work Phone: Start: 09-20-2015 End: 09-20-2015 MMM MMM [facility] Work Phone: Start: 09-07-2015 End: 09-11-2015 *Hepatic Function Panel *Hepatic Function Panel [facility] Work Phone: Start: 09-07-2015 End: 09-11-2015 Lipid panel [AGGREGATE] *Lipid Profile CC PCP [facility] Work Phone: Start: 09-07-2015 End: 09-11-2015 Hepatic function 2000 panel - Serum or Plasma *Hepatic Function Panel [facility] Work Phone: Start: 09-07-2015 End: 09-11-2015 Lipid 1996 panel - Serum or Plasma *Lipid Profile CC PCP [facility] Work Phone: Start: 03-15-2015 End: 03-15-2015 AQUATIC INSTRUCTOR AQUATIC INSTRUCTOR [facility] Work Phone: Start: 03-15-2015 End: 03-15-2015 Follow Up Appt 6 months Follow Up Appt 6 months [facility] Work Phone: Start: 03-15-2015 End: 03-15-2015 AQUATIC INSTRUCTOR AQUATIC INSTRUCTOR [facility] Work Phone: Start: 03-15-2015 End: 03-15-2015 Follow Up Appt 6 months Follow Up Appt 6 months [facility] Work Phone: Start: 02-13-2015 End: 03-09-2015 *Hepatic Function Panel *Hepatic Function Panel [facility] Work Phone: Start: 02-13-2015 End: 03-09-2015 Lipid panel [AGGREGATE] *Lipid Profile CC PCP [facility] Work Phone: Start: 02-13-2015 End: 03-09-2015 Hepatic function 2000 panel - Serum or Plasma *Hepatic Function Panel [facility] Work Phone: Start: 02-13-2015 End: 03-09-2015 Lipid 1996 panel - Serum or Plasma *Lipid Profile CC PCP [facility] Work Phone: Start: 11-27-2014 End: 11-27-2014 *Hepatic Function Panel *Hepatic Function Panel [facility] Work Phone: Start: 11-27-2014 End: 11-27-2014 Lipid panel [AGGREGATE] *Lipid Profile CC PCP [facility] Work Phone: Start: 11-27-2014 End: 11-27-2014 Hepatic function 2000 panel - Serum or Plasma *Hepatic Function Panel [facility] Work Phone: Start: 11-27-2014 End: 11-27-2014 Lipid 1996 panel - Serum or Plasma *Lipid Profile CC PCP [facility] Work Phone: Start: 09-12-2014 End: 09-12-2014 Follow Up Appt 6 months Follow Up Appt 6 months [facility] Work Phone: Start: 09-12-2014 End: 09-12-2014 MMM MMM [facility] Work Phone: Start: 09-12-2014 End: 09-12-2014 Follow Up Appt 6 months Follow Up Appt 6 months [facility] Work Phone: Start: 09-12-2014 End: 09-12-2014 MM MMM [facility] Work Phone: Start: 06-14-2014 End: 06-16-2014 *BMP *BMP [facility] Work Phone: Start: 06-14-2014 End: 06-16-2014 Cardiac Rehab Cardiac Rehab [facility] Work Phone: Start: 06-14-2014 End: 06-14-2014 AQUATIC INSTRUCTOR AQUATIC INSTRUCTOR [facility] Work Phone: Start: 06-14-2014 End: 06-14-2014 Ecg routine ecg w/least 12 lds w/i&r EKG (In office) [facility] Work Phone: Start: 06-14-2014 End: 06-14-2014 Follow Up Appt 3 months Follow Up Appt 3 months [facility] Work Phone: Start: 06-14-2014 End: 06-16-2014 Basic metabolic 2000 panel - Serum or Plasma *BMP [facility] Work Phone: Start: 06-14-2014 End: 06-16-2014 Cardiac Rehab Cardiac Rehab [facility] Work Phone: Start: 06-14-2014 End: 06-14-2014 AQUATIC INSTRUCTOR AQUATIC INSTRUCTOR [facility] Work Phone: Start: 06-14-2014 End: 06-14-2014 Ecg routine ecg w/least 12 lds w/i&r EKG (In office) [facility] Work Phone: Start: 06-14-2014 End: 06-14-2014 Follow Up Appt 3 months Follow Up Appt 3 months [facility] Work Phone: Start: 06-01-2014 End: 06-01-2014 *BMP *BMP [facility] Work Phone: Start: 06-01-2014 End: 06-01-2014 *Hepatic Function Panel *Hepatic Function Panel [facility] Work Phone: Start: 06-01-2014 End: 06-01-2014 Lipid panel [AGGREGATE] *Lipid Profile CC PCP [facility] Work Phone: Start: 06-01-2014 End: 06-01-2014 Basic metabolic 2000 panel - Serum or Plasma *BMP [facility] Work Phone: Start: 06-01-2014 End: 06-01-2014 Hepatic function 2000 panel - Serum or Plasma *Hepatic Function Panel [facility] Work Phone: Start: 06-01-2014 End: 06-01-2014 Lipid 1996 panel - Serum or Plasma *Lipid Profile CC PCP [facility] Work Phone: Start: 05-15-2014 End: 05-15-2014 Renal doppler Renal doppler [facility] Work Phone: Start: 05-15-2014 End: 05-15-2014 Renal doppler Renal doppler [facility] Work Phone: Start: 12-28-2013 End: 12-28-2013 Carotid duplex Carotid duplex [facility] Work Phone: Start: 12-28-2013 End: 12-28-2013 AQUATIC INSTRUCTOR AQUATIC INSTRUCTOR [facility] Work Phone: Start: 12-28-2013 End: 12-28-2013 Follow Up Appt 6 months Follow Up Appt 6 months [facility] Work Phone: Start: 12-28-2013 End: 12-28-2013 Carotid duplex Carotid duplex [facility] Work Phone: Start: 12-28-2013 End: 12-28-2013 AQUATIC INSTRUCTOR AQUATIC INSTRUCTOR [facility] Work Phone: Start: 12-28-2013 End: 12-28-2013 Follow Up Appt 6 months Follow Up Appt 6 months [facility] Work Phone: Start: 12-13-2013 End: 12-15-2013 *Hepatic Function Panel *Hepatic Function Panel [facility] Work Phone: Start: 12-13-2013 End: 12-15-2013 Lipid panel [AGGREGATE] *Lipid Profile CC PCP [facility] Work Phone: Start: 12-13-2013 End: 12-15-2013 Hepatic function 2000 panel - Serum or Plasma *Hepatic Function Panel [facility] Work Phone: Start: 12-13-2013 End: 12-15-2013 Lipid 1996 panel - Serum or Plasma *Lipid Profile CC PCP [facility] Work Phone: Start: 06-28-2013 End: 06-28-2013 Follow Up Appt 6 months Follow Up Appt 6 months [facility] Work Phone: Start: 06-28-2013 End: 06-28-2013 MMM MMM [facility] Work Phone: Start: 06-28-2013 End: 06-28-2013 Follow Up Appt 6 months Follow Up Appt 6 months [facility] Work Phone: Start: 06-28-2013 End: 06-28-2013 MMM MMM [facility] Work Phone: Start: 05-15-2013 End: 06-17-2013 *Hepatic Function Panel *Hepatic Function Panel [facility] Work Phone: Start: 05-15-2013 End: 06-17-2013 Lipid panel [AGGREGATE] *Lipid Profile CC PCP [facility] Work Phone: Start: 05-15-2013 End: 06-17-2013 Hepatic function 2000 panel - Serum or Plasma *Hepatic Function Panel [facility] Work Phone: Start: 05-15-2013 End: 06-17-2013 Lipid 1996 panel - Serum or Plasma *Lipid Profile CC PCP [facility] Work Phone: Start: 12-01-2012 End: 12-01-2012 AQUATIC INSTRUCTOR AQUATIC INSTRUCTOR [facility] Work Phone: Start: 12-01-2012 End: 12-01-2012 Follow Up Appt 6 months Follow Up Appt 6 months [facility] Work Phone: Start: 12-01-2012 End: 12-01-2012 Follow Up Appt Other Follow Up Appt Other [facility] Work Phone: Start: 12-01-2012 End: 12-01-2012 AQUATIC INSTRUCTOR AQUATIC INSTRUCTOR [facility] Work Phone: Start: 12-01-2012 End: 12-01-2012 Follow Up Appt 6 months Follow Up Appt 6 months [facility] Work Phone: Start: 12-01-2012 End: 12-01-2012 Follow Up Appt Other Follow Up Appt Other [facility] Work Phone: Start: 11-13-2012 End: 11-30-2012 *Hepatic Function Panel *Hepatic Function Panel [facility] Work Phone: Start: 11-13-2012 End: 11-30-2012 Lipid panel [AGGREGATE] *Lipid Profile [facility] Work Phone: Start: 11-13-2012 End: 11-30-2012 Hepatic function 2000 panel - Serum or Plasma *Hepatic Function Panel [facility] Work Phone: Start: 11-13-2012 End: 11-30-2012 Lipid 1996 panel - Serum or Plasma *Lipid Profile [facility] Work Phone: Start: 06-01-2012 End: 06-01-2012 Follow Up Appt 6 months Follow Up Appt 6 months [facility] Work Phone: Start: 06-01-2012 End: 06-01-2012 Follow Up Appt 6 months Follow Up Appt 6 months [facility] Work Phone: Start: 02-10-2012 End: 05-27-2012 *Hepatic Function Panel *Hepatic Function Panel [facility] Work Phone: Start: 02-10-2012 End: 05-27-2012 Lipid panel [AGGREGATE] *Lipid Profile [facility] Work Phone: Start: 02-10-2012 End: 05-27-2012 Hepatic function 2000 panel - Serum or Plasma *Hepatic Function Panel [facility] Work Phone: Start: 02-10-2012 End: 05-27-2012 Lipid 1996 panel - Serum or Plasma *Lipid Profile [facility] Work Phone: Start: 08-20-2011 End: 11-19-2012 Follow Up Appt 6 months Follow Up Appt 6 months [facility] Work Phone: Start: 08-20-2011 End: 11-19-2012 Follow Up Appt 6 months Follow Up Appt 6 months [facility] Work Phone: Start: 2009 ADVANCE DIRECTIVE DISCUSSION ADVANCE DIRECTIVE DISCUSSION [facility] Start: 2009 BONE DENSITY BONE DENSITY [facility] Start: 2009 PNEUMOVAX AGE 65 AND OVER WITH 5YR LOOKBACK (#1) PNEUMOVAX AGE 65 AND OVER WITH 5YR LOOKBACK (#1) [facility] Start: 1994 SHINGRIX VACCINE (1 of 2) SHINGRIX VACCINE (1 of 2) [facility] Start: 1994 Tuberculosis screening COLOREC LIYAH CANCER SCREENING,SEE MODIFIER [facility] Start: 08-19-1963 Urine microalbumin profile DTAP,TDAP,TD (1 - Tdap) [facility] Start: 1962 HEPATITIS C SCREENING HEPATITIS C [facility] CT Chest WO contrast [facility] Patient Education [facility] Work Phone: Immunizations Immunization Date Immunization Notes Care Provider Fa cili 04-28-2023 SARS-CoV-2 (COVID-19 ) [id number] CYRUS CLAUDIO CARPENTER MOLD - LEAD IOS DEVELOPER [facility] [place] 04-23-2023 influenza virus vaccine, unspecified formulation CYRUS CLAUDIO CARPENTER MOLD - LEAD IOS DEVELOPER [facility] [place] 04-07-2022 SARS-CoV-2 (CV19)mRNA-1273 bivalent vac CYRUS CLAUDIO CARPENTER MOLD - [facility] [place] 03-11-2022 influenza virus vaccine, unspecified formulation CYRUS CLAUDIO CARPENTER MOLD - LEAD IOS DEVELOPER [facility] [place] 06-20-2021 SARS-CoV-2 (COVID-19 ) mRNA-1273 vaccine CYRUS CLAUDIO CARPENTER MOLD - LEAD IOS DEVELOPER [facility] [place] 03-21-2021 influenza virus vaccine, unspecified formulation CYRUS CLAUDIO CARPENTER MOLD - [facility] [place] 09-13-2020 COVID-19, mRNA, LNP- S, PF, 100 mcg/ 0.5 mL dose; Translations: [Moderna COVID-19 Vaccine] CYRUS CLAUDIO CARPENTER MOLD - LEAD IOS DEVELOPER [facility] 08-16-2020 COVID-19, mRNA, LNP- S, PF, 100 mcg/ 0.5 mL dose; Translations: [Moderna COVID-19 Vaccine] CYRUS CLAUDIO CARPENTER MOLD - LEAD IOS DEVELOPER [facility] Comment on above: Result Comment: AGUSTINA PIKEN SILVIA U STUDENT 02-14-2020 influenza virus vaccine, unspecified formulation CYRUS CLAUDIO CARPENTER MOLD - LEAD IOS DEVELOPER [facility] 02-17-2019 influenza virus vaccine, unspecified formulation CYRUS CLAUDIO CARPENTER MOLD - LEAD IOS DEVELOPER [facility] 04-15-2018 pneumococcal conjuga te vaccine, 13 valent CYRUS CLAUDIO CARPENTER MOLD - LEAD IOS DEVELOPER [facility] 03-14-2018 influenza virus vaccine, unspecified formulation CYRUS CLAUDIO CARPENTER MOLD - LEAD IOS DEVELOPER [facility] 03-30-2017 influenza virus vaccine, unspecified formulation CYRUS CLAUDIO CARPENTER MOLD - LEAD IOS DEVELOPER [facility] 03-15-2017 influenza virus vaccine, unspecified formulation CYRUS CLAUDIO CARPENTER MOLD - LEAD IOS DEVELOPER [facility] 02-28-2016 influenza virus vaccine, unspecified formulation CYRUS CLAUDIO CARPENTER MOLD - LEAD IOS DEVELOPER [facility] 03-09-2015 influenza virus vaccine, unspecified formulation CYRUS CLAUDIO CARPENTER MOLD - LEAD IOS DEVELOPER [facility] 03-15-2014 Influenza virus vaccine PIN CLEANER-C Cyrus Claudio PIN CLEANER Work Phone: [facility] 03-15-2014 influenza virus vaccine, unspecified formulation CYRUS CLAUDIO CARPENTER MOLD - LEAD IOS DEVELOPER [facility] Payers Date Payer Category Payer Self-pay [id number] 2022 Unknown [id number] 2022 Unknown [id number] 2021 Unknown [id number] 2019 Medicare [id number] 2017 Unknown [facility]/MEDICAL GENERIC [id number] 2017-Present Indemnity [id number] 2009 Medicare MEDICARE MEDICAR E A AND B [id number] 2009-Present [place] Medicare [id number] 2009 Medicare [id number] 1944 Unknown [id number] 1944 Unknown [id number] 1944 Unknown [id number] 1944 Unknown [id number] 1944 Unknown [id number] 1944 Unknown [id number] Medicare [id number] Unknown [id number] [facility] [id number] Unknown [id number] Unknown [id number] Unknown [id number] Unknown [id number] Unknown [id number] Unknown [id number] Unknown [id number] Unknown [id number] Social History Date Type Detail Facility Tobacco smoking stat us MAIS Unknown if ever smoked [facility] Sex Assigned At Not on file [facility] Start: 04-15-2017 End: 06-26-2023 Tobacco smoking status NHIS Former smoker [facility] Start: 04-15-2017 Alcohol intake Current non-dr egg sorter of alcohol (finding) [facility] Start: 12-06-2019 End: 04-14-2024 Never smoked tobacco (finding) [facility] Start: 1945 Sex Assigned At Female A [facility] Start: 01-13-2022 End: 02-02-2023 Tobacco smoking status MAIS Unknown if ever smoked [facility] Start: 05-08-2014 None [facility] Start: 05-08-2014 Non-smoker [facility] Sexual Orientation [facility] Start: 12-08-2018 Sex Female (finding) [facility] Clinical Notes 11-03-2016 to 11-04-2024 Note Date & Type Note Facility 11-04-2024 Evaluation note Diagnosis Onset Date Resolution Cough chronic November 04, 2024 1:46pm [facility] Work Phone: 1(562) 480-449112-20-2023 Evaluation + Plan note Future Scheduled Tests Laboratory* Thyroid Stimulating Hormone 06/03/23 * Free T4 06/03/23 * Lipid Profile 06/03/23 * Albumin/Creatinine Ratio, Random Urine 06/03/23 * Complete Metabolic Panel 06/03/23 Radiology* XR Chest 2 Views (PA & Lateral) 04/17/24 [facility] 11-21-2017 [facility] risk [id number] Work Phone: 1(405) 128-643105-22-2017 Fall risk [id number]/05/22[facility] SHER[facility] assistant Work Phone: Evaluation + Plan note Future Appointments Appointment Date:06/28/2021 10:40:00 AM Scheduled Provider:CYRUS CLAUDIO APRN, CNP Location:[facility] Appointment Type: OV Future Scheduled Tests Radiology* CT Angiography Chest w/ Contrast 04/25/21 [facility] Evaluation + Plan note Future Appointments Appointment Date:03/11/2022 08:30:00 AM Scheduled Provider: Location:[facility] Appointment Type:XR Upper GI Appointment Date:03/17/2022 01:40:00 PM Scheduled Provider:CYRUS CLAUDIO APRN, CNP Location:[facility] Appointment Type:PC OV Appointment Date:04/10/2022 10:15:00 AM Scheduled Provider: Location:[facility] Appointment Type:PC Nurse Lab Appointment Date:04/18/2022 02:20:00 PM Scheduled Provider:CYRUS CLAUDIO APRN, CNP Location:[facility] Appointment Type:PC OV Follow Up Diagnostic Tests Pending * Allergen, Alternaria tenuis 03/05/22 * Allergen, [place] Grass 03/05/22 * Allergen, Cat Dander 03/05/22 * Allergen, Dermatophagoides farinae 03/05/22 * Allergen, Dermatophagoides pteronyssinus 03/05/22 * Allergen, Dog Dander 03/05/22 * Allergen, Elm Tree 03/05/22 * Allergen, Jamaican Plantain 03/05/22 * Allergen, Tiny Grass 03/05/22 * Allergen, [place] Tree 03/05/22 * Allergen, Common Ragweed 03/05/22 * [facility] Send out (Blood Specimens) 03/05/22 Future Scheduled Tests Laboratory* Thyroid Stimulating Hormone 04/19/22 * Free T4 04/19/22 * Complete Blood Count 07/20/22 * Lipid Profile 07/20/22 * Microalbumin Level Urine 07/20/22 * Complete Metabolic Panel 07/20/22 * [facility] Lab Send out (Blood Specimens) 03/03/22 Radiology* CT Angiography Chest w/ Contrast 04/25/21 * XR Upper GI 03/11/22 [facility] Evaluation + Plan note Future Appointments Appointment Date:04/18/2022 02:20:00 PM Scheduled Provider:CYRUS CLAUDIO APRN, CNP Location:[facility] Appointment Type: OV Follow Up Future Scheduled Tests Laboratory* Complete Blood Count 07/20/22 * Lipid Profile 07/20/22 * Microalbumin Level Urine 07/20/22 * Complete Metabolic Panel 07/20/22 * [facility] Lab Send out (Blood Specimens) 03/03/22 Radiology* CT Angiography Chest w/ Contrast 04/25/21 [facility] Evaluation note* Diagnosis Onset Date Resolution Status Intermittent palpitations ac [place] Atherosclerotic heart diseas e of [place] coronary artery without angina pectoris chronic Essential hypertension chron ic HLD (hyperlipidemia) chronic [facility] Work Phone: Evaluation noteNo assessment information available [facility] Work Phone: Hospital course Narrative No data available for this section [facility] Hospital Discharge instructions No data available for this section [facility] Progress note No data available for this section [facility] Reason for referral (narrative)No reason for referral information [facility] Work Phone: Summary Purpose Family History No Family History Records Found Relationship Condition Age at Onset Recorded Date/T celio father Coronary artery disease Unknown mother Coronary artery disease Unknown Cerebrovascular accident (CVA) Unknown brother Coronary artery disease Unknown sister Coronary artery disease Unknown Hypertension Unknown sister Hypertension Unknown brother Hypertension Unknown Advance Directives No Advanced Directives Records FoundDocuments on File Type Date Recorded Patient Satellite Project Site Monitor Expl anation Advance Directive(s) 04/16/2017 9:22 AM Advance Directive Response Recorded Date/ Time Advance Directives No April 5:30am Living Will Yes February 05 11:00am Power of Employee Relations Advisor Yes February 05, 021 11:00am Advance Directive Response Recorded Date/ Time Advance Directives No January 28, 2022 11:00am Living Will No February 02 3 4:28pm Power of Employee Relations Advisor No February 02, 2 023 4:28pm Advance Directive Response Recorded Date/ Time Advance Directives No January 28, 2022 12:00pm History of Past Illness Problem Noted Date Resolved Date Acute diastolic CHF (congestive heart failure) 1 04/16/2017 Coronary artery disease invo lving [place] coronary artery of [place] heart without angina pectoris 04/13/2017 04/16/2017 Essential Hypertension 04/13/2017 7 Infectious Colitis 04/10/2017 04/16/2017 Lower GI Bleed 04/10/2017 04/16/2017 Rectal Bleeding 04/10/2017 04/16/2017 Overview: Added automatically from request for surgery [id number] Problem Noted Date Resolved Date Acute diastolic CHF (congestive heart failure) 1 04/16/2017 Coronary artery disease invo lving [place] coronary artery of [place] heart without angina pectoris 04/13/2017 04/16/2017 Essential hypertension 04/13/2017 7 Infectious colitis 04/10/2017 04/16/2017 Lower GI bleed 04/10/2017 04/16/2017 Rectal bleeding 04/10/2017 04/16/2017 Overview: Added automatically from request for surgery [id number] Chief Complaint and Reason for Visit Chief Complaint PER MMM MSG E ORDERS Reason for Visit Intermittent palpita tions Atherosclerotic heart disease of [place] coronary artery without angina pectoris Essential hypertension HLD (hyperlipidemia) Chief Complaint PVD Chief Complaint PVD E ORDERS Chief Complaint Admit Date CAD July 15, 2024 6 :49am Cough November 04, 2024 1:46p m Reason for Visit Admit Date Cough November 04, 2024 1:46p m Additional Source Comments INFORMATION SOURCE (unrecogn ized section and content) DATE CREATED AUTHOR 12/08/2017 [facility] DATE CREATED AUTHOR AUTHOR'S ORGANIZ ATION 12/08/2017 [facility] DATE CREATED AUTHOR AUTHOR'S ORGANIZ ATION [facility]20[facility] DATE CREATED AUTHOR AUTHOR'S ORGANIZ ATION 06/01/2024 [facility] DATE CREATED AUTHOR AUTHOR'S ORGANIZ ATION 11/17/2024 [facility] Source Comments (unrecognize d section and content) In the event this informatio n is protected by the Federal Confidentiality of Alcohol and Drug Abuse Patient Records regulations: The Federal rules restrict any use of the information to criminally investigate or prosecute any alcohol or drug abuse patient.[facility] the event this information is protected by the Federal Confidentiality of Alcohol and Drug Abuse Patient Records regulations: The Federal rules restrict any use of the information to criminally investigate or prosecute any alcohol or drug abuse patient.[facility] Hospital[facility] the event this information is protected by the Federal Confidentiality of Alcohol and Drug Abuse Patient Records regulations: The Federal rules restrict any use of the information to criminally investigate or prosecute any alcohol or drug abuse patient.[facility] Goals (unrecognized section and content) Goals may be documented in a n alternate section Care Team (unrecognized sect ion and content) Care Team Personnel Name: CYRUS CLAUDIO APRN LEAD IOS DEVELOPER Position: P4 Advanced Practice Nurse Med Service: Employed Provider Member Role: Primary Care Physician Address: Address: [address] [place] [address] Care Team Related Persons Name: ELEANOR CARNES Care Team Personnel Name: GONZÁLEZCYRUS CARPENTER MOLDJude Ann CNP Position: P4 Advanced Practice Nurse Member Role: Primary Care Physician Address: Address: [address] [place] [address] Care Team Related Persons Name: ELEANOR CARNES Care Teams (unrecognized sec tion and content) Team Status: Active Member Role Status Dates Cyrus Claudio PIN CLEANER, PIN CLEANER-C Family Provider Activ e Cyrus Claudio PIN CLEANER, PIN CLEANER-C Primary Care Provider Active Team Status: Active Member Role Status Dates Cyrus Claudio PIN CLEANER, PIN CLEANER-C Primary Care Provider Active Dr. Grant Beyer MD Attending Provider Active Team Status: Inactive Member Role Status Dates Cyrus Claudio PIN CLEANER, PIN CLEANER-C Primary Care Provider Active Linnette Xiong PIN CLEANER, PIN CLEANER-C Attending Provider, Referring P elmer Active Team Status: Inactive Member Role Status Dates Cyrus Claudio PIN CLEANER, PIN CLEANER-C Primary Care Provider Active Dr. Wild Watkins MD Attending Provider, Referring Pro vider Active Team Status: Active Member Role Status Dates Cyrus Claudio PIN CLEANER, PIN CLEANER-C Primary Care Provider Active Team Status: Inactive Member Role Status Dates Cyrus Claudio PIN CLEANER, PIN CLEANER-C Primary Care Provider Active Start: June End: July 15, 2024 Court Anderson PA, PA Attending Provider Active Start: July 15, 2024 End: July 15, 2024 Court Anderson PA, PA Referring Provider Active Start: July 15, 2024 End: July 15, 2024 Team Status: Active Member Role Status Dates Cyrus Claudio PIN CLEANER, PIN CLEANER-C Primary Care Provider Active Start: June Dr. Grant Beyer MD Attending Provider Active S tart: July 15, 2024 Court Anderson PA, PA Referring Provider Active Start: July 15, 2024 Team Status: Active Member Role Status Dates Cyrus Claudio NP, PIN CLEANER-C Primary Care Provider Active Start: June Dr. Wild Watkins MD Attending Provider Active S tart: July 15, 2024 Team Status: Inactive Member Role Status Dates Cyrus Claudio NP, PIN CLEANER-C Primary Care Provider Active Start: November 04, 2024 End: November 04, 2024 Cyrus Claudio NP, PIN CLEANER-C Referring Provider Ac tive Start: November 04, 2024 End: November 04, 2024 Sandy Castro NP-C Attending Provider Active Start: November 04, 2024 End: November 04, 2024 Team Status: Inactive Member Role Status Dates Cyrus Claudio NP, PIN CLEANER-C Primary Care Provider Active Start: November 04, 2024 End: November 04, 2024 Sandy Castro NP-C Attending Provider Active Start: November 04, 2024 End: November 04, 2024 Sandy Castro NP-C Referring Provider Active Start: November 04, 2024 End: November 04, 2024 FOR RECORDS PERTAINING TO PATIENTS WHO ARE OR HAVE BEEN ENROLLED IN A CHEMICAL DEPENDENCY/SUBSTANCEABUSE PROGRAM, SOME INFORMATION MAY BE OMITTED. This clinical summary was aggregated from multiple sources. Caution should be exercised in using it in the provision of clinical care. This summary normalizes information from multiple sources, and as a consequence, information in this document may materially change the coding, format and clinical context of patient data. In addition, data may be omitted in some cases. CLINICAL DECISIONS SHOULD BE BASED ON THE PRIMARY CLINICAL RECORDS. [facility]. provides no warranty or guarantee of the accuracy or completeness of information in this document.
== END | disposition home or self-care (01) ==
PROVIDERS: PCP Nurse Practitioner Family; Referring Provider Nurse Practitioner Family; Visit Provider Nurse Practitioner Family
DX: R05.9 Cough, unspecified (principal)
CPT/HCPCS: 94060; 94726; 94729

== ENCOUNTER → 2024-11-30 | Outpatient (CLI) | payer MEDICARE, OTHER, SELFPAY ==
--- NOTE | 2024-11-30 15:54 | CT_ITS ---
PROCEDURE: CHEST WITHOUT CONTRAST 11/30/2024 REASON FOR EXAM: CHRONIC COUGH> 6 MONTHS TECHNIQUE: Chest CT without contrast. Coronal and Sagittal reconstruction series were provided. One or more dose reduction techniques were used (e.g., Automated exposure control, adjustment of the mA and/or kV according to patient size, use of iterative reconstruction technique RADIATION DOSE SUMMARY: CTDlvol: 6.4 mGy DLP: 255 mGycm COMPARISON: Radiographs on 04/23/2021. FINDINGS: Moderate coronary artery calcifications. Normal unenhanced main pulmonary artery and right and left pulmonary arteries. Normal bilateral peripheral pulmonary arteries. Normal thoracic aorta and visualized great vessels. There is no demonstrated aortic aneurysm. Normal heart and pericardium. Normal mediastinum. Normal hilar regions. Normal visualized trachea and bronchi. The lungs are well expanded. Normal pulmonary parenchyma. Normal pleura. Mild diffuse spondylosis. Normal visualized upper abdomen. CT/Chest without Contrast IMPRESSION: IMPRESSION: Coronary artery calcification (CAC) is is present No CT evidence of an acute abnormality. Reading Location: [place] [address]
[2024-11-30 18:02] LABS: Anion Gap 10 (5-15); BUN 19 mg/dL (4-19); BUN/Creat Ratio 20.9 RATIO (10-20); Calcium,Total 9.5 mg/dL (7.6-11.0); Carbon Dioxide 27.7 mmol/L (21.0-32.0); Chloride 101 mmol/L (98-108); EST Glomerular Filtration Rate 65 (>60); Glucose 121 mg/dL (70-99); Potassium 3.7 mmol/L (3.3-5.1); Sodium Level 139 mmol/L (133-145)
== END | disposition home or self-care (01) ==
PROVIDERS: Physician Assistant Medical; PCP Nurse Practitioner Family; Referring Provider Nurse Practitioner Family; Visit Provider Nurse Practitioner Family
DX: R05.3 Chronic cough (principal); I10 Essential (primary) hypertension
CPT/HCPCS: 36415; 71250; 80048

== ENCOUNTER 2025-04-18 05:14 | Day surgery (SDC) | payer MEDICARE, OTHER, SELFPAY ==
--- NOTE | 2025-04-13 19:23 | PAT.ANESEVAL ---
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 When Was Last Pacemaker Check QUESTION #4 FULL TEXT: You/Your Family Experience fever (hyperthermia) with Anesthesia Last Oral Intake Last Oral intake: Last Oral Intake NPO since Meds taken in AM with sips of water? Meds patient instructed to take am of surgery PONV PONV - library associate: PONV - library associate Female Yes 04/13/25 10:56 HX of Motion Sickness Yes 04/13/25 10:56 HX of N/V After Surgery Yes 04/13/25 10:56 Non-Smoker Yes 04/13/25 10:56 Duration of Surgery greater No 04/13/25 10:56 than 60 minutes Number of Risk Factors 4 04/13/25 10:56 PONV Score Severe Risk 04/13/25 10:56 Height & Weight Height & Weight: Anesthesia: Height & Weight Height 4 ft 11 in 12/30/24 08:00 Respiratory Assessment Respiratory Assessment - library associate: Respiratory Tract Infection Hx - library associate Hx Respiratory Tract Infection No 04/13/25 10:56 STOP Sleep Apnea STOP Sleep Apnea - library associate: STOP Sleep Apnea - library associate Hx Hypertension Yes: CONTROLLED WITH MEDS 04/13/25 10:56 Hx Sleep Apnea No 04/13/25 10:56 CPAP No 01/28/22 12:00 BIPAP No 01/28/22 12:00 Do you snore loudly (louder No 04/13/25 10:56 than talking or can be heard Do you often feel tired/ No 04/13/25 10:56 fatigued/ sleepy during daytime? Has anyone observed you stop No 04/13/25 10:56 breathing during sleep? STOP Results Negative 04/13/25 10:56 QUESTION #5 FULL TEXT : Do you snore loudly (louder than talking or can be heard through closed doors)? 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 Specify any problems Hx of Preganancy in last 3 No 04/13/25 10:56 Months Nurse Filling Out Transfusion [id number] 04/13/25 10:56 & Questions: Date: 04/13/25 04/13/25 10:56 Time: 11:02 04/13/25 10:56 Patient unable to answer at this time (ie. confused, unrespo /Reproduction History /Reproductive History - library associate: /Reproductive Hx- library associate Hx Now Gestational Age (in weeks): EDC: Hx Hx Para Hx Section SAB PFSH Medical History (Updated 04/13/25 @ 11:12 by Alberto Lundberg) Wears glasses Wears dentures Arthritis Thyroid disease Ischemic colitis Gastric reflux History of Holter monitoring History of stress test History of echocardiogram Cardiology follow-up encounter Essential hypertension Carotid artery disease Renal artery stenosis Atherosclerotic heart disease of [place] coronary artery without angina pectoris PVD (peripheral vascular disease) Carotid bruit Chronic diastolic (congestive) heart failure HLD (hyperlipidemia) Home Medications Medication Instructions Recorded Last Taken Type aspirin 81 mg chewable tablet 81 mg PO DAILY 04/10/17 Unknown History ondansetron 4 mg disintegrating 4 mg PO Q8H PRN PRN Nausea #14 tabs 02/02/23 Unknown Rx tablet nitroglycerin 0.4 mg sublingual 0.4 mg sublingual Q5-15M PRN chest 06/26/23 Unknown Rx tablet (Nitrostat) pain #25 tabs atenolol 25 mg tablet 25 mg PO DAILY #90 tabs 06/20/24 Unknown Rx clopidogrel 75 mg tablet 75 mg PO DAILY #90 tabs 06/20/24 Unknown Rx simvastatin 40 mg tablet 40 mg PO DAILY #90 tabs 06/20/24 Unknown Rx hydrochlorothiazide 25 mg tablet 25 mg PO DAILY #90 TABLETS 09/21/24 Unknown Rx losartan 50 mg tablet 50 mg PO BID This is a dose 11/23/24 Unknown Rx increase #180 tabs albuterol sulfate 2.5 mg/3 mL 2.5 mg (3 mL) inhalation Q4-6H PRN 12/30/24 Unknown Rx (0.083 %) solution for nebulization shortness of breath or wheezing #180 mL budesonide 0.5 mg/2 mL suspension 0.5 mg (2 mL) inhalation QDAY #60 12/30/24 Unknown Rx for nebulization mL levothyroxine 25 mcg capsule 25 mcg PO QDAY 03/20/25 Unknown History cholecalciferol (vitamin D3) 25 25 mcg PO DAILY 04/13/25 Unknown History mcg (1,000 unit) capsule (Vitamin D3) lansoprazole 30 mg capsule,delayed 30 mg PO DAILY 04/13/25 04/10/25 History release Allergy/AdvReac Type Severity Reaction Status Date / Time Opioids - Morphine Analogues Allergy Mild Nausea Verified 04/13/25 10:50 lisinopril AdvReac cough Verified 04/13/25 10:50 Family History Father CAD (coronary artery disease) Mother CAD (coronary artery disease) CVA (cerebral vascular accident) Brother CAD (coronary artery disease) Sister CAD (coronary artery disease) Hypertension Sister Hypertension Brother Hypertension Surgical History (Updated 04/13/25 @ 11:12 by Alberto Lundberg) History of colonoscopy History of coronary artery stent placement (05/18/14) History of bilateral carotid endarterectomy History of dental surgery History of tubal ligation Social History Smoking Status: Former smoker alcohol intake: never substance use type: does not use Audit: Pertinent Findings Pertinent Findings EKG Perinent findings: February 02, 2023. Sinus bradycardia at 56 bpm. Stress test pertinent findings: July 15, 2024. EF of 80%. No areas of reversibility are noted to suggest ischemia. No previous infarct. Echo (EF%) pertinent findings: July 15, 2024. EF is 65%. PASP is 36 mmHg. No aortic stenosis is noted. Mild aortic insufficiency. Consult pertinent findings: June 28, 2024. Monica JACOB. 1. 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 Continue current meds. Plan for stress test to evaluate stability. (See above) 2. Hypertension–well-controlled. 3. Bradycardia–stable. Continue atenolol. 4. Carotid artery disease-status post bilateral CEA in 2009. Moderate (50 to 69%) stenosis in both internal carotids. Vertebral artery flow is antegrade bilaterally. By ultrasound August 2019. 5. Cardiac murmur-newly noted, will obtain echo to evaluate. (See above) Additional pertinent findings: Mobile cardiac telemetry (30-day). January 28, 2022. Baseline was sinus bradycardia with a heart rate of 44 bpm. 4 stable events all doing bradycardia–patient did feel tired or fatigued once. Recommendation Anesthesia Recommendation Anesthesia recommendation: OPTIMIZED for anesthesia
[2025-04-18] VITALS (8 sets, daily range): BP systolic 109–148; BP diastolic 49–67; PULSE 46–49; RESP 16; TEMP 36.1–36.7; O2SAT 94–97; BMI 29.8
--- OUTSIDE RECORDS SUMMARY | 2025-04-18 05:18 | XMS RPT_ITS | CCD ---
Author Organization [facility]iniSymi Care Team Providers Care Optical Goods Drilling Machine Operator Name Role Phone MD Roland, Wild S Unavailable Uzma Miner Y Unavailable Unavailable AUREA, IVAN B Unavailable Unavailable CHESTER, BALJEET Unavailable Unavailable ABUQAYYAS, CARLOS Unavailable Unavailable AUREA, IVAN Unavailable Unavailable ABUQAYYAS, CARLOS Unavailable Unavailable CHESTER, BALJEET Unavailable Unavailable Jeff James ([facility]) Primary Care Provider GONZÁLEZ CHARLES - CYRUS CANDELARIO Primary Care Phys ician MD Roland, Wild S Unavailable Uzma Miner Unavailable Unavailable Uriel RN, Court Rudd Unavailable Anita Christianson Unavailable Unavailable Anita Christianson Unavailable Unavailable González COMMODITY SUPERVISOR, COMMODITY SUPERVISOR-C Cyrus Mendieta Primary Care Pr ovider González COMMODITY SUPERVISOR, COMMODITY SUPERVISOR-C Cyrus Mendieta Referring Provi heather Monica MARTÍNEZ, PA Court Parson Attending Provider CYRUS CLAUDIO CNP Primary Care Unavaila ble GONZÁLEZ KODAK, CYRUS Higgins Attending Unavaila ble GONZÁLEZ CYRUS CANDELARIO Primary Care Unavaila ble GONZÁLEZ KODAK, CYRUS Higgins Attending Unavaila ble GONZÁLEZ CYRUS CANDELARIO Primary Care Unavaila ble GONZÁLEZ KODAK, CYRUS Higgins Attending Unavaila ble GONZÁLEZ KODAK, CYRUS Higgins Attending Unavaila ble GONZÁLEZ KODAK, CYRUS Higgins Primary Care Unavaila ble Walsh COMMODITY SUPERVISOR, COMMODITY SUPERVISOR-C Cyrus Mendieta Primary Care Pr ovider Dr. Grant Beyer Attending Provider González COMMODITY SUPERVISOR-C, Cyrus Mendieta Primary Care Provi heather Court Rachel Attending Provider Court Rachel Referring Provider [phone] Kayleen BARR, Dr. Burns Attending Provider Roland BARR, Dr. Rome Attending Provider Walsh COMMODITY SUPERVISOR-C, Cyrus Mendieta Referring Provider Veraer COMMODITY SUPERVISOR-C, Sandy Parson Attending Provider Veraer COMMODITY SUPERVISOR-C, Sandy Parson Referring Provider González COMMODITY SUPERVISOR-C, Cyrus Mendieta Primary Care Provi heather Dr. Pernell Packer DO Attending Provider GONZÁLEZ FEDERAL JUDGE - DESIGN/ANIMATION INSTRUCTOR, CYRUS Higgins Attending U navailable GONZÁLEZ FEDERAL JUDGE - DESIGN/ANIMATION INSTRUCTOR, CYRUS Higgins Primary Care U navailable GONZÁLEZ FEDERAL JUDGE - DESIGN/ANIMATION INSTRUCTOR, CYRUS Higgins Primary Care U navailable JOSE DE JESUS INTERIANO DO Attending Unavailable GONZÁLEZ FEDERAL JUDGE - DESIGN/ANIMATION INSTRUCTOR, CYRUS Higgins Attending U navailable GONZÁLEZ FEDERAL JUDGE - DESIGN/ANIMATION INSTRUCTOR, CYRUS Higgins Primary Care U navailable ROLAND BARR, MR WILD S Attending Unavailable GONZÁLEZ FEDERAL JUDGE - DESIGN/ANIMATION INSTRUCTOR, CYRUS Higgins Primary Care U navailable Walsh COMMODITY SUPERVISOR-C, Cyrus Mendieta Primary Care Physi naida Veraer COMMODITY SUPERVISOR-C, Sandy Parson Attending Physician Veraer COMMODITY SUPERVISOR-C, Sandy Parson Referring Provider Walsh COMMODITY SUPERVISOR-C, Cyrus Mendieta Referring Provider Dr. Hamzah Valdez DO Attending Physician González COMMODITY SUPERVISOR, Cyrus Mendieta Referring Unav ailable Walsh COMMODITY SUPERVISOR, Cyrus Mendieta Primary Care Unav ailable Hamzah Valdez Attending Unavailable Walsh COMMODITY SUPERVISOR, Cyrus Mendieta Primary Care Unav ailable Sandy Castro Attending Unavailable Sandy Castro Referring Unavailable Walsh COMMODITY SUPERVISOR, Cyrus Mendieta Primary Care Unav ailable Rufener, Sandy M Referring Unavailable Sandy Castro Attending Unavailable González COMMODITY SUPERVISOR, Cyrus Mendieta Referring Unav ailable González COMMODITY SUPERVISOR, [facility] Unav ailable José Miguel Hamzah Attending Unavailable Monica PA, Court Parson Attending Unavail able Monica PA, Court Parson Referring Unavail able González COMMODITY SUPERVISOR, [facility] Primary Care Unav ailable Walsh COMMODITY SUPERVISOR, Cyrus Anam Primary [facility] Unav ailable Sandy Castro Attending Unavailable Sandy Castro Referring Unavailable Monica PA, Court Parson Attending Unavail able González COMMODITY SUPERVISOR, Cyrus Mendieta Referring Unav ailable Walsh COMMODITY SUPERVISOR, [facility] Unav ailable Walsh COMMODITY SUPERVISOR, Cyrus Mendieta Referring Unav ailable Walsh COMMODITY SUPERVISOR, Cyrus Anam Primary [facility] Unav ailable Sandy Castro Attending Unavailable Walsh COMMODITY SUPERVISOR, Cyrus Mendieta Referring Unav ailable Walsh COMMODITY SUPERVISOR, [facility] Unav ailable Sandy Castro Attending Unavailable Wild Watkins Attending Unavailable Walsh COMMODITY SUPERVISOR, [facility] Unav ailable Monica MARTÍNEZ, Court Parson Referring Unavail able González COMMODITY SUPERVISOR, [facility] Unav ailable Grant Beyer Attending Unavailable González COMMODITY SUPERVISOR, [facility] Unav ailable Pernell Packer Attending Unavailable Sandy Castro Referring Unavailable Allergies Allergy Classification Reported Allergen(s) Allergy Type Date of Onset Reaction(s) Facility (5 sources) acetaminophen / HYDROcodone; Translations: [HYDROCODONE-ACET AMINOPHEN] Drug Allergy 1 GI Upset [facility] Repository (5 sources) morphine; Translations: [MORPHINE] Drug Allergy 1 GI Upset [facility] Repository (7 sources) Acetaminophen / HYDROcodone; Translations: [acetaminophen-hy drocodone] Drug Allergy Vomiting (disorder) [facility] (8 sources) Lisinopril Drug Allergy 2 cough [facility] (1 source) PAIN MEDICATION Propensity to adverse reactions 2 Nausea [facility] Work Phone: (7 sources) Opioids - Morphine Analogues Allergy to substance 3 Nausea [facility] (1 source) Lisinopril Drug Allergy 5 [facility] Repository (1 source) Opioids - Morphine Analogues Drug allergy (disorder) 5 [facility] Repository Medications Current Medications Medication Drug Class(es) Dates Sig (Normalized) Sig (Original) albuterol 0.83 mg/ml inhalation solution (13 sources) beta2-Adrenergic Agonist Start: 12-30-2024 take 2.5 mg by inhalation every four to six hours as needed for wheezing Albuterol Sulfate 2.5 mg /3 mL (0.083 %) solution for nebulization Active 2.5 mg INHALATION EVERY 4-6 HOURS as needed for shortness of breath or wheezing 180 3 December 30, 2024 12:00am Complies with drug therapy Start: 07-02-2021 End: 01-28-2022 take 0.7 [IU] by inhalation every four hours Proventil HFA MDI (90 mcg/inh) inhalation aerosol 1 puff(s), Inhalation, q4h, May substitute generic alternative or brand-name alternative if Proventil not on preferred status., # 6.7 gram(s), 6 Refill(s), Pharmacy: [facility]/pharmacy #[id number], Wheezing on auscultation Chronic cough, 151, cm, 07/02/21 14:27:00 EST, Height, kg, 07/02/21 14:27:00 EST, Dosing Weight Start Date: 07/02/21 Stop Date: 01/28/22 Status: Ordered Medication Dispense Status: Completed Quantity: 6.7 Unit: g Total Allowed Fills: 7 Fills Dispensed: 0 Indications: Wheezing; Chronic cough; Start: 07-02-2021 End: 01-28-2022 take 1 puff(s) by inhalation every four hours Proventil HFA MDI (90 mcg/inh) inhalation aerosol 1 puff(s), Inhalation, q4h, May substitute generic alternative or brand-name alternative if Proventil not on preferred status., # 6.7 gram(s), 6 Refill(s), Pharmacy: [facility]/pharmacy #[id number], Wheezing on auscultation Chronic cough, [...] status., # 6.7 gram(s), 1 Refill(s), Pharmacy: [facility]/pharmacy #[id number], Wheezing on auscultation Chronic cough, 151, cm, 04/23/21 10:51... Start Date: 04/23/21 Stop Date: 06/22/21 Status: Ordered aspirin 81 mg delayed release oral tablet (20 sources) Platelet Aggregation Inhibitor, Nonsteroidal Anti-inflammatory Drug Start: 02-23-2025 aspirin 81 mg ora l delayed release tablet Dose : 81 mg = 1 tab(s), Oral, Daily, 0 Refill(s) Start Date: 02/23/25 Status: Ordered Medication Dispense Status: Completed Total Allowed Fills: 1 Fills Dispensed: 0 Start: 01-17-2022 aspirin 0 Refi ll(s) Start Date: 01/17/22 Status: Ordered Medication Dispense Status: Completed Total Allowed Fills: 1 Fills Dispensed: 0 Start: 01-17-2022 aspirin 0 Refi ll(s) Start Date: 01/17/22 Status: Ordered Start: 04-10-2017 take 1 tablet by bridger th once daily Aspirin 81 MG tablet,chewable Active 81 mg PO DAILY April 10, 2017 12:00am Complies with drug therapy Start: 10-25-2010 take 1 tablet by bridger th once daily ASPIRIN 81 MG TABS One tablet by mouth daily Enteric coated ASPIRIN [id number] Shelly Cruz Start: 10-25-2010 take 1 tablet by bridger th once daily aspirin, enteric coated (ADULT LOW DOSE ASPIRIN) 81 mg EC tablet Take 1 tablet by mouth once daily. 30 tablet 0 04/16/2017 Active Comment on above: Take 1 tablet by bridger th once daily. azithromycin 250 mg oral tablet (4 sources) Macrolide Antimicrobial Start: 02-23-2025 End: 02-28-2025 azithromycin 250 mg oral tablet Take two (2) tablets day 1-then one (1) tablet, Oral, Daily, X 5 day(s), # 6 tab(s), 0 Refill(s), 02/28/25 11:42:00 AM EDT, Pharmacy: [facility]/pharmacy #[id number], Sinusitis, 152, cm, 02/23/25 11:02:00 EDT, Height, 67.3, kg, 02/23/25 11:02:00 EDT, Dosing Weight Start Date: 02/23/25 Stop Date: 02/28/25 Status: Ordered Medication Dispense Status: Completed Quantity: 6.0 Unit: tab(s) Total Allowed Fills: 1 Fills Dispensed: 0 Indications: Chronic sinusitis, unspecified; Start: 05-17-2021 AZITHROMYCIN 2 50 MG TABLET AZITHROMYCIN 250 MG TABLET, 0 Refill(s), 67.9 Start Date: 05/17/21 Status: Ordered Start: 05-17-2021 AZITHROMYCIN 2 50 MG TABLET AZITHROMYCIN 250 MG TABLET, See Instructions, Take per package instructions, 0 Refill(s), 67.9 Start Date: 05/17/21 Status: Ordered Start: 05-17-2021 AZITHROMYCIN 2 50MG TAB AZITHROMYCIN 250MG TAB, 0 Refill(s), 67.9 Start Date: 05/17/21 Status: Ordered budesonide 0.25 mg/ml inhalation suspension (1 source) Corticosteroid Start: 12-30-2024 take 0.5 mg by inhalation once daily Budesonide 0.5 mg/2 mL suspension for nebulization Active 0.5 mg INHALATION daily 60 5 December 30, 2024 12:00am Complies with drug therapy cetirizine hydrochloride 10 mg oral tablet (8 sources) Histamine-1 Receptor Antagonist Start: 11-04-2024 End: 03-20-2025 Zyrtec 10 mg oral tablet Dose : 10 mg = 1 tab(s), Oral, qDay, # 90 tab(s), 1 Refill(s), Pharmacy: [facility]/pharmacy #[id number], Seasonal allergies, 151, cm, 02/07/25 9:52:00 EDT, Height, kg, 02/07/25 9:52:00 EDT, Dosing Weight Start Date: 02/07/25 Status: Ordered Medication Dispense Status: Completed Quantity: 90.0 Unit: tab(s) Total Allowed Fills: 2 Fills Dispensed: 0 Indications: Other seasonal allergic rhinitis; fluticasone propionate 0.05 mg/actuat metered dose nasal spray (1 source) Corticosteroid Start: 02-23-2025 fluticasone proprionate NASAL 50 mcg/ spray mcg spray(s), qDay, 0 Refill(s) Start Date: 02/23/25 Status: Ordered Medication Dispense Status: Completed Total Allowed Fills: 1 Fills Dispensed: 0 Folic Acid (20 sources) Start: 01-17-2022 folic acid qDay, 0 Refill(s) Start Date: 01/17/22 Status: Ordered Start: 10-25-2010 End: 09-20-2015 take 1 tablet by mouth once daily FOLIC ACID TABS (0.4Mg) One tablet by mouth daily FOLIC ACID TABS [id number] Wild Watkins MD 12 hr guaiFENesin 600 mg extended release oral tablet (1 source) Start: 03-03-2022 End: 03-13-2022 guaiFENesin 600 mg oral tablet, extended release Dose : 600 mg = 1 tab(s), Oral, q12h, X 10 day(s), # 20 tab(s), 0 Refill(s), 03/13/22 16:23:00 EDT, Pharmacy: [facility]/pharmacy #[id number], Chronic cough, 150.5, cm, 03/03/22 15:46:00 EDT, Height Start Date: 03/03/22 Stop Date: 03/13/22 Status: Ordered ipratropium bromide 0.2 mg/ml inhalation solution (4 sources) Anticholinergic Start: 02-07-2025 End: 08-06-2025 take 1 dose by inhalation twice daily ipratropium 500 mcg/2.5 mL inhalation solution Dose : 500 mcg = 2.5 mL, Inhalation, BID, # 150 mL, 5 Refill(s), [id number], Chronic cough, 151, cm, 02/07/25 9:52:00 EDT, Height, kg, 02/07/25 9:52:00 EDT, Dosing Weight Start Date: 02/07/25 Stop Date: 08/06/25 Status: Ordered Medication Dispense Status: Completed Quantity: 150.0 Unit: mL Total Allowed Fills: 6 Fills Dispensed: 0 Indications: Chronic cough; Start: 07-02-2021 End: 08-31-2021 take 1 dose by inhalation twice daily ipratropium 500 mcg/2.5 mL inhalation solution Dose : 500 mcg = 2.5 mL, Inhalation, BID, # 150 mL, 1 Refill(s), other reason (Rx), Chronic cough Start Date: 07/02/21 Stop Date: 08/31/21 Status: Ordered levothyroxine sodium 0.025 mg oral capsule (20 sources) l-Thyroxine Start: 03-20-2025 take 1 capsule by mouth once daily Levothyroxine 25 mcg capsule Active 25 ug PO daily March 20, 2025 12:00am Complies with drug therapy Start: 02-07-2025 levothyroxine 25 mcg (0.025 mg) oral tablet Dose : 25 mcg = 1 tab(s), Oral, qDayAC, # 90 tab(s), 1 Refill(s), [id number], 151, cm, 02/07/25 9:52:00 EDT, Height, kg, 02/07/25 9:52:00 EDT, Dosing Weight Start Date: 02/07/25 Status: Ordered Medication Dispense Status: Completed Quantity: 90.0 Unit: tab(s) Total Allowed Fills: 2 Fills Dispensed: 0 Start: 01-17-2022 End: 07-16-2022 levothyroxine 25 mcg (0.025 mg) oral tablet Dose : 25 mcg = 1 tab(s), Oral, qDay, # 90 tab(s), 1 Refill(s), [id number], Hypothyroidism, 150.5, cm, 01/17/22 13:52:00 EDT, Height Start Date: 01/17/22 Stop Date: 07/16/22 Status: Ordered Start: 08-20-2011 End: 06-28-2013 take 1 tablet by mouth once daily LEVOTHROID 50 MCG TABS One tablet by mouth daily LEVOTHYROXINE SODIUM [id number] Wild Watkins MD Start: 08-20-2011 take 1 tablet by bridger th once daily LEVOTHROID 50 MCG TABS One tablet by mouth daily LEVOTHYROXINE SODIUM [id number] Viridiana Pratt RN Start: 08-20-2011 take 1 tablet by bridger th once daily LEVOTHROID 50 MCG TABS One tablet by mouth daily LEVOTHYROXINE SODIUM [id number] Viridiana Pratt RN Start: 08-20-2011 End: 06-28-2013 take 1 tablet by mouth once daily LEVOTHROID 50 MCG TABS One tablet by mouth daily LEVOTHYROXINE SODIUM [id number] Wild Watkins MD Start: 10-25-2010 take 1 tablet by bridger th once daily LEVOTHYROXINE SODIUM 25 MCG TABS One tablet by mouth daily LEVOTHYROXINE SODIUM [id number] Shelly Cruz losartan potassium 50 mg oral tablet (20 sources) Angiotensin 2 Receptor Rick Start: 11-23-2024 losartan 50 mg oral tablet Dose : 50 mg = 1 tab(s), Oral, BID, 0 Refill(s) Start Date: 02/23/25 Status: Ordered Medication Dispense Status: Completed Total Allowed Fills: 1 Fills Dispensed: 0 Start: 02-13-2021 End: 11-23-2024 take 1 tablet by mouth once daily Losartan 50 mg tablet Discontinued 50 mg PO DAILY 90 3 June 20, 2024 10:37am November 23, 2024 1:06pm meclizine hydrochloride 12.5 mg oral tablet (1 source) Antiemetic Start: 12-06-2019 take 1 tablet by mouth three times daily as needed for dizziness meclizine 12.5 mg oral tablet TAKE 1 TABLET BY MOUTH THREE TIMES A DAY NEEDED FOR DIZZINESS Start Date: 12/06/19 Status: Ordered montelukast 10 mg oral tablet (12 sources) Leukotriene Receptor Antagonist Start: 12-30-2024 End: 03-20-2025 Singulair 10 mg oral tablet Dose : 10 mg = 1 tab(s), Oral, qDay, # 90 tab(s), 1 Refill(s), Pharmacy: [facility]/pharmacy #[id number], Seasonal asthma, 151, cm, 02/07/25 9:52:00 EDT, Height, kg, 02/07/25 9:52:00 EDT, Dosing Weight Start Date: 02/07/25 Status: Ordered Medication Dispense Status: Completed Quantity: 90.0 Unit: tab(s) Total Allowed Fills: 2 Fills Dispensed: 0 Indications: Other asthma; Start: 10-12-2020 End: 01-13-2022 take 1 tablet by mouth once daily Montelukast 10 mg tablet Discontinued 10 mg PO DAILY May 07, 2021 1:00am January 13, 2022 1:47pm nitroglycerin 0.4 mg sublingual tablet (20 sources) Nitrate Vasodilator Start: 01-17-2022 nitroglyce rin 0.4 mg sublingual tablet 0.4 mg Dose = 1 tab(s), Sublingual, q5min, PRN as needed for chest pain, # 100 tab(s), 0 Refill(s) Start Date: 01/17/22 Status: Ordered Medication Dispense Status: Completed Quantity: 100.0 Unit: tab(s) Total Allowed Fills: 1 Fills Dispensed: 0 Start: 01-13-2022 End: 06-26-2023 Nitroglycerin (Nitrostat) 0. 4 mg tablet, sublingual Active 0.4 mg SL every 5 to 15 minutes as needed for chest pain 06 09June 26, 2023 4:02pm Complies with drug therapy Start: 11-02-2017 End: 01-13-2022 Nitroglycerin (Nitrostat) 0. 4 mg tablet, sublingual Discontinued 0.4 mg SL Q5M as needed for chest pain August 12, 2018 12:29pm January 13, 2022 1:49pm Start: 11-02-2017 End: 01-13-2022 Nitroglycerin (Nitrostat) 0. 4 mg tablet, sublingual Discontinued 0.4 MG SL Q5M 90 August 12, 2018 11:29am January 13, 2022 12:49pm Start: 10-25-2010 NITROLINGUAL 0 .4 MG/SPRAY SOLN 1 spray under tongue every 5min up to 3 X NITROGLYCERIN [id number] Wild Watkins MD Start: 10-25-2010 NITROSTAT 0.4 MG SUBL 1 tablet under tongue every 5 min up to 3 X NITROGLYCERIN [id number] KINGS MendezC ondansetron 4 mg disintegrating oral tablet (7 sources) Serotonin-3 Receptor Antagonist Start: 02-02-2023 take 1 tablet by mouth every eight hours as needed for nausea Ondansetron 4 mg tablet,disintegrating Active 4 mg PO EVERY 8 HOURS NEEDED as needed for Nausea 14 0 February 02, 2023 12:00am Complies with drug therapy pantoprazole 40 mg delayed release oral tablet (3 sources) Proton Pump Inhibitor Start: 02-07-2025 pantoprazole 40 mg oral enteric coated tablet Dose : 40 mg = 1 tab(s), Oral, qDayAC, Discontinue Omeprazole, # 90 tab(s), 1 Refill(s), Pharmacy: [facility]/pharmacy #[id number], 151, cm, 02/07/25 9:52:00 EDT, Height, kg, 02/07/25 9:52:00 EDT, Dosing Weight Start Date: 02/07/25 Status: Ordered Medication Dispense Status: Completed Quantity: 90.0 Unit: tab(s) Total Allowed Fills: 2 Fills Dispensed: 0 Start: 03-20-2022 pantoprazole 4 0 mg oral enteric coated tablet Dose : 40 mg = 1 tab(s), Oral, qDayAC, Discontinue Omeprazole, # 30 tab(s), 2 Refill(s), Pharmacy: [facility]/pharmacy #[id number], 151, cm, 03/20/22 13:30:00 EDT, Height Start Date: 03/20/22 Status: Ordered Sodium Chloride (1 source) Start: 02-23-2025 Saline Mist 0. 65% nasal spray spray(s), Nasal, QID, 0 Refill(s) Start Date: 02/23/25 Status: Ordered Medication Dispense Status: Completed Total Allowed Fills: 1 Fills Dispensed: 0 Spiriva Respimat 60 ACT 2.5 mcg/inh inhalation aerosol (1 source) Start: 05-17-2021 End: 07-16-2021 take 2 puff(s) by inhalation once daily Spiriva Respimat 60 ACT 2.5 mcg/inh inhalation aerosol 2 puff(s), Inhalation, qDay, # 1 EA, 1 Refill(s), [id number], 151, cm, 04/23/21 10:51:00 EST, Height, kg, 04/23/21 10:51:00 EST, Dosing Weight Start Date: 05/17/21 Stop Date: 07/16/21 Status: Ordered Symbicort 160 mcg-4.5 mcg/inh Inhaler (1 source) Start: 03-03-2022 End: 05-02-2022 take 1 dose by inhalation twice daily Symbicort 160 mcg-4.5 mcg/inh Inhaler Dose = 2 puff(s), Inhalation, BID, # 1 EA, 1 Refill(s), Pharmacy: [facility]/pharmacy #[id number], Chronic cough Seasonal allergies, 150.5, cm, 03/03/22 15:46:00 EDT, Height Start Date: 03/03/22 Stop Date: 05/02/22 Status: Ordered Vitamin D3 (1 source) Start: 02-23-2025 Vitamin D3 Dos e : 25 mcg = 1 tab(s), Oral, Daily, 1,000mcg, 0 Refill(s) Start Date: 02/23/25 Status: Ordered Medication Dispense Status: Completed Total Allowed Fills: 1 Fills Dispensed: 0 Completed/Discontinued Medications Medication Drug Class(es) Dates Sig (Normalized) Sig (Original) atenolol 25 mg oral tablet (20 sources) beta-Adrenergic Rick Start: 05-07-2022 End: 06-20-2024 take 1 tablet by mouth once daily Atenolol 25 mg tablet Discontinued 25 mg PO DAILY 90 3 June 26, 2023 4:02pm June 20, 2024 10:38am Start: 04-16-2017 take 1 tablet by bridger th once daily atenolol (TENORMIN) 25 mg tablet Take 1 tablet by mouth once daily. 30 tablet 0 04/16/2017 Active Start: 10-25-2010 End: 05-07-2022 take 1 tablet by mouth once daily Atenolol 50 mg tablet Discontinued 50 mg PO DAILY 90 3 March 27, 2021 5:05pm May 07, 2022 3:12pm Comment on above: Take 1 tablet by bridger once daily. clopidogrel 75 mg oral tablet (20 sources) P2Y12 Platelet Inhibitor Start: 2010 End: 2024 take 1 tablet by mouth once daily Clopidogrel 75 mg tablet Discontinued 75 mg PO DAILY 90 3 March 27, 2021 5:05pm May 07, 2022 3:12pm Comment on above: Take 75 mg by mouth once daily. estradiol 1 mg oral tablet (18 sources) Estrogen Start: 2010 End: 2013 take 1 tablet by mouth once daily ESTRADIOL 1 MG TABS One tablet by mouth daily ESTRADIOL [id number] Shelly Cruz furosemide 40 mg oral tablet (20 sources) Loop Diuretic Start: 2013 End: 2014 take 1 tablet by mouth once daily LASIX 40 MG TABS One tablet by mouth daily X 1 week FUROSEMIDE [id number] Wild Watkins MD hydroCHLOROthiazide 25 mg oral tablet (20 sources) Thiazide Diuretic Start: 2013 End: 2024 take 1 tablet by mouth once daily Hydrochlorothiazide 25 mg tablet Discontinued 25 mg PO DAILY 90 3 September 19, 2024 8:16am September 21, 2024 11:19am Start: 05-10-2014 HYDROCHLOROTHI AZIDE 25 MG TABS 05/25/2014 HOLD for 1 week while taking Lasix 40 mg daily, then resume HYDROCHLOROTHIAZIDE [id number] Viridiana Pratt RN Start: 10-25-2010 End: 06-28-2013 take 1 tablet by mouth once daily hydroCHLOROthiazide (HYDRODIURIL, ESIDRIX) 25 mg tablet Take 1 tablet by mouth once daily. 30 tablet 0 04/16/2017 Active Comment on above: Take 1 tablet by bridger once daily. lansoprazole 30 mg delayed release oral capsule (1 source) Proton Pump Inhibitor Start: 2024 End: 2024 take 1 capsule by mouth once daily Lansoprazole 30 mg capsule,delayed release(DR/EC) Discontinued 30 mg PO daily 14 07February 28, 2025 12:00am March 20, 2025 10:02am levocetirizine dihydrochloride 5 mg oral tablet (9 sources) Histamine-1 Receptor Antagonist Start: 2020 End: 2021 take 1 tablet by mouth at bedtime Levocetirizine 5 mg tablet Discontinued 5 mg PO AT BEDTIME May 07, 2021 1:00am January 13, 2022 1:47pm lisinopril 40 mg oral tablet (20 sources) Angiotensin Converting Enzyme Inhibitor Start: 2010 End: 2020 take 1 tablet by mouth once daily Lisinopril 40 mg tablet Discontinued 40 mg PO DAILY March 15, 2020 9:35am February 13, 2021 4:59pm Comment on above: Take 1 tablet by bridger th once daily. medroxyPROGESTERone acetate 2.5 mg oral tablet (18 sources) Progestin Start: 2010 End: 2012 take 1 tablet by mouth once daily PROVERA 2.5 MG TABS One tablet by mouth daily MEDROXYPROGESTERONE ACETATE [id number] Shelly Cruz Nasacort Allergy 24HR 55 mcg/inh nasal spray (1 source) Start: 2020 End: 2020 take 1 dose nasal route once daily Nasacort Allergy 24HR 55 mcg/inh nasal spray Dose = 2 spray(s), Nostril, each, qDay, # 10 mL, 6 Refill(s), Pharmacy: [facility]/pharmacy #[id number], Seasonal allergies, 151, cm, 10/12/20 10:48:00 EDT, Height, kg, 10/12/20 10:48:00 EDT, Dosing Weight Start Date: 10/12/20 Stop Date: 05/10/21 Status: Ordered predniSONE 20 mg oral tablet (1 source) Start: 2024 End: 2024 take 2 tablets by mouth once daily, then take 1 tablet by mouth once daily Prednisone 20 mg tablet Discontinued 20 mg PO daily February 10, 2025 12:00am February 28, 2025 1:25pm Take 2 tablets daily for 4 days then 1 tablet daily for 2 days. rosuvastatin calcium 20 mg oral tablet (20 sources) HMG-CoA Reductase Inhibitor Start: 2010 End: 2013 take 1 tablet by mouth once daily CRESTOR 20 MG TABS One tablet by mouth daily ROSUVASTATIN CALCIUM [id number] Wild Watkins MD simvastatin 40 mg oral tablet (20 sources) HMG-CoA Reductase Inhibitor Start: 2013 End: 2024 take 1 tablet by mouth once daily Simvastatin 40 mg tablet Discontinued 40 mg PO DAILY 90 3 March 27, 2021 5:05pm May 07, 2022 3:12pm take 1 tablet by bridger th once daily at bedtime simvastatin (ZOCOR) 20 mg tablet Take 20 mg by mouth daily at bedtime. 0 Active Comment on above: Take 20 mg by mouth daily at bedtime. Problems Active Problems Problem Classification Problem Date Documented Date Episodic/Chronic Asthma (8 sources) Seasonal asthma; Translations: [Other asthma] Onset: 05-27-2024 10-29-2023 Chronic Bacterial infection; unspecified site (8 sources) Pertussis; Translations: [Whooping cough, unspecified species [...] 09-14-2015 09-14-2015 Chronic Diabetes mellitus without complication (6 sources) Impaired fasting glycemia 01-17-2022 Episodic Disorders of lipid metabolism (20 sources) Hyperlipidemia; Translations: [Hyperlipidemia, unspecified] Onset: 10-25-2010 10-25-2010 Chronic Esophageal disorders (5 sources) Esophageal dysmotility 10-06-2022 Chronic Comment on above: (03/11/2022 09:04 ED [...] is 60%. 4. Stage I diastolic dysfunction. 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 Other lower respiratory disease (14 sources) Cough; Translations: [Cough] 05-06-2021 Episodic Other nervous system disorders (7 sources) Cold feet; Translations: [Unspecified disturbances of skin sensation] 05-29-2023 Episodic Other upper respiratory disease (7 sources) Seasonal allergy 09-08-2019 Chronic Other upper respiratory infections (3 sources) Sinusitis; Translations: [Chronic sinusitis, unspecified] Onset: 02-23-2025 02-23-2025 Chronic Other upper respiratory infections (3 sources) Sore throat symptom; Translations: [Acute pharyngitis, unspecified] Onset: 02-23-2025 02-23-2025 Episodic Peripheral and visceral atherosclerosis (20 sources) Renal artery stenosis; Translations: [Peripheral vascular disease] Onset: 10-25-2010 03-15-2015 Chronic Residual codes; unclassified (7 sources) Increased body mass index 10-02-2020 Episodic Residual codes; unclassified (7 sources) Postmenopausal state 10-02-2020 Episodic Residual codes; unclassified (6 sources) Chronic back pain 07-02-2021 Episodic Residual codes; unclassified (6 sources) Past history of procedure 07-02-2021 Episodic [...] reduced DLCO may indicate impaired gas exchange. PFT RESULTS: 05/2021 FINDINGS: FVC normal at 81, FEV1 is reduced to 79, FEV1/FVC is normal at 97. There is no significant bronchodilator response. TLC is normal at 83, RV is normal at 86 and RV/TLC is elevated at 48. DLCO reduced at 72. IMPRESSION: Normal spirometry, lung volumes demonstrate air trapping and mildly reduced DLCO may indicate impaired gas exchange. Thyroid disorders (8 sources) Hypothyroidism; Translations: [Hypothyroidism, unspecified] Onset: 04-10-2022 01-17-2022 Chronic Unclassified (3 sources) Placement of stent in coronary artery ; Translations: [Presence of coronary angioplasty implant and graft] Onset: 10-25-2010 09-20-2015 Unclassified (3 sources) Long-term drug therapy; Translations: [Other chcf (current) drug therapy] Onset: 10-25-2010 10-25-2010 Unclassified (1 source) Unknown / UNK(Unknown) Onset: 04-11-2017 Unclassified (7 sources) Patient encounter status 10-02-2020 Unclassified (1 source) Other specified cough; Translations: [Other specified cough] Onset: 05-27-2024 Unclassified (1 source) Cough, unspecified; Translations: [Cough, unspecified] Onset: 01-30-2025 Past or Other Problems Problem Classification Problem Date Documented Da te Episodic/Chronic Abdominal pain (1 source) Generalized abdominal pain; Translations: [Generalized abdominal pain] Onset: 04-11-2017 Episodic Acute bronchitis (4 sources) Acute bronchitis; Translations: [Acute bronchitis, unspecified] Onset: 05-27-2024 04-14-2024 Episodic Cardiac dysrhythmias (20 sources) Palpitations; Translations: [Palpitations] Onset: 06-28-2024 Episodic Coronary atherosclerosis and other heart disease (9 sources) Coronary angioplasty status; Translations: [Percutaneous transluminal coronary angioplasty status] Onset: 10-25-2010 10-25-2010 Episodic Fluid and electrolyte disorders (2 sources) Hyperosmolality and hypernatremia; Translations: [Hyperosmolality and hypernatremia] Onset: 05-27-2024 Episodic Gastrointestinal hemorrhage (2 sources) Melena; Translations: [Hemorrhage of anus and rectum] Onset: 04-11-2017 Episodic Heart valve disorders (10 sources) Heart murmur; Translations: [Cardiac murmur, unspecified] [...] (6 sources) Long-term drug therapy; Translations: [Other medical terminologist (current) drug therapy] Onset: 10-25-2010 10-25-2010 Episodic [...] breath] Onset: 05-10-2014 Resolved: 09-14-2015 09-14-2015 Episodic Other lower respiratory disease (7 sources) Chronic cough; Translations: [Chronic cough] Onset: 12-08-2024 03-03-2022 Episodic Comment on above: Chest x-ray results: 04/23/2021 FINDINGS: The lungs are clear and expanded. Chronically coarsened lung markings. There is no demonstrated pleural abnormality. Normal-sized heart. Normal mediastinum and ele. Normal visualized pulmonary arteries. There is arthrosclerotic calcification of the aortic arch with tortuosity. Calcified abdominal aorta. IMPRESSION: 1. No acute abnormal cardiopulmonary findings. 2. Chronically coarsened lung markings. Residual codes; unclassified (12 sources) Family history [...] Test Name Value Interpretation Reference Range Facility MR/PATGold 04-13-2025 MR/PAT[facility] Medical Records Department [address] [place] [address] PAT - Anesthesia 04/13/251922 MR#: [id number] Acct: [id number] Name: BAUDILIO TORRES Rep #: [id number] : 1945 79 From: Yannick Neely MD PCP: Cyrus Claudio, COMMODITY SUPERVISOR-C [place] [facility] [place] C Location: EN Pre-Assessment Diagnosis/Proposed Procedure Planned Operative Procedure(s): EGD WITH PH PROBE Anesthesia History 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 When Was Last Pacemaker Check QUESTION #4 FULL TEXT: You/Your Family Experience fever (hyperthermia) with Anesthesia Last Oral Intake Last Oral intake: Last Oral Intake NPO since Meds taken in AM with sips of water? Meds patient instructed to take am of surgery PONV PONV - tank officer: PONV - tank officer Female Yes 04/13/25 10:56 HX of Motion Sickness Yes 04/13/25 10:56 HX of N/V After Surgery Yes 04/13/25 10:56 Non-Smoker Yes 04/13/25 10:56 Duration of Surgery greater No 04/13/25 10:56 than 60 minutes Number of Risk Factors 4 04/13/25 10:56 PONV Score Severe Risk 04/13/25 10:56 Height Weight Height Weight: Anesthesia: Height Weight Height 4 ft 11 in 12/30/24 08:00 Respiratory Assessment Respiratory Assessment - tank officer: Respiratory Tract Infection Hx - tank officer Hx Respiratory Tract Infection No 04/13/25 10:56 STOP Sleep Apnea STOP Sleep Apnea - tank officer: STOP Sleep Apnea - tank officer Hx Hypertension Yes: CONTROLLED WITH MEDS 04/13/25 10:56 Hx Sleep Apnea No 04/13/25 10:56 CPAP No 01/28/22 12:00 BIPAP No 01/28/22 12:00 Do you snore loudly (louder No 04/13/25 10:56 than talking or can be heard Do you often feel tired/ No 04/13/25 10:56 fatigued/ sleepy during daytime? Has anyone observed you stop No 04/13/25 10:56 breathing during sleep? STOP Results Negative 04/13/25 10:56 QUESTION #5 FULL TEXT : Do you snore loudly (louder than talking or can be heard through closed doors)? 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 Specify any problems Hx of Preganancy in last 3 No 04/13/25 10:56 Months Nurse Filling Out Transfusion [email or web address] 04/13/25 10:56 Questions: Date: 04/13/25 04/13/25 10:56 Time: 11:02 04/13/25 10:56 Patient unable to answer at this time (ie. confused, unrespo /Reproduction History /Reproductive History - tank officer: /Reproductive Hx- tank officer Hx Now Gestational Age (in weeks): EDC: Hx Hx Para Hx Section SAB PFSH Medical History (Updated 04/13/25 @ 11:12 by Alberto Lundberg) Wears glasses Wears dentures Arthritis Thyroid disease Ischemic colitis Gastric reflux History of Holter monitoring History of stress test History of echocardiogram Cardiology follow-up encounter Essential hypertension Carotid artery disease Renal artery stenosis Atherosclerotic heart disease of [place] coronary artery without angina pectoris PVD (peripheral vascular disease) Carotid bruit Chronic diastolic (congestive) heart failure HLD (hyperlipidemia) Home Medications ???Medication ???Instructions ???Recorded ???Last Taken ???Type aspirin 81 mg chewable tablet 81 mg PO DAILY 04/10/17 Unknown Hi story ondansetron 4 mg disintegrating 4 mg PO Q8H PRN PRN Nausea #14 tab s 02/02/23 Unknown Rx tablet nitroglycerin 0.4 mg sublingual 0. (more content not included)... Normal [facility] Gastroenterology Visit Repor ton 03-20-2025 Gastroenterology Visit Report [facility] Gastroenterology [address] [place] [address] OFFICE VISIT Date of Service: 03/20/25 MR#: [id number] Acct: [id number] Name: BAUDILIO TORRES Rep #: [id number] : 1945 Provider: Hamzah Valdez DO Age/Sex: 79/F Location: [facility] – [place] Status: Signed Intake Vital Signs 12/30/24 08:00 Height 4 ft 11 in Weight: 143 lb BMI 28.8 BP 137/64 H Blood Pressure Location Lt brachial Position Sitting Respiration 16 Pulse 49 L Pulse Source Monitor Temp 97.3 F L Pulse Oximetry (%) 97 Oxygen Delivery Method room air Comment Just took bp medications. Intake Visit Reasons: ESOPHAGERAL DYSMOTILITY Allergies Opioids - Morphine Analogues Allergy (Mild, Verified 11/04/24 13:52) Nausea lisinopril Adverse Reaction (Verified 11/04/24 13:52) cough Medications ???Medication ???Instructions ???Recorded ???Confirmed ???Type aspirin 81 mg chewable tablet 81 mg PO DAILY 04/10/17 03/20/25 H istory ondansetron 4 mg disintegrating 4 mg PO Q8H PRN PRN Nausea #14 tab s 02/02/23 03/20/25 Rx tablet nitroglycerin 0.4 mg sublingual 0.4 mg sublingual Q5-15M PRN chest 06/26/23 03/20/25 Rx tablet (Nitrostat) pain #25 tabs atenolol 25 mg tablet 25 mg PO DAILY #90 tabs 06/20/24 1 Rx clopidogrel 75 mg tablet 75 mg PO DAILY #90 tabs 06/20/24 1 Rx simvastatin 40 mg tablet 40 mg PO DAILY #90 tabs 06/20/24 1 Rx hydrochlorothiazide 25 mg tablet 25 mg PO DAILY #90 TABLETS 5 03/20/25 Rx losartan 50 mg tablet 50 mg PO BID This is a dose 03/20/25 Rx increase #180 tabs albuterol sulfate 2.5 mg/3 mL 2.5 mg (3 mL) inhalation Q4-6H PRN 12/30/24 03/20/25 Rx (0.083 %) solution for nebulization shortness of breath or wheezing #180 mL budesonide 0.5 mg/2 mL suspension 0.5 mg (2 mL) inhalation QDAY #60 12/30/24 03/20/25 Rx for nebulization mL levothyroxine 25 mcg capsule 25 mcg PO QDAY 03/20/25 03/20/25 H istory Have you fallen in the past year?: No Nurse's Note: Pt was scheduled for EGD w/ you on 04.18.25 at the end of their appt today. Reviewed prep instructions and which medications to hold prior to procedure with pt in office. A paper copy of EGD prep instructions were given to pt. Pt denies any questions or concerns at this time. [facility] Medical History Essential hypertension Carotid artery disease Renal artery stenosis Atherosclerotic heart disease of [place] coronary artery without angina pectoris PVD (peripheral vascular disease) Carotid bruit Chronic diastolic (congestive) heart failure HLD (hyperlipidemia) Surgical History History of coronary artery stent placement (05/18/14) History of bilateral carotid endarterectomy History of dental surgery History of tubal ligation Family History Father CAD (coronary artery disease) Mother CAD (coronary artery disease) CVA (cerebral vascular accident) Brother CAD (coronary artery disease) Sister CAD (coronary artery disease) Hypertension Sister Hypertension Brother Hypertension Social History Smoking Status: Former smoker alcohol intake: never substance use type: does not use HPI HPI Details: BAUDILIO TORRES, is a ???79-year-old female presents with a chronic, nonproductive cough associated with clear mucous production. The cough has been ongoing for >8 weeks. It is present throughout the day and is sometimes worse at night. The patient reports no relief from a trial of albuterol and antihistamines, suggesting that asthma and allergic rhinitis are less likely to be the primary cause. She denies fever, chills, chest pain, wheezing, or shortness of breath. No hemoptysis. She reports mild throat clearing and occasional post-nasal drip sensation. No known sick contacts. She denies any new environmental exposures. ROS Const Constitutional: No fatigue, fever(s) or weight change ENT ENT: Positive for difficulty swallowing Gastro GI: Positive for abdominal pain, diarrhea and difficulty swallowing; No belching, bloating, change in bowel habits, change in stool character, coffee ground emesis, constipation, cramping, heartburn, feeling full early, excessive flatus, incontinent of stools, Vomiting blood/hematemesis, Blood in stool, loose stools, Black,tarry stools, nausea/dyspepsia, pain with swallowing, vomiting or other Musc Musculoskeletal: No joint pain Skin Skin: No yellowing of the eye or itchy eyes Psych Psychiatric: No anxiety and No depression Endo Endocrine: No fatigue or weight change Aller/Imm Allergy/Immunologic: No itchy eyes [place]ckin[place]/ (more content not included)... Normal [facility] CVFLURVon 02-23-2025 FLU A PCR Negative Normal Negative [facility] Comment on above: Performed By: #### C MP, ADIFF, VIDH, FT4, LIPID, MG, CBC, GFR, TSH, ANEU #### [id number] [place], [place] [address] FLU B PCR Negative Normal Negative [facility] Comment on above: Performed By: #### C MP, ADIFF, VIDH, FT4, LIPID, MG, CBC, GFR, TSH, ANEU #### [id number] [place], [place] [address] RSV PCR Negative Normal Negative [facility] Comment on above: Performed By: #### C MP, ADIFF, VIDH, FT4, LIPID, MG, CBC, GFR, TSH, ANEU #### [id number] [place], [place] [address] SARS-CoV-2 (COVID-19) RNA ZOE+probe Ql (Unsp spec) Negative Normal Negative [facility] Comment on above: Result Comment: Resu lts from the Xpert Xpress CoV-2/Flu/RSV plus test should be correlated with the clinical history, epidemiological data, and other data available to the clinical evaluating the patient. Performance of the Xpert Xpress CoV-2/Flu/RSV plus test has only been established in nasopharyngeal swab specimen. Erroneous test results might occur from improper specimen collection, failure to follow the recommended sample collection, handling and storage procedures, technical error, or sample mix-up. False negative results may occur if a virus is present at a level below the analytical limit of detection. Viral nucleic acid may persist in vivo, independent of virus viability. Detection of analyte target(s) does not imply that the corresponding virus(es) are infectious or are the causative agents for clinical symptoms. Recent patient exposure to FluMist or other live attenuated influenza vaccines may cause inaccurate positive results. Performed By: #### C MP, ADIFF, VIDH, FT4, LIPID, MG, CBC, GFR, TSH, ANEU #### [place] [address] LABORATORYOrdered By: Kristofer Watson on 02-23-2025 FLUAV RNA ZOE+probe Ql (Resp) Negative (02/23/25 1:45 PM) Normal AO Auto Urine SS FLUBV RNA ZOE+probe Ql (Resp) Negative (02/23/25 1:45 PM) Normal AO Auto Urine SS RSV RNA ZOE+probe Ql (Resp) Negative (02/23/25 1:45 PM) Normal AO Auto Urine SS SARS-CoV-2 (COVID-19) RNA ZOE+probe Ql (Resp) Negative 1 (02/23/25 1:45 PM) Normal AO Auto Urine SS Comment on above: Interpretive Data: R esults from the Xpert Xpress CoV-2/Flu/RSV plus test should be correlated with the clinical history, epidemiological data, and other data available to the clinical evaluating the patient. Performance of the Xpert Xpress CoV-2/Flu/RSV plus test has only been established in nasopharyngeal swab specimen. Erroneous test results might occur from improper specimen collection, failure to follow the recommended sample collection, handling and storage procedures, technical error, or sample mix-up. False negative results may occur if a virus is present at a level below the analytical limit of detection. Viral nucleic acid may persist in vivo, independent of virus viability. Detection of analyte target(s) does not imply that the corresponding virus(es) are infectious or are the causative agents for clinical symptoms. Recent patient exposure to FluMist or other live attenuated influenza vaccines may cause inaccurate positive results. .Auto Diffon 02-07-2025 Basophil, Absolute 0.1 10 3/mcL Normal 0.0-0.3 [facility] Comment on above: Performed By: #### C MP, ADIFF, VIDH, FT4, LIPID, MG, CBC, GFR, TSH, ANEU #### [address] [address] Basophils/100 WBC (Bld) 1.1 % Normal 0.0-2.5 [facility] Comment on above: Performed By: #### C MP, ADIFF, VIDH, FT4, LIPID, MG, CBC, GFR, TSH, ANEU #### [address] [address] Eosinophil, Absolute 0.2 10 3/mcL Normal 0.0-0.7 [facility] Comment on above: Performed By: #### C MP, ADIFF, VIDH, FT4, LIPID, MG, CBC, GFR, TSH, ANEU #### [address] [address] Eosinophils/100 WBC (Bld) 4.6 % Normal 0.0-6.0 [facility] Comment on above: Performed By: #### C MP, ADIFF, VIDH, FT4, LIPID, MG, CBC, GFR, TSH, ANEU #### [address] [address] Lymphocyte, Absolute 1.6 10 3/mcL Normal 0.9-4.3 [facility] Comment on above: Performed By: #### C MP, ADIFF, VIDH, FT4, LIPID, MG, CBC, GFR, TSH, ANEU #### [address] [address] Lymphocytes/100 WBC (Bld) 30.8 % Normal 20.0-40.0 [facility] Comment on above: Performed By: #### C MP, ADIFF, VIDH, FT4, LIPID, MG, CBC, GFR, TSH, ANEU #### [address] [address] Monocyte, Absolute 0.4 10 3/mcL Normal 0.1-1.4 [facility] Comment on above: Performed By: #### C MP, ADIFF, VIDH, FT4, LIPID, MG, CBC, GFR, TSH, ANEU #### [address] [address] Monocytes/100 WBC (Bld) 7.9 % Normal 2.0-13.0 [facility] Comment on above: Performed By: #### C MP, ADIFF, VIDH, FT4, LIPID, MG, CBC, GFR, TSH, ANEU #### [address] [address] Neutrophils/100 WBC (Bld) 55.6 % Normal 50.0-75.0 [facility] Comment on above: Performed By: #### C MP, ADIFF, VIDH, FT4, LIPID, MG, CBC, GFR, TSH, ANEU #### [address] [address] .GFRon 02-07-2025 Estimated Glomerular Filtration Rate 83 ml/min/1.73sqm Normal [facility] Comment on above: Result Comment: Stages of Chronic Kidney Disease (CKD) Stage Description eGFR(ml/min/1.73 sq.m.) CKD 1 Normal kidney function or >=90 normal kindney function with possible kidney damage (ex. Proteinuria) CKD 2 Kidney damage with mild loss 60-89 of kidney function CKD 3a Mild to moderate loss of kidney 45-59 function CKD 3b Moderate to severe loss of 30-44 of kindey function CKD 4 Severe loss of kidney function 15-29 CKD 5 Kidney failure <15 Note: (go live 2024) the eGFR calculation was updated to the 2020 CKD-EPI creatinine equation without a race factor to calculate the eGFR results. Performed By: #### C MP, ADIFF, VIDH, FT4, LIPID, MG, CBC, GFR, TSH, ANEU #### [address] [address] .NEUABSon 02-07-2025 Neutrophil, Absolute 2.9 10 3/mcL Normal 2.3-8.1 [facility] Comment on above: Performed By: #### C MP, ADIFF, VIDH, FT4, LIPID, MG, CBC, GFR, TSH, ANEU #### [address] [address] CBCon 02-07-2025 Erythrocyte distribution width (RBC) [Ratio] 12.6 % Normal 11.5-15.5 [facility] Comment on above: Performed By: #### C MP, ADIFF, VIDH, FT4, LIPID, MG, CBC, GFR, TSH, ANEU #### [place] [address] Hematocrit (Bld) [Volume fraction] 38.5 % Normal 34.0-46.0 [facility] Comment on above: Performed By: #### C MP, ADIFF, VIDH, FT4, LIPID, MG, CBC, GFR, TSH, ANEU #### [place] [address] Hgb 13.0 G/dL Normal 12.0-16.0 [facility] Comment on above: Performed By: #### C MP, ADIFF, VIDH, FT4, LIPID, MG, CBC, GFR, TSH, ANEU #### [place] [address] MCH (RBC) [Entitic mass] 30.5 pg Normal 27.0-33.0 [facility] Comment on above: Performed By: #### C MP, ADIFF, VIDH, FT4, LIPID, MG, CBC, GFR, TSH, ANEU #### [place] [address] MCHC 33.9 G/dL Normal 32.0-36.0 [facility] Comment on above: Performed By: #### C MP, ADIFF, VIDH, FT4, LIPID, MG, CBC, GFR, TSH, ANEU #### [place] [address] MCV (RBC) [Entitic vol] 90.2 fL Normal 80.0-99.0 [facility] Comment on above: Performed By: #### C MP, ADIFF, VIDH, FT4, LIPID, MG, CBC, GFR, TSH, ANEU #### [address] [address] Platelet 217 10 3/mcL Normal 150-450 [facility] Comment on above: Performed By: #### C MP, ADIFF, VIDH, FT4, LIPID, MG, CBC, GFR, TSH, ANEU #### [address] [address] Platelet mean volume (Bld) [Entitic vol] 7.8 fL Normal 6.6-10.5 [facility] Comment on above: Performed By: #### C MP, ADIFF, VIDH, FT4, LIPID, MG, CBC, GFR, TSH, ANEU #### [address] [address] RBC 4.27 10 6/mcL Normal 4.10-5.30 [facility] Comment on above: Performed By: #### C MP, ADIFF, VIDH, FT4, LIPID, MG, CBC, GFR, TSH, ANEU #### [address] [address] WBC 5.3 10 3/mcL Normal 4.5-10.8 [facility] Comment on above: Performed By: #### C MP, ADIFF, VIDH, FT4, LIPID, MG, CBC, GFR, TSH, ANEU #### [address] [address] CMPon 02-07-2025 Albumin Level 3.8 G/dL Normal 3.4-4.8 [facility] Comment on above: Performed By: #### C MP, ADIFF, VIDH, FT4, LIPID, MG, CBC, GFR, TSH, ANEU #### [address] [address] Albumin/Globulin [Mass ratio] 1.0 {ratio} Low 1.1-2.5 [facility] Comment on above: Performed By: #### C MP, ADIFF, VIDH, FT4, LIPID, MG, CBC, GFR, TSH, ANEU #### [address] [address] ALP [Catalytic activity/Vol] 96 U/L Normal 40-135 [facility] Comment on above: Performed By: #### C MP, ADIFF, VIDH, FT4, LIPID, MG, CBC, GFR, TSH, ANEU #### [address] [address] ALT [Catalytic activity/Vol] 25 U/L Normal 14-59 [facility] Comment on above: Performed By: #### C MP, ADIFF, VIDH, FT4, LIPID, MG, CBC, GFR, TSH, ANEU #### [place] [address] AST [Catalytic activity/Vol] 20 U/L Normal 10-40 [facility] Comment on above: Performed By: #### C MP, ADIFF, VIDH, FT4, LIPID, MG, CBC, GFR, TSH, ANEU #### [place] [id number] Bili Total 0.6 mg/dL Normal 0.2-1.0 [facility] Comment on above: Result Comment: Use of this assay is not recommended for patients undergoing treatment with eltrombopag due to the potential for falsely elevated results. Performed By: #### C MP, ADIFF, VIDH, FT4, LIPID, MG, CBC, GFR, TSH, ANEU #### [place] [id number] BUN/Creatinine Ratio 19 ratio Normal 7-27 [facility] Comment on above: Performed By: #### C MP, ADIFF, VIDH, FT4, LIPID, MG, CBC, GFR, TSH, ANEU #### [place] [id number] Calcium [Mass/Vol] 9.6 mg/dL Normal 8.4-10.2 [facility] Comment on above: Performed By: #### C MP, ADIFF, VIDH, FT4, LIPID, MG, CBC, GFR, TSH, ANEU #### [place] [id number] Chloride [Moles/Vol] 102 mmol/L Normal 98-107 [facility] Comment on above: Performed By: #### C MP, ADIFF, VIDH, FT4, LIPID, MG, CBC, GFR, TSH, ANEU #### [address] [address] CO2 [Moles/Vol] 34 mmol/L High 23-31 [facility] Comment on above: Performed By: #### C MP, ADIFF, VIDH, FT4, LIPID, MG, CBC, GFR, TSH, ANEU #### [address] [address] Creatinine [Mass/Vol] 0.73 mg/dL Normal 0.51-0.95 [facility] Comment on above: Performed By: #### C MP, ADIFF, VIDH, FT4, LIPID, MG, CBC, GFR, TSH, ANEU #### [place] [address] Electrolyte Balance 5.0 mEq/L Normal 4.0-15.0 [facility] Comment on above: Performed By: #### C MP, ADIFF, VIDH, FT4, LIPID, MG, CBC, GFR, TSH, ANEU #### [address] [address] Globulin 3.7 G/dL Normal 2.7-4.4 [facility] Comment on above: Performed By: #### C MP, ADIFF, VIDH, FT4, LIPID, MG, CBC, GFR, TSH, ANEU #### [address] [address] Glucose [Mass/Vol] 102 mg/dL Normal 83-110 [facility] Comment on above: Performed By: #### C MP, ADIFF, VIDH, FT4, LIPID, MG, CBC, GFR, TSH, ANEU #### [address] [address] Potassium [Moles/Vol] 3.6 mmol/L Normal 3.5-5.1 [facility] Comment on above: Performed By: #### C MP, ADIFF, VIDH, FT4, LIPID, MG, CBC, GFR, TSH, ANEU #### [address] [address] Sodium [Moles/Vol] 141 mmol/L Normal 136-145 [facility] Comment on above: Performed By: #### C MP, ADIFF, VIDH, FT4, LIPID, MG, CBC, GFR, TSH, ANEU #### [address] [address] Total Protein 7.5 G/dL Normal 6.4-8.2 [facility] Comment on above: Performed By: #### C MP, ADIFF, VIDH, FT4, LIPID, MG, CBC, GFR, TSH, ANEU #### [place] [address] Urea nitrogen [Mass/Vol] 14 mg/dL Normal 7-18 [facility] Comment on above: Performed By: #### C MP, ADIFF, VIDH, FT4, LIPID, MG, CBC, GFR, TSH, ANEU #### [address] [address] FT4on 02-07-2025 Free T4 [Mass/Vol] 1.06 ng/dL Normal 0.76-1.46 [facility] Comment on above: Performed By: #### C MP, ADIFF, VIDH, FT4, LIPID, MG, CBC, GFR, TSH, ANEU #### [address] [address] LABORATORYOrdered By: SYSTEM SYSTEM on 02-07-2025 25-hydroxyvitamin D3 [Mass/Vol] 23.8 ng/mL Invalid Interpretation Code AO ADM SS Comment on above: Interpretive Data: I nterpretive Values Based on Total 25(OH) Vitamin D: Deficient <20 ng/mL Insufficient 20 - <30 ng/mL Sufficient 30-100 ng/mL Albumin BCP dye [Mass/Vol] 3.8 G/dL Normal 3.4 - 4.8 G/dL AO ADM SS Albumin/Globulin [Mass ratio] 1.0 {ratio} Low 1.1 - 2.5 ratio AO ADM SS ALP [Catalytic activity/Vol] 96 U/L Normal 40 - 135 U/L AO ADM SS ALT With P-5'-P [Catalytic activity/Vol] 25 U/L Normal 14 - 59 U/L AO ADM SS AST With P-5'-P [Catalytic activity/Vol] 20 U/L Normal 10 - 40 U/L AO ADM SS Basophils (Bld) [#/Vol] 0.1 103/mcL Normal 0.0 - 0.3 10^3/mcL AO Workflow SS Basophils/100 WBC (Bld) 1.1 % Normal 0.0 - 2.5 % AO Workflow SS Bilirubin [Mass/Vol] 0.6 mg/dL Normal 0.2 - 1.0 mg/dL AO ADM SS Comment on above: Interpretive Data: U se of this assay is not recommended for patients undergoing treatment with eltrombopag due to the potential for falsely elevated results. Calcium [Mass/Vol] 9.6 mg/dL Normal 8.4 - 10. 2 mg/dL AO ADM SS Chloride [Moles/Vol] 102 mmol/L Normal 98 - 107 mmol/L AO ADM SS CO2 [Moles/Vol] 34 mmol/L High 23 - 31 mmol/L AO ADM SS Creatinine [Mass/Vol] 0.73 mg/dL Normal 0.51 - 0.95 mg/dL AO ADM SS Electrolyte Balance 5.0 mEq/L Normal 4.0 - 15 .0 mEq/L AO ADM SS Eosinophil, Absolute 0.2 103/mcL Normal 0.0 - 0.7 10^3/mcL AO Workflow SS Eosinophils/100 WBC (Bld) 4.6 % Normal 0.0 - 6.0 % AO Workflow SS Erythrocyte distribution width (RBC) [Ratio] 12.6 % Normal 11.5 - 15.5 % AO Workflow SS Estimated Glomerular Filtration Rate 83 ml/min/1.73sqm Invalid Interpretation Code AO Chemistry S Comment on above: Interpretive Data: Stages of Chronic Kidney Disease (CKD) Stage Description eGFR(ml/min/1.73 sq.m.) CKD 1 Normal kidney function or >=90 normal kindney function with possible kidney damage (ex. Proteinuria) CKD 2 Kidney damage with mild loss 60-89 of kidney function CKD 3a Mild to moderate loss of kidney 45-59 function CKD 3b Moderate to severe loss of 30-44 of kindey function CKD 4 Severe loss of kidney function 15-29 CKD 5 Kidney failure <15 Note: (go live 2024) the eGFR calculation was updated to the 2020 CKD-EPI creatinine equation without a race factor to calculate the eGFR results. Free T4 [Mass/Vol] 1.06 ng/dL Normal 0.76 - 1.46 ng/dL AO ADM SS Globulin 3.7 G/dL Normal 2.7 - 4.4 G/dL AO ADM SS Glucose [Mass/Vol] 102 mg/dL Normal 83 - 110 mg/dL AO ADM SS Hematocrit (Bld) [Volume fraction] 38.5 % Normal 34.0 - 46.0 % AO Workflow SS Hemoglobin (Bld) [Mass/Vol] 13.0 G/dL Normal 12.0 - 16.0 G/dL AO Workflow SS Lymphocytes (Bld) [#/Vol] 1.6 103/mcL Normal 0.9 - 4.3 10^3/mcL AO Workflow SS Lymphocytes/100 WBC (Bld) 30.8 % Normal 20.0 - 40.0 % AO Workflow SS Magnesium [Mass/Vol] 2.0 mg/dL Normal 1.8 - 2.4 mg/dL AO ADM SS MCH (RBC) [Entitic mass] 30.5 pg Normal 27.0 - 33.0 pg AO Workflow SS MCHC 33.9 G/dL Normal 32.0 - 36.0 G/dL AO Workflow SS MCV (RBC) [Entitic vol] 90.2 fL Normal 80.0 - 99.0 fL AO Workflow SS Monocytes (Bld) [#/Vol] 0.4 103/mcL Normal 0.1 - 1.4 10^3/mcL AO Workflow SS Monocytes/100 WBC (Bld) 7.9 % Normal 2.0 - 13.0 % AO Workflow SS Neutrophils (Bld) [#/Vol] 2.9 103/mcL Normal 2.3 - 8.1 10^3/mcL AO Workflow SS Neutrophils/100 WBC (Bld) 55.6 % Normal 50.0 - 75.0 % AO Workflow SS Platelet mean volume (Bld) [Entitic vol] 7.8 fL Normal 6.6 - 10.5 fL AO Workflow SS Platelets (Bld) [#/Vol] 217 103/mcL Normal 150 - 450 10^3/mcL AO Workflow SS Potassium [Moles/Vol] 3.6 mmol/L Normal 3.5 - 5.1 mmol/L AO ADM SS Protein [Mass/Vol] 7.5 G/dL Normal 6.4 - 8.2 G/dL AO ADM SS RBC (Bld) [#/Vol] 4.27 106/mcL Normal 4.10 - 5.30 10^6/mcL AO Workflow SS Sodium [Moles/Vol] 141 mmol/L Normal 136 - 145 mmol/L AO ADM SS TSH Qn 5.92 m[IU]/L High 0.36 - 3.74 mcIU/mL AO ADM SS Urea nitrogen [Mass/Vol] 14 mg/dL Normal 7 - 18 mg/dL AO ADM SS Urea nitrogen/Creatinine [Mass ratio] 19 ratio Normal 7 - 27 ratio AO ADM SS WBC (Bld) [#/Vol] 5.3 103/mcL Normal 4.5 - 10.8 10^3/mcL AO Workflow SS LABORATORYOrdered By: Ace Balderas on 02-07-2025 Cholesterol [Mass/Vol] 182 mg/dL Normal 0 - 200 mg/dL AO ADM SS Comment on above: Interpretive Data: C holesterol Reference Interval: Less than 200 Desirable 200-239 Borderline high risk 240 and above High risk Cholesterol in HDL [Mass/Vol] 73 mg/dL High 40 - 60 mg/dL AO ADM SS Cholesterol in LDL [Mass/Vol] 90 mg/dL Normal 0 - 130 mg/dL AO ADM SS Triglyceride [Mass/Vol] 96 mg/dL Normal 0 - 150 mg/dL AO ADM SS Comment on above: Interpretive Data: T riglyceride Reference Interval: Less than 150 Normal 150-199 Borderline high risk 200-499 High risk 500 or higher Very high risk LIPIDon 02-07-2025 Cholesterol [Mass/Vol] 182 mg/dL Normal 0-200 [facility] Comment on above: Result Comment: Chol esterol Reference Interval: Less than 200 Desirable 200-239 Borderline high risk 240 and above High risk Performed By: #### C MP, ADIFF, VIDH, FT4, LIPID, MG, CBC, GFR, TSH, ANEU #### [place] [address] [place], [place] [address] Cholesterol in HDL [Mass/Vol] 73 mg/dL High 40-60 [facility] Comment on above: Performed By: #### C MP, ADIFF, VIDH, FT4, LIPID, MG, CBC, GFR, TSH, ANEU #### [address] [address] Cholesterol in LDL [Mass/Vol] 90 mg/dL Normal 0-130 [facility] Comment on above: Performed By: #### C MP, ADIFF, VIDH, FT4, LIPID, MG, CBC, GFR, TSH, ANEU #### [address] [address] Triglyceride [Mass/Vol] 96 mg/dL Normal 0-150 [facility] Comment on above: Result Comment: Trig lyceride Reference Interval: Less than 150 Normal 150-199 Borderline high risk 200-499 High risk 500 or higher Very high risk Performed By: #### C MP, ADIFF, VIDH, FT4, LIPID, MG, CBC, GFR, TSH, ANEU #### [address] [address] MGon 02-07-2025 Magnesium [Mass/Vol] 2.0 mg/dL Normal 1.8-2.4 [facility] Comment on above: Performed By: #### C MP, ADIFF, VIDH, FT4, LIPID, MG, CBC, GFR, TSH, ANEU #### [address] [address] TSHon 02-07-2025 TSH Qn 5.92 m[IU]/L High 0.36-3.74 [facility] Comment on above: Performed By: #### C MP, ADIFF, VIDH, FT4, LIPID, MG, CBC, GFR, TSH, ANEU #### [address] [address] VIDHon 02-07-2025 Vit. D 25-Hydroxy 23.8 ng/mL Normal [facility] Comment on above: Result Comment: Inte rpretive Values Based on Total 25(OH) Vitamin D: Deficient <20 ng/mL Insufficient 20 - <30 ng/mL Sufficient 30-100 ng/mL Performed By: #### C MP, ADIFF, VIDH, FT4, LIPID, MG, CBC, GFR, TSH, ANEU #### [address] [place] [id number] [place], [place] [address] Pulmonary Visit Reporton Pulmonary Visit Report [facility] [address] [place] [address] OFFICE VISIT Date of Service: 12/30/24 MR#: [id number] Acct: [id number] Name: BAUDILIO TORRES Rep #: [id number] : 1945 Provider: Sandy Castro NP Age/Sex: 79/F Location[place] [facility] Status: Signed Assessment and Plan Assessment and Plan (1) Mild intermittent asthma: Status: Acute Qualifiers: Asthma complication type: uncomplicated Qualified Code(s): J45.20 - Mild intermittent asthma, uncomplicated Plan: This patient recently underwent pulmonary testing and her PFT is grossly normal along with a CT scan that is not suggestive of interstitial pulmonary disease process producing her cough. She had no growth on her recent sputum sample. I believe that her allergy symptoms are contributing to a mild asthma affair at times. Her respiratory symptoms do worsen with the season. I have recommended that she utilize Zyrtec and Singulair are in a compliant manner. I have also provided her with albuterol solution and budesonide solution. I have recommended that she use albuterol solution on an as-needed basis for her cough. If she requires albuterol more than 2-3 times per week she is to begin with use of budesonide. I have asked for her to follow-up in 4 months to determine if she is controlled with this regimen as the fall season approaches. Previously she did have a bronchitic episode in March 2024. The patient understands that if she has worsening respiratory symptoms she is to notify this practice. Medications: New montelukast (Singulair) 10 mg PO QDAY 90 tabs 3RF cetirizine 10 mg PO QDAY 90 tabs 3RF albuterol sulfate 2.5 mg (3 mL) inhalation Q4-6H PRN 180 mL 3RF shortness of breath or wheezing budesonide 0.5 mg (2 mL) inhalation QDAY 60 mL 5RF Plan The patient is aware that her pulmonary artery pressure is elevated on her recent echocardiogram, likely from diastolic heart failure. The gas transfer is within normal limits on the PFT and the pulmonary artery is not enlarged on CT imaging. Plan Details Follow Up: 4 Months (LMR) HPI HPI Comments Details: Patient is an 79-year-old female who presents today for follow-up to review recent testing. She is ambulatory currently on room air. She is being referred by Patrice Cuba, PCP. She is accompanied by her . She has not had recent respiratory illness requiring urgent care or ER visit. She has not required the use of antibiotics or prednisone since last evaluation. Today she denies shortness of breath. She reports that the cough does occur on occasion and she does have clear productive sputum. She denies wheeze. She denies chest pain and chest tightness. She is not using supplemental oxygen. The patient reports that her cough has been present for 2 years. She was evaluated by her PCP in March 2024 for acute bronchitis and a PA and lateral chest x-ray has been performed along with lab work. She has a history of seasonal asthma. In the past she used Zyrtec and montelukast with good benefit for her allergy symptoms, previously she indicated that these were not beneficial but when questioned again today she reports noticing a difference using these medications. She has tried both budesonide and albuterol in the past and reports that this regimen has improved her cough. Her cough is not as active as it was at the initial evaluation. It is also the summertime. She also uses nasal saline spray and [place] pot. She will use honey and honey [...] sneezes she has temporary cough relief. She does have worsening cough with the night air or when it is damp outside. She denies shortness of breath, wheeze, chest congestion. She denies chest pain and chest tightness. She denies fatigue and pedal edema. She reports that she lives a very active lifestyle. She reports that she underwent a thorough [...] 162. PFT from June 13, 2021 shows "possible early obstructive pulmonary impairment suggested by the reduced FEF 25-75 with a normal FVC and FEV1. (more content not included)... Normal [facility] Anion gap in Serum or Plasma Ordered By: Court Anderson on 11-30-2024 Anion gap [Moles/Vol] 10 mmol/L 5-15 [facility] BUN/creatinine ratioOrdered By: Court Anderson on 11-30-2024 Urea nitrogen/Creatinine [Mass ratio] 20.9 mg/mg High - [facility] Basic Metabolic Profile (BMP )on 11-30-2024 BUN/CRE 20.9 RATIO High - [facility] Comment on above: Performed By: #### L 500.2500 #### [facility] [address] [place], [address] Calcium [Mass/Vol] 9.5 mg/dL Normal 7.6-11.0 [facility] Comment on above: Performed By: #### L 500.2500 #### [facility] [address] [facility] [address] Chloride [Moles/Vol] 101 mmol/L Normal 98-108 [facility] Comment on above: Performed By: #### L 500.2500 #### [facility] [address] [place], [address] CO2 [Moles/Vol] 27.7 mmol/L Normal 21.0-32.0 [facility] Comment on above: Performed By: #### L 500.2500 #### [facility] [address] [place], [address] Creatinine [Mass/Vol] 0.90 mg/dL Normal 0.70-1.20 [facility] Comment on above: Performed By: #### L 500.2500 #### [facility] [address] [place], [address] GAP 10 Normal 5-15 [facility] Comment on above: Performed By: #### L 500.2500 #### [facility] [address] [place], [address] GFR/1.73 sq M.predicted among non-blacks MDRD (S/P/Bld) [Vol rate/Area] 65 mL/min/{1.73_m2} Normal >60 [facility] Comment on above: Result Comment: mL/m in/1.73m2 CKD-EPI Creatinine Equation (2020) Performed By: #### L 500.2500 #### [facility] [address] [place], [address] Glucose [Mass/Vol] 121 mg/dL High 70-99 [facility] Comment on above: Performed By: #### L 500.2500 #### [facility] [address] [place], [address] Potassium [Moles/Vol] 3.7 mmol/L Normal 3.3-5.1 [facility] Comment on above: Performed By: #### L 500.2500 #### [facility] [address] [place], [address] Sodium [Moles/Vol] 139 mmol/L Normal 133-145 [facility] Comment on above: Performed By: #### L 500.2500 #### [facility] [address] [place], [address] Urea nitrogen [Mass/Vol] 19 mg/dL Normal 4-19 [facility] Comment on above: Performed By: #### L 500.2500 #### [facility] [address] [place], [address] Carbon dioxide, total [Moles /volume] in Central venous bloodOrdered By: Court Anderson on 11-30-2024 CO2 [Moles/Vol] 27.7 mmol/L 21.0-32.0 [facility] Chest without Contraston Chest without Contrast [facility] Imaging Services [address] [place] [address] Chest without Contrast MR#: [id number] Acct: [id number] Name: BAUDILIO TORRES Rep #: [id number] : 1945 F 79 From: Shante anaya MD PCP: ANDREW Roland Status: REG CLI Study: Chest without Contrast Date of Exam: 11/30/24 Exam# [id number] Ordering Dr: Sandy Castro NP- C PROCEDURE: CHEST WITHOUT CONTRAST 11/30/2024 REASON FOR EXAM: CHRONIC COUGH> 6 MONTHS TECHNIQUE: Chest CT without contrast. Coronal and Sagittal reconstruction series were provided. One or more dose reduction techniques were used (e.g., Automated exposure control, adjustment of the mA and/or kV according to patient size, use of iterative reconstruction technique RADIATION DOSE SUMMARY: CTDlvol: 6.4 mGy DLP: 255 mGycm COMPARISON: Radiographs on 04/23/2021. FINDINGS: Moderate coronary artery calcifications. Normal unenhanced main pulmonary artery and right and left pulmonary arteries. Normal bilateral peripheral pulmonary arteries. Normal thoracic aorta and visualized great vessels. There is no demonstrated aortic aneurysm. Normal heart and pericardium. Normal mediastinum. Normal hilar regions. Normal visualized trachea and bronchi. The lungs are well expanded. Normal pulmonary parenchyma. Normal pleura. Mild diffuse spondylosis. Normal visualized upper abdomen. CT/Chest without Contrast IMPRESSION: IMPRESSION: Coronary artery calcification (CAC) is is present No CT evidence of an acute abnormality. Reading Location: [place] [address] CC: ANDREW Claudio; Sandy Castro NP Environmental Science Instructor: Signed Normal [facility] Chloride assayOrdered By: Yajaira Anderson on 11-30-2024 Chloride [Moles/Vol] 101 mmol/L 98-108 [facility] Glomerular filtration rate ( GFR) estimation/1.73 sq m using serum, plasma, or whole bOrdered By: Court Anderson on 11-30-2024 GFR/1.73 sq M.predicted among non-blacks MDRD (S/P/Bld) [Vol rate/Area] 65 mL/min/{1.73_m2} >60 [facility] Comment on above: mL/min/1.73m2 CKD-EP I Creatinine Equation (2020) Potassium measurement (mass/ volume)Ordered By: Court Anderson on 11-30-2024 Potassium (Unsp spec) [Mass/Vol] 3.7 mmol/L 3.3-5.1 [facility] Serum creatinine measurement (mass/volume)Ordered By: Court Anderson on 11-30-2024 Creatinine [Mass/Vol] 0.90 mg/dL 0.70-1.20 [facility] Serum glucose measurement (m ass/volume)Ordered By: Court Anderson on 11-30-2024 Glucose [Mass/Vol] 121 mg/dL High 70-99 [facility] Serum or plasma calcium power urement (mass/volume)Ordered By: Court Anderson on 11-30-2024 Calcium [Mass/Vol] 9.5 mg/dL 7.6-11.0 [facility] Serum or plasma urea nitroge n measurement (mass/volume)Ordered By: Court Anderson on 11-30-2024 Urea nitrogen [Mass/Vol] 19 mg/dL 4-19 [facility] Sodium levelOrdered By: Derrick Anderson on 11-30-2024 Sodium [Moles/Vol] 139 mmol/L 133-145 [facility] Respiratory Cultureon 2024 RESPC Mixed normal respira tory sixto. No Haemophilus, Streptococcus pneumoniae, beta-hemolytic Streptococcus or Staphylococcus aureus isolated. Normal [facility] Comment on above: Performed By: #### M 100.2400, M100.1999 #### [facility] [address] [place], [address] Gram Stainon 11-04-2024 GS Acceptable Specimen? Yes (<25 Epithelial cells per/lpf) Gram Stain 2+ Gram positive cocci Rare Epithelial cells 2+ Gram positive rods 2+ Gram negative rods No White Blood Cells Normal [facility] Comment on above: Performed By: #### M 100.2400, M100.1999 #### [facility] [address] [place], [address] Pulmonary Visit Reporton Pulmonary Visit Report [facility] [address] [place] [address] OFFICE VISIT Date of Service: 11/04/24 MR#: [id number] Acct: [id number] Name: BAUDILIO TORRES Rep #: [id number] : 1945 Provider: Sandy Castro NP Age/Sex: 79/F [place] [facility] Status: Signed Assessment and Plan Assessment and [...] She also uses nasal saline spray and [place] pot. She will use honey and honey [...] 162. PFT from June 13, 2021 shows "possible early obstructive pulmonary impairment suggested by the [...] Temporal Artery (more content not included)... Normal [facility] Carotid Duplex Ultrasoundon 07-15-2024 Carotid Duplex Ultrasound [facility] [address] [facility] [place] [address] Carotid Duplex Ultrasound 07/15/24 1014 MR#: [id number] Acct: [id number] Name: BAUDILIO TORRES Rep #: [id number] : 1945 78 From: Grant Beyer MD [...] the left vertebral artery. Procedure Carotid Duplex 67774. This is a Carotid Duplex examination using B-mode, color flow and specral Doppler. Exam performed in department. VL/Carotid Duplex Ultrasound Interpretation Summary Moderate (50-69%) stenosis right extracranial internal carotid. Normal left extracranial internal carotid. Patent and antegrade vertebrals bilaterally. Ordering Physician: Court Anderson Referring Physician: Cyrus Claudio Performed By: Alicia Fonseca, RDCS, RVT 07/18/24 1145 Date Grant Beyer MD CC: ANDREW Claudio; TANYA Mendez Date Dictated: 07/15/24 1014 Date Transcribed: 07/18/24 1145 Environmental Science Instructor: Signed Normal [facility] Echo Completeon 07-15-2024 Echo Complete [facility] [address] [place] [address] Echo Complete 07/15/24 1015 MR#: [id number] Acct: [id number] Name: BAUDILIO TORRES Rep #: [id number] : 1945 78 From: Wild Watkins MD [...] 07/15/24 1525 Date Wild Watkins MD CC: COMMODITY SUPERVISOR-C Cyrus Claudio; TANYA Mendez Date Dictated: 07/15/24 1015 Date Transcribed: 07/15/24 1525 Environmental Science Instructor: Signed Normal [facility] Stress Reporton 07-15-2024 Stress Report [facility] [address] [place] [address] MR#: [id number] Acct: [id number] Name: BAUDILIO TORRES Rep #: [id number] : 1945 78 From: Wild Watkins MD Primary Care: ANDREW Roland Status: REG CLI Referring Dr: Court Anderson [...] 07/15/24 1631 Date Wild Watkins MD CC: ANDREW Claudio; TANYA Mendez Date Dictated: 07/15/241626 Date Transcribed: 07/15/241626 Environmental Science Instructor: [place] Signed Normal [facility] Cardiology Visit Reporton Cardiology Visit Report [facility] [place] [address] [place] [address] OFFICE VISIT Date of Service: 06/28/24 MR#: [id number] Acct: [id number] Name: BAUDILIO TORRES Rep #: [id number] : 1945 Provider: TANYA Mishra Age/Sex: 78/F Location: [facility] Status: Signed HPI HPI History of Present [...] 97 Intake Visit Reasons: 1 Y FU Turkey Roll Maker Required: No Is patient in pain?: No Allergies Opioids - Morphine Analogues Allergy (Mild, Verified 06/28/24 13:34) Nausea lisinopril Adverse Reaction (Verified 06/28/24 13:34) cough Medications ???Medication ???Instructions ???Recorded ???Confirmed ???Type aspirin 81 mg chewable tablet 81 mg PO DAILY 04/10/17 06/28/24 History ondansetron 4 mg disintegrating 4 mg [...] PFSH Medical History Atherosclerotic heart disease of [place] coronary artery without angina pectoris Carotid artery [...] to i (more content not included)... Normal [facility] .Auto Diffon 05-27-2024 Basophil, Absolute 0.1 10 3/mcL Normal 0.0-0.2 [facility] Comment on above: Performed By: #### C MP, ADIFF, VIDH, FT4, LIPID, MG, CBC, GFR, TSH, ANEU #### [place] [address] [place], [place] [address] Basophils/100 WBC (Bld) 1.5 % Normal 0.0-2.5 [facility] Comment on above: Performed By: #### C MP, ADIFF, VIDH, FT4, LIPID, MG, CBC, GFR, TSH, ANEU #### [place] [address] [place], [place] [address] Eosinophil, Absolute 0.2 10 3/mcL Normal 0.0-0.7 [facility] Comment on above: Performed By: #### C MP, ADIFF, VIDH, FT4, LIPID, MG, CBC, GFR, TSH, ANEU #### [address] [address] Eosinophils/100 WBC (Bld) 3.6 % Normal 0.0-7.0 [facility] Comment on above: Performed By: #### C MP, ADIFF, VIDH, FT4, LIPID, MG, CBC, GFR, TSH, ANEU #### [address] [address] Lymphocyte, Absolute 1.5 10 3/mcL Normal 0.9-4.3 [facility] Comment on above: Performed By: #### C MP, ADIFF, VIDH, FT4, LIPID, MG, CBC, GFR, TSH, ANEU #### [address] [address] Lymphocytes/100 WBC (Bld) 33.6 % Normal 20.0-40.0 [facility] Comment on above: Performed By: #### C MP, ADIFF, VIDH, FT4, LIPID, MG, CBC, GFR, TSH, ANEU #### [address] [address] Monocyte, Absolute 0.4 10 3/mcL Normal 0.1-1.4 [facility] Comment on above: Performed By: #### C MP, ADIFF, VIDH, FT4, LIPID, MG, CBC, GFR, TSH, ANEU #### [address] [address] Monocytes/100 WBC (Bld) 10.0 % Normal 2.0-13.0 [facility] Comment on above: Performed By: #### C MP, ADIFF, VIDH, FT4, LIPID, MG, CBC, GFR, TSH, ANEU #### [address] [address] Neutrophils/100 WBC (Bld) 51.3 % Normal 50.0-75.0 [facility] Comment on above: Performed By: #### C MP, ADIFF, VIDH, FT4, LIPID, MG, CBC, GFR, TSH, ANEU #### [address] [address] .GFRon 05-27-2024 GFR 101 ml/min/1.73sqm [facility] Comment on above: Result Comment: GFR Population [...] 15 mL/min/1.73 square meters Performed By: #### C MP, ADIFF, VIDH, FT4, LIPID, MG, CBC, GFR, TSH, ANEU #### [address] [address] GFR Non- 83 ml/min/1.73sqm [facility] Comment on above: Result Comment: GFR Population [...] 15 mL/min/1.73 square meters Performed By: #### C MP, ADIFF, VIDH, FT4, LIPID, MG, CBC, GFR, TSH, ANEU #### [place] [address] .NEUABSon 05-27-2024 Neutrophil, Absolute 2.3 10 3/mcL Normal 2.3-8.1 [facility] Comment on above: Performed By: #### C MP, ADIFF, VIDH, FT4, LIPID, MG, CBC, GFR, TSH, ANEU #### [place] [address] CBCon 05-27-2024 Erythrocyte distribution width (RBC) [Ratio] 12.7 % Normal 11.5-15.5 [facility] Comment on above: Performed By: #### C MP, ADIFF, VIDH, FT4, LIPID, MG, CBC, GFR, TSH, ANEU #### [place] [address] Hematocrit (Bld) [Volume fraction] 38.3 % Normal 34.0-46.0 [facility] Comment on above: Performed By: #### C MP, ADIFF, VIDH, FT4, LIPID, MG, CBC, GFR, TSH, ANEU #### [place] [address] Hgb 13.0 G/dL Normal 12.0-16.0 [facility] Comment on above: Performed By: #### C MP, ADIFF, VIDH, FT4, LIPID, MG, CBC, GFR, TSH, ANEU #### [place] [address] MCH (RBC) [Entitic mass] 30.7 pg Normal 27.0-33.0 [facility] Comment on above: Performed By: #### C MP, ADIFF, VIDH, FT4, LIPID, MG, CBC, GFR, TSH, ANEU #### [place] [address] MCHC 33.8 G/dL Normal 32.0-36.0 [facility] Comment on above: Performed By: #### C MP, ADIFF, VIDH, FT4, LIPID, MG, CBC, GFR, TSH, ANEU #### [place] [address]67 MCV (RBC) [Entitic vol] 90.7 fL Normal 80.0-99.0 [facility] Comment on above: Performed By: #### C MP, ADIFF, VIDH, FT4, LIPID, MG, CBC, GFR, TSH, ANEU #### [address] [address] Platelet 198 10 3/mcL Normal 150-450 [facility] Comment on above: Performed By: #### C MP, ADIFF, VIDH, FT4, LIPID, MG, CBC, GFR, TSH, ANEU #### [address] [address] Platelet mean volume (Bld) [Entitic vol] 8.1 fL Normal 6.6-10.5 [facility] Comment on above: Performed By: #### C MP, ADIFF, VIDH, FT4, LIPID, MG, CBC, GFR, TSH, ANEU #### [address] [address] RBC 4.23 10 6/mcL Normal 4.10-5.30 [facility] Comment on above: Performed By: #### C MP, ADIFF, VIDH, FT4, LIPID, MG, CBC, GFR, TSH, ANEU #### [address] [address] WBC 4.5 10 3/mcL Normal 4.5-10.8 [facility] Comment on above: Performed By: #### C MP, ADIFF, VIDH, FT4, LIPID, MG, CBC, GFR, TSH, ANEU #### [address] [address] CMPon 05-27-2024 Albumin Level 3.6 G/dL Normal 3.4-4.8 [facility] Comment on above: Performed By: #### C MP, ADIFF, VIDH, FT4, LIPID, MG, CBC, GFR, TSH, ANEU #### [address] [address] Albumin/Globulin [Mass ratio] 1.2 {ratio} Normal 1.1-2.5 [facility] Comment on above: Performed By: #### C MP, ADIFF, VIDH, FT4, LIPID, MG, CBC, GFR, TSH, ANEU #### [address] [address] ALP [Catalytic activity/Vol] 91 U/L Normal 40-135 [facility] Comment on above: Performed By: #### C MP, ADIFF, VIDH, FT4, LIPID, MG, CBC, GFR, TSH, ANEU #### [address] [address] ALT [Catalytic activity/Vol] 26 U/L Normal 14-59 [facility] Comment on above: Performed By: #### C MP, ADIFF, VIDH, FT4, LIPID, MG, CBC, GFR, TSH, ANEU #### [place] [address] AST [Catalytic activity/Vol] 29 U/L Normal 10-40 [facility] Comment on above: Performed By: #### C MP, ADIFF, VIDH, FT4, LIPID, MG, CBC, GFR, TSH, ANEU #### [place] [address]67 Bili Total 0.6 mg/dL Normal 0.2-1.0 [facility] Comment on above: Result Comment: Use of this assay is not recommended for patients undergoing treatment with eltrombopag due to the potential for falsely elevated results. Performed By: #### C MP, ADIFF, VIDH, FT4, LIPID, MG, CBC, GFR, TSH, ANEU #### [address] [address] BUN/Creatinine Ratio 21 ratio Normal 7-27 [facility] Comment on above: Performed By: #### C MP, ADIFF, VIDH, FT4, LIPID, MG, CBC, GFR, TSH, ANEU #### [address] [address] Calcium [Mass/Vol] 9.1 mg/dL Normal 8.4-10.2 [facility] Comment on above: Performed By: #### C MP, ADIFF, VIDH, FT4, LIPID, MG, CBC, GFR, TSH, ANEU #### [place] [address] Chloride [Moles/Vol] 100 mmol/L Normal 98-107 [facility] Comment on above: Performed By: #### C MP, ADIFF, VIDH, FT4, LIPID, MG, CBC, GFR, TSH, ANEU #### [place] [address] CO2 [Moles/Vol] 34 mmol/L High 23-31 [facility] Comment on above: Performed By: #### C MP, ADIFF, VIDH, FT4, LIPID, MG, CBC, GFR, TSH, ANEU #### [place] [address] Creatinine [Mass/Vol] 0.68 mg/dL Normal 0.55-1.02 [facility] Comment on above: Result Comment: Test ing performed on Siemens Dimension EXL analyzer using a modified kinetic Khurram technique. Performed By: #### C MP, ADIFF, VIDH, FT4, LIPID, MG, CBC, GFR, TSH, ANEU #### [place] [address] Electrolyte Balance 5.0 mEq/L Normal 4.0-15.0 [facility] Comment on above: Performed By: #### C MP, ADIFF, VIDH, FT4, LIPID, MG, CBC, GFR, TSH, ANEU #### [place] [address] Globulin 3.0 G/dL Normal [facility] Comment on above: Performed By: #### C MP, ADIFF, VIDH, FT4, LIPID, MG, CBC, GFR, TSH, ANEU #### [place] [address] Glucose [Mass/Vol] 92 mg/dL Normal 83-110 [facility] Comment on above: Performed By: #### C MP, ADIFF, VIDH, FT4, LIPID, MG, CBC, GFR, TSH, ANEU #### [address] [address] Potassium [Moles/Vol] 3.4 mmol/L Low 3.5-5.1 [facility] Comment on above: Performed By: #### C MP, ADIFF, VIDH, FT4, LIPID, MG, CBC, GFR, TSH, ANEU #### [address] [address] Sodium [Moles/Vol] 139 mmol/L Normal 136-145 [facility] Comment on above: Performed By: #### C MP, ADIFF, VIDH, FT4, LIPID, MG, CBC, GFR, TSH, ANEU #### [address] [address] Total Protein 6.6 G/dL Normal 6.4-8.2 [facility] Comment on above: Performed By: #### C MP, ADIFF, VIDH, FT4, LIPID, MG, CBC, GFR, TSH, ANEU #### [address] [address] Urea nitrogen [Mass/Vol] 14 mg/dL Normal 7-18 [facility] Comment on above: Performed By: #### C MP, ADIFF, VIDH, FT4, LIPID, MG, CBC, GFR, TSH, ANEU #### [address] [address] HFPon 05-27-2024 Bili Indirect 0.4 mg/dL Normal [facility] Comment on above: Performed By: #### C MP, ADIFF, VIDH, FT4, LIPID, MG, CBC, GFR, TSH, ANEU #### [address] [address] Albumin Level 3.7 G/dL Normal 3.4-4.8 [facility] Comment on above: Performed By: #### C MP, ADIFF, VIDH, FT4, LIPID, MG, CBC, GFR, TSH, ANEU #### [address] [address] Albumin/Globulin [Mass ratio] 1.3 {ratio} Normal 1.1-2.5 [facility] Comment on above: Performed By: #### C MP, ADIFF, VIDH, FT4, LIPID, MG, CBC, GFR, TSH, ANEU #### [address] [address] ALP [Catalytic activity/Vol] 92 U/L Normal 40-135 [facility] Comment on above: Performed By: #### C MP, ADIFF, VIDH, FT4, LIPID, MG, CBC, GFR, TSH, ANEU #### [address] [address] ALT [Catalytic activity/Vol] 34 U/L Normal 14-59 [facility] Comment on above: Performed By: #### C MP, ADIFF, VIDH, FT4, LIPID, MG, CBC, GFR, TSH, ANEU #### [address] [address] AST [Catalytic activity/Vol] 28 U/L Normal 10-40 [facility] Comment on above: Performed By: #### C MP, ADIFF, VIDH, FT4, LIPID, MG, CBC, GFR, TSH, ANEU #### [address] [address] Bili Direct 0.2 mg/dL Normal 0.0-0.2 [facility] Comment on above: Result Comment: Use of this assay is not recommended for patients undergoing treatment with eltrombopag due to the potential for falsely elevated results. Performed By: #### C MP, ADIFF, VIDH, FT4, LIPID, MG, CBC, GFR, TSH, ANEU #### [address] [address] Bili Total 0.6 mg/dL Normal 0.2-1.0 [facility] Comment on above: Result Comment: Use of this assay is not recommended for patients undergoing treatment with eltrombopag due to the potential for falsely elevated results. Performed By: #### C MP, ADIFF, VIDH, FT4, LIPID, MG, CBC, GFR, TSH, ANEU #### [place] [address] [place], [place] [address] Globulin 2.9 G/dL Normal [facility] Comment on above: Performed By: #### C MP, ADIFF, VIDH, FT4, LIPID, MG, CBC, GFR, TSH, ANEU #### [place] [address] [place], [place] [address] Total Protein 6.6 G/dL Normal 6.4-8.2 [facility] Comment on above: Performed By: #### C MP, ADIFF, VIDH, FT4, LIPID, MG, CBC, GFR, TSH, ANEU #### [place] [address] [place], [place] [address] LABORATORYOrdered By: SYSTEM SYSTEM on 05-27-2024 Albumin [...] 05-27-2024 Cholesterol [Mass/Vol] 184 mg/dL Normal 0-200 [facility] Comment on above: Result Comment: Chol esterol Reference Interval: Less than 200 Desirable 200-239 Borderline high risk 240 and above High risk Performed By: #### C MP, ADIFF, VIDH, FT4, LIPID, MG, CBC, GFR, TSH, ANEU #### [address] [address] Cholesterol in HDL [Mass/Vol] 57 mg/dL Normal 40-60 [facility] Comment on above: Performed By: #### C MP, ADIFF, VIDH, FT4, LIPID, MG, CBC, GFR, TSH, ANEU #### [address] [address] Cholesterol in LDL [Mass/Vol] 107 mg/dL Normal 0-130 [facility] Comment on above: Performed By: #### C MP, ADIFF, VIDH, FT4, LIPID, MG, CBC, GFR, TSH, ANEU #### [address] [address] Triglyceride [Mass/Vol] 102 mg/dL Normal 0-150 [facility] Comment on above: Result Comment: Trig lyceride Reference Interval: Less than 150 Normal 150-199 Borderline high risk 200-499 High risk 500 or higher Very high risk Performed By: #### C MP, ADIFF, VIDH, FT4, LIPID, MG, CBC, GFR, TSH, ANEU #### [address] [address] Basophil percentageOrdered B y: Alloway Roland on 06-17-2023 Bilirubin [Mass/Vol] 0.60 mg/dL 0.20-1.00 [facility] Comment on above: For patients on eltr ombopag therapy, use of Dimension [place] TBIL is not recommended. Chloride [Moles/Vol] 105 mmol/L 98-107 [facility] Cholesterol [Mass/Vol] 166 mg/dL <200 [facility] Comment on above: <200 mg/dL Desirable 200-240 mg/dL Borderline >240 mg/dL High Risk Glucose [Mass/Vol] 96 mg/dL 74-106 [facility] Potassium [Moles/Vol] 3.6 mmol/L 3.5-5.1 [facility] Protein [Mass/Vol] 7.4 g/dL 6.4-8.2 [facility] Sodium [Moles/Vol] 139 mmol/L 136-145 [facility] Triglyceride [Mass/Vol] 120 mg/dL <199 [facility] Comment on above: The drugs N-Acetylcy steine and Metamizole may falsely depress this assay.Serum Triglycerides Reference Interval Normal <150 mg/dL Borderline high 150 - 199 mg/dL High 200 - 499 mg/dL Very High > or = 500 mg/dL Direct bilirubinOrdered By: Wild Watkins on 06-17-2023 Bilirubin.direct [Mass/Vol] 0.14 mg/dL 0.00-0.30 [facility] Laboratory - Chemistry and C hemistry - challengeOrdered By: Wild Watkins on 06-17-2023 ALP [Catalytic activity/Vol] 95 U/L 45-117 [facility] ALT [Catalytic activity/Vol] 27 U/L 13-56 [facility] CO2 [Moles/Vol] 30.0 mmol/L 21.0-32.0 [facility] Globulin (S) [Mass/Vol] 3.9 g/dL 2.2-4.2 [facility] Urea nitrogen/Creatinine [Mass ratio] 31.0 mg/mg 10-20 [facility] No Panel InformationOrdered By: Wild Watkins on 06-17-2023 Estimated GFR (MDRD) Amer 97 mL/min >60 [facility] Comment on above: GFR Calc Estimated GFR (MDRD) Non-Af Amer 80 mL/min >60 [facility] Comment on above: Non- GFR Calc Serum or plasma albumin power urement (mass/volume)Ordered By: Wild Watkins on 06-17-2023 Albumin [Mass/Vol] 3.5 g/dL 3.2-5.0 [facility] Serum or plasma calcium power urement (mass/volume)Ordered By: Wild Watkins on 06-17-2023 Calcium [Mass/Vol] 9.7 mg/dL 8.5-10.1 [facility] Serum or plasma cholesterol in HDL measurement (mass/volume)Ordered By: Wild Watkins on 06-17-2023 Cholesterol in HDL [Mass/Vol] 60 mg/dL >40 [facility] Comment on above: The drugs N-Acetylcy steine and Metamizole may falsely depress this assay. Reference Range HDL <40 mg/dL Low HDL Cholesterol HDL >or= 60 mg/dL High HDL Cholesterol Serum or plasma cholesterol in VLDL measurement (mass/volume)Ordered By: Wild Watkins on 06-17-2023 Cholesterol in VLDL [Mass/Vol] 24 mg/dL 5-40 [facility] Serum or plasma creatinine m easurement (mass/volume)Ordered By: Wild Watkins on 06-17-2023 Creatinine [Mass/Vol] 0.74 mg/dL 0.55-1.02 [facility] Comment on above: The validity of the calculated GFR & GFRAA in patients over 70 years has not been determined. Clinical correlation is essential. Serum or plasma low density lipoprotein (LDL) cholesterol measurement (mass/volume)Ordered By: Wild Watkins on 06-17-2023 Cholesterol in LDL [Mass/Vol] 82 mg/dL 0-130 [facility] Serum or plasma urea nitroge n measurement (mass/volume)Ordered By: Wild Watkins on 06-17-2023 Urea nitrogen [Mass/Vol] 23 mg/dL 7-18 [facility] Thin prep Papanicolaou smear with manual screeningOrdered By: Wild Watkins on 06-17-2023 Thin prep Papanicolaou smear with manual screening 18 U/L 15-37 [facility] Thin prep Papanicolaou smear with manual screening 4 5-15 [facility] FT4on 04-10-2022 Free T4 [Mass/Vol] 1.11 ng/dL Normal 0.76-1.46 [facility] ([place]) Comment on above: Performed By: #### F T4, TSH #### [address] [address] LABORATORYOrdered By: Bhakti Milligan on 04-10-2022 Free T4 [Mass/Vol] 1.11 ng/dL Invalid Interpretation Code 0.76 - 1.46 ng/dL AO ADM SS TSH Qn 2.90 m[IU]/L Invalid Interpretation Code 0.36 - 3.74 mcIU/mL AO ADM SS TSHon 04-10-2022 TSH Qn 2.90 m[IU]/L Normal 0.36-3.74 [facility] ([place]) Comment on above: Performed By: #### F T4, TSH #### [place] [id number] MISCon 03-20-2022 Mis. Send Out See Comments Normal [facility] ([place]) Comment on above: Order Comment: Aller gen, Mouse Urine IgE Result Comment: Comp lete reference lab report scanned to EMR. Performed By: #### F T4, TSH #### [place] [address] ATENSon 03-13-2022 Alternaria tenuis-Class Class 0 Normal Class 0 [facility] ([place]) Comment on above: Result Comment: Perf ormed By: [place] [address] Hospital Medical Biller: Devendra Pro III, M.D. CLIA#: [id number] Performed By: #### O AK, CATDND, BRMUDA, ELM, SRAGWD, ATENS, K9DND, ENGPLT, DPTERN, JUNEGR, MISC, DFARN #### [place] [id number] Alternaria tenuis/alternata, IgE <0.35 Normal <0.35 [facility] ([place]) Comment on above: Result Comment: Perf ormed By: [facility] [place] [address] Hospital Medical Biller: Devendra Pro III, M.D. CLIA#: [id number] Performed By: #### O AK, CATDND, BRMUDA, ELM, SRAGWD, ATENS, K9DND, ENGPLT, DPTERN, JUNEGR, MISC, DFARN #### [place] [address] BRMUDAon 03-13-2022 Bermuda Grass Class Class 0 Normal Class 0 [facility] ([place]) Comment on above: Result Comment: Perf ormed By: [place] [address] Hospital Medical Biller: Devendra Pro III, M.D. CLIA#: [id number] Performed By: #### O AK, CATDND, BRMUDA, ELM, SRAGWD, ATENS, K9DND, ENGPLT, DPTERN, JUNEGR, MISC, DFARN #### [place] [address] Berm[place] Grass IgE <0.35 Normal <0.35 [facility] ([place]) Comment on above: Result Comment: Perf ormed By: [place] [address] Hospital Medical Biller: Devendra Pro III, M.D. CLIA#: [id number] Performed By: #### O AK, CATDND, BRMUDA, ELM, SRAGWD, ATENS, K9DND, ENGPLT, DPTERN, JUNEGR, MISC, DFARN #### [place] [address] CATDNDon 03-13-2022 Cat Dander IgE <0.35 Normal <0.35 [facility] ([place]) Comment on above: Result Comment: Perf ormed By: [place] [address] Hospital Medical Biller: Devendra Pro III, M.D. CLIA#: [id number] Performed By: #### O AK, CATDND, BRMUDA, ELM, SRAGWD, ATENS, K9DND, ENGPLT, DPTERN, JUNEGR, MISC, DFARN #### [place] [address] [place], [place] [address] Cat Dander-Class Class 0 Normal Class 0 [facility] ([place]) Comment on above: Result Comment: Perf ormed By: [place] [address] Hospital Medical Biller: Devendra Pro III, M.D. CLIA#: [id number] Performed By: #### O AK, CATDND, BRMUDA, ELM, SRAGWD, ATENS, K9DND, ENGPLT, DPTERN, JUNEGR, MISC, DFARN #### [place] [address] DFARNon 03-13-2022 Dermatoph. farinae-Class Class 0 Normal Class 0 [facility] ([place]) Comment on above: Result Comment: Perf ormed By: [place] [address] Hospital Medical Biller: Devendra Pro III, M.D. CLIA#: [id number] Performed By: #### O AK, CATDND, BRMUDA, ELM, SRAGWD, ATENS, K9DND, ENGPLT, DPTERN, JUNEGR, MISC, DFARN #### [place] [address] Dermatophagoides farinae IgE <0.35 Normal <0.35 [facility] ([place]) Comment on above: Result Comment: Perf ormed By: [place] [address] Hospital Medical Biller: Devendra Pro III, M.D. CLIA#: [id number] Performed By: #### O AK, CATDND, BRMUDA, ELM, SRAGWD, ATENS, K9DND, ENGPLT, DPTERN, JUNEGR, MISC, DFARN #### [place] [address] DPTERNon 03-13-2022 Dermatophagoides pteronyssinus Class Class 0 Normal Class 0 [facility] ([place]) Comment on above: Result Comment: Perf ormed By: [place] [address] Hospital Medical Biller: Devendra Pro III, M.D. CLIA#: [id number] Performed By: #### O AK, CATDND, BRMUDA, ELM, SRAGWD, ATENS, K9DND, ENGPLT, DPTERN, JUNEGR, MISC, DFARN #### [address] [address] Dermatophagoides pteronyssinus IgE <0.35 Normal <0.35 [facility] ([place]) Comment on above: Result Comment: Perf ormed By: [place] [address] Hospital Medical Biller: Devendra Pro III, M.D. CLIA#: [id number] Performed By: #### O AK, CATDND, BRMUDA, ELM, SRAGWD, ATENS, K9DND, ENGPLT, DPTERN, JUNEGR, MISC, DFARN #### [address] [address] ELMon 03-13-2022 Elm Tree Class Class 0 Normal Class 0 [facility] ([place]) Comment on above: Result Comment: Perf ormed By: [place] [address] Hospital Medical Biller: Devendra Pro III, M.D. CLIA#: [id number] Performed By: #### O AK, CATDND, BRMUDA, ELM, SRAGWD, ATENS, K9DND, ENGPLT, DPTERN, JUNEGR, MISC, DFARN #### [address] [address] [place] IgE <0.35 Normal <0.35 [facility] ([place]) Comment on above: Result Comment: Perf ormed By: [place] [address] Hospital Medical Biller: Devendra Pro III, M.D. CLIA#: [id number] Performed By: #### O AK, CATDND, BRMUDA, ELM, SRAGWD, ATENS, K9DND, ENGPLT, DPTERN, JUNEGR, MISC, DFARN #### [place] [address] ENGPLTon 03-13-2022 Serbian Plantain Class Class 0 Normal Class 0 [facility] ([place]) Comment on above: Result Comment: Perf ormed By: [place] [address] Hospital Medical Biller: Devendra Pro III, M.D. CLIA#: [id number] Performed By: #### F T4, TSH #### [place] [address] Serbian Plantain IgE <0.35 Normal <0.35 [facility] ([place]) Comment on above: Result Comment: Perf ormed By: [place] [address] Hospital Medical Biller: Devendra Pro III, M.D. CLIA#: [id number] Performed By: #### F T4, TSH #### [place] [address] JUNEGRon 03-13-2022 Tiny Grass-Class Class 0 Normal Class 0 [facility] ([place]) Comment on above: Result Comment: Perf ormed By: [place] [address] Hospital Medical Biller: Devendra Pro III, M.D. CLIA#: [id number] Performed By: #### F T4, TSH #### [place] [address] [facility] IgE <0.35 Normal <0.35 [facility] ([place]) Comment on above: Result Comment: Perf ormed By: [place] [address] Hospital Medical Biller: Devendra Pro III, M.D. CLIA#: [id number] Performed By: #### F T4, TSH #### [place] [address] [id number] 03-13-2022 Dog Dander Class Class 0 Normal Class 0 [facility] ([place]) Comment on above: Result Comment: Perf ormed By: [place] [address] Hospital Medical Biller: Devendra Pro III, M.D. CLIA#: [id number] Performed By: #### O AK, CATDND, BRMUDA, ELM, SRAGWD, ATENS, K9DND, ENGPLT, DPTERN, JUNEGR, MISC, DFARN #### [place] [address] Dog Dander IgE <0.35 Normal <0.35 [facility] ([place]) Comment on above: Result Comment: Perf ormed By: [place] [address] Hospital Medical Biller: Devendra Pro III, M.D. CLIA#: [id number] Performed By: #### O AK, CATDND, BRMUDA, ELM, SRAGWD, ATENS, K9DND, ENGPLT, DPTERN, JUNEGR, MISC, DFARN #### [address] 03-13-2022 [place] Class Class 0 Normal Class 0 [facility] ([place]) Comment on above: Result Comment: Perf ormed By: [place] [address] Hospital Medical Biller: Devendra Pro III, M.D. CLIA#: [id number] Performed By: #### F T4, TSH #### [address] [address] [place] IgE <0.35 Normal <0.35 [facility] ([place]) Comment on above: Result Comment: Perf ormed By: [place] [address] Hospital Medical Biller: Devendra Pro III, M.D. CLIA#: [id number] Performed By: #### F T4, TSH #### [place] [address] Farheen 03-13-2022 Short Ragweed IgE <0.35 Normal <0.35 [facility] ([place]) Comment on above: Result Comment: Perf ormed By: [facility] [address] [place] [address] Hospital Medical Biller: Devendra Pro III, M.D. CLIA#: [id number] Performed By: #### F T4, TSH #### [address] [address] Short Ragweed-Class Class 0 Normal Class 0 [facility] ([place]) Comment on above: Result Comment: Perf ormed By: [facility] [address] [place] [address] Hospital Medical Biller: Devendra Pro III, M.D. CLIA#: [id number] Performed By: #### F T4, TSH #### [address] [address] XR UPPER GIon 03-11-2022 XR UPPER GI [...] 03/11/2022 4:53:26 PM Ordering Provider: CYRUS CLAUDIO [facility] ([place]) Absolute lymphocyte counton 01-13-2022 Lymphocytes Auto (Unsp spec) [#/Vol] 1.94 10*3/uL 0.83-4.51 [facility] Work Phone: [phone] Basophil percentageon 2021 Basophils/100 WBC (Bld) 0.9 % 0-1 [facility] Work Phone: Chloride [Moles/Vol] 99 mmol/L 98-107 [facility] Work Phone: Eosinophils/100 WBC (Bld) 4.5 % 0-5 [facility] Work Phone: [phone] Glucose [Mass/Vol] 111 mg/dL 74-106 [facility] Work Phone: Comment on above: Fasting Glucose resu lt from 100 to 125 mg/dL suggests IMPAIRED HOMEOSTASIS per A.D.A. criteria. Neutrophils (Bld) [#/Vol] 5.2 10*3/uL 2.0-7.7 [facility] Work Phone: Neutrophils/100 WBC (Bld) 64.2 % 47-70 [facility] Work Phone: [phone] Potassium [Moles/Vol] 3.8 mmol/L 3.5-5.1 [facility] Work Phone: Sodium [Moles/Vol] 137 mmol/L 136-145 [facility] Work Phone: [phone] WBC (Bld) [#/Vol] 8.2 10*3/uL 4.4-11.0 [facility] Work Phone: Blood erythrocytes count (nu mber/volume)on 01-13-2022 RBC (Bld) [#/Vol] 4.66 10*6/uL 4.2-5.4 [facility] Work Phone: Blood hemoglobin measurement (mass/volume)on 01-13-2022 Hemoglobin (Bld) [Mass/Vol] 13.7 g/dL 12.0-15.0 [facility] Work Phone: Blood lymphocytes/100 leukoc yteson 01-13-2022 Lymphocytes/100 WBC (Bld) 23.8 % 19-41 [facility] Work Phone: Blood monocytes/100 leukocyt eson 01-13-2022 Monocytes/100 WBC (Bld) 6.4 % 0-10 [facility] Work Phone: Blood platelet mean volumeon 01-13-2022 Platelet mean volume (Bld) [Entitic vol] 10.5 fL 6.2-12.0 [facility] Work Phone: Determination of erythrocyte mean corpuscular volume (MCV)on 01-13-2022 MCV (RBC) [Entitic vol] 91.6 fL 81-99 [facility] Work Phone: Hematocrit Auto (Bld) [Volum e fraction]on 01-13-2022 Hematocrit (Bld) [Volume fraction] 42.7 % 37-47 [facility] Work Phone: Laboratory - Chemistry and C hemistry - challengeon 01-13-2022 CO2 [Moles/Vol] 34.0 mmol/L 21.0-32.0 [facility] Work Phone: Magnesium [Mass/Vol] 2.2 mg/dL 1.6-2.6 [facility] Work Phone: Urea nitrogen/Creatinine [Mass ratio] 30.7 mg/mg 10-20 [facility] Work Phone: Laboratory - Hematology and Cell countson 01-13-2022 Erythrocyte distribution width (RBC) [Entitic vol] 41.5 fL 35.1-43.9 [facility] Work Phone: Erythrocyte distribution width (RBC) [Ratio] 12.4 % 11.6-14.6 [facility] Work Phone: Immature granulocytes/100 WBC (Bld) 0.200 % 0.0-0.9 [facility] Work Phone: Comment on above: IG% - Immature Granu locytes (promyelocytes, myelocytes and metamyelocytes) > 1% indicates that a LEFT SHIFT is Present. MCH (RBC) [Entitic mass] 29.4 pg 27.0-32.0 [facility] Work Phone: Nucleated RBC/100 WBC (Bld) [Ratio] 0 % 0-5 [facility] Work Phone: MCHC Auto (RBC) [Mass/Vol]on 01-13-2022 MCHC (RBC) [Mass/Vol] 32.1 g/dL 32-36 [facility] Work Phone: No Panel Informationon 01-13 Estimated GFR (MDRD) Amer 92 mL/min >60 [facility] Work Phone: Comment on above: GFR Calc Estimated GFR (MDRD) Non-Af Amer 76 mL/min >60 [facility] Work Phone: Comment on above: Non- GFR Calc Thyroid Stimulating Hormone (TSH) 5.30 uIU/mL 0.358-3.74 [facility] Work Phone: Platelets bldon 01-13-2022 Platelets (Bld) [#/Vol] 252 10*3/uL 150-450 [facility] Work Phone: Serum or plasma calcium power urement (mass/volume)on 01-13-2022 Calcium [Mass/Vol] 9.5 mg/dL 8.5-10.1 [facility] Work Phone: Serum or plasma creatinine m easurement (mass/volume)on 01-13-2022 Creatinine [Mass/Vol] 0.78 mg/dL 0.55-1.02 [facility] Work Phone: Comment on above: The validity of the calculated GFR & GFRAA in patients over 70 years has not been determined. Clinical correlation is essential. Serum or plasma urea nitroge n measurement (mass/volume)on 01-13-2022 Urea nitrogen [Mass/Vol] 24 mg/dL 7-18 [facility] Work Phone: Thin prep Papanicolaou smear with manual screeningon 01-13-2022 Thin prep Papanicolaou smear with manual screening 4 -15 [facility] Work Phone: Office Visiton 05-05-2017 Documentation of current medications (procedure) Done Invalid Interpretation Code [facility] Work Phone: [phone] Fall risk assessment No Invalid Interpretation Code [facility] Work Phone: [phone] Lab Report: Bilirubin, Direc ton 04-29-2017 Bilirubin (direct) 0.13 mg/dL Invalid Interpretation Code 0.00-0.30 [facility] Work Phone: [phone] Lab Report: CBC W/Diff, Auto matedon 04-29-2017 Absolute Neut 2.3 X10 3/UL Invalid Interpretation Code 2.0-7.7 [facility] Work Phone: [phone] Basophils/100 WBC (Bld) 1.9 % High 0-1 [facility] Work Phone: [phone] Basophils/100 WBC Auto (Bld) 1.9 % High 0-1 [facility] Work Phone: [phone] Eosinophils/100 leukocytes 6.3 % High 0-5 [facility] Work Phone: Eosinophils/100 WBC (Bld) 6.3 % High 0-5 [facility] Work Phone: [phone] Erythrocyte distribution width (RBC) [Ratio] 12.4 % Invalid Interpretation Code 11.6-14.6 [facility] Work Phone: [phone] Erythrocyte distribution width Auto Ratio (RBC) 12.4 % Invalid Interpretation Code 11.6-14.6 [facility] Work Phone: [phone] Erythrocytes (RBC) 4.15 10*6/uL Low 4.2-5.4 [facility] Work Phone: [phone] Hematocrit (Bld) [Volume fraction] 38.2 % Invalid Interpretation Code 37-47 [facility] Work Phone: [phone] Hematocrit (HCT) 38.2 % Invalid Interpretation Code 37-47 [facility] Work Phone: [phone] Hemoglobin mass conc (Bld) 12.4 g/dL Invalid Interpretation Code 12.0-15.0 [facility] Work Phone: [phone] Immature granulocytes/100 WBC (Bld) 0.000 % Invalid Interpretation Code 0.0-0.9 [facility] Work Phone: [phone] Lymphocytes 1.82 X10 3/UL Invalid Interpretation Code 0.83-4.51 [facility] Work Phone: [phone] Lymphocytes (Bld) [#/Vol] 1.82 X10 3/UL Invalid Interpretation Code 0.83-4.51 [facility] Work Phone: [phone] Lymphocytes/100 leukocytes 38.1 % Invalid Interpretation Code 19-41 [facility] Work Phone: [phone] Lymphocytes/100 WBC (Bld) 38.1 % Invalid Interpretation Code 19-41 [facility] Work Phone: [phone] MCH 29.9 pg Invalid Interpretation Code 27.0-32.0 [facility] Work Phone: [phone] MCH (RBC) [Entitic mass] 29.9 pg Invalid Interpretation Code 27.0-32.0 [facility] Work Phone: [phone] MCHC mass conc (RBC) 32.5 G/GL Invalid Interpretation Code 32-36 [facility] Work Phone: MCV 92.0 fL Invalid Interpretation Code 81-99 [facility] Work Phone: [phone] MCV (RBC) [Entitic vol] 92.0 fL Invalid Interpretation Code 81-99 [facility] Work Phone: [phone] mean corpuscular hemoglobin concentration, RBC 32.5 G/GL Invalid Interpretation Code 32-36 [facility] Work Phone: Monocytes/100 leukocytes 6.7 % Invalid Interpretation Code 0-10 [facility] Work Phone: Monocytes/100 WBC (Bld) 6.7 % Invalid Interpretation Code 0-10 [facility] Work Phone: neutrophil count, blood 2.3 X10 3/UL Invalid Interpretation Code 2.0-7.7 [facility] Work Phone: Neutrophils/100 WBC (Bld) 47.0 % Invalid Interpretation Code 47-70 [facility] Work Phone: Neutrophils/100 WBC Auto (Bld) 47.0 % Invalid Interpretation Code 47-70 [facility] Work Phone: [phone] Platelet mean volume (Bld) [Entitic vol] 10.9 fL Invalid Interpretation Code 6.2-12.0 [facility] Work Phone: Platelets 299 10*3/mm3 Invalid Interpretation Code 150-450 [facility] Work Phone: Platelets (Bld) [#/Vol] 299 10*3/uL Invalid Interpretation Code 150-450 [facility] Work Phone: [phone] PMV by Cece 10.9 fL Invalid Interpretation Code 6.2-12.0 [facility] Work Phone: [phone] RBC (Bld) [#/Vol] 4.15 10*6/uL Low 4.2-5.4 [facility] Work Phone: [phone] RDW SD 41.0 fL Invalid Interpretation Code 35.1-43.9 [facility] Work Phone: [phone] red blood cell distribution width, size density 41.0 fL Invalid Interpretation Code 35.1-43.9 [facility] Work Phone: WBC (Bld) [#/Vol] 4.8 10*3/uL Invalid Interpretation Code 4.4-11.0 [facility] Work Phone: WBC (Leukocytes) 4.8 10*3/uL Invalid Interpretation Code 4.4-11.0 [facility] Work Phone: Lab Report: [facility] 04-29-2017 Alanine aminotransferase (ALT) 21 U/L Invalid Interpretation Code 1278 [facility] Work Phone: Albumin 3.7 g/dL Invalid Interpretation Code 3.4-5.0 [facility] Work Phone: Albumin/Globulin [Mass ratio] [phone] {ratio} Invalid Interpretation Code 0.9-2.4 [facility] Work Phone: [phone] Albumin/Globulin Ratio 1 {ratio} Invalid Interpretation Code 0.9-2.4 [facility] Work Phone: [phone] Alkaline phosphatase (ALP) 66 U/L Invalid Interpretation Code 45-117 [facility] Work Phone: [phone] ALP (Bld) [Catalytic activity/Vol] 66 U/L Invalid Interpretation Code 45-117 [facility] Work Phone: [phone] Anion gap 7 mmol/L Invalid Interpretation Code 5-15 [facility] Work Phone: [phone] Anion gap [Moles/Vol] 7 mmol/L Invalid Interpretation Code 5-15 [facility] Work Phone: [phone] Aspartate aminotransferase (AST) 18 U/L Invalid Interpretation Code 15-37 [facility] Work Phone: [phone] Bilirubin (total) 0.60 mg/dL Invalid Interpretation Code 0.20-1.00 [facility] Work Phone: [phone] BUN/Creatinine Ratio 28.7 RATIO High 10-20 [facility] Work Phone: [phone] Calcium 9.1 mg/dL Invalid Interpretation Code 8.5-10.1 [facility] Work Phone: [phone] Chloride 101 mmol/L Invalid Interpretation Code 98-107 [facility] Work Phone: [phone] CO2 31.0 mmol/L Invalid Interpretation Code 21.0-32.0 [facility] Work Phone: [phone] CO2 (BldV) [Partial pressure] 31.0 mmol/L Invalid Interpretation Code 21.0-32.0 [facility] Work Phone: [phone] Creatinine 0.70 mg/dL Invalid Interpretation Code 0.55-1.02 [facility] Work Phone: [phone] eGFR (non-black) 106 mL/min/{1.73_m2} Invalid Interpretation Code >60 [facility] Work Phone: [phone] eGFR (non-black) 88 mL/min/{1.73_m2} Invalid Interpretation Code >60 [facility] Work Phone: [phone] Globulin 3.8 g/dL Invalid Interpretation Code 2.2-4.2 [facility] Work Phone: [phone] Globulin (S) [Mass/Vol] 3.8 g/dL Invalid Interpretation Code 2.2-4.2 [facility] Work Phone: [phone] Glomerular Filtration rate 106 mL/min Invalid Interpretation Code >60 [facility] Work Phone: [phone] Glucose mass conc 103 mg/dL Invalid Interpretation Code 70-110 [facility] Work Phone: [phone] Potassium molar conc 3.6 mmol/L Invalid Interpretation Code 3.5-5.1 [facility] Work Phone: [phone] Protein 7.5 g/dL Invalid Interpretation Code 6.4-8.2 [facility] Work Phone: [phone] Sodium 139 mmol/L Invalid Interpretation Code 136-145 [facility] Work Phone: [phone] Urea nitrogen 20 mg/dL High 7-18 [facility] Work Phone: [phone] Urea nitrogen/Creatinine [Mass ratio] 28.3931862 mg/mg High 10-20 [facility] Work Phone: [phone] Lab Report: Lipid Profileon 04-29-2017 Cholesterol 183 mg/dL Invalid Interpretation Code 200 [facility] Work Phone: [phone] HDL Cholesterol 49 mg/dL Invalid Interpretation Code [facility] Work Phone: [phone] LDL Cholesterol 93 mg/dL Invalid Interpretation Code 0-130 [facility] Work Phone: [phone] Triglyceride 206 mg/dL High [facility] Work Phone: [phone] low density lipoproteins 41 mg/dL High 5-40 [facility] Work Phone: [phone] Otheron 04-17-2017 CONVERTED CLINICAL HISTORY OPERATIVE PROCEDURE: Colonoscopy CLINICAL INFORMATION: Ischemic [facility] CONVERTED ELECTRONIC SIGNATURE DENIZ ART M.D. (Electronic signature on file) Final Signed Out: 04/17/2017 15:19 [facility] CONVERTED FINAL DIAGNOSIS FINAL DIAGNOSIS: A) LEFT COLON BIOPSY - FEATURES CONSISTENT WITH ISCHEMIC COLITIS WITH ULCERATION AND ACUTE INFLAMMATION. B) RECTAL BIOPSY - TUBULAR ADENOMA. [facility] CONVERTED GROSS DESCRIPTION GROSS DESCRIPTION: A) [...] submitted in cassette B. Levels x 3. BMP:[facility] CONVERTED ORDERING PROVIDER Ordering Provider: LUIS F DANIELLE [facility] Basic Panelon 04-16-2017 Creatinine 0.70 mg/dL Normal 0.51-0.95 [facility] Comment on above: Performed By: #### P HOS ####[facility] [place], [place] [address] Anion gap 7 mmol/L Low 8-16 [facility] Comment on above: Performed By: #### P HOS ####[address] [address] CO2 29 mmol/L Normal 21-32 [facility] Comment on above: Performed By: #### P HOS ####[address] [address] Glucose mass conc 90 mg/dL Normal 70-99 [facility] Comment on above: Performed By: #### P HOS ####[address] [address] Urea nitrogen 9 mg/dL Normal 7-18 [facility] Comment on above: Performed By: #### P HOS ####[address] [address] Calcium 8.5 mg/dL Normal 8.5-10.1 [facility] Comment on above: Performed By: #### P HOS ####[address] [address] Chloride 106 mmol/L Normal 98-107 [facility] Comment on above: Performed By: #### P HOS ####[address] [address] Potassium molar conc 4.3 mmol/L Normal 3.5-5.1 [facility] Comment on above: Performed By: #### P HOS ####[facility] [place] [address] Sodium 138 mmol/L Normal 136-145 [facility] Comment on above: Performed By: #### P HOS ####[place] [id number] CASE MANAGEMon 04-16-2017 CASE MANAGEM HNO ID: [id number] Author: Eleanor (Rn) AGUSTINA Gentile Service: Care Management Author Type: Registered Nurse Type: Care Mgt Progress Note Filed: 04/16/2017 11:45 AM Note Text: PATIENT TO DC HOME WITH NO NEEDS AT THIS TIME. Normal [facility] CNDSon 04-16-2017 CNDS HNO ID: [id number] thor: MAYRA Marshervice: [facility] MedicineAuthor Type: PhysicianType: Discharge SummariesFiled: 04/16/2017 12:19 PMNote Text:DISCHARGE SUMMARYPATIENT NAME: Baudilio TorresMRN: [id number] Information Admission Information ADMIT DATE: 04/10/2017DISCHARGE DATE: 04/16/2017MY DOCTORS AND MEDICAL TEAM:[facility] Doctor: Viry Marsh Care Provider: Jeff James MD (Inactive)My Medical Team Members: Treatment Team:Attending Provider: VINOD Marshonsulting: Baljeet VanLakesha CONDITION AT DISCHARGE: StableREASON I WAS IN [...] heart failure) (HCC) 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 angina pectoris Essential hypertensionOPERATIONS PERFORMED WHILE IN THE HOSPITAL: colonoscopyIMPORTANT TEST/PROCEDURES:Colonoscopy, CTA of abdomen Discharge Disposition Discharge Disposition: Home With Self CareActivity When You Leave the Hospital Resume pre-hospital activityDiet Instructions Resume your pre-hospital dietCall Your Doctor If For the following: Bloody bowel movementsFollow Up Appointments Follow-Up Appointment When: In: Comment - call for appointmentPatient/Parents to call for appointment?: Elizabeth [phone] [address] [facility] [place] [address]HL Requested Referral Follow-Up Appointment With: Primary Care, Dr. Partida: In 1 weekPatient/Parents to call for appointment?: YesFOLLOW-UP APPOINTMENTS ALREADY SCHEDULED WITH A [facility] PROVIDERNo future appointments.DISCHARGE MEDICATION: Current [...] will showSami MD Swetha12:19 PMNovember 2016 Normal [facility] Hemogramon 04-16-2017 Erythrocyte distribution width Auto Ratio (RBC) 12.0 % Normal 11.7-14.4 [facility] Comment on above: Performed By: #### P HOS ####[facility] [place] [address] Erythrocytes (RBC) 3.60 mil/cmm Low 3.93-5.22 [facility] Comment on above: Performed By: #### P HOS ####[place] [address] Hematocrit (HCT) 31.5 % Low 34.1-44.9 [facility] Comment on above: Performed By: #### P HOS ####[place] [address] Hemoglobin mass conc (Bld) 10.9 g/dL Low 11.2-15.7 [facility] Comment on above: Performed By: #### P HOS ####[place] [address] MCH 30.3 pg Normal 25.6-32.2 [facility] Comment on above: Performed By: #### P HOS ####[place] [address] MCHC mass conc (RBC) 34.6 % Normal 31.6-34.8 [facility] Comment on above: Performed By: #### P HOS ####[place] [address] MCV 87.5 fL Normal 79.4-94.8 [facility] Comment on above: Performed By: #### P HOS ####[place] [address] Platelet mean volume (PMV) 9.6 fL Normal 9.4-12.3 [facility] Comment on above: Performed By: #### P HOS ####[place] [address] Platelets 206 thou/cmm Normal 182-369 [facility] Comment on above: Performed By: #### P HOS ####[place] [address] RDW SD 38.8 fl Normal 36.4-46.3 [facility] Comment on above: Performed By: #### P HOS ####[facility] [place], [place] [address] WBC (Leukocytes) 7.54 thou/cmm Normal 3.98-10.04 [facility] Comment on above: Performed By: #### P HOS ####[facility] [place], [place] [address] MDRD GFRon 04-16-2017 eGFR (non-black) mL/min/{1.73_m2} Normal >60mL/m in/ 1.73m2 [facility] Comment on above: Result Comment: If t he patient is , multiply the result by 1.210. Performed By: #### P HOS ####[address] [address] PROGRESSon 04-16-2017 PROGRESS HNO ID: [id number] thor: Joleen ([facility]) [place]: [facility] MedicineAuthor Type: Nurse PractitionerType: Progress NotesFiled: [...] with PCP and Hernando Posada MD10:29 AMDate [facility] NOTESERVICE DATE: 04/16/2017SERVICE TIME: 8:10 AMNIGHT AND WEEKEND COVERAGE:After 7pm please page [phone] COMPLAINT: F/U for GIBSUBJECTIVE: Patient had one liquid BM today, no bleeding. Hgb is stable. She denies abdominal pain or nausea. No CP or dyspnea.OBJECTIVE:PHYSICAL EXAM: BP 148/80 Pulse 67 Temp (Src) 98.2 (Oral) Resp 18 Ht 5' 1.2" (1.55m) Wt 156 lb 15.5 oz (71.2kg) [...] in the last 24 hours.Renal Panel:Recent Labs 064981GLGSC 0.70BUN 9GLUC 90CA 8.5CHLOR 106K 4.3CO2 29NA [...] 2017 : 8:10 AM PAGER/CONTACT #: [phone] [facility] PT EDon 04-16-2017 PT ED HNO ID: [id number] thor: Lucian Stallworth (Pharmacist)Service: PharmacyAuthor Type: PharmacistType: Patient EducationFiled: 04/16/2017 11:56 AMNote Text:DISCHARGE MEDICATION REVIEW AND COUNSELING BY PHARMACYPatient Name: Baudilio Torres Account #: Data UnavailableMRN: [id number] Admission Date: 04/10/2017Date of Contact: April 16, [...] physical restrictions and recommendations after discharge from thespital.Accurate knowledge of prescribed medication prior to discharge.The correct action to take if medication dose is missed.The side effects associated with the medication that warrant a call to thephysician.Post discharge follow up instructionFluid restrictionsDiet / weight monitoringADRIEN NavasApril 16, 2017 11:55 AMMedication ListSTART taking these medications aspirin, [...] mg tablet- lisinopril 40 mg tablet Normal [facility] ANES Oc 04-15-2017 ANES POST HNO ID: [id number] thor: Cameron HanSerbrendae: AnesthesiologyAuthor Type: PhysicianType: Anesthesia PostOpFiled: 04/15/2017 3:07 PMNote Text:POST ANESTHESIA EVALUATION NOTESERVICE DATE: 04/15/2017SERVICE TIME: 3:07 PMDOB: 1945Vitals: 5304/14/1718Temp: 36.6 ?C (97.9 ?F) 36.5 ?C (97.7 ?F) 36.6 ?C (97.9 ?F) 36.6 ?C (97.9?F) 04/15/1712BP: 172/71 178/88 (!) 99/38 135/53 11/0104/15/1712Pulse: 65 63 (!) 58 (!) 59 04/15/1712Resp: [...] 15, 2017 : 3:07 PM PAGER/CONTACT #: [phone] [facility] ANES PREOPon 04-15-2017 ANES PREOP HNO ID: [id number] thor: Marco Ruizervice: AnesthesiologyAuthor Type: PhysicianType: Anesthesia PreOpFiled: 04/15/2017 12:38 PMNote Text: ANESTHESIOLOGY DAY OF SURGERY NOTESERVICE DATE: 04/15/2017SERVICE TIME:12:23 PMDOB: 1945Procedure(s) (LRB):COLONOSCOPY (Left)Surgeon(s):Luis F LangherEstimated body mass index is 27.78 kg/(m2) as calculated from thefollowing: Height as of this encounter: 155.4 cm (5' 1.2"). Weight as of this encounter: 67.1 kg (148 lb).Most recent hematocrit and potassium results:Hematocrit 34.5 04/15/2017Potassium 3.1 04/15/2017ANES DOS/PREOP NOTE:Vitals: 04/15/1711BP: 166/73 155/68 172/71 178/88Pulse: 62 63 65 63Resp: 18 20 16 16Temp: 36.6 ?C (97.9 ?F) 36.6 ?C (97.9 ?F)TempSrc: Oral OralSpO2: 98% 97% 98% 97%Weight: 67.1 kg (148 lb)Height: 155.4 cm (5' 1.2")ACTIVE PROBLEM LISTInfectious ColitisLower GI BleedAcute Diastolic Chf (Congestive Heart Failure) ([facility])Coronary Artery Disease Involving [place] Coronary Artery of [place] HeartWithout Angina PectorisEssential HypertensionRectal BleedingPAST MEDICAL HISTORYDiagnosis [...] tab(s) (K-DUR, KLOR-CON) 40 mEq ORAL BID SamiAbunoyastephanie, MDacetaminophen 650 mg tab(s) (TYLENOL) 650 mg ORAL q 6 H PRN Richie JWheeler 650 mg at 04/14/17 2357furosemide 20 mg injection (LASIX) 20 mg INTRAVENOUS DAILY Swetha Ogsodu65 mg at 04/14/[address] 20 mg tab(s) (PROTONIX) 20 mg ORAL DAILY (6 AM) NataliaTetyuk 20 mg at 04/14/17 0600melatonin 3 mg tab(s) 3 mg ORAL AT BEDTIME Swetha Tetyuk 3 mg at 987406mrcakhbovgp-bdvkpo rol 3 mL nebulizer solution (DUONEB) 3 mL INHALATION q 4H PRN Swetha Tetyuk 3 mL at 04/12/17 2315oxyCODONE-acetaminophen 5-325 mg 0.5 tablet (PERCOCET) 0.5 tablet ORAL q 4H PRN Tone Mapara 0.5 tablet at 04/12/17 0314ciprofloxacin 400 mg in D5W 200 mL (CIPRO) 400 mg INTRAVENOUS q 12 HSulaiman Mapara 400 mg at 04/14/172114metroNIDAZOLE 500 mg PREMIX piggyback (FLAGYL) 500 mg INTRAVENOUS q 8 HSulaiman Mapara 500 mg at 04/15/178lisinopril 40 mg tab(s) (ZESTRIL, PRINIVIL) 40 mg ORAL DAILY SulaimanMapara 40 mg at 04/14/17 0856aspirin 81 mg chewable tab(s) 81 mg ORAL DAILY Tone Mapara 81 mg at1 0853atenolol 50 mg tab(s) (TENORMIN) 50 mg ORAL DAILY Tone Mapara 50 mg at1 0854ondansetron (PF) 4 mg injection (ZOFRAN) 4 mg INTRAVENOUS q 4 H PRNSulaiman Mapara 4 mg at 04/12/174atorvastatin 10 mg tab(s) (LIPITOR) 10 mg ORAL AT BEDTIME Tone Xxrpce22 mg at 04/14/17 2007Allergies:ALLERGIESAllerge n Reactions- Hydrocodone-Acetami* [...] April 15, 2017 : 12:12 PM CSN: [id number] [facility] BRIEF OP NOTon 04-15-2017 BRIEF OP NOT HNO ID: [id number] thor: Luis F DanielleService: GastroenterologyAuthor Type: PhysicianType: Brief Op NoteFiled: 04/15/2017 2:45 PMNote Text:BRIEF OPERATIVE / PROCEDURE NOTELOG ID: [id number]/PROCEDURE DATE: 04/15/2017INCISION/PROCEDURE START TIME: 2:11 PMINCISION CLOSE/PROCEDURE END TIME: 2:35 PMSURGEON(S)/PROCEDURALIST(S) AND DREDGE ENGINEER(S):Surgeon(s) and Role: * Luis F Danielle - Morgan Additional StaffPROCEDURE(S): ColonoscopyANESTHESIA: Monitored Anesthesia CareFINDINGS: 1. Suspect Ischemic colitis Desc. Colon and sigmoid colon 2.Rectal polypESTIMATED BLOOD LOSS: NoneSPECIMENS: 1. L colon bx's 2. Rectal polypCOMPLICATIONS: NonePRE-OP/PRE-PROCEDURE DIAGNOSIS: 1. Rectal bleeding 2. Abd pain 3.diarrheaPOST-OP/POST-PROCEDU RE DIAGNOSIS: As aboveSIGNATURE: Luis F Danielle MD PATIENT NAME: Baudilio TorresDATE: April 15, 2017 : 2:42 PM PAGER/CONTACT #: Normal [facility] Basic Panelon 04-15-2017 Creatinine 0.74 mg/dL Normal 0.51-0.95 [facility] Comment on above: Performed By: #### P HOS ####[place] [address] Anion gap 9 mmol/L Normal 8-16 [facility] Comment on above: Performed By: #### P HOS ####[place] [address] CO2 31 mmol/L Normal 21-32 [facility] Comment on above: Performed By: #### P HOS ####[facility] [place], [place] [address] Glucose mass conc 96 mg/dL Normal 70-99 [facility] Comment on above: Performed By: #### P HOS ####[facility] [place] [address] Urea nitrogen 10 mg/dL Normal 7-18 [facility] Comment on above: Performed By: #### P HOS ####[facility] [place] [address] Calcium 8.7 mg/dL Normal 8.5-10.1 [facility] Comment on above: Performed By: #### P HOS ####[facility] [place] [address] Chloride 101 mmol/L Normal 98-107 [facility] Comment on above: Performed By: #### P HOS ####[place] [address] Potassium molar conc 3.1 mmol/L Low 3.5-5.1 [facility] Comment on above: Performed By: #### P HOS ####[place] [address] Sodium 138 mmol/L Normal 136-145 [facility] Comment on above: Performed By: #### P HOS ####[place] [address] CASE MANAGEMon 04-15-2017 CASE MANAGEM HNO ID: [id number] thor: Eleanor (Rn) Seferino RNService: Care ManagementAuthor Type: Registered NurseType: Care Mgt Progress NoteFiled: 04/15/2017 9:52 AMNote Text:CHART REVIEWED. DC PLAN WILL BE HOME ONCE MEDICALLY STABLE. WILL FOLLOWFOR ANY NEEDS. Normal [facility] CTA ABD/PEL W IV CONon 04-15 CTA ABD/PEL W IV CON Performed at [facility] APPROVED BY: Baljinder Vogt MD EXAMINATION: CT [...] including infectious, inflammatory or ischemic colitis. Normal [facility] Hemogram/Diffon 04-15-2017 Basophils Auto #/vol (Bld) 0.07 thou/cmm Normal 0.01-0.08 [facility] Comment on above: Performed By: #### M AG ####[address] [address] Basophils/100 WBC Auto (Bld) 0.7 % Normal [facility] Comment on above: Performed By: #### M AG ####[address] [address] Eosinophils 0.47 thou/cmm High 0.00-0.31 [facility] Comment on above: Performed By: #### M AG ####[address] [address] Eosinophils/100 leukocytes 4.8 % Normal [facility] Comment on above: Performed By: #### M AG ####[address] [address] Erythrocyte distribution width Auto Ratio (RBC) 11.9 % Normal 11.7-14.4 [facility] Comment on above: Performed By: #### M AG ####[address] [address] Erythrocytes (RBC) 3.90 mil/cmm Low 3.93-5.22 [facility] Comment on above: Performed By: #### M AG ####[address] [address] Hematocrit (HCT) 34.5 % Normal 34.1-44.9 [facility] Comment on above: Performed By: #### M AG ####[address] [address] Hemoglobin mass conc (Bld) 11.8 g/dL Normal 11.2-15.7 [facility] Comment on above: Performed By: #### M AG ####[address] [address] Immature Grans 0.90 % Normal [facility] Comment on above: Performed By: #### M AG ####[facility] [place] [address] Immature Grans # 0.09 thou/cmm High 0.00-0.05 [facility] Comment on above: Performed By: #### M AG ####[address] [address] Lymphocytes 1.79 thou/cmm Normal 1.18-3.74 [facility] Comment on above: Performed By: #### M AG ####[place] [address] Lymphocytes/100 leukocytes 18.1 % Normal [facility] Comment on above: Performed By: #### M AG ####[place] [address] MCH 30.3 pg Normal 25.6-32.2 [facility] Comment on above: Performed By: #### M AG ####[place] [address] MCHC mass conc (RBC) 34.2 % Normal 31.6-34.8 [facility] Comment on above: Performed By: #### M AG ####[place] [address] MCV 88.5 fL Normal 79.4-94.8 [facility] Comment on above: Performed By: #### M AG ####[place] [address] Monocytes 0.68 thou/cmm Normal 0.27-0.70 [facility] Comment on above: Performed By: #### M AG ####[place] [address] Monocytes/100 leukocytes 6.9 % Normal [facility] Comment on above: Performed By: #### M AG ####[place] [address] Platelet mean volume (PMV) 9.9 fL Normal 9.4-12.3 [facility] Comment on above: Performed By: #### M AG ####[place] [address] Platelets 211 thou/cmm Normal 182-369 [facility] Comment on above: Performed By: #### M AG ####[facility] [place] [address] RDW SD 38.4 fl Normal 36.4-46.3 [facility] Comment on above: Performed By: #### M AG ####[facility] [place], [place] [address] Seg Neutrophil 68.6 % Normal [facility] Comment on above: Performed By: #### M AG ####[place] [address] Seg. Neut.# 6.78 thou/cmm High 1.56-6.13 [facility] Comment on above: Performed By: #### M AG ####[place] [address] WBC (Leukocytes) 9.88 thou/cmm Normal 3.98-10.04 [facility] Comment on above: Performed By: #### M AG ####[place] [id number] MDRD GFRon 04-15-2017 eGFR (non-black) mL/min/{1.73_m2} Normal >60mL/m in/ 1.73m2 [facility] Comment on above: Result Comment: If t he patient is , multiply the result by 1.210. Performed By: #### P HOS ####[place] [address] OPERATIVE NOon 04-15-2017 OPERATIVE NO HNO ID: [id number] thor: Luis F DanielleService: GastroenterologyAuthor Type: PhysicianType: Operative ReportFiled: 04/24/2017 3:32 PMNote Text:[facility] - Operative ReportSURGEON: Luis F Danielle, MDPATIENT NAME: BAUDILIO TORRES GMRN: [id number] CSN: [id number] OF SURGERY: 04/15/2017DATE OF : 1945 SEX/AGE: F/71PATIENT TYPE: I HOSP SVC: INTM LOCATION: [id number] OF SURGERY: 04/15/2017SURGEON: Luis F Danielle, MDPROCEDURE PERFORMED: Colonoscopy with biopsies.PREPROCEDURE DIAGNOSES:1. Rectal bleeding.2. [...] This wassuspicious for ischemic colitis, which was gbyo-ih-kvybefqa in degree.There was a diminutive rectal polyp removed with cold forceps. Therewere a few diverticula seen in the sigmoid colon. Retroflexed view ofthe distal rectum wasunremarkable. The endoscope was then completely withdrawn. The patientwas transferred to the recovery room in stable condition.RECOMMENDATIONS:1. Follow up biopsies.2. Advance diet.3. Okay to resume baby aspirin at discharge, would hold Plavix for anotherweek after discharge and then resume.Dayna CharlesstroenterologyJRN:modlD: 04/15/2017 14:49:48T: 04/15/2017 23:59:29Job #: [id number] [facility] PROGRESSon 04-15-2017 PROGRESS HNO ID: [id number] thor: MAYRA Marshervice: Hospital MedicineAuthor Type: PhysicianType: Progress NotesFiled: 04/15/2017 3:58 PMNote Text: Hospital Medicine Progress NotePatient Name: Baudilio TorresMRN: [id number] Date: 04/10/2017Reason For Admission:GIB, abdominal pain, vomiting [...] - Yes PPI - YesCode Status: fullDisposition: Arnol Posada MD Interval History:S/P colonoscopy showing evidence of [...] ?F) (Oral) Resp 16 Ht 155.4cm (5' 1.2") Wt 67.1 kg (148 lb) SpO2 100% BMI 27.78 kg/c4TFUEBXKJ EXAMINATION:General appearance: Well appearing, alert, in no [...] 8.0* 8.1*MG -- -- -- 2.1HEPATIC:Recent Labs 04/13/1702ALKPHOS -- -- 68ALT -- -- 24AST -- -- 28TBILI -- -- 0.6LIPASE 321 489* 3709*URINALYSIS:No results for input(s): PH, SPGR, UGLUC, UBILI, UKET, UHB,UPROT, UROBIL, UWBC, SSA in the last 168 hours.Invalid input(s): NITRCARDIAC:Recent Labs PBNP 4255Sami MD Swetha3:53 PMNovember 2016 [facility] PT EDon 04-15-2017 PT ED HNO ID: [id number] thor: Chloé (Rn) Viet, MADYervice: (none)Author Type: Registered NurseType: Patient EducationFiled: 04/15/2017 3:02 PMNote Text:PATIENT EDUCATION TOPIC: PROCEDURE / SURGERY: Post Procedure Teaching:PATIENT NAME: Baudilio TorresMRN: [id number] [facility] TO LEARNCOGNITIVE ABILITY: Alert and orientedMOTIVATION TO LEARN: InterestedFAMILY SUPPORT: High - Very involved in pt careINSTRUCTION PROVIDED TO: Patient and family memberPATIENT LEARNS BEST BY: Individual InstructionFACTORS AFFECTING LEARNING: NonePHYSICAL LIMITATIONS AFFECTING LEARNING: NoneLEARNING RESPONSEDIAGNOSIS: ADULT:PATIENT/FAMILY RESPONSE: Verbalizes understanding of: BEKW-WFMZHTQJQIIZQVJNINTWO-Wth rect actions to take to reduce post procedurecomplicationsMETHOD OF INSTRUCTION: Individual instructionFOLLOW-UP PLAN: Patient instructed to call with any further issuesINSTRUCTIONAL AIDS USED: NASUPPLEMENTAL MATERIAL PROVIDED TO PATIENT: NoneREFERRAL (RECOMMENDATION): NoneElectronically Signed By: Chloé Llanos RN [facility] PT ED HNO ID: [id number] thor: Court JoeRn) MADY Silvermanervice: NursingAuthor Type: Registered NurseType: Patient EducationFiled: 04/15/2017 12:04 PMNote Text:ONGOING PATIENT EDUCATION TOPIC Reinforced: rectal bleedingPatient Name: Baudilio TorresMRN: [id number] Location: [place] [address]/[place] [address]*Readi ness To LearnMotivation To Learn: InterestedInstruction Provided To: PatientLearning ResponsePatient/Family Response: Verbalizes understanding of: UEP-CHMMKNQXEQQLMIHNHTTZD-Xnvc ect action to take to follow pre-operative instructionsMethod of Instruction: Individual instructionFollow-Up Plan: Patient instructed to call with any further issuesElectronically signed by: Court Silverman RN Normal [facility] Surgical Tissue Examon 04-15 Surgical Tissue Exam Test performed at [place] [address]NAME: BAUDILIO TORRES [id number] REQUESTING: LUIS F DANIELLE M.D.FINAL DIAGNOSIS:A) LEFT [...] 15:19PRINTED: 04/17/2017 Page 1 of 1 Normal [facility] Comment on above: Performed By: #### P HOS ####[place] [address] Basic Panelon 04-14-2017 Creatinine 0.68 mg/dL Normal 0.51-0.95 [facility] Comment on above: Performed By: #### M AG ####[facility] [place], [place] [address] Glucose mass conc 99 mg/dL Normal 70-99 [facility] Comment on above: Performed By: #### M AG ####[facility] [place], [place] [address] Urea nitrogen 9 mg/dL Normal 7-18 [facility] Comment on above: Performed By: #### M AG ####[facility] [place], [place] [address] Anion gap 11 mmol/L Normal 8-16 [facility] Comment on above: Performed By: #### M AG ####[address] [address] Calcium 8.3 mg/dL Low 8.5-10.1 [facility] Comment on above: Performed By: #### M AG ####[address] [address] CO2 28 mmol/L Normal 21-32 [facility] Comment on above: Performed By: #### M AG ####[address] [address] Chloride 104 mmol/L Normal 98-107 [facility] Comment on above: Performed By: #### M AG ####[address] [address] Potassium molar conc 3.4 mmol/L Low 3.5-5.1 [facility] Comment on above: Performed By: #### M AG ####[address] [address] Sodium 140 mmol/L Normal 136-145 [facility] Comment on above: Performed By: #### M AG ####[address] [address] Hgbon 04-14-2017 Hemoglobin mass conc (Bld) 11.8 g/dL Normal 11.2-15.7 [facility] Comment on above: Performed By: #### M AG ####[address] [address] Hemoglobin mass conc (Bld) 11.3 g/dL Normal 11.2-15.7 [facility] Comment on above: Performed By: #### M AG ####[facility] [place], [place] [address] Lipase Bloodon 04-14-2017 Lipase Blood 321 U/L Normal 73-393 [facility] Comment on above: Performed By: #### M AG ####[facility] [place], [place] [address] MDRD GFRon 04-14-2017 eGFR (non-black) mL/min/{1.73_m2} Normal >60mL/m in/ 1.73m2 [facility] Comment on above: Result Comment: If t he patient is , multiply the result by 1.210. Performed By: #### M AG ####[facility] [place], [place] [address] PROGRESSon 04-14-2017 PROGRESS HNO ID: [id number] thor: Richie Tomlinervice: [facility] MedicineAuthor Type: PhysicianType: Progress NotesFiled: 04/14/2017 5:24 PMNote Text:[facility] MEDICINEPROGRESS NOTESERVICE DATE: 04/14/2017SERVICE TIME: 3:02 PMHospital Medicine/Primary Attending: Richie Aponte MDNIGHT AND WEEKEND COVERAGE:After 7pm please page [phone]: F/u GI Bleed. No Bleed, CP, SOB, NVD.OBJECTIVE:PHYSICAL EXAM: BP 140/59 Pulse 66 Temp (Src) 98.2 (Oral) Resp 18 Ht 1' 11.661" (0.60m) Wt 156 lb 1.4 oz (70.8kg) [...] with: PatientSIGNATURE: Richie Aponte MD PATIENT NAME: Baudiilo TorresDATE: April 14, 2017 : 3:02 PM PAGER/CONTACT #: My Pager Normal [facility] PROGRESS HNO ID: [id number] thor: Isabel Rhoades) KODAK FriedService: GastroenterologyAuthor Type: Nurse PractitionerType: Progress NotesFiled: [...] BP Temp Temp src Pulse Resp SpO2 Suqdcp46/31/17 0700 140/59 36.8 ?C (98.2 ?F) Oral [...] April 14, 2017 : 10:41 AM PAGER: [facility] CASE MANAGEMon 04-13-2017 CASE MANAGEM HNO ID: [id number] Author: Eleanor JoeRn) AGUSTINA Gentile Service: Care Management Author Type: Registered Nurse Type: Care Mgt Progress Note Filed: 04/13/2017 2:53 PM Note Text: PATIENT ALERT AND 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 Normal [facility] CHEST SINGLE VIEWon 04-13-20 17 CHEST SINGLE VIEW Performed at [facility] APPROVED BY: TRISTON FLORES MD CHEST RADIOGRAPH: [...] most likely due to pulmonary edema. Normal [facility] CONSULT PROGon 04-13-2017 CONSULT PROG HNO ID: [id number] thor: Luis F DanielleSerbrendae: GastroenterologyAuthor Type: PhysicianType: Consult Progress NoteFiled: 04/13/2017 [...] ?F) (Oral) Resp 18 Ht60.1 cm (1' 11.66") Wt 63.5 kg (140 lb) SpO2 96% BMI 175.82 kg/u5EULAYZK:DATA:Diagnostic tests reviewed for today's visit:Most recent labs and imaging results.IMPRESSION/RECOMMENDAT IONS1) BPR and abd pian , diarrhea. Diff dx includes ischemic colitis, IBD,infectious colitis.2. Inc lipase and CBD dilation, MRCP pend.Rec: 1. colonoscopy prep tomorrow for . 2. F/up MRCPwill continue to f/u the patientSIGNATURE: Luis F Danielle MD PATIENT NAME: Baudilio TorresDATE: April 13, 2017 : 4:46 PM PAGER/CONTACT #: Normal [facility] Hemogram/Diffon 04-13-2017 Basophils Auto #/vol (Bld) 0.03 thou/cmm Normal 0.01-0.08 [facility] Comment on above: Result Comment: Smea r scanned; tech agrees with automated differential Performed By: #### P 14 ####[address] [address] Basophils/100 WBC Auto (Bld) 0.2 % Normal [facility] Comment on above: Performed By: #### P 14 ####[address] [address] Eosinophils 0.02 thou/cmm Normal 0.00-0.31 [facility] Comment on above: Performed By: #### P 14 ####[address] [address] Eosinophils/100 leukocytes 0.1 % Normal [facility] Comment on above: Performed By: #### P 14 ####[address] [place] [address] Immature Grans 1.40 % Normal [facility] Comment on above: Performed By: #### P 14 ####[facility] [place] [address] Immature Grans # 0.21 thou/cmm High 0.00-0.05 [facility] Comment on above: Performed By: #### P 14 ####[facility] [place] [address] Lymphocytes 0.93 thou/cmm Low 1.18-3.74 [facility] Comment on above: Performed By: #### P 14 ####[place] [address] Lymphocytes/100 leukocytes 6.1 % Normal [facility] Comment on above: Performed By: #### P 14 ####[place] [address] Monocytes 0.83 thou/cmm High 0.27-0.70 [facility] Comment on above: Performed By: #### P 14 ####[place] [address] Monocytes/100 leukocytes 5.4 % Normal [facility] Comment on above: Performed By: #### P 14 ####[place] [address] Seg Neutrophil 86.8 % Normal [facility] Comment on above: Performed By: #### P 14 ####[place] [address] Seg. Neut.# 13.26 thou/cmm High 1.56-6.13 [facility] Comment on above: Performed By: #### P 14 ####[place] [address] Hgbon 04-13-2017 Hemoglobin mass conc (Bld) 12.3 g/dL Normal 11.2-15.7 [facility] Comment on above: Performed By: #### M AG ####[place] [address] Hemoglobin mass conc (Bld) 11.6 g/dL Normal 11.2-15.7 [facility] Comment on above: Performed By: #### P 14 ####[facility] [place], [place] [address] Lipase Bloodon 04-13-2017 Lipase Blood 489 U/L High 73-393 [facility] Comment on above: Performed By: #### M AG ####[facility] [place], [place] [address] MRI MRCP PANC/BILIARY W/O IV CONTRASTon 04-13-2017 MRI MRCP PANC/BILIARY W/O IV CONTRAST Performed at [facility] APPROVED BY: Baljinder Vogt MD TITLE: MRI [...] of free fluid in the pelvis. Normal [facility] N-terminal Pro-BNPon 017 BNP 4255 pg/mL Normal [facility] Comment on above: Result Comment: Acut e CHF Rule-in <50 yrs old >= 450 pg/ml >50 yrs old >= 900 pg/ml Abnormal Pro-BNP All patients >=300 pg/ml Performed By: #### P 14 ####[place] [address] PROGRESSon 04-13-2017 PROGRESS HNO ID: [id number] thor: Isabel Amador (Sample Book Maker) KODAK FriedService: GastroenterologyAuthor Type: Nurse PractitionerType: Progress NotesFiled: 04/13/2017 2:53 PMNote Text:CONSULT PROGRESS NOTESERVICE DATE: 04/13/2017SERVICE TIME: 2:42 PMCONSULTING SERVICE: GASTROENTEROLOGYSUBJECTIVEINTE RVAL HPI: Patient still have LUQ abdominal pain described as "musclespasm". Last blood diarrhea was yesterday, just diarrhea [...] hrs: BP Temp Temp src Pulse Resp [id number]/13/17 0700 153/66 37 ?C (98.6 ?F) Oral [...] Plan: Possible colonoscopy tomorrow will discuss withDr. Danielle2). Lower GI bleed likely secondary to #1-resolving Assessment AND Plan: Monitor H/H3). Dilated CBD-Lipase trending down but still elevated Assessment AND Plan: Going for MRCP todaySIGNATURE: Isabel Fried CNP PATIENT NAME: Baudilio TorresDATE: April 13, 2017 : 2:42 PM PAGER: Normal [facility] PROGRESS HNO ID: [id number] thor: Richie Tomlinervice: [facility] MedicineAuthor Type: PhysicianType: Progress NotesFiled: 04/13/2017 10:38 AMNote Text:[facility] MEDICINEPROGRESS NOTESERVICE DATE: 04/13/2017SERVICE TIME: 10:36 AMHospital Medicine/Primary Attending: Richie Aponte MDNIGHT AND WEEKEND COVERAGE:After 7pm please page [phone]: F/u colitis. Had SOB last night from pulm edema. Resolvedwith lasix. No CP, SOB, V/D or bleed now. Some nausea.OBJECTIVE:PHYSICAL EXAM: BP 153/66 Pulse 73 Temp (Src) 98.6 (Oral) Resp 18 Ht 1' 11.661" (0.60m) Wt 140 lb (63.5kg) SpO2 98% [...] BEDTIMEDATA:Diagnostic tests reviewed for today's visit:CBC:Recent Labs 235 130WBC -- 15.28*RBC -- 3.72*HB 11.6 11.2HCT -- [...] with no SOB 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 angina pectoris POA: Yes Assessment AND Plan: med manage Essential hypertension POA: Yes Assessment AND Plan: Stable. MonitorVTE Prophylaxis: Pneumatic Compression DeviceDisposition: HomePlan of care discussed with: PatientSIGNATURE: Richie Aponte MD PATIENT NAME: Baudilio TorresDATE: April 13, 2017 : 10:36 AM PAGER/CONTACT #: My Pager Normal [facility] PROGRESS HNO ID: [id number] thor: Swetha Huerta: [facility] MedicineAuthor Type: PhysicianType: Progress NotesFiled: 04/13/2017 1:27 AMNote Text:I was called by RN earlier regarding increasing sob in patient with CHF.Chest xray showed pulmonary edema, 40 mg of Lasix IV given, IVFdiscontinued.I examined patient, she still has b/l crackles, will check BNP, dailyweights, continue IV Lasix. Patient is feeling much better after Lasix. [facility] PROGRESS HNO ID: [id number] thor: Chantel (Rn) MADY Gibbonservice: NursingAuthor Type: Registered NurseType: Progress NotesFiled: 04/12/2017 11:12 PMNote Text:Spoke with Dr. Beaver. Pt has increasing SOB and labored breathing. Ptvery anxious and concerned because she has a history of CHF. Ordersreceived for chest xray stat and duo nebs. Also IVF stopped. Wet read willbe called to . [facility] PROGRESS HNO ID: [id number] thor: Chantel (Rn) MADY Gibbonservice: NursingAuthor Type: Registered NurseType: Progress NotesFiled: 04/12/2017 10:17 PMNote Text:Dr. Beaver notified that pt was put on 2Li, and was previously on RA. Ptwas sating 91% on RA and requesting oxygen. No new orders at this time. Noother complaints from patient at this time. Normal [facility] Basic Panelon 04-12-2017 Creatinine 0.77 mg/dL Normal 0.51-0.95 [facility] Comment on above: Performed By: #### P 14 ####[place] [address] Anion gap 8 mmol/L Normal 8-16 [facility] Comment on above: Performed By: #### P 14 ####[place] [address] CO2 28 mmol/L Normal 21-32 [facility] Comment on above: Performed By: #### P 14 ####[place] [address] Glucose mass conc 108 mg/dL High 70-99 [facility] Comment on above: Performed By: #### P 14 ####[address] [place] [address] Urea nitrogen 17 mg/dL Normal 7-18 [facility] Comment on above: Performed By: #### P 14 ####[facility] [place], [place] [address] Calcium 8.0 mg/dL Low 8.5-10.1 [facility] Comment on above: Performed By: #### P 14 ####[facility] [place], [place] [address] Chloride 109 mmol/L High 98-107 [facility] Comment on above: Performed By: #### P 14 ####[facility] [place], [place] [address] Potassium molar conc 3.3 mmol/L Low 3.5-5.1 [facility] Comment on above: Performed By: #### P 14 ####[place] [address] Sodium 142 mmol/L Normal 136-145 [facility] Comment on above: Performed By: #### P 14 ####[place] [address] CONSULT PROGon 04-12-2017 CONSULT PROG HNO ID: [id number] thor: Cyrus HoweinoService: GastroenterologyAuthor Type: PhysicianType: Consult Progress NoteFiled: 04/12/2017 [...] (98.2 ?F) Resp 18 Ht 60.1cm (1' 11.66") Wt 63.5 kg (140 lb) SpO2 100% BMI 175.82 kg/x1JJTAXVZ: soft, ND, mild diffuse tenderness, + BSDATA:Diagnostic [...] 12, 2017 : 11:19 AM PAGER/CONTACT #: [phone] Normal [facility] Hemogram/Diffon 04-12-2017 Erythrocyte distribution width Auto Ratio (RBC) 12.5 % Normal 11.7-14.4 [facility] Comment on above: Performed By: #### P 14 ####[place] [address] Erythrocytes (RBC) 3.72 mil/cmm Low 3.93-5.22 [facility] Comment on above: Performed By: #### P 14 ####[place] [address] Hematocrit (HCT) 34.1 % Normal 34.1-44.9 [facility] Comment on above: Performed By: #### P 14 ####[place] [address] Hemoglobin mass conc (Bld) 11.2 g/dL Normal 11.2-15.7 [facility] Comment on above: Performed By: #### P 14 ####[place] [address] MCH 30.1 pg Normal 25.6-32.2 [facility] Comment on above: Performed By: #### P 14 ####[place] [address] MCHC mass conc (RBC) 32.8 % Normal 31.6-34.8 [facility] Comment on above: Performed By: #### P 14 ####[facility] [place], [place] [address] MCV 91.7 fL Normal 79.4-94.8 [facility] Comment on above: Performed By: #### P 14 ####[address] [address] Platelet mean volume (PMV) 10.4 fL Normal 9.4-12.3 [facility] Comment on above: Performed By: #### P 14 ####[address] [address] Platelets 152 thou/cmm Low 182-369 [facility] Comment on above: Performed By: #### P 14 ####[address] [address] RDW SD 41.5 fl Normal 36.4-46.3 [facility] Comment on above: Performed By: #### P 14 ####[address] [address] WBC (Leukocytes) 15.28 thou/cmm High 3.98-10.04 [facility] Comment on above: Performed By: #### P 14 ####[address] [address] Basophils Auto #/vol (Bld) 0.02 thou/cmm Normal 0.01-0.08 [facility] Comment on above: Result Comment: Smea r scanned; tech agrees with automated differential Performed By: #### P 14 ####[address] [address] Basophils/100 WBC Auto (Bld) 0.1 % Normal [facility] Comment on above: Performed By: #### P 14 ####[address] [address] Eosinophils 0.02 thou/cmm Normal 0.00-0.31 [facility] Comment on above: Performed By: #### P 14 ####[address] [address] Eosinophils/100 leukocytes 0.1 % Normal [facility] Comment on above: Performed By: #### P 14 ####[facility] [place] [address] Immature Grans 0.70 % Normal [facility] Comment on above: Performed By: #### P 14 ####[place] [address] Immature Grans # 0.12 thou/cmm High 0.00-0.05 [facility] Comment on above: Performed By: #### P 14 ####[place] [address] Lymphocytes 1.82 thou/cmm Normal 1.18-3.74 [facility] Comment on above: Performed By: #### P 14 ####[place] [address] Lymphocytes/100 leukocytes 10.9 % Normal [facility] Comment on above: Performed By: #### P 14 ####[place] [address] Monocytes 0.87 thou/cmm High 0.27-0.70 [facility] Comment on above: Performed By: #### P 14 ####[place] [address] Monocytes/100 leukocytes 5.2 % Normal [facility] Comment on above: Performed By: #### P 14 ####[place] [address] Seg Neutrophil 83.0 % Normal [facility] Comment on above: Performed By: #### P 14 ####[place] [address] Seg. Neut.# 13.89 thou/cmm High 1.56-6.13 [facility] Comment on above: Performed By: #### P 14 ####[place] [address] Erythrocyte distribution width Auto Ratio (RBC) 12.5 % Normal 11.7-14.4 [facility] Comment on above: Performed By: #### P 14 ####[address], [place] [address] Erythrocytes (RBC) 3.88 mil/cmm Low 3.93-5.22 [facility] Comment on above: Performed By: #### P 14 ####[place] [address] Hematocrit (HCT) 35.0 % Normal 34.1-44.9 [facility] Comment on above: Performed By: #### P 14 ####[place] [address] Hemoglobin mass conc (Bld) 11.9 g/dL Normal 11.2-15.7 [facility] Comment on above: Performed By: #### P 14 ####[place] [address] MCH 30.7 pg Normal 25.6-32.2 [facility] Comment on above: Performed By: #### P 14 ####[place] [address] MCHC mass conc (RBC) 34.0 % Normal 31.6-34.8 [facility] Comment on above: Performed By: #### P 14 ####[place] [address] MCV 90.2 fL Normal 79.4-94.8 [facility] Comment on above: Performed By: #### P 14 ####[place] [address] Platelet mean volume (PMV) 10.3 fL Normal 9.4-12.3 [facility] Comment on above: Performed By: #### P 14 ####[place] [address] Platelets 169 thou/cmm Low 182-369 [facility] Comment on above: Performed By: #### P 14 ####[place] [address] RDW SD 40.8 fl Normal 36.4-46.3 [facility] Comment on above: Performed By: #### P 14 ####[place] [address] WBC (Leukocytes) 16.74 thou/cmm High 3.98-10.04 [facility] Comment on above: Performed By: #### P 14 ####[facility] [place], [place] [address] Hgbon 04-12-2017 Hemoglobin mass conc (Bld) 11.1 g/dL Low 11.2-15.7 [facility] Comment on above: Performed By: #### P 14 ####[facility] [place], [place] [address] MDRD GFRon 04-12-2017 eGFR (non-black) mL/min/{1.73_m2} Normal >60mL/m in/ 1.73m2 [facility] Comment on above: Result Comment: If t he patient is , multiply the result by 1.210. Performed By: #### P 14 ####[address] [address] PROGRESSon 04-12-2017 PROGRESS HNO ID: [id number] thor: Richie Tomlinervice: [facility] MedicineAuthor Type: PhysicianType: Progress NotesFiled: 04/12/2017 2:40 PMNote Text:[facility] MEDICINEPROGRESS NOTESERVICE DATE: 04/12/2017SERVICE TIME: 2:38 PMHospital Medicine/Primary Attending: Richie Aponte MDNIGHT AND WEEKEND COVERAGE:After 7pm please page [phone]: F/u colitis. Still some nausea and SOB. Still not really ableto eat but says she is requiring less medications.OBJECTIVE:PHYSICAL EXAM: BP 130/68 Pulse 77 Temp (Src) 98.2 (Oral) Resp 18 Ht 1' 11.661" (0.60m) Wt 140 lb (63.5kg) SpO2 100% [...] 3.3*CHLOR 109*CO2 28BUN 17CREAT 0.77GLUC 108*CMP:Recent Labs NA 142K 3.3*CHLOR 109*CO2 28BUN 17CREAT 0.77GLUC 108*CA [...] 2:38 PM PAGER/CONTACT #: My Pager Normal [facility] C. difficile by PCRon 2016 C. difficile by PCR Test performed at [facility] NEGATIVE for Toxigenic C. difficile Normal [facility] Comment on above: Performed By: #### C DIFX ####[place] [address] CONSULTon 04-11-2017 CONSULT HNO ID: [id number] thor: Cyrus HoweinoService: GastroenterologyAuthor Type: PhysicianType: ConsultsFiled: 04/11/2017 11:32 AMNote Text:INITIAL CONSULT GASTROENTEROLOGYSERVICE DATE: 04/11/2017SERVICE TIME: 11:24 AMConsulting Service: SoundOpinion/advice regarding: bloody diarrhea, ? Infectious colitisSUBJECTIVEHPI: This is a 71 year old female who presents with to [place] ED withabd pain and blood diarrhea, also N/V. She states that yesterday morningshe had a sausage biscuit from [email or web address] and then went out to do someshopping with friends. An hour later she felt hot and dizzy. Went to [facility] with the urge to move bowel but could not pass stool.Subsequently she developed diffuse abdominal pain primarily localized toLLQ as well as some pain in the epigastric area followed by passing largeformed hard stool and then multiple episodes of bloody diarrhea. She hadsome N/V too. Today she c/o diffuse abd discomfort - no nausea. Has nothad BM yet. She had colonoscopy "years ago." She has been to see a friendin hospital in past few months who "suddenly " but denies abx use inpast 3-4 mos.PAST [...] ?F) (Oral) Resp 16 Ht 60.1 cm(1' 11.66") Wt 63.5 kg (140 lb) SpO2 96% BMI 175.82 kg/i9LTTQAVQ- AAO x 3, no distressHEENT: Moist mucus membranes, no carotid bruitLUNGS: Clear to auscultation bilaterallyCARDIAC: S1, S2 heard, no murmur appreciatedABDOMEN: Soft, mild diffuse tenderness without guarding or rigidity,normal bowel soundsEXTREMITIES: No pedal edemaDATA:Diagnostic Tests Reviewed for Today's Visit:Recent Labs 04/11/991653AFP 13.33*HB 13.0HCT 38.5PLT 198NA 140K 3.2*CHLOR 106CO2 26CREAT 1.14*BUN 23*GLUC 130*P 3.6TPROT 6.8ALB 3.5MG 2.1CA 8.1*ALKPHOS 68TBILI 0.6AST 28ALT 24Lipase 3709Stool studies pendingCT abd/pelvis at [place] showed diffuse moderate thickening of descending,sigmoid and [...] : 11:24 AM PAGER/CONTACT #: [phone] Normal [facility] Comprehensive Panelon 2016 Alkaline phosphatase (ALP) 68 U/L Normal 46-116 [facility] Comment on above: Performed By: #### P 14 ####[facility] [place], [place] [address] Bilirubin Ql (U) 0.6 mg/dL Normal 0.2-1.0 [facility] Comment on above: Performed By: #### P 14 ####[address] [address] Protein 6.8 g/dL Normal 6.4-8.2 [facility] Comment on above: Performed By: #### P 14 ####[facility] [place], [place] [address] Alanine aminotransferase (ALT) 24 U/L Normal 12-78 [facility] Comment on above: Performed By: #### P 14 ####[facility] [place], [place] [address] Aspartate aminotransferase (AST) 28 U/L Normal 9-37 [facility] Comment on above: Performed By: #### P 14 ####[facility] [place], [place] [address] Creatinine 1.14 mg/dL High 0.51-0.95 [facility] Comment on above: Performed By: #### P 14 ####[facility] [place], [place] [address] Albumin 3.5 g/dL Normal 3.4-5.0 [facility] Comment on above: Performed By: #### P 14 ####[facility] [place], [place] [address] Anion gap 11 mmol/L Normal 8-16 [facility] Comment on above: Performed By: #### P 14 ####[address] [address] Calcium 8.1 mg/dL Low 8.5-10.1 [facility] Comment on above: Performed By: #### P 14 ####[facility] [place], [place] [address] CO2 26 mmol/L Normal 21-32 [facility] Comment on above: Performed By: #### P 14 ####[facility] [place], [place] [address] Glucose mass conc 130 mg/dL High 70-99 [facility] Comment on above: Performed By: #### P 14 ####[facility] [place], [place] [address] Urea nitrogen 23 mg/dL High 7-18 [facility] Comment on above: Performed By: #### P 14 ####[facility] [place] [address] Chloride 106 mmol/L Normal 98-107 [facility] Comment on above: Performed By: #### P 14 ####[facility] [place] [address] Potassium molar conc 3.2 mmol/L Low 3.5-5.1 [facility] Comment on above: Performed By: #### P 14 ####[facility] [place] [address] Sodium 140 mmol/L Normal 136-145 [facility] Comment on above: Performed By: #### P 14 ####[facility] [place] [address] Cult Enteric Pathogenson Cult Enteric Pathogens Test performed at [facility] No Salmonella, Shigella, Campylobacter, or E. coli 0157 cultured. Reduced/Absence of normal enteric sixto noted. Normal [facility] Comment on above: Performed By: #### P 14 ####[place] [address] Fecal Lactoferrinon 04-11-20 17 Fecal Lactoferrin Test performed at [facility] POSITIVE for lactoferrin, which may indicate the presence of fecal white blood cells. Normal [facility] Comment on above: Performed By: #### M AG ####[place] [address] HISTORY PHYSICALon 7 HISTORY PHYSICAL HNO ID: [id number] thor: [facility] StoughtonaraService: [facility] MedicineAuthor Type: PhysicianType: HANDPFiled: 04/11/2017 12:24 AMNote Text:[facility] MEDICINEHISTORY AND PHYSICAL EXAMSERVICE DATE: 04/11/2017SERVICE TIME: 12:03 [facility]ri[facility] Care Physician: Jeff James MD (Inactive)SUBJECTIVECHIEF COMPLAINT: Abdominal pain, vomiting and diarrheaHPI: This is a 71 year old female with past medical history as outlinedbelow presented to [place] ED with above mentioned complaints. Patient wasaccompanied by her family. She states that this morning she had a sausagebiscuit from [facility] and then went out to do some [...] IV fluids, zosyn and then [facility].Upon my evaluation she feels a [...] ?F) Resp 18 Ht 60.1 cm (1' 11.66") Wt 63.5 kg (140 lb) SpO2 98% BMI 175.82 kg/j2Gcpspiz appearance: Elderly female age appropriate lying in [...] Severe sepsis based upon tachycardia and leukocytosis / #14. CAD s/p cardiac stents. Last NAHUM [...] : 12:03 AM PAGER/CONTACT #: [phone] Normal [facility] Hemogramon 04-11-2017 Erythrocyte distribution width Auto Ratio (RBC) 12.2 % Normal 11.7-14.4 [facility] Comment on above: Performed By: #### C BC1 ####[address] [address] Erythrocytes (RBC) 4.33 mil/cmm Normal 3.93-5.22 [facility] Comment on above: Performed By: #### C BC1 ####[address] [address] Hematocrit (HCT) 38.5 % Normal 34.1-44.9 [facility] Comment on above: Performed By: #### C BC1 ####[address] [address] Hemoglobin mass conc (Bld) 13.0 g/dL Normal 11.2-15.7 [facility] Comment on above: Performed By: #### C BC1 ####[address] [address] MCH 30.0 pg Normal 25.6-32.2 [facility] Comment on above: Performed By: #### C BC1 ####[place] [address] MCHC mass conc (RBC) 33.8 % Normal 31.6-34.8 [facility] Comment on above: Performed By: #### C BC1 ####[place] [address] MCV 88.9 fL Normal 79.4-94.8 [facility] Comment on above: Performed By: #### C BC1 ####[place] [address] Platelet mean volume (PMV) 10.1 fL Normal 9.4-12.3 [facility] Comment on above: Performed By: #### C BC1 ####[place] [address] Platelets 198 thou/cmm Normal 182-369 [facility] Comment on above: Performed By: #### C BC1 ####[place] [address] RDW SD 39.2 fl Normal 36.4-46.3 [facility] Comment on above: Performed By: #### C BC1 ####[place] [address] WBC (Leukocytes) 13.33 thou/cmm High 3.98-10.04 [facility] Comment on above: Performed By: #### C BC1 ####[place] [address] Hgbon 04-11-2017 Hemoglobin mass conc (Bld) 12.1 g/dL Normal 11.2-15.7 [facility] Comment on above: Performed By: #### P 14 ####[place] [address] Hemoglobin mass conc (Bld) 12.3 g/dL Normal 11.2-15.7 [facility] Comment on above: Performed By: #### H GBI ####[place] [address] Lactic Acidon 04-11-2017 Lactate 1.3 mmol/L Normal 0.4-2.0 [facility] Comment on above: Performed By: #### L AC ####[facility] [place], [place] [address] Lipase Bloodon 04-11-2017 Lipase Blood 3709 U/L High 73-393 [facility] Comment on above: Performed By: #### L IP ####[address] [address] MDRD GFRon 04-11-2017 eGFR (non-black) 46.77 mL/min/{1.73_m2} Normal > 60mL/min/ 1.73m2 [facility] Comment on above: Result Comment: If t he patient is , multiply the result by 1.210. Performed By: #### G FR ####[address] [address] Magnesium Bloodon 04-11-2017 Magnesium 2.1 mg/dL Normal 1.6-2.6 [facility] Comment on above: Performed By: #### M AG ####[address] [address] PROGRESSon 04-11-2017 PROGRESS HNO ID: [id number] thor: Richie Tomlinervice: [facility] MedicineAuthor Type: PhysicianType: Progress NotesFiled: 04/11/2017 3:33 PMNote Text:[facility] MEDICINEPROGRESS NOTESERVICE DATE: 04/11/2017SERVICE TIME: 3:31 PMHospital Medicine/Primary Attending: Richie Aponte MDNIGHT AND WEEKEND COVERAGE:After 7pm please page [phone]: F/u colitis. Still nausea, emesis and pain, still blood instool. No CP or SOB.OBJECTIVE:PHYSICAL EXAM: BP 125/93 Pulse 76 Temp (Src) 97.9 (Oral) Resp 16 Ht 1' 11.661" (0.60m) Wt 140 lb (63.5kg) SpO2 95% [...] 3:31 PM PAGER/CONTACT #: My Pager Normal [facility] Phosphorus Bloodon 7 Phosphate 3.6 mg/dL Normal 2.5-4.9 [facility] Comment on above: Performed By: #### P HOS ####[place] [address] US ABD RIGHT UPPER QUADRANTo n 04-11-2017 US ABD RIGHT UPPER QUADRANT Performed at [facility] APPROVED BY: Ernesto Joiner MD EXAM TITLE: [...] Consider further ERCP or MRCP correlation. Normal [facility] HOSPon 04-10-2017 HOSP Patient:Baudilio Torres GMRN: Height:5' 1.2"(1.554 m)Weight:148 lb (67.132 kg)Outpatient Medications as of [...] bleed [K92.2]Acute diastolic CHF (congestive heart failure) (HCC) [I50.31]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 angina pectoris [I25.10]Essential hypertension [I10]Rectal bleeding [K62.5]Allergies:Hydrocodone-A cetaminophenMorphineDate Verified: 04/15/17Lab ValuesLab Value Units Date High LowPOTA* 3.1 mEq/L 04/15/2017 5.1 3.5HEMA* 34.5 % 04/15/2017 44.9 34.1Progress Notes ():Tone Nails MD 04/11/2017 12:24 AM SignedDEPARTMENT OF [facility] MEDICINEHISTORY AND PHYSICAL EXAMSERVICE DATE: 04/11/2017SERVICE TIME: 12:03 AMPriuab [facility] Care Physician: Jeff James MD (Inactive)SUBJECTIVECHIEF COMPLAINT: Abdominal pain, vomiting and diarrheaHPI: This is a 71 year old female with past medical history as outlined belowpresented to [place] [facility] with above mentioned complaints. Patient was accompaniedby her family. She states that this morning she had a [place]uit [place] and then went out to do some [...] received IVfluids, zosyn and then transferred to [facility] for GI evaluation.Upon my evaluation she feels [...] (98.2 ?F) Resp 18 Ht 60.1cm (1' 11.66") Wt 63.5 kg (140 lb) SpO2 98% BMI 175.82 kg/f3Qfwowjo appearance: Elderly female age appropriate lying in [...] Severe sepsis based upon tachycardia and leukocytosis / #14. CAD s/p cardiac stents. Last NAHUM [...] year old female who presents with to [place] ED with abd painand blood diarrhea, also N/V. She states that yesterday morning she had asausage biscuit from [employer] and then went out to do some [...] not had BM yet. She had colonoscopy "years ago." She has been toseea friend in hospital in past few months who "suddenly " but denies abxuse in past 3-4 mos.PAST [...] ?F) (Oral) Resp 16 Ht 60.1 cm (1'11.66") Wt 63.5 kg (140 lb) SpO2 96% BMI 175.82 kg/f2DSIJCTJ- AAO x 3, no distressHEENT: Moist mucus [...] 28ALT 24Lipase 3709Stool studies pendingCT abd/pelvis at [place] showed diffuse moderate thickening of descending,sigmoid and [...] Aponte MD 04/11/2017 3:33 PM SignedDEPARTMENT OF [facility] MEDICINEPROGRESS NOTESERVICE DATE: 04/11/2017SERVICE TIME: 3:31 PMHospital Medicine/Primary Attending: Richie Aponte MDNIGHT AND WEEKEND COVERAGE:After 7pm please page [phone]: F/u colitis. Still nausea, emesis and pain, still blood in stool.No CP or SOB.OBJECTIVE:PHYSICAL EXAM: BP 125/93 Pulse 76 Temp (Src) 97.9 (Oral) Resp 16 Ht 1'11.661" (0.60m) Wt 140 lb (63.5kg) SpO2 95% [...] 2017 : 3:31 PM PAGER/CONTACT #: My Jasmyne Garza MD 04/12/2017 11:24 AM SignedGI [...] (98.2 ?F) Resp 18 Ht 60.1 cm (1'11.66") Wt 63.5 kg (140 lb) SpO2 100% BMI 175.82 kg/h2TDUPTSM: soft, ND, mild diffuse tenderness, + BSDATA:Diagnostic [...] 1236Dazaid Aponte MD 04/12/2017 2:40 PM SignedDEPARTMENT [facility] MEDICINEPROGRESS NOTESERVICE DATE: 04/12/2017SERVICE TIME: 2:38 PMHospital Medicine/Primary Attending: Richie Aponte MDNIGHT AND WEEKEND COVERAGE:After 7pm please page [phone]: F/u colitis. Still some nausea and SOB. Still not really able toeat but says she is requiring less medications.OBJECTIVE:PHYSICAL EXAM: BP 130/68 Pulse 77 Temp (Src) 98.2 (Oral) Resp 18 Ht 1'11.661" (0.60m) Wt 140 lb (63.5kg) SpO2 100% [...] 3.3*CHLOR 109*CO2 28BUN 17CREAT 0.77GLUC 108*CMP:Recent Labs NA 142K 3.3*CHLOR 109*CO2 28BUN 17CREAT 0.77GLUC 108*CA 8.0*ANION 8Cardiac Enzymes: No results for input(s): CK, MB, CKMB, TROPT in the last 24hours.Liver Function, Amylase, Lipase: No results for input(s): TPROT, ALB, ALT, AST,ALKPHOS, TBILI, AMYLASE, LIPASE, LACTATE in the last 24 hours.MG/PHOS: No results for input(s): MG, P in the last 24 hours.Renal Panel:Recent Labs 04/12/577254LPKBY 0.77BUN 17GLUC 108*CA 8.0*CHLOR 109*K 3.3*CO2 28NA [...] : 2:38 PM PAGER/CONTACT #: My PagerMlary Gibbons RN, RN 04/12/2017 10:17 [address]Dr[address] Beaver notified that pt was put on 2Li, and was previously on RA. Pt wassating 91% on RA and requesting oxygen. No new orders at this time. No othercomplaints from patient at this time.Chantel Gibbons RN, RN 04/12/2017 11:12 PM SignedSpoke with [...] Patient is feeling much better after Lasix.Richie Aponet MD 04/13/2017 10:38 AM SignedDEPARTMENT [facility] MEDICINEPROGRESS NOTESERVICE DATE: 04/13/2017SERVICE TIME: 10:36 AMHospital Medicine/Primary Attending: Richie Aponte MDNIGHT AND WEEKEND COVERAGE:After 7pm please page [phone]: F/u colitis. Had SOB last night from pulm edema. Resolved withlasix. No CP, SOB, V/D or bleed now. Some nausea.OBJECTIVE:PHYSICAL EXAM: BP 153/66 Pulse 73 Temp (Src) 98.6 (Oral) Resp 18 Ht 1'11.661" (0.60m) Wt 140 lb (63.5kg) SpO2 98% [...] BEDTIMEDATA:Diagnostic tests reviewed for today's visit:CBC:Recent Labs 130WBC -- 15.28*RBC -- 3.72*HB 11.6 11.2HCT -- [...] with no SOB 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 angina pectoris POA: Yes Assessment AND Plan: med manage Essential hypertension POA: Yes Assessment AND Plan: Stable. MonitorVTE Prophylaxis: Pneumatic Compression DeviceDisposition: HomePlan of care discussed with: PatientSIGNATURE: Richie Aponte MD PATIENT NAME: Baudilio TorresDATE: April 13, 2017 : 10:36 AM PAGER/CONTACT #: My LettyrSnita Fried CNP, KODAK 04/13/2017 2:53 PM SignedCONSULT PROGRESS NOTESERVICE DATE: 04/13/2017SERVICE TIME: 2:42 PMCONSULTING SERVICE: GASTROENTEROLOGYSUBJECTIVEINTE RVAL HPI: Patient still have LUQ abdominal pain described as "muscle spasm".Last blood diarrhea was yesterday, just diarrhea today. [...] hrs: BP Temp Temp src Pulse Resp WdX98604/13/17 0700 153/66 37 ?C (98.6 ?F) Oral [...] April 13, 2017 : 2:42 PM PAGER:Eleanor Gentile RN, RN 04/13/2017 2:53 PM SignedPATIENT ALERT AND 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Luis F Danielle MD [...] ?F) (Oral) Resp 18 Ht 60.1cm (1' 11.66") Wt 63.5 kg (140 lb) SpO2 96% BMI 175.82 kg/l5DQHFHWR:DATA:Diagnostic tests reviewed for today's visit:Most recent labs and imaging results.IMPRESSION/RECOMMENDAT IONS1) BPR and abd pian , diarrhea. Diff dx includes ischemic colitis, IBD,infectious colitis.2. Inc lipase and CBD dilation, MRCP pend.Rec: 1. colonoscopy prep tomorrow for . 2. F/up MRCPwill continue to f/u the patientSIGNATURE: Luis F Danielle MD PATIENT NAME: Baudilio TorresDATE: April 13, 2017 : 4:46 PM PAGER/CONTACT #:Isabel Fried CNP, DESIGN/ANIMATION INSTRUCTOR 04/14/2017 10:49 AM SignedCONSULT PROGRESS NOTESERVICE DATE: [...] BP Temp Temp src Pulse Resp SpO2 Plooae31/31/17 0700 140/59 36.8 ?C (98.2 ?F) Oral [...] PAGER:Richie Aponte MD 04/14/2017 5:24 PM AddendumDEPARTMENT OF THE [facility] MEDICINEPROGRESS NOTESERVICE DATE: 04/14/2017SERVICE TIME: 3:02 PMHospital Medicine/Primary Attending: Richie Aponte MDNIGHT AND WEEKEND COVERAGE:After 7pm please page [phone]: F/u GI Bleed. No Bleed, CP, SOB, NVD.OBJECTIVE:PHYSICAL EXAM: BP 140/59 Pulse 66 Temp (Src) 98.2 (Oral) Resp 18 Ht 1'11.661" (0.60m) Wt 156 lb 1.4 oz (70.8kg) [...] 3:02 PM PAGER/CONTACT #: My PagerPrevious Melo Gentile RN, RN 04/15/2017 9:52 AM SignedCHART REVIEWED. DC PLAN WILL BE HOME ONCE MEDICALLY STABLE. WILL FOLLOW FOR ANYNEEDS.Court Silverman RN, RN 04/15/2017 12:04 PM SignedONGOING PATIENT EDUCATION TOPIC Reinforced: rectal bleedingPatient Name: Baudilio TorresMRN: [id number] Location: [place] [address]/[facility]*Readi ness To LearnMotivation To Learn: InterestedInstruction Provided To: PatientLearning ResponsePatient/Family Response: Verbalizes understanding of: FYB-ARUACYJJNAGYMCCSQUUAN-Vqty ect action to take to follow pre-operative instructionsMethod of Instruction: Individual instructionFollow-Up Plan: Patient instructed to call with any further issuesElectronically signed by: Roby Krause MD 04/15/2017 12:38 PM Signed ANESTHESIOLOGY DAY OF SURGERY NOTESERVICE DATE: 04/15/2017SERVICE TIME:12:23 PMDOB: 1945Procedure(s) (LRB):COLONOSCOPY (Left)Surgeon(s):Luis F Davidson body mass index is 27.78 kg/(m2) as calculated from the following: Height as of this encounter: 155.4 cm (5' 1.2"). Weight as of this encounter: 67.1 kg (148 lb).Most recent hematocrit and potassium results:Hematocrit 34.5 04/15/2017Potassium 3.1 04/15/2017ANES DOS/PREOP NOTE:Vitals: 741 115 04/15/1712BP: 166/73 155/68 172/71 178/88Pulse: 62 63 65 63Resp: 18 20 16 16Temp: 36.6 ?C (97.9 ?F) 36.6 ?C (97.9 ?F)TempSrc: Oral OralSpO2: 98% 97% 98% 97%Weight: 67.1 kg (148 lb)Height: 155.4 cm (5' 1.2")ACTIVE PROBLEM LISTInfectious ColitisLower GI BleedAcute Diastolic Chf (Congestive Heart Failure) (Hcc)Coronary Artery Disease Involving [place] Coronary Artery of [place] Heart WithoutAngina PectorisEssential HypertensionRectal BleedingPAST MEDICAL HISTORYDiagnosis [...] 20 mg ORAL DAILY (6 AM) Swetha Jxmtbn97 mg at 04/14/17 0600melatonin 3 mg tab(s) [...] q 12 H SulaimanMapara 400 mg at 04/14/17 2115metroNIDAZOLE 500 mg PREMIX piggyback (FLAGYL) 500 mg INTRAVENOUS q 8 H SulaimanMapara 500 mg at 04/15/17 0318lisinopril 40 mg tab(s) (ZESTRIL, PRINIVIL) 40 mg ORAL DAILY Tone Mapara 40mg at 04/14/17 0856aspirin 81 mg chewable tab(s) 81 mg ORAL DAILY Tone Mapara 81 mg at 269295hkjevebs 50 mg tab(s) (TENORMIN) 50 mg ORAL DAILY Tone Mapara 50 mg at1 0854ondansetron (PF) 4 mg injection (ZOFRAN) 4 mg INTRAVENOUS q 4 H PRN SulaimanMapara 4 mg at 04/12/17 2124atorvastatin 10 mg [...] April 15, 2017 : 12:12 PM CSN: [id number] F Danielle MD 04/15/2017 12:42 PM SignedNo changes since H+P Normal [facility] Office Visit: MMMon 11-04-19 17 Documentation of current medications (procedure) Done Invalid Interpretation Code [facility] Phone: [phone] Fall risk assessment No Invalid Interpretation Code [facility] [facility] [employer] Phone: [phone] Tobacco smoking status Tobacco smoking status NHIS Invalid Interpretation Code [facility] Work Phone: [phone] Tobacco use status [facility] Former smoker Invalid Interpretation Code [facility] [facility] Work Phone: [phone] Clinical Lists Update: 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 Left ventricular Ejection fraction 65 % Invalid Interpretation Code [facility] Work Phone: [phone] Lab Report: Lipid Profileon 10-29-2016 Cholesterol [Mass/Vol] 183 mg/dL Invalid Interpretation Code 200 [facility] Work Phone: [phone] Cholesterol in HDL [Mass/Vol] 55 mg/dL Invalid Interpretation Code [facility] Work Phone: [phone] Cholesterol in LDL [Mass/Vol] 93 mg/dL Invalid Interpretation Code 0-130 [facility] Work Phone: [phone] Lipoprotein.pre-bet a [Mass/Vol] 35 mg/dL Invalid Interpretation Code 5-40 [facility] Work Phone: [phone] Triglyceride [Mass/Vol] 173 mg/dL Invalid Interpretation Code [facility] Work Phone: [phone] Lab Report: Liver Profileon 10-29-2016 Albumin [Mass/Vol] 3.7 g/dL Invalid Interpretation Code 3.4-5.0 [facility] Work Phone: [phone] ALP (Bld) [Catalytic activity/Vol] 89 U/L Invalid Interpretation Code 45-117 [facility] Work Phone: [phone] ALT [Catalytic activity/Vol] 31 U/L Invalid Interpretation Code 12-78 [facility] Work Phone: [phone] AST [Catalytic activity/Vol] 27 U/L Invalid Interpretation Code 15-37 [facility] Work Phone: [phone] Bilirubin [Mass/Vol] 0.50 mg/dL Invalid Interpretation Code 0.20-1.00 [facility] Work Phone: [phone] Bilirubin.direct [Mass/Vol] 0.07 mg/dL Invalid Interpretation Code 0.00-0.30 [facility] Work Phone: [phone] Globulin (S) [Mass/Vol] 3.5 g/dL Invalid Interpretation Code 2.3-3.5 [facility] Work Phone: [phone] Protein [Mass/Vol] 7.2 g/dL Invalid Interpretation Code 6.4-8.2 [employer] Phone: [phone] Office Visiton 09-20-2015 Tobacco use status [facility] Former smoker Invalid Interpretation Code [facility] Work Phone: [phone] Clinical Lists Update: 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 09-14-2015 Left ventricular Ejection fraction 65 % Invalid Interpretation Code [facility] Work Phone: [phone]) Lab Report: Basic Metabolic Profile (BMP)on 06-16-2014 Anion gap [Moles/Vol] 3 mmol/L Critically low 5-15 Employee Benefit Plans Phone: [phone] Calcium [Mass/Vol] 9.0 mg/dL Invalid Interpretation Code 8.5-10.1 [facility] Work Phone: [phone] Chloride [Moles/Vol] 103 mmol/L Invalid Interpretation Code 98-107 [facility] Work Phone: [phone] CO2 (BldV) [Partial pressure] 33.0 mmol/L Critically high 21.0-32.0 [employer]it Plans Phone: [phone] Creatinine [Mass/Vol] 0.9 mg/dL Invalid Interpretation Code 0.6-1.0 [facility] Work Phone: [phone] GFR/1.73 sq M.predicted among non-blacks MDRD (S/P/Bld) [Vol rate/Area] 66 mL/min/{1.73_m2} Invalid Interpretation Code >60 [facility] Work Phone: [phone] Glomerular Filtration rate 80 mL/min Invalid Interpretation Code >60 [employer] Plans Phone: [phone] Glucose [Mass/Vol] 109 mg/dL Invalid Interpretation Code 70-110 [facility] Work Phone: [phone] Potassium [Moles/Vol] 3.9 mmol/L Invalid Interpretation Code 3.5-5.1 [facility] Work Phone: [phone] Sodium [Moles/Vol] 139 mmol/L Invalid Interpretation Code 136-145 [facility] Work Phone: [phone] Urea nitrogen [Mass/Vol] 19 mg/dL Critically high 7-18 [facility] Work Phone: [phone] Urea nitrogen/Creatinine [Mass ratio] 21.6679363 mg/mg Critically high 10-20 [facility] Work Phone: [phone] Office Visit: [facility] 06-14-20 14 cardiac risk group C Invalid Interpretation Code [facility] Work Phone: [phone] General cardiovascular disease 10Y risk [#] [place] no N/A Invalid Interpretation Code [employer] Plans Phone: [phone] Tobacco smoking status Never Invalid Interpretation Code [employer] Plans Phone: [phone] Replaced Document: Arin Gardineron 06-14-2014 EKG QRS axis 22 deg Invalid Interpretation Code Employee Benefit Plans Phone: [phone] electrocardiogram interpretation Marked sinus Bradycardia -Short OH syndrome Kylah = 118 BORDERLINE RHYTHM Invalid Interpretation Code Employee Benefit Plans Phone: [phone] GE use only - for [employer] import when terms are not otherwise specified 431 ms Invalid Interpretation Code Employee [employer]it Plans Phone: [phone] Heart rate 48 /min Invalid Interpretation Code Employee Benefit Plans Phone: [phone] Interpretation Marked sinus Bradyca rdia -Short OH syndrome Kylah = 118BORDERLINE RHYTHM Invalid Interpretation Code Employee [employer] Plans Phone: [phone] P [place] 50 deg Invalid Interpretation Code [facility] Work Phone: [phone] P wave axis, electrocardiogram 50 deg Invalid Interpretation Code [facility] Work Phone: [phone] OH Interval 118 ms Invalid Interpretation Code [employer] Phone: [phone] OH interval, electrocardiogram 118 ms Invalid Interpretation Code [employer] Phone: [phone] QRS axis, electrocardiogram 22 deg Invalid Interpretation Code [facility] Work Phone: [phone] QRS Duration 78 ms Invalid Interpretation Code [facility] Work Phone: [phone] QRS duration, electrocardiogram 78 ms Invalid Interpretation Code [facility] Work Phone: [phone] QT Interval new path ms Invalid Interpretation Code [facility] Work Phone: [phone] QT interval, electrocardiogram new path ms Invalid Interpretation Code [facility] Work Phone: [phone] QTc Tamez 431 ms Invalid Interpretation Code [facility] Work Phone: [phone] T [place] 34 deg Invalid Interpretation Code [facility] Work Phone: [phone] T wave axis, electrocardiogram 34 deg Invalid Interpretation Code [facility] Work Phone: [phone] Clinical Lists Update: 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 05-08-2014 Hematocrit (Bld) [Volume fraction] 39.7 % Invalid Interpretation Code [employer] Phone: [phone] Hemoglobin (Bld) [Mass/Vol] 13.2 g/dL Invalid Interpretation Code [facility] Work Phone: [phone] Platelets (Bld) [#/Vol] 199 10*3/uL Invalid Interpretation Code [facility] Work Phone: [phone] WBC (Bld) [#/Vol] 9.7 10*3/uL Invalid Interpretation Code [facility] Work Phone: [phone] Replaced Document: Arin Munroe CG Observationson 12-01-2012 Pulse (Heart Rate) 433 ms Invalid Interpretation Code [facility] Work Phone: [phone] QT interval/QT interval (corrected for heart rate), electrocardiogram 433 ms Invalid Interpretation Code [facility] Work Phone: [phone] Lab Reporton 06-07-2011 Band form neutrophils/100 WBC (Bld) 84.0 % Invalid Interpretation Code [employer] Phone: [phone] basophils as percent of blood leukocytes, manual count 0.2 % Invalid Interpretation Code [facility] Work Phone: [phone] eosinophils as percent of blood leukocytes, manual count 0.7 % Invalid Interpretation Code [facility] Work Phone: Lymphocytes/100 WBC (Bld) 11.8 % Invalid Interpretation Code [facility] Work Phone: [phone] MCH (RBC) [Entitic mass] 30.5 pg Invalid Interpretation Code [facility] Work Phone: [phone] MCV (RBC) [Entitic vol] 88.8 fL Invalid Interpretation Code [facility] Work Phone: [phone] Monocytes/100 WBC (Bld) 3.3 % Invalid Interpretation Code [facility] Work Phone: [phone] neutrophils, band form as percent of blood leukocytes, manual count 84.0 % Invalid Interpretation Code [facility] Work Phone: [phone] RBC (Bld) [#/Vol] 4.64 10*6/uL Invalid Interpretation Code [facility] Work Phone: [phone] Otheron 11-19-2009 CONVERTED CLINICAL HISTORY OPERATIVE PROCEDURE: Right carotid endarterectomy with bovine patch angioplasty CLINICAL INFORMATION: Right carotid stenosis [facility] CONVERTED FINAL DIAGNOSIS FINAL DIAGNOSIS: RIGHT CAROTID ARTERY, ENDARTERECTOMY - CALCIFIC ATHEROSCLEROTIC PLAQUE. SPECIMEN: PLAQUE [facility] CONVERTED GROSS DESCRIPTION GROSS DESCRIPTION: Right carotid plaque Received in a container labeled right carotid plaque. Received are portions of soft to partially calcified yellow-rabago plaque measuring 3 x 1 x 1 cm in aggregate. [employer] sample submitted in a single cassette following decal. SMS:SDS:hlm MICROSCOPIC DESCRIPTION: Slides reviewed. SDS/lrs [facility] CONVERTED ORDERING PROVIDER Ordering Provider: ANAM KIM [facility] Thyroidon 11-19-2009 TSH Gemma ARMSTRONG M.D., PATHOLOGIST (Electronic signature on file) Final Signed Out: 11/19/2009 13:40 [facility] Otheron 10-16-2009 CONVERTED CLINICAL HISTORY OPERATIVE PROCEDURE: Left internal carotid endarterectomy with bovine patch angioplasty CLINICAL INFORMATION: Severe left internal carotid artery stenosis [facility] CONVERTED FINAL DIAGNOSIS FINAL DIAGNOSIS: LEFT CAROTID ARTERY, ENDARTERECTOMY - CALCIFIC ATHEROSCLEROTIC PLAQUE. SPECIMEN: PLAQUE [facility] CONVERTED GROSS DESCRIPTION GROSS DESCRIPTION: Plaque from left carotid artery Received in a container labeled plaque from left carotid. Received is a bifurcating portion of calcified yellow-gallo plaque measuring 1 x 1 x 0.8 cm in aggregate. Specimen totally submitted in a single cassette following decal. SMS:ATP:hlm MICROSCOPIC DESCRIPTION: Slides reviewed. SDS/gpl [facility] CONVERTED ORDERING PROVIDER Ordering Provider: ANAM KIM [facility] Thyroidon 10-16-2009 TSH Qn LUCIAN ARMSTRONG M.D., PATHOLOGIST (Electronic signature on file) Final Signed Out: 10/16/2009 12:34 [facility] Lab Reporton 10-20-2008 Thyroid stimulating hormone (TSH) 4.11 u[iU]/mL Invalid Interpretation Code [facility] Work Phone: TSH Qn 4.11 m[IU]/L Invalid Interpretation Code [facility] Work Phone: Vital Signs Date Time Vital Sign Value Performing Clinician Faci lity 12-30-2024 08:00-0400 Body mass index (BMI) [Ratio] 28.8 kg/m2 Cyrus Claudio COMMODITY SUPERVISOR-C Work Phone: [facility] 12-30-2024 08:00-0400 Body temperature 97.3 [degF] Cyrus Claudio COMMODITY SUPERVISOR-C Work Phone: [facility] 12-30-2024 08:00-0400 Body weight 64.86 kg Cyrus Claudio COMMODITY SUPERVISOR-C Work Phone: [facility] 12-30-2024 08:00-0400 Diastolic blood pressure 64 mm[Hg] Cyrus Claudio COMMODITY SUPERVISOR-C Work Phone: [facility] 12-30-2024 08:00-0400 Heart rate 49 /min Cyrsu Claudio COMMODITY SUPERVISOR-C Work Phone: [facility] 12-30-2024 08:00-0400 Respiratory rate 16 /min Cyrus Claudio COMMODITY SUPERVISOR-C Work Phone: [facility] 12-30-2024 08:00-0400 SaO2% (BldA) [Mass fraction] 97 % Cyrus Claudio COMMODITY SUPERVISOR-C Work Phone: [facility] 12-30-2024 08:00-0400 Systolic blood pressure 137 mm[Hg] Cyrus Claudio COMMODITY SUPERVISOR-C Work Phone: [facility] 11-04-2024 08:32-0400 Body height 149.86 cm Cyrus Claudio COMMODITY SUPERVISOR-C Work Phone: [facility] 11-04-2024 08:32-0400 Body mass index (BMI) [Ratio] 29.5 kg/m2 Cyrus Claudio COMMODITY SUPERVISOR-C Work Phone: [facility] 11-04-2024 08:32-0400 Body temperature 97.8 [degF] Cyrus Claudio COMMODITY SUPERVISOR-C Work Phone: [facility] 11-04-2024 08:32-0400 Body weight 66.22 kg Cyrus Claudio COMMODITY SUPERVISOR-C Work Phone: [facility] 11-04-2024 08:32-0400 Diastolic blood pressure 89 mm[Hg] Cyrus Claudio COMMODITY SUPERVISOR-C Work Phone: [facility] 11-04-2024 08:32-0400 Heart rate 86 /min Cyrus Claudio COMMODITY SUPERVISOR-C Work Phone: [facility] 11-04-2024 08:32-0400 Respiratory rate 16 /min Cyrus Claudio COMMODITY SUPERVISOR-C Work Phone: [facility] 11-04-2024 08:32-0400 SaO2% (BldA) [Mass fraction] 94 % Cyrus Claudio COMMODITY SUPERVISOR-C Work Phone: [facility] 11-04-2024 08:32-0400 Systolic blood pressure 175 mm[Hg] Cyrus Cowartpkins COMMODITY SUPERVISOR-C Work Phone: [facility] 01-13-2022 13:39-0400 Body height 149.86 cm COMMODITY SUPERVISOR-C Cyrus Claudio COMMODITY SUPERVISOR Work Phone: [facility] Work Phone: 01-13-2022 13:39-0400 Body mass index (BMI) [Ratio] 28.7 kg/m2 COMMODITY SUPERVISOR-C Cyrus Claudio COMMODITY SUPERVISOR Work Phone: [facility] Work Phone: 01-13-2022 13:39-0400 Body weight 64.46 kg COMMODITY SUPERVISOR-C Cyrus Claudio COMMODITY SUPERVISOR Work Phone: [facility] Work Phone: 01-13-2022 13:39-0400 Diastolic blood pressure 60 mm[Hg] COMMODITY SUPERVISOR-C Cyrus Claudio COMMODITY SUPERVISOR Work Phone: [facility] Work Phone: 01-13-2022 13:39-0400 Heart rate 48 /min COMMODITY SUPERVISOR-C Cyrus Claudio COMMODITY SUPERVISOR Work Phone: [facility] Work Phone: 01-13-2022 13:39-0400 Respiratory rate 16 /min COMMODITY SUPERVISOR-C Cyrus Claudio COMMODITY SUPERVISOR Work Phone: [facility] Work Phone: 01-13-2022 13:39-0400 Systolic blood pressure 128 mm[Hg] COMMODITY SUPERVISOR-C Cyrus Claudio COMMODITY SUPERVISOR Work Phone: [facility] Work Phone: 05-05-2017 07:59-0500 BMI (Body Mass Index) 27.36 kg/m2 Wild Watkins MD [facility] Work Phone: 05-05-2017 07:59-0500 Body weight 65.68 kg Wild Watkins MD [facility] Work Phone: 05-05-2017 07:59-0500 BP Diastolic 60 mm[Hg] Wild Watkins MD [facility] Work Phone: 05-05-2017 07:59-0500 BP Systolic 120 mm[Hg] Wild Watkins MD [facility] Work Phone: 05-05-2017 07:59-0500 Height 154.94 cm Wild Watkins MD [facility] Work Phone: 05-05-2017 07:59-0500 Pulse (Heart Rate) 64 /min Wild Watkins MD [facility] Work Phone: 05-05-2017 07:59-0500 Respiratory Rate 20 /min Wild Watkins MD [facility] Work Phone: 05-05-2017 07:59-0500 Weight 65.68 kg Wild Watkins MD [facility] Work Phone: 11-03-2016 09:35-0400 Body height 154.94 cm [facility] Work Phone: 11-03-2016 09:35-0400 Body mass index (BMI) [Ratio] 28.23 kg/m2 [facility] Work Phone: 11-03-2016 09:35-0400 Body weight 67.77 kg [facility] Work Phone: 11-03-2016 09:35-0400 Diastolic blood pressure 54 mm[Hg] [facility] Work Phone: 11-03-2016 09:35-0400 Heart rate 70 /min [facility] Work Phone: 11-03-2016 09:35-0400 Systolic blood pressure 110 mm[Hg] [facility] Work Phone: 11-03-2016 09:35-0400 Weight 67.77 kg Wild Watkins MD [facility] Work Phone: 04-29-2016 10:41-0500 Body mass index (BMI) [Ratio] 25.18 kg/m2 Wild Watkins MD [facility] Work Phone: 04-29-2016 10:41-0500 Body surface area Derived from formula 1.74 m2 Wild Watkins MD [facility] Work Phone: 04-29-2016 10:41-0500 Body weight 67.59 kg Wild Watkins MD [facility] Work Phone: 04-29-2016 10:41-0500 Diastolic blood pressure 60 mm[Hg] Wild Watkins MD [facility] Work Phone: 04-29-2016 10:41-0500 Heart rate 56 /min Wild Watkins MD [facility] Work Phone: 04-29-2016 10:41-0500 Respiratory rate 20 /min Wild Watkins MD [facility] Work Phone: 04-29-2016 10:41-0500 Systolic blood pressure 110 mm[Hg] Wild Watkins MD [facility] Work Phone: 09-20-2015 08:47-0400 Body height 163.83 cm Wild Watkins MD [facility] Work Phone: Encounters Encounter Date Encounter Type Care Provider Facility Start: 04-18-2025 ambulatory Cyrus Claudio NP Facility:[facility] Start: 03-20-2025 End: 03-20-2025 Patient encounter procedure Hamzah Valdez DO -[facility] Work Phone: Start: 03-20-2025 End: 03-20-2025 ambulatory Cyrus Claudio COMMODITY SUPERVISOR-C Work Phone: -[facility] Start: 02-23-2025 End: 02-27-2025 ambulatory CYRUS CLAUDIO FEDERAL JUDGE - DESIGN/ANIMATION INSTRUCTOR Facility:[facility] Start: 02-23-2025 End: 02-27-2025 Outreach Lab JOSE DE JESUS INTERIANO DO [facility] Start: 02-07-2025 End: 02-11-2025 ambulatory CYRUS CLAUDIO FEDERAL JUDGE - DESIGN/ANIMATION INSTRUCTOR Facility:[facility] Start: 02-07-2025 End: 02-11-2025 Encounter for general adult medical examination without abnormal findings CYRUS CLAUDIO FEDERAL JUDGE - DESIGN/ANIMATION INSTRUCTOR Facility:[facility] Start: 02-07-2025 End: 02-11-2025 Outreach Lab CYRUS CLAUDIO FEDERAL JUDGE - DESIGN/ANIMATION INSTRUCTOR [facility] Start: 12-30-2024 End: 12-30-2024 Patient encounter procedure COMMODITY SUPERVISOR Sandy Castro -[facility] Work Phone: Start: 12-30-2024 End: 12-30-2024 ambulatory Cyrus Claudio COMMODITY SUPERVISOR-C Work Phone: [facility] Start: 11-30-2024 End: 11-30-2024 ambulatory Cyrus Claudio COMMODITY SUPERVISOR-C Work Phone: [facility] Work Phone: Start: 11-30-2024 End: 11-30-2024 Patient encounter procedure COMMODITY SUPERVISOR Sandy Castro -[facility] Scan [facility] Work Phone: Start: 11-30-2024 End: 11-30-2024 ambulatory Cyrus Claudio COMMODITY SUPERVISOR Facility:[facility] Start: 11-17-2024 Non-patient / Non-visit Dr. Pernell Packer DO -[facility] Start: 11-17-2024 End: 11-17-2024 ambulatory Cyrus Claudio COMMODITY SUPERVISOR-C Work Phone: [facility] Work Phone: Start: 11-17-2024 End: 11-17-2024 Patient encounter procedure COMMODITY SUPERVISOR Sandy Castro -Pulmonary Services/Neurology Work Phone: Start: 11-17-2024 End: 11-17-2024 ambulatory Cyrus Claudio COMMODITY SUPERVISOR Facility:[facility] Start: 11-04-2024 End: 11-04-2024 ambulatory Cyrus Claudio COMMODITY SUPERVISOR-C Work Phone: [facility] Work Phone: Start: 11-04-2024 End: 11-04-2024 Patient encounter procedure COMMODITY SUPERVISOR Sandy Castro -Laboratory Specimen Work Phone: Start: 11-04-2024 End: 11-04-2024 Patient encounter procedure COMMODITY SUPERVISOR Sandy Castro -[facility] Work Phone: Start: 11-04-2024 End: 11-04-2024 ambulatory Cyrus Claudio COMMODITY SUPERVISOR [facility] Start: 11-04-2024 End: 11-04-2024 ambulatory Cyrus Claudio COMMODITY SUPERVISOR Facility:[facility] Start: 07-15-2024 ambulatory Wild Watkins Facility: [place] Start: 07-15-2024 Non-patient / Non-visit Dr. Wild Watkins MD -[facility] Start: 07-15-2024 End: 07-15-[address] Anderson PA -Cardiovascular Services Work Phone: Start: 07-15-2024 End: 07-15-[address] Anderson PA Facility:[facility] Start: 06-28-2024 End: 06-28-[address] MARTÍNEZ Facility[facility] Start: 05-27-2024 End: 05-31-2024 ambulatory MR WILD WATKINS MD Facility:[facility] Start: 05-27-2024 End: 05-31-2024 Outreach Lab MR WILD WATKINS MD [facility] Start: 06-17-2023 End: 06-17-2023 ambulatory COMMODITY SUPERVISOR-C Cyrus Claudio COMMODITY SUPERVISOR Work Phone: [facility] Work Phone: Start: 06-17-2023 End: 06-17-2023 Patient encounter procedure COMMODITY SUPERVISOR-C Cyrus Claudio COMMODITY SUPERVISOR Work Phone: [facility]-Laboratory Work Phone: Start: 06-05-2023 Non-patient / Non-visit COMMODITY SUPERVISOR-C Cyrus Claudio COMMODITY SUPERVISOR Work Phone: [facility] Start: 06-05-2023 End: 06-05-2023 ambulatory COMMODITY SUPERVISOR-C Cyrus Claudio COMMODITY SUPERVISOR Work Phone: [facility] Work Phone: Start: 06-05-2023 End: 06-05-2023 Patient encounter procedure COMMODITY SUPERVISOR-C Cyrus Claudio COMMODITY SUPERVISOR Work Phone: [facility]-Cardiovascular Services Work Phone: Start: 04-10-2022 End: 04-15-2022 ambulatory CYRUS CLAUDIO DESIGN/ANIMATION INSTRUCTOR Facility:[facility] Start: 04-10-2022 End: 04-14-2022 Outreach Lab CYRUS CLAUDIO FEDERAL JUDGE - DESIGN/ANIMATION INSTRUCTOR [facility] Start: 03-11-2022 End: 03-12-2022 ambulatory CYRUS CLAUDIO DESIGN/ANIMATION INSTRUCTOR Facility:[facility] Start: 03-05-2022 End: 03-06-2022 ambulatory CYRUS CLAUDIO DESIGN/ANIMATION INSTRUCTOR Facility:[facility] Start: 03-05-2022 End: 03-05-2022 Patient encounter procedure CYRUS CLAUDIO FEDERAL JUDGE - DESIGN/ANIMATION INSTRUCTOR [facility] Start: 01-13-2022 End: 01-13-2022 Patient encounter procedure COMMODITY SUPERVISOR-C Cyrus Claudio COMMODITY SUPERVISOR Work Phone: [facility] Start: 06-13-2021 End: 06-14-2021 ambulatory CYRUS CLAUDIO DESIGN/ANIMATION INSTRUCTOR Facility:[facility] Start: 06-13-2021 End: 06-13-2021 Patient encounter procedure CYRUS CLAUDIO FEDERAL JUDGE - DESIGN/ANIMATION INSTRUCTOR [facility] Start: 04-15-2017 End: 04-15-2017 Patient encounter procedure Luis F Danielle Work Phone: [facility] Start: 04-15-2017 Results Only Luis F campbell Work Phone: [facility] Start: 04-11-2017 End: 04-16-2017 Evaluation and management of inpatient IVAN VILLAR Facility:[facility] Start: 11-16-2009 End: 11-16-2009 Patient encounter procedure Anam Kim Work Phone: [facility] Start: 11-16-2009 Results Only Anam Kim Work Phone: [facility] Start: 10-12-2009 End: 10-12-2009 Patient encounter procedure Anam Kim Work Phone: [facility] Start: 10-12-2009 Results Only Anam Kim Work Phone: [facility] Procedures Date Procedure Procedure Detail Performing Clinician Start: 11-30-2024 CT of chest without contrast Cyrus Claudio COMMODITY SUPERVISOR-C Work Phone: Start: 07-15-2024 Radionuclide imaging of perfusion of myocardium under exercise stress Cyrus Claudio COMMODITY SUPERVISOR-C Work Phone: Start: 06-15-2018 Cataract (morphologi c abnormality) CYRUS CLAUDIO FEDERAL JUDGE - DESIGN/ANIMATION INSTRUCTOR Start: 05-05-2017 End: 05-05-2017 Documentation of current medications Wild Watkins MD Start: 04-29-2017 End: 04-29-2017 *Hepatic Function Panel Blank Rodriguez Start: 04-29-2017 End: 04-29-2017 Lipid Dulce panel - Serum or Plasma Wild Watkins MD Start: 04-29-2017 End: 04-29-2017 Hepatic function 2000 panel - Serum or Plasma Wild Watkins MD Start: 04-29-2017 End: 04-29-2017 Lipid 1996 panel - Serum or Plasma Wild Watkins MD Start: 04-15-2017 CONVERTED SURGICAL PATHOLOGY Luis F Danielle Work Phone: Start: 11-03-2016 End: 11-03-2016 JEROME Anderson PA-C Work Phone: Start: 11-03-2016 End: 11-03-2016 Follow Up Appt [address] howell PA-C Work Phone: Start: 11-03-2016 End: 11-03-2016 Documentation of current medications Anita Christianson Start: 11-03-2016 End: 11-03-2016 JEROME Anderson PA-C Work Phone: Start: 11-03-2016 End: 11-03-2016 Follow Up Appt [address] howell PA-C Work Phone: Start: 10-21-2016 End: 10-29-2016 *Hepatic Function Panel Blank Rodriguez Start: 10-21-2016 End: 10-29-2016 Lipid Dulce panel - Serum or Plasma Wild Watkins MD Start: 10-21-2016 End: 10-29-2016 Hepatic function 2000 panel - Serum or Plasma Wild Watkins MD Start: 10-21-2016 End: 10-29-2016 Lipid Dulce panel - Serum or Plasma Wild Watkins MD Start: 06-15-2016 Surgery (qualifier value) CYRUS CLAUDIO FEDERAL JUDGE - DESIGN/ANIMATION INSTRUCTOR Comment on above: Bowel surgery Start: 04-29-2016 End: 04-29-2016 Follow Up Appt 6 months Blank Rodriguez Start: 04-29-2016 End: 04-29-2016 MMBlank Watkins MD Start: 04-29-2016 End: 04-29-2016 Documentation of current medications Wild Watkins MD Start: 04-29-2016 End: 04-29-2016 Follow Up Appt 6 months Blank Rodriguez Start: 04-29-2016 End: 04-29-2016 MMM Wild Watkins MD Start: 03-13-2016 End: 04-23-2016 *Hepatic Function Panel Blank Rodriguez Start: 03-13-2016 End: 04-23-2016 Lipid 1996 panel - Serum or Plasma Wild Watkins MD Start: 03-13-2016 End: 04-23-2016 Hepatic function 2000 panel - Serum or Plasma Wild Watkins MD Start: 03-13-2016 End: 04-23-2016 Lipid 1996 panel - Serum or Plasma Wild Watkins MD Start: 09-20-2015 End: 09-20-2015 Follow Up Appt 6 months Blank Rodriguez Start: 09-20-2015 End: 09-20-2015 MMM Wild Watkins MD Start: 09-20-2015 End: 09-20-2015 Follow Up Appt 6 months Blank Rodriguez Start: 09-20-2015 End: 09-20-2015 MMM Wild Watkins MD Start: 09-07-2015 End: 09-11-2015 *Hepatic Function Panel Blank Rodriguez Start: 09-07-2015 End: 09-11-2015 Lipid 1996 panel - Serum or Plasma Wild Watkins MD Start: 09-07-2015 End: 09-11-2015 Hepatic function 2000 panel - Serum or Plasma Wild Watkins MD Start: 09-07-2015 End: 09-11-2015 Lipid 1996 panel - Serum or Plasma Allowayblaire Watkins MD Start: 03-15-2015 End: 03-15-2015 JEROME Anderson PA-C Work Phone: Start: 03-15-2015 End: 03-15-2015 Follow Up Appt [address] howell PA-C Work Phone: Start: 03-15-2015 End: 03-15-2015 JEROME Anderson PA-C Work Phone: Start: 03-15-2015 End: 03-15-2015 Follow Up Appt [address] howell PA-C Work Phone: Start: 02-13-2015 End: 03-09-2015 *Hepatic Function Panel Blank Rodriguez Start: 02-13-2015 End: 03-09-2015 Lipid 1996 panel - Serum or Plasma Wild Watkins MD Start: 02-13-2015 End: 03-09-2015 Hepatic function 2000 panel - Serum or Plasma Wild Watkins MD Start: 02-13-2015 End: 03-09-2015 Lipid 1996 panel - Serum or Plasma Wild Watkins MD Start: 11-27-2014 End: 12-11-2014 *Hepatic Function Panel Blank Rodriguez Start: 11-27-2014 End: 12-11-2014 Lipid 1996 panel - Serum or Plasma Wild Watkins MD Start: 11-27-2014 End: 12-11-2014 Hepatic function 2000 panel - Serum or Plasma Wild Watkins MD Start: 11-27-2014 End: 12-11-2014 Lipid 1996 grecia Crawford or Plasma Wild Watkins MD Start: 09-12-2014 End: 09-13-2014 Documentation of current medications Wild Watkins MD Start: 09-12-2014 End: 09-12-2014 Follow Up Appt 6 months Blank Rodriguez Start: 09-12-2014 End: 09-12-2014 MALA Watkins MD Start: 09-12-2014 End: 09-13-2014 Documentation of current medications Wild Watkins MD Start: 09-12-2014 End: 09-12-2014 Follow Up Appt 6 months Blank Rodriguez Start: 09-12-2014 End: 09-12-2014 MALA Watkins MD Start: 06-14-2014 End: 06-16-2014 *BMP Court Anderson PA-C Work Phone: Start: 06-14-2014 End: 06-16-[address] Anderson PA-C Work Phone: Start: 06-14-2014 End: 06-14-[address] Anderson PA-C Work Phone: Start: 06-14-2014 [...] PA-C Work Phone: Start: 06-14-2014 End: 06-14-[address] Anderson PA-C Work Phone: Start: 06-14-2014 End: 06-15-2014 Documentation of current medications Court Anderson PA-C Work Phone: Start: 06-14-2014 End: 06-14-2014 Ecg routine ecg w/least 12 lds w/i&r Court Anderson PA-C Work Phone: Start: 06-14-2014 End: 06-14-2014 Follow Up Appt [address] howell PA-C Work Phone: Start: 06-01-2014 End: 06-01-2014 *BMP Wild Watkins MD Start: 06-01-2014 End: 06-01-2014 *Hepatic Function Panel Blank Rodriguez Start: 06-01-2014 End: 06-01-2014 Lipid 1996 [...] disease History of coronary artery stent placement COMMODITY SUPERVISOR-C Cyrus Cowarttristan SIMON Work Phone: Comment on above: SUT-Cxxhf-Baze LCx ; PCI-NAHUM-ISR Prox LCx 05/18/2014 Start: 05-15-2014 End: 05-19-2014 Renal doppler Wild Watkins MD Start: 05-15-2014 End: 05-19-2014 Renal doppler Wild Watkins MD Start: 12-28-2013 End: 01-03-[address] Anderson PA-C Work Phone: Start: 12-28-2013 End: 12-28-[address] Anderson PA-C Work Phone: Start: 12-28-2013 End: 12-28-2013 Follow Up Appt [address] howell PA-C Work Phone: Start: 12-28-2013 End: 01-03-[address] Anderson PA-C Work Phone: Start: 12-28-2013 End: 12-28-2013 JEROME Anderson PA-C Work Phone: Start: 12-28-2013 End: 12-28-2013 Follow Up Appt [address] howell PA-C Work Phone: Start: 12-13-2013 End: 12-15-2013 *Hepatic Function Panel Blank Rodriguez Start: 12-13-2013 End: 12-15-2013 Lipid 1996 panel - Serum or Plasma Wild Watkins MD Start: 12-13-2013 End: 12-15-2013 Hepatic function 2000 panel - Serum or Plasma Wild Watkins MD Start: 12-13-2013 End: 12-15-2013 Lipid 1996 panel - Serum or Plasma Wild S Roland, MD Start: 06-28-2013 End: 06-28-2013 Follow Up Appt 6 months Blank Rodriguez Start: 06-28-2013 End: 06-28-2013 MALA Watkins MD Start: 06-28-2013 End: 06-28-2013 Follow Up Appt 6 months Blank Rodriguez Start: 06-28-2013 End: 06-28-2013 MMBlank Watkins MD Start: 05-15-2013 End: 06-17-2013 *Hepatic Function Panel Blank Rodriguez Start: 05-15-2013 End: 06-17-2013 Lipid 1996 panel - Serum or Plasma Wild Watkins MD Start: 05-15-2013 End: 06-17-2013 Hepatic function 2000 panel - Serum or Plasma Wild Watkins MD Start: 05-15-2013 End: 06-17-2013 Lipid 1996 panel - Serum or Plasma Wild Watkins MD Start: 12-01-2012 End: 12-01-[address] Anderson PA-C Work Phone: Start: 12-01-2012 End: 12-01-2012 Follow Up Appt [address] howell PA-C Work Phone: Start: 12-01-2012 End: 12-01-2012 Follow Up Appt Other Court rudd PA-C Work Phone: Start: 12-01-2012 End: 12-01-2012 JEROME Anderson PA-C Work Phone: Start: 12-01-2012 End: 12-01-2012 Follow Up Appt [address] howell PA-C Work Phone: Start: 12-01-2012 End: 12-01-2012 Follow Up Appt Other Court rudd PA-C Work Phone: Start: 11-13-2012 End: 11-30-2012 *Hepatic Function Panel Blank Rodriguez Start: 11-13-2012 End: 11-30-2012 Lipid 1996 panel - Serum or Plasma Wild Watkins MD Start: 11-13-2012 End: 11-30-2012 Hepatic function 2000 panel - Serum or Plasma Wild Watkins MD Start: 11-13-2012 End: 11-30-2012 Lipid 1996 panel - Serum or Plasma Wild Watkins MD Start: 06-01-2012 End: 06-01-2012 Follow Up Appt 6 months Blank Rodriguez Start: 06-01-2012 End: 06-01-2012 Follow Up Appt 6 months Blank Rodriguez Start: 02-10-2012 End: 05-27-2012 *Hepatic Function Panel Blank Rodriguez Start: 02-10-2012 End: 05-27-2012 Lipid 1996 panel - Serum or Plasma Wild Watkins MD Start: 02-10-2012 End: 05-27-2012 Hepatic function 2000 panel - Serum or Plasma Wild Watkins MD Start: 02-10-2012 End: 05-27-2012 Lipid 1996 panel - Serum or Plasma Wild Watkisn MD Start: 08-20-2011 End: 08-20-2011 eRx Transmitted during this visit (Medicare only) Wild Watkins MD Start: 08-20-2011 End: 11-19-2012 Follow Up Appt 6 months Blank Rodriguez Start: 08-20-2011 End: 11-19-2012 Follow Up Appt 6 months Blank Rodriguez Start: 08-20-2011 End: 08-20-2011 Prescrip transmit via erx sy Wild Watkins MD Start: 10-25-2010 Placement of stent i n coronary artery Status post cardiac stent placement Wild Watkins MD Start: 11-16-2009 CONVERTED SURGICAL PATHOLOGY Anam Kim Work Phone: Start: 10-12-2009 CONVERTED SURGICAL PATHOLOGY Anam Kim Work Phone: Start: 06-15-2001 Stent, device (physi mayo object) CYRUS CLAUDIO Keukey Comment on above: Heart Arterial structure ( body structure) CYRUS CLAUDIO Keukey Comment on above: Corotid Plan of Treatment Date Care Activity Detail Author Start: 11-17-2024 Measurement of respiratory function [facility] Start: 04-16-2020 DIABETES SCREEN DIABETES SCREEN [facility] Start: 02-14-2020 Influenza vaccination INFLUENZA (#1) [facility] Start: 05-18-2019 LIPID SCREEN LIPID SCREEN [facility] Start: 11-04-2017 End: 11-04-2017 Appointment Appointment [facility] Work Phone: Start: 10-27-2017 End: 04-30-2017 *Hepatic Function Panel *Hepatic Function Panel [facility] [place] 2[facility] Work Phone: Start: 10-27-2017 End: 04-30-2017 Lipid panel [AGGREGATE] *Lipid Profile CC PCP [facility] Work Phone: Start: 10-27-2017 End: 04-30-2017 Hepatic function 2000 panel - Serum or Plasma *Hepatic Function Panel [facility] Work Phone: Start: 10-27-2017 End: 04-30-2017 Lipid 1996 panel - Serum or Plasma *Lipid Profile CC PCP [facility] Work Phone: Start: 05-05-2017 End: 05-05-2017 Follow Up Appt 6 months Follow Up Appt 6 months [facility] Work Phone: Start: 05-05-2017 End: 05-05-2017 MMM MMM [facility] Work Phone: Start: 05-05-2017 End: 05-05-2017 Appointment Appointment [facility] Work Phone: Start: 05-05-2017 End: 05-05-2017 Follow Up Appt 6 months Follow Up Appt 6 months [facility] Work Phone: Start: 05-05-2017 End: 05-05-2017 MMM MMM [facility] Work Phone: Start: 04-29-2017 End: 04-29-2017 *Hepatic Function Panel *Hepatic Function Panel [facility] Work Phone: Start: 04-29-2017 End: 04-29-2017 Lipid panel [AGGREGATE] *Lipid Profile CC PCP [facility] Work Phone: Start: 04-29-2017 End: 04-29-2017 Hepatic function 2000 panel - Serum or Plasma *Hepatic Function Panel [facility] Work Phone: Start: 04-29-2017 End: 04-29-2017 Lipid 1996 panel - Serum or Plasma *Lipid Profile CC PCP [facility] Work Phone: Start: 11-03-2016 End: 11-03-2016 HEAD FILTER PRESS TENDER HEAD FILTER PRESS TENDER [facility] Work Phone: Start: 11-03-2016 End: 11-03-2016 Follow Up Appt 6 months Follow Up Appt 6 months [facility] Work Phone: Start: 11-03-2016 End: 11-03-2016 Patient encounter procedure Appointment [facility] Work Phone: Start: 11-03-2016 End: 11-03-2016 HEAD FILTER PRESS TENDER HEAD FILTER PRESS TENDER [facility] Work Phone: Start: 11-03-2016 End: 11-03-2016 Follow Up Appt 6 months Follow Up Appt 6 months [facility] Work Phone: Start: 10-21-2016 End: 10-29-2016 *Hepatic Function Panel *Hepatic Function Panel [facility] Work Phone: Start: 10-21-2016 End: 10-29-2016 Lipid panel [AGGREGATE] *Lipid Profile CC PCP [facility] Work Phone: Start: 10-21-2016 End: 10-29-2016 Hepatic function 2000 panel - Serum or Plasma *Hepatic Function Panel [facility] Work Phone: Start: 10-21-2016 End: 10-29-2016 Lipid 1996 panel - Serum or Plasma *Lipid Profile CC PCP [facility] Work Phone: Start: 04-29-2016 End: 04-29-2016 Follow Up Appt 6 months Follow Up Appt 6 months [facility] Work Phone: Start: 04-29-2016 [...] Lipid panel [AGGREGATE] *Lipid Profile CC PCP [facility] Work Phone: Start: 03-13-2016 End: 04-23-2016 Hepatic function 2000 panel - Serum or Plasma *Hepatic Function Panel [facility] Work Phone: Start: 03-13-2016 End: 04-23-2016 Lipid 1996 panel - Serum or Plasma *Lipid Profile CC PCP [facility] Work Phone: Start: 09-20-2015 End: 09-20-2015 Follow Up Appt 6 months Follow Up Appt 6 months [facility] Work Phone: Start: 09-20-2015 End: 09-20-2015 MMM MMM [facility] Work Phone: Start: 09-20-2015 End: 09-20-2015 Follow Up Appt 6 months Follow Up Appt 6 months [facility] Work Phone: Start: 09-20-2015 End: 09-20-2015 MMM MMM [facility] Work Phone: Start: 09-07-2015 End: 09-11-2015 *Hepatic Function Panel *Hepatic Function Panel [facility] Work Phone: Start: 09-07-2015 End: 09-11-2015 Lipid panel [AGGREGATE] *Lipid Profile CC PCP [facility] Work Phone: Start: 09-07-2015 End: 09-11-2015 Hepatic function 2000 panel - Serum or Plasma *Hepatic Function Panel [facility] Work Phone: Start: 09-07-2015 End: 09-11-2015 Lipid 1996 panel - Serum or Plasma *Lipid Profile CC PCP [facility] Work Phone: Start: 03-15-2015 End: 03-15-2015 HEAD FILTER PRESS TENDER HEAD FILTER PRESS TENDER [facility] Work Phone: Start: 03-15-2015 End: 03-15-2015 Follow Up Appt 6 months Follow Up Appt 6 months [facility] Work Phone: Start: 03-15-2015 End: 03-15-2015 HEAD FILTER PRESS TENDER HEAD FILTER PRESS TENDER [facility] Work Phone: Start: 03-15-2015 End: 03-15-2015 Follow Up Appt 6 months Follow Up Appt 6 months [facility] Work Phone: Start: 02-13-2015 End: 03-09-2015 *Hepatic Function Panel *Hepatic Function Panel [facility] Work Phone: Start: 02-13-2015 End: 03-09-2015 Lipid panel [AGGREGATE] *Lipid Profile CC PCP [facility] Work Phone: Start: 02-13-2015 End: 03-09-2015 Hepatic function 2000 panel - Serum or Plasma *Hepatic Function Panel [facility] Work Phone: Start: 02-13-2015 End: 03-09-2015 Lipid 1996 panel - Serum or Plasma *Lipid Profile CC PCP [facility] Work Phone: Start: 11-27-2014 End: 11-27-2014 *Hepatic Function Panel *Hepatic Function Panel [facility] Work Phone: Start: 11-27-2014 End: 11-27-2014 Lipid panel [AGGREGATE] *Lipid Profile CC PCP [facility] Work Phone: Start: 11-27-2014 End: 11-27-2014 Hepatic function 2000 panel - Serum or Plasma *Hepatic Function Panel [facility] Work Phone: Start: 11-27-2014 End: 11-27-2014 Lipid 1996 panel - Serum or Plasma *Lipid Profile CC PCP [facility] Work Phone: Start: 09-12-2014 End: 09-12-2014 Follow Up Appt 6 months Follow Up Appt 6 months [facility] Work Phone: Start: 09-12-2014 End: 09-12-2014 MMM MMM [facility] Work Phone: Start: 09-12-2014 End: 09-12-2014 Follow Up Appt 6 months Follow Up Appt 6 months [facility] Work Phone: Start: 09-12-2014 End: 09-12-2014 MMM MMM [facility] Work Phone: Start: 06-14-2014 End: 06-16-2014 *BMP *BMP [facility] Work Phone: Start: 06-14-2014 End: 06-16-2014 Cardiac Rehab Cardiac Rehab [facility] Work Phone: Start: 06-14-2014 End: 06-14-2014 HEAD FILTER PRESS TENDER HEAD FILTER PRESS TENDER [facility] Work Phone: Start: 06-14-2014 [...] Group Work Phone: Start: 06-14-2014 End: 06-14-2014 HEAD FILTER PRESS TENDER HEAD FILTER PRESS TENDER [facility] Work Phone: Start: 06-14-2014 [...] 06-01-2014 *Hepatic Function Panel *Hepatic Function Panel [facility] Work Phone: Start: 06-01-2014 End: 06-01-2014 Lipid panel [AGGREGATE] *Lipid Profile CC PCP [facility] Work Phone: Start: 06-01-2014 End: 06-01-2014 Basic metabolic 2000 panel - Serum or Plasma *BMP [facility] Work Phone: Start: 06-01-2014 End: 06-01-2014 Hepatic function 2000 panel - Serum or Plasma *Hepatic Function Panel [facility] Work Phone: Start: 06-01-2014 End: 06-01-2014 Lipid 1996 panel - Serum or Plasma *Lipid Profile CC PCP [facility] Work Phone: Start: 05-15-2014 End: 05-15-2014 Renal doppler Renal doppler [facility] Work Phone: Start: 05-15-2014 End: 05-15-2014 Renal doppler Renal doppler [facility] Work Phone: Start: 12-28-2013 End: 12-28-2013 Carotid duplex Carotid duplex [facility] Work Phone: Start: 12-28-2013 End: 12-28-2013 HEAD FILTER PRESS TENDER HEAD FILTER PRESS TENDER [facility] Work Phone: Start: 12-28-2013 End: 12-28-2013 Follow Up Appt 6 months Follow Up Appt 6 months [facility] Work Phone: Start: 12-28-2013 End: 12-28-2013 Carotid duplex Carotid duplex [facility] Work Phone: Start: 12-28-2013 End: 12-28-2013 HEAD FILTER PRESS TENDER HEAD FILTER PRESS TENDER [facility] Work Phone: Start: 12-28-2013 End: 12-28-2013 Follow Up Appt 6 months Follow Up Appt 6 months [facility] Work Phone: Start: 12-13-2013 End: 12-15-2013 *Hepatic Function Panel *Hepatic Function Panel [facility] Work Phone: Start: 12-13-2013 End: 12-15-2013 Lipid panel [AGGREGATE] *Lipid Profile CC PCP [facility] Work Phone: Start: 12-13-2013 End: 12-15-2013 Hepatic function 2000 panel - Serum or Plasma *Hepatic Function Panel [facility] Work Phone: Start: 12-13-2013 End: 12-15-2013 Lipid 1996 panel - Serum or Plasma *Lipid Profile CC PCP [facility] Work Phone: Start: 06-28-2013 End: 06-28-2013 Follow Up Appt 6 months Follow Up Appt 6 months [facility] Work Phone: Start: 06-28-2013 End: 06-28-2013 MM MMM [facility] Work Phone: Start: 06-28-2013 End: 06-28-2013 Follow Up Appt 6 months Follow Up Appt 6 months [facility] Work Phone: Start: 06-28-2013 End[facility]-28-2013 [facility] Work Phone: Start: 05-15-2013 End: 06-17-2013 *Hepatic Function Panel *Hepatic Function Panel [facility] Work Phone: Start: 05-15-2013 End: 06-17-2013 Lipid panel [AGGREGATE] *Lipid Profile CC PCP [facility] Work Phone: Start: 05-15-2013 End: 06-17-2013 Hepatic function 2000 panel - Serum or Plasma *Hepatic Function Panel [facility] Work Phone: Start: 05-15-2013 End: 06-17-2013 Lipid 1996 panel - Serum or Plasma *Lipid Profile CC PCP [facility] Work Phone: Start: 12-01-2012 End: 12-01-2012 HEAD FILTER PRESS TENDER HEAD FILTER PRESS TENDER [facility] Work Phone: Start: 12-01-2012 End: 12-01-2012 Follow Up Appt 6 months Follow Up Appt 6 months [facility] Work Phone: Start: 12-01-2012 End: 12-01-2012 Follow Up Appt Other Follow Up Appt Other [facility] Work Phone: Start: 12-01-2012 End: 12-01-2012 HEAD FILTER PRESS TENDER HEAD FILTER PRESS TENDER [facility] Work Phone: Start: 12-01-2012 End: 12-01-2012 Follow Up Appt 6 months Follow Up Appt 6 months [facility] Work Phone: Start: 12-01-2012 End: 12-01-2012 Follow Up Appt Other Follow Up Appt Other [facility] Work Phone: Start: 11-13-2012 End: 11-30-2012 *Hepatic Function Panel *Hepatic Function Panel [facility] Work Phone: Start: 11-13-2012 End: 11-30-2012 Lipid panel [AGGREGATE] *Lipid Profile [facility] Work Phone: Start: 11-13-2012 End: 11-30-2012 Hepatic function 2000 panel - Serum or Plasma *Hepatic Function Panel [facility] Work Phone: Start: 11-13-2012 End: 11-30-2012 Lipid 1996 panel - Serum or Plasma *Lipid Profile [facility] Work Phone: Start: 06-01-2012 End: 06-01-2012 Follow Up Appt 6 months Follow Up Appt 6 months [facility] Work Phone: Start: 06-01-2012 End: 06-01-2012 Follow Up Appt 6 months Follow Up Appt 6 months [facility] Work Phone: Start: 02-10-2012 End: 05-27-2012 *Hepatic Function Panel *Hepatic Function Panel [facility] Work Phone: Start: 02-10-2012 End: 05-27-2012 Lipid panel [AGGREGATE] *Lipid Profile [facility] Work Phone: Start: 02-10-2012 End: 05-27-2012 Hepatic function 2000 panel - Serum or Plasma *Hepatic Function Panel [facility] Work Phone: Start: 02-10-2012 End: 05-27-2012 Lipid 1996 panel - Serum or Plasma *Lipid Profile [facility] Work Phone: Start: 08-20-2011 End: 11-19-2012 Follow Up Appt 6 months Follow Up Appt 6 months [facility] Work Phone: Start: 08-20-2011 End: 11-19-2012 Follow Up Appt 6 months Follow Up Appt 6 months [facility] Work Phone: Start: 2009 ADVANCE DIRECTIVE DISCUSSION ADVANCE DIRECTIVE DISCUSSION [facility] Start: 2009 BONE DENSITY BONE DENSITY [facility] Start: 2009 PNEUMOVAX AGE 65 AND OVER WITH 5YR LOOKBACK (#1) PNEUMOVAX AGE 65 AND OVER WITH 5YR LOOKBACK (#1) [facility] Start: 1994 SHINGRIX VACCINE (1 of 2) SHINGRIX VACCINE (1 of 2) [facility] Start: 1994 Tuberculosis screening COLOREC LIYAH CANCER SCREENING,SEE MODIFIER [facility] Start: 08-19-1963 Urine microalbumin profile DTAP,TDAP,TD (1 - Tdap) [facility] Start: 1962 HEPATITIS C SCREENING HEPATITIS C SC REHANA [facility] Cardiac event recording [facility] Work Phone: CT Chest WO contrast [facility] Work Phone: Immunizations Immunization Date Immunization Notes Care Provider Fa [facility] 04-28-2023 SARS-CoV-2 (COVID-19 ) [id number] CYRUS CLAUDIO FEDERAL JUDGE - DESIGN/ANIMATION INSTRUCTOR [facility] 04-23-2023 influenza virus vaccine, unspecified formulation CYRUS CLAUDIO FEDERAL JUDGE - DESIGN/ANIMATION INSTRUCTOR [facility] 04-07-2022 SARS-CoV-2 (CV19)mRNA-1273 bivalent vac CYRUS CLAUDIO FEDERAL JUDGE - DESIGN/ANIMATION INSTRUCTOR [facility] 03-11-2022 influenza virus vaccine, unspecified formulation CYRUS CLAUDIO FEDERAL JUDGE - DESIGN/ANIMATION INSTRUCTOR [facility] 06-20-2021 SARS-CoV-2 (COVID-19 ) mRNA-1273 vaccine CYRUS CLAUDIO FEDERAL JUDGE - DESIGN/ANIMATION INSTRUCTOR [facility] 03-21-2021 influenza virus vaccine, unspecified formulation CYRUS CLAUDIO FEDERAL JUDGE - DESIGN/ANIMATION INSTRUCTOR [facility] 09-13-2020 COVID-19, mRNA, LNP- S, PF, 100 mcg/ 0.5 mL dose; Translations: [Moderna COVID-19 Vaccine] CYRUS CLAUDIO FEDERAL JUDGE - DESIGN/ANIMATION INSTRUCTOR [facility] 08-16-2020 COVID-19, mRNA, LNP- S, PF, 100 mcg/ 0.5 mL dose; Translations: [Moderna COVID-19 Vaccine] CYRUS CLAUDIO FEDERAL JUDGE - DESIGN/ANIMATION INSTRUCTOR [facility] Comment on above: Result Comment: AGUSTINA PIKEN SILVIA Maxwlel STUDENT 02-14-2020 influenza virus vaccine, unspecified formulation CYRUS CLAUDIO FEDERAL JUDGE - DESIGN/ANIMATION INSTRUCTOR [facility] 02-17-2019 influenza virus vaccine, unspecified formulation CYRUS CLAUDIO FEDERAL JUDGE - DESIGN/ANIMATION INSTRUCTOR [facility] 04-15-2018 pneumococcal conjuga te vaccine, 13 valent CYRUS CLAUDIO FEDERAL JUDGE - DESIGN/ANIMATION INSTRUCTOR [facility] 03-14-2018 influenza virus vaccine, unspecified formulation CYRUS CLAUDIO FEDERAL JUDGE - DESIGN/ANIMATION INSTRUCTOR [facility] 03-30-2017 influenza virus vaccine, unspecified formulation CYRUS CLAUDIO FEDERAL JUDGE - DESIGN/ANIMATION INSTRUCTOR [facility] 03-15-2017 influenza virus vaccine, unspecified formulation CYRUS CLAUDIO FEDERAL JUDGE - DESIGN/ANIMATION INSTRUCTOR [facility] 02-28-2016 influenza virus vaccine, unspecified formulation CYRUS CLAUDIO FEDERAL JUDGE - DESIGN/ANIMATION INSTRUCTOR [facility] 03-09-2015 influenza virus vaccine, unspecified formulation CYRUS CLAUDIO FEDERAL JUDGE - DESIGN/ANIMATION INSTRUCTOR [facility] 03-15-2014 Influenza virus vaccine COMMODITY SUPERVISOR-C Cyrus Claudio COMMODITY SUPERVISOR Work Phone: [facility] 03-15-2014 influenza virus vaccine, unspecified formulation CYRUS CLAUDIO FEDERAL JUDGE - DESIGN/ANIMATION INSTRUCTOR [facility] Payers Date Payer Category Payer Self-pay [id number] 2022 Unknown [id number] 2022 Private Health Insurance [facility] [id number] 2022 Unknown [id number] 2021 Unknown [id number] 2019 Medicare [id number] 2017 Unknown [facility]/MEDICAL GENERIC [id number] 2017-Present Indemnity [id number] 2009 Medicare MEDICARE MEDICAR E A AND B [id number] 2009-Present [place] Medicare [id number] 2009 Medicare [id number] 1945 Unknown [id number] .627 1944 Unknown [id number] [id number] .627 1944 Unknown [id number] 2.16.840.1.360194.3.579.2 .627 1944 Unknown [id number] 2.16.840.1.487773.3.579.2 .627 1944 Unknown [id number] 2.16.840.1.851131.3.579.2 .627 1944 Unknown [id number] 2.16.840.1.481484.3.579.2 .627 1944 Unknown [id number] 2.16.840.1.587713.3.579.2 .627 1945 Unknown [id number] 2.16.840.1.193349.3.579.2 .627 Medicare [id number] Unknown [id number] Unknown [id number] Unknown [id number] 2.16.840.1.026316.3.579.2 .462 Unknown [id number] 2.16.840.1.077104.3.579.2 .462 Unknown [id number] 2.16.840.1.272849.3.579.2 .462 Unknown [id number] 2.16.840.1.851264.3.579.2 .462 Unknown [id number] 2.16.840.1.028010.3.579.2 .462 Unknown [id number] 2.16.840.1.877895.3.579.2 .462 Unknown [id number] 2.16.840.1.005912.3.579.2 .462 Unknown [id number] 2.16.840.1.630263.3.579.2 .462 Unknown [id number] 2.16.840.1.978404.3.579.2 .462 Unknown [id number] 2.16.840.1.225121.3.579.2 .462 Unknown [id number] 2.16.840.1.226441.3.579.2 .462 Unknown [id number] 2.16.840.1.862233.3.579.2 .462 Social History Date Type Detail Facility Tobacco smoking stat us ARIS Unknown if ever smoked [facility] Assigned At [facility] Start: 04-15-2017 End: 06-26-2023 Tobacco smoking status NHIS Former smoker [facility] Start: 04-15-2017 Alcohol intake Current non-dr wood heel back liner of alcohol (finding) [facility] Start: 12-06-2019 End: 02-23-2025 Never smoked tobacco (finding) [facility] Start: 1945 Sex Assigned At Female A [facility] Start: 01-13-2022 End: 02-02-2023 Tobacco smoking status NHIS Unknown if ever smoked [facility] Start: 05-08-2014 None [facility] Start: 05-08-2014 Non-smoker [facility] Sexual Orientation [facility] Start: 12-08-2018 Sex Female (finding) [facility] Sex Female [facility] Clinical Notes 11-03-2016 to 03-20-2025 Note Date & Type Note Facility 03-20-2025 Progress note [facility] 12-30-2024 Evaluation note Diagnosis Onset Date Resolution Mild intermittent asthma acute Tala 18th, 2025 9:47am Cough chronic March 20 025 9:25am [facility] Work Phone: 1(398) 552-409206-19-2025 Radiology Diagnostic study note [facility] Imaging Services [address] [place] [address] Chest without Contrast MR#: [id number] Acct: [id number] Name: BAUDILIO TORRES Rep #: [id number] : [id number] F 79 From: Allison Marroquin MD PCP: ANDREW Roland Status: REG CLI Study:Chest without Contrast Date of Exam: 11/30/24 Exam# [id number] Ordering Dr: Sandy Castro PROCEDURE: CHEST WITHOUT CONTRAST 11/30/2024 REASON FOR EXAM: CHRONIC COUGH> 6 MONTHS TECHNIQUE: Chest CT without contrast. Coronal and Sagittal reconstruction series were provided. One or more dose reduction techniques were used (e.g., Automated exposure control, adjustment of the mA and/or kV according to patient size, use of iterative reconstruction technique RADIATION DOSE SUMMARY: CTDlvol: 6.4 mGy DLP: 255 mGycm COMPARISON: Radiographs on 04/23/2021. FINDINGS: Moderate coronary artery calcifications. Normal unenhanced main pulmonary artery and right and left pulmonary arteries. Normal bilateral peripheral pulmonary arteries. Normal thoracic aorta and visualized great vessels. There is no demonstrated aortic aneurysm. Normal heart and pericardium. Normal mediastinum. Normal hilar regions. Normal visualized trachea and bronchi. The lungs are well expanded. Normal pulmonary parenchyma. Normal pleura. Mild diffuse spondylosis. Normal visualized upper abdomen. CT/Chest without Contrast IMPRESSION: IMPRESSION: Coronary artery calcification (CAC) is is present No CT evidence of an acute abnormality. Reading [facility] [address] CC: ANDREW Claudio; Sandy Castro NP ~ Environmental Science Instructor: Signed [facility]05-23-2025 Evaluation note* Diagnosis Onset Date Resolution Status Admit Date Cough chronic November 04, 2024 1:46pm [facility] Work Phone: 1(116) 766-456505-23-2025 Evaluation note* Diagnosis Onset Date Resolution Status Admit Date Cough chronic November 04, 2024 1:46pm Cough chronic December 30 9:47am [facility] Work Phone: 1(416) 267-898712-20-2023 Evaluation + Plan note Future Scheduled Tests Laboratory* Thyroid Stimulating Hormone 06/03/23 * Free T4 06/03/23 * Lipid Profile 06/03/23 * Albumin/Creatinine Ratio, Random Urine 06/03/23 * Complete Metabolic Panel 06/03/23 Radiology* XR Chest 2 Views (PA & Lateral) 04/17/24 [facility] 11-21-2017 Fall risk [id number]/11/21[facility] Work Phone: 1(210) 883-276405-22-2017 Fall risk [id number]/05/22[facility] NoFall risk assessmentWChannelinsightk[facility] Work Phone: Evaluation + Plan note Future Appointments Appointment Date:06/28/2021 10:40:00 AM Scheduled Provider:CYRUS CLAUDIO APRN, CNP Location:[facility] Appointment Type: OV Future Scheduled Tests Radiology* CT Angiography Chest w/ Contrast 04/25/21 [facility] Evaluation + Plan note Future Appointments Appointment Date:03/11/2022 08:30:00 AM Scheduled Provider: Location:[facility] Appointment Type:XR Upper GI Appointment Date:03/17/2022 01:40:00 [...] * Allergen, Elm Tree 03/05/22 * Allergen, Serbian Plantain 03/05/22 * Allergen, Tiny Grass 03/05/22 * Allergen, [place] Tree 03/05/22 * Allergen, Common Ragweed 03/05/22 * [facility] Lab Send out (Blood Specimens) 03/05/22 Future Scheduled Tests Laboratory* Thyroid Stimulating Hormone 04/19/22 * Free T4 04/19/22 * Complete Blood Count 07/20/22 * Lipid Profile 07/20/22 * Microalbumin Level Urine 07/20/22 * Complete Metabolic Panel 07/20/22 * [facility] Lab Send out (Blood Specimens) 03/03/22 Radiology* CT Angiography Chest w/ Contrast 04/25/21 * XR Upper GI 03/11/22 [facility] Evaluation + Plan note Future Appointments Appointment Date:04/18/2022 02:20:00 PM Scheduled Provider:CYRUS CLAUDIO APRN, CNP Location:[facility] Appointment Type: OV Follow Up Future Scheduled Tests Laboratory* Complete Blood Count 07/20/22 * Lipid Profile 07/20/22 * Microalbumin Level Urine 07/20/22 * Complete Metabolic Panel 07/20/22 * [facility] Lab Send out (Blood Specimens) 03/03/22 Radiology* CT Angiography Chest w/ Contrast 04/25/21 [facility] Evaluation + Plan note Future Appointments Appointment Date:08/08/2025 10:00:00 AM Scheduled Provider: Location:[facility] Appointment Type:PC Nurse Lab Appointment Date:08/11/2025 10:20:00 AM Scheduled Provider:CYRUS CLAUDIO APRN, CNP Location:[facility] Appointment Type: OV Follow Up Future Scheduled Tests Laboratory* Thyroid Stimulating Hormone 08/10/25 * Free T4 08/10/25 * A1C Hemoglobin 08/10/25 * Lipid Profile 08/10/25 * Albumin/Creatinine Ratio, Random Urine 08/10/25 * Vitamin D Level 08/10/25 * Complete Metabolic Panel 08/10/25 Radiology* XR Chest 2 Views (PA & Lateral) 04/17/24 [facility] Evaluation note* Diagnosis Onset Date Resolution Status Intermittent palpitations ac renee Atherosclerotic heart diseas e of [place] coronary artery without angina pectoris chronic Essential hypertension chron ic HLD (hyperlipidemia) chronic [facility] Work Phone: Evaluation noteNo assessment information available [facility] Work Phone: Hospital course Narrative No data available for this section [facility] Hospital Discharge instructions No data available for this section [facility] Progress note No data available for this section [facility] Progrunz note Author Hamzah Valdez [facility] Note Date/Time March 20, 2025 10 :45am [facility] [address] [place] [address] OFFICE VISIT Date of Service: 03/20/25 MR#: [id number] Acct: [id number] Name: BAUDILIO TORRES Rep #: [id number] : 1945 Provider: Hamzah Valdez DO Age/Sex: 79/F Location: [facility] [place] [place] Status: Signed Intake Vital Signs 12/30/24 08:00 Height 4 ft 11 in Weight: 143 lb BMI 28.8 BP 137/64 H Blood Pressure Location Lt brachial Position Sitting Respiration 16 Pulse 49 L Pulse Source Monitor Temp 97.3 F L Pulse Oximetry (%) 97 Oxygen Delivery Method room air Comment Just took bp medications. Intake Visit Reasons: ESOPHAGERAL DYSMOTILITY Allergies Opioids - Morphine Analogues Allergy (Mild, Verified 11/04/24 13:52) Nausea lisinopril Adverse Reaction (Verified 11/04/24 13:52) cough Medications ?Medication ?Instructions ?Recorded ?Confirmed ?Type aspirin 81 mg chewable tablet 81 mg PO DAILY 04/10/17 03/20/25 History ondansetron 4 mg disintegrating 4 mg PO Q8H PRN PRN Na usea #14 tabs 02/02/23 03/20/25 Rx tablet nitroglycerin 0.4 mg sublingual 0.4 mg sublingual Q5-1 5M PRN chest 06/26/23 03/20/25 Rx tablet (Nitrostat) pain #25 tabs atenolol 25 mg tablet 25 mg PO DAILY #90 tabs 12/0703/20/25 Rx clopidogrel 75 mg tablet 75 mg PO DAILY #90 tabs 12/0703/20/25 Rx simvastatin 40 mg tablet 40 mg PO DAILY #90 tabs 12/0703/20/25 Rx hydrochlorothiazide 25 mg tablet 25 mg PO DAILY #90 TA BLETS 09/21/24 03/20/25 Rx losartan 50 mg tablet 50 mg PO BID This is a dose 11/23/24 03/20/25 Rx increase #180 tabs albuterol sulfate 2.5 mg/3 mL 2.5 mg (3 mL) inhalation Q4-6H PRN 12/30/24 03/20/25 Rx (0.083 %) solution for nebulization shortness of breat h or wheezing #180 mL budesonide 0.5 mg/2 mL suspension 0.5 mg (2 mL) inhala tion QDAY #60 12/30/24 03/20/25 Rx for nebulization mL levothyroxine 25 mcg capsule 25 mcg PO QDAY 03/20/25 1 History Have you fallen in the past year?: No Nurse's Note: Pt was scheduled for EGD w/ you on 04.18.25 at the end of their appt today. Reviewed prep instructions and which medications to hold prior to procedure withpt in office. A paper copy of EGD prep instructions were given to pt. Pt denies any questions or concerns at this time. [facility] Medical History Essential hypertension Carotid artery disease Renal artery stenosis Atherosclerotic heart disease of [place] coronary artery without angina pectoris PVD (peripheral vascular disease) Carotid bruit Chronic diastolic (congestive) heart failure HLD (hyperlipidemia) Surgical History History of coronary artery stent placement (05/18/14) History of bilateral carotid endarterectomy History of dental surgery History of tubal ligation Family History Father CAD (coronary artery disease) Mother CAD (coronary artery disease) CVA (cerebral vascular accident) Brother CAD (coronary artery disease) Sister CAD (coronary artery disease) Hypertension Sister Hypertension Brother Hypertension Social History Smoking Status: Former smoker alcohol intake: never substance use type: does not use HPI HPI Details: BAUDILIO TORRES, is a ?79-year-old female presents with a chronic, nonproductive cough associated with clear mucous production. The cough has been ongoing for >8weeks. It is present throughout the day and is sometimes worse at night. The patient reports no relief from a trial of albuterol and antihistamines, suggesting that asthma and allergic rhinitis are less likely to be the primary cause. She denies fever, chills, chest pain, wheezing, or shortness of breath. No hemoptysis. She reports mild throat clearing and occasional post-nasal drip sensation. No known sick contacts. She denies any new environmental exposures. ROS Const Constitutional: No fatigue, fever(s) or weight change ENT ENT: Positive for difficulty swallowing Gastro GI: Positive for abdominal pain, diarrhea and difficulty swallowing; No belching, bloating, change in bowel habits, change in stool character, coffeeground emesis, constipation, cramping, heartburn, feeling full early, excessive flatus, incontinent of stools, Vomiting blood/hematemesis, Blood in stool, loosestools, Black,tarry stools, nausea/dyspepsia, pain with swallowing, vomiting or other Musc Musculoskeletal: No joint pain Skin Skin: No yellowing of the eye or itchy eyes Psych Psychiatric: No anxiety and No depression Endo Endocrine: No fatigue or weight change Aller/Imm Allergy/Immunologic: No itchy eyes Mckinley/Lymp Hematologic/Lymphatic: No easy bleeding or easy bruising Assessment and Plan Assessment and Plan (1) Cough: Status: Chronic Qualifiers: Cough type: unspecified Qualified Code(s): R05.9 - Cough, unspecified Plan: Assessment * Primary Diagnosis:?Chronic cough, likely due to upper airway or reflux issues, though less common causes like NAEB are still in consideration. * Differential Diagnosis: * Gastroesophageal Reflux Disease (GERD):?Acid reflux can cause a chronic cough, sometimes without classic heartburn symptoms. In fact, up to 75% of those with GERD-related cough do not experience typical heartburn. * Nonasthmatic Eosinophilic Bronchitis (NAEB):?Characterized by eosinophilic inflammation in the airways, NAEB can cause a chronic cough and normal lung function. It is distinguished from asthma by the lack of variable airflow obstruction and normal spirometry results. * Post-infectious Cough:?A cough can linger for weeks to months after a viral respiratory infection. * Persistent Upper Airway Cough Syndrome (UACS):?The initial trial of antihistamines was not effective, but a more thorough evaluation or a longer course of treatment may be needed. * Chronic Bronchitis:?Though less likely given the nonproductive nature, some forms of chronic bronchitis can present with clear sputum and minimal findings on CT. Plan * Further Workup: * Empiric GERD Treatment:?She was on initial trial of PPI therapy and that did not help. She also was instructed to avoid late-night meals, caffeine, alcohol and elevate the head of her bed and that did not help either. We will get an upper endoscopy with You pH monitoring and possible esophageal manometry to see if she has atypical reflux, esophageal dysmotility disorder or any structural abnormalities of the upper esophagus that may be contributing to her symptoms. * Induced Sputum Test:?If the empiric GERD therapy fails, consider a sputum test to check for eosinophils, which would point towards NAEB. * Pulmonary Function Test (Spirometry):?Even though albuterol was ineffective, a more formal test could help evaluate for subtle obstructive patterns or provoke a cough response. * Medications: * Discontinue omeprazole (Prilosec) 20mg once daily?for 8 weeks. * Consider discontinuing antihistamines and albuterol?as they were ineffective. I will leave that up to pulmonary. Coding Level of Care Code Off vis,new,level 4 Diagnoses Cough, unspecified type R05.9 Cough type: unspecified Clinical Quality Measures Falls Risk Screening/Assistive Devices Have you fallen in the past year?: No 03/20/25 1623 <Electronically signed by Hamzah higgins DO> Date _ Hamzah Friend DO Sara Signature: Date (if applicable) CC: ~ [facility] Work Phone: Reason for referral (narrative)No reason for referral information availableWMer[facility] Work Phone: Summary Purpose Family History [...] FoundDocuments on File Type Date Recorded Patient Plant Protection Guard Expl anation Advance Directive(s) 04/16/2017 9:22 AM Advance Directive Response Recorded Date/ Time Advance Directives No April 5:30am Living Will Yes February 05 1 11:00am Power of Welder Apprentice Yes February 05, 2 021 11:00am Advance Directive Response Recorded Date/ Time Advance Directives No January 28, 2022 11:00am Living Will No February 02 3 4:28pm Power of Welder Apprentice No February 02, 2 023 4:28pm Advance Directive Response Recorded Date/ Time Advance Directives No January 28, 2022 12:00pm History of Past Illness Problem Noted Date Resolved Date Acute diastolic CHF (congestive heart failure) 1 04/16/2017 Coronary artery disease invo lving [place] coronary artery of [place] heart without angina pectoris 04/13/2017 04/16/2017 Essential Hypertension 04/13/2017 7 Infectious Colitis 04/10/2017 04/16/2017 Lower GI Bleed 04/10/2017 04/16/2017 Rectal Bleeding 04/10/2017 04/16/2017 Overview: Added automatically from request for surgery [id number] Problem Noted Date Resolved Date Acute diastolic CHF (congestive heart failure) 1 04/16/2017 Coronary artery disease invo lving [place] coronary artery of [place] heart without angina pectoris 04/13/2017 04/16/2017 Essential hypertension 04/13/2017 7 Infectious colitis 04/10/2017 04/16/2017 Lower GI bleed 04/10/2017 04/16/2017 Rectal bleeding 04/10/2017 04/16/2017 Overview: Added automatically from request for surgery [id number] Chief Complaint and Reason for Visit Chief Complaint Admit Date Cough November 04, 2024 1:46p m R05.9 - Cough, unspecified November 17 7:38am Reason for Visit Admit Date Cough November 04, 2024 1:46p m Chief Complaint PER MMM MSG E ORDERS Reason for Visit Intermittent palpita tions Atherosclerotic heart disease of [place] coronary artery without angina pectoris Essential hypertension HLD (hyperlipidemia) Chief Complaint PVD Chief Complaint PVD E ORDERS Chief Complaint Admit Date CAD July 15, 2024 6 :49am Cough November 04, 2024 1:46p m Chief Complaint Admit Date Cough November 04, 2024 1:46p m R05.9 - Cough, unspecified November 17 7:38am R05.9 - Cough, unspecified November 17 8:10am Cough November 30, 2024 3:50 pm Chief Complaint Admit Date Cough November 04, 2024 1:46p m R05.9 - Cough, unspecified November 17 7:38am R05.9 - Cough, unspecified November 17 8:10am Cough November 30, 2024 3:50 pm 8 wk fu December 30, 2024 9:47 am Reason for Visit Admit Date Cough November 04, 2024 1:46p m Cough December 30, 2024 9:47 am Chief Complaint Admit Date Cough November 30, 2024 3:50 pm 8 wk fu December 30, 2024 9:47 am ESOPHAGERAL DYSMOTILITY March 20 9:25am Reason for Visit Admit Date Mild intermittent asthma December 30, 2024 9:47am Cough March 20, 2025 9: 25am Additional Source Comments INFORMATION SOURCE (unrecogn ized section and content) DATE CREATED AUTHOR 12/08/2017 [facility] DATE CREATED AUTHOR AUTHOR'S ORGANIZ ATION 12/08/2017 [facility] DATE CREATED AUTHOR AUTHOR'S ORGANIZ ATION 04/15/2022 [facility] ([place]) DATE CREATED AUTHOR AUTHOR'S ORGANIZ ATION 03/01/2025 [facility] DATE CREATED AUTHOR AUTHOR'S ORGANIZ ATION 04/15/2025 [facility] Source Comments (unrecognize d section and content) In the event this informatio n is protected by the Federal Confidentiality of Alcohol and Drug Abuse Patient Records regulations: The Federal rules restrict any use of the information to criminally investigate or prosecute any alcohol or drug abuse patient.[facility] Hospital[facility] the event this information is protected by the Federal Confidentiality of Alcohol and Drug Abuse Patient Records regulations: The Federal rules restrict any use of the information to criminally investigate or prosecute any alcohol or drug abuse patient.[facility] Hospital[facility] the event this information is protected by the Federal Confidentiality of Alcohol and Drug Abuse Patient Records regulations: The Federal rules restrict any use of the information to criminally investigate or prosecute any alcohol or drug abuse patient.[facility] Goals (unrecognized section and content) Goals may be documented in a n alternate section Care Team (unrecognized sect ion and content) Care Team Personnel Name: CYRUS CLAUDIO FEDERAL JUDGE - DESIGN/ANIMATION INSTRUCTOR Position: P4 Advanced Practice Nurse Med Service: Employed Provider Member Role: Primary Care Physician Address: Address: [address] [place] [address]- Care Team Related Persons Name: ELEANOR CARNES Care Team Personnel Name: CYRUS CLAUDIO FEDERAL JUDGE - DESIGN/ANIMATION INSTRUCTOR Position: P4 Advanced Practice Nurse Member Role: Primary Care Physician Address: Address: [address] [place] [address]- Care Team Related Persons Name: HARESHBEEKRYSTLECA Care Teams (unrecognized sec tion and content) Team Status: Active Member Role Status Dates Cyrus Claudio COMMODITY SUPERVISOR, COMMODITY SUPERVISOR-C Family Provider Activ e Cyrus Claudio COMMODITY SUPERVISOR, COMMODITY SUPERVISOR-C Primary Care Provider Active Team Status: Active Member Role Status Dates Cyrus Claudio COMMODITY SUPERVISOR, COMMODITY SUPERVISOR-C Primary Care Provider Active Dr. Grant Beyer MD Attending Provider Active Team Status: Inactive Member Role Status Dates Cyrus Claudio COMMODITY SUPERVISOR, COMMODITY SUPERVISOR-C Primary Care Provider Active Linnette Xiong COMMODITY SUPERVISOR, COMMODITY SUPERVISOR-C Attending Provider, Referring P elmer Active Team Status: Inactive Member Role Status Dates Cyrus Claudio COMMODITY SUPERVISOR, COMMODITY SUPERVISOR-C Primary Care Provider Active Dr. Wild Watkins MD Attending Provider, Referring Pro vider Active Team Status: Active Member Role Status Dates Cyrus Claudio COMMODITY SUPERVISOR, COMMODITY SUPERVISOR-C Primary Care Provider Active Team Status: Inactive Member Role Status Dates Cyrus Claudio COMMODITY SUPERVISOR, COMMODITY SUPERVISOR-C Primary Care Provider Active Start: June End: July 15, 2024 Court MARTÍNEZ PA Attending Provider Active Start: July 15, 2024 End: July 15, 2024 Court Anderson PA, [place] Referring Provider Active Start: July 15, 2024 End: July 15, 2024 Team Status: Active Member Role Status Dates Cyrus Claudio COMMODITY SUPERVISOR, COMMODITY SUPERVISOR-C Primary Care Provider Active Start: June Dr. Grant Beyer MD Attending Provider Active S tart: July 15, 2024 Court Anderson PA, PA Referring Provider Active Start: July 15, 2024 Team Status: Active Member Role Status Dates Cyrus Claudio COMMODITY SUPERVISOR, COMMODITY SUPERVISOR-C Primary Care Provider Active Start: June Dr. Wild Watkins MD Attending Provider Active S tart: July 15, 2024 Team Status: Inactive Member Role Status Dates Cyrus Claudio COMMODITY SUPERVISOR, COMMODITY SUPERVISOR-C Primary Care Provider Active Start: November 04, 2024 End: November 04, 2024 Cyrus Claudio COMMODITY SUPERVISOR, COMMODITY SUPERVISOR-C Referring Provider Ac tive Start: November 04, 2024 End: November 04, 2024 Sandy Castro COMMODITY SUPERVISOR-C Attending Provider Active Start: November 04, 2024 End: November 04, 2024 Team Status: Inactive Member Role Status Dates Cyrus Claudio COMMODITY SUPERVISOR, COMMODITY SUPERVISOR-C Primary Care Provider Active Start: November 04, 2024 End: November 04, 2024 Sandy Castro COMMODITY SUPERVISOR-C Attending Provider Active Start: November 04, 2024 End: November 04, 2024 Sandy Castro COMMODITY SUPERVISOR-C Referring Provider Active Start: November 04, 2024 End: November 04, 2024 Team Status: Inactive Member Role Status Dates Cyrus Claudio COMMODITY SUPERVISOR, COMMODITY SUPERVISOR-C Primary Care Provider Active Start: November 17, 2024 End: November 17, 2024 Sandy Castro COMMODITY SUPERVISOR-C Attending Provider Active Start: November 17, 2024 End: November 17, 2024 Sandy Castro COMMODITY SUPERVISOR-C Referring Provider Active Start: November 17, 2024 End: November 17, 2024 Team Status: Active Member Role Status Dates Cyrus Claudio NP, COMMODITY SUPERVISOR-C Primary Care Provider Active Start: November 17, 2024 Dr. Pernell Packer DO Attending Provider Active S tart: November 17, 2024 Sandy Castro COMMODITY SUPERVISOR-C Referring Provider Active Start: November 17, 2024 Team Status: Inactive Member Role Status Dates Cyrus Claudio COMMODITY SUPERVISOR, COMMODITY SUPERVISOR-C Primary Care Provider Active Start: November 30, 2024 End: November 30, 2024 Sandy Castro COMMODITY SUPERVISOR-C Attending Provider Active Start: November 30, 2024 End: November 30, 2024 Sandy Castro COMMODITY SUPERVISOR-C Referring Provider Active Start: November 30, 2024 End: November 30, 2024 Team Status: Active Member Role/Relationship Status Dates Cyrus Anam Walsh COMMODITY SUPERVISOR, COMMODITY SUPERVISOR-C Primary Care Provider Active Team Status: Inactive Member Role/Relationship Status Dates Cyrus Claudio COMMODITY SUPERVISOR, COMMODITY SUPERVISOR-C Primary Care Provider Active Start: November 04, 2024 End: November 04, 2024 Cyrus Claudio COMMODITY SUPERVISOR, COMMODITY SUPERVISOR-C Referring Provider Ac tive Start: November 04, 2024 End: November 04, 2024 Sandy Castro COMMODITY SUPERVISOR-C Attending Provider Active Start: November 04, 2024 End: November 04, 2024 Team Status: Inactive Member Role/Relationship Status Dates Cyrus Claudio COMMODITY SUPERVISOR, COMMODITY SUPERVISOR-C Primary Care Provider Active Start: November 04, 2024 End: November 04, 2024 Sandy Castro COMMODITY SUPERVISOR-C Attending Provider Active Start: November 04, 2024 End: November 04, 2024 Sandy Castro COMMODITY SUPERVISOR-C Referring Provider Active Start: November 04, 2024 End: November 04, 2024 Team Status: Inactive Member Role/Relationship Status Dates Cyrus Claudio COMMODITY SUPERVISOR, COMMODITY SUPERVISOR-C Primary Care Provider Active Start: November 17, 2024 End: November 17, 2024 Sandy Castro COMMODITY SUPERVISOR-C Attending Provider Active Start: November 17, 2024 End: November 17, 2024 Sandy Castro COMMODITY SUPERVISOR-C Referring Provider Active Start: November 17, 2024 End: November 17, 2024 Team Status: Active Member Role/Relationship Status Dates Cyrus Claudio COMMODITY SUPERVISOR, COMMODITY SUPERVISOR-C Primary Care Provider Active Start: November 17, 2024 Dr. Pernell Packer , DO Attending Provider Active S tart: November 17, 2024 Sandy Castro COMMODITY SUPERVISOR-C Referring Provider Active Start: November 17, 2024 Team Status: Inactive Member Role/Relationship Status Dates Cyrus Claudio COMMODITY SUPERVISOR, COMMODITY SUPERVISOR-C Primary Care Provider Active Start: November 30, 2024 End: November 30, 2024 Sandy Castro COMMODITY SUPERVISOR-C Attending Provider Active Start: November 30, 2024 End: November 30, 2024 Sandy Castro COMMODITY SUPERVISOR-C Referring Provider Active Start: November 30, 2024 End: November 30, 2024 Team Status: Inactive Member Role/Relationship Status Dates Cyrus Claudio COMMODITY SUPERVISOR, COMMODITY SUPERVISOR-C Primary Care Provider Active Start: December 30, 2024 End: December 30, 2024 Cyrus Claudio NP, COMMODITY SUPERVISOR-C Referring Provider Ac tive Start: December 30, 2024 End: December 30, 2024 Sandy Castro NP-C Attending Provider Active Start: December 30, 2024 End: December 30, 2024 Team Status: Active Member Role/Relationship Status Dates Cyrus Claudio NP, COMMODITY SUPERVISOR-C Primary care physicia n Active Team Status: Inactive Member Role/Relationship Status Dates Cyrus Claudio NP, COMMODITY SUPERVISOR-C Primary care physicia n Active Start: November 30, 2024 End: November 30, 2024 Sandy Castro NP-C Attending physician Active Start: November 30, 2024 End: November 30, 2024 Sandy Castro NP-C Referring Provider Active Start: November 30, 2024 End: November 30, 2024 Team Status: Inactive Member Role/Relationship Status Dates Cyrus Claudio NP, COMMODITY SUPERVISOR-C Primary care physicia n Active Start: December 30, 2024 End: December 30, 2024 Cyrus Claudio NP, COMMODITY SUPERVISOR-C Referring Provider Ac tive Start: December 30, 2024 End: December 30, 2024 ANDREW Jett Attending physician Active Start: December 30, 2024 End: December 30, 2024 Team Status: Inactive Member Role/Relationship Status Dates Cyrus Claudio NP, COMMODITY SUPERVISOR-C Primary care physician Active Start: March End: March 20, 2025 Cyrus Claudio NP, COMMODITY SUPERVISOR-C Referring Provider Active Start: March 20, 2025 End: March 20, 2025 Dr. Hamzah Valdez DO Attending physician Active Start: March 20, 2025 End: March 20, 2025 FOR RECORDS PERTAINING TO PATIENTS WHO ARE [...] BE BASED ON THE PRIMARY CLINICAL RECORDS. [facility]. provides no warranty or guarantee of the accuracy or completeness of information in this document.
[2025-04-18] MEDS: Lactated Ringers 1,000 ML 15 ML IV (05:50)
--- NOTE | 2025-04-18 06:30 | EGD_PTH ---
PATIENT: BAUDILIO TORRES LOC: EN U#:[id number] AGE/SX: 79/F ROOM: RE04/18/[address]: Dr. Hamzah Valdez DO : 1945 BED: DIS: 04/18/2025 SPEC #: [id number] RECD: 04/18/25 07:16 STATUS: АЛЕКСАНДР SHAILESH #: [id number] CIERRA: 04/18/25 06:[address]: Hamzah Valdez DEPT: SURGICAL PATHOLOGY RECD BY: Nelson Loya ENTERED: 04/18/25 11:07 SP TYPE: EGD BIOPSY MARGARITO DR: Jacob Claudio, BULL FLOAT FINISHER-C Tissues: A - Esophagus, NOS B - Duodenum, NOS C - Gastric mucous membrane Procedures: Immunohistochemical Stains Surgery Specimen Level IV HEADER OPERATION: EGD - PH Probe Placement, biopsy PRE-OP DIAGNOSIS: Cough TISSUE SUBMITTED: A- Random esophagus biopsy, B- Duodenum biopsy, C- Gastric antrum biopsy MICROSCOPIC DIAGNOSIS A. Esophagus, random biopsy: - squamous mucosa with reactive changes. - negative for eosinophils. B. Duodenum, biopsy: - Jess gland hyperplasia and gastric mucin cell metaplasia, suggestive of peptic injury. - negative for increased intraepithelial lymphocytes. C. Gastric antrum, biopsy: - features of reactive gastropathy. - IHC negative for H. pylori organisms. MICROSCOPIC DESCRIPTION Slides are reviewed. All matched controls reacted appropriately. These tests were developed and their performance characteristics determined by [facility]. They may not have been cleared or approved by the U.S. Food and Drug Administration. The FDA has determined that such clearance or approval is not necessary. The above immunohistochemical markers are viewed by the Pathologist. GROSS DESCRIPTION A. Received in fixative is one container labeled with the patient's name and designated "Random esophagus biopsy." The specimen consists of two irregular fragments of rabago tissue, each measuring 0.7 cm. The specimen is totally submitted in one cassette. B. Received in fixative is one container labeled with the patient's name and designated "Duodenum biopsy." The specimen consists of three irregular fragments of rabago tissue, each measuring 0.3 cm. The specimen is totally submitted in one cassette. C. Received in fixative is one container labeled with the patient's name and designated "Gastric antrum biopsy." The specimen consists of two irregular fragments of rabago tissue that measure 0.4 and 0.5 cm. The specimen is totally submitted in one cassette. MO 04/18/2025 CPT:23663q7,00585
--- NOTE | 2025-04-18 06:30 | HP.PCM_ITS ---
HPI - General General Date of Admission: 04/18/25 Date of Service: 04/18/25 Chief Complaint: cough HPI Narrative BAUDILIO TORRES, is a 79 F who presents [BAUDILIO TORRES, is a 79-year-old female presents with a chronic, nonproductive cough associated with clear mucous production. The cough has been ongoing for >8 weeks. It is present throughout the day and is sometimes worse at night. The patient reports no relief from a t rial of albuterol and antihistamines, suggesting that asthma and allergic rhinitis are less likely to be the primary cause. She denies fever, chills, chest pain, wheezing, or shortness of breath. No hemoptysis. She reports mild throat clearing and occasional post-nasal drip sensation. No known sick contacts. She denies any new environmental exposures. [facility] Medical History Wears glasses Wears dentures Arthritis Thyroid disease Ischemic colitis Gastric reflux History of Holter monitoring History of stress test History of echocardiogram Cardiology follow-up encounter Essential hypertension Carotid artery disease Renal artery stenosis Atherosclerotic heart disease of [place] coronary artery without angina pectoris PVD (peripheral vascular disease) Carotid bruit Chronic diastolic (congestive) heart failure HLD (hyperlipidemia) Home Medications Medication Instructions Recorded Last Taken Type aspirin 81 mg chewable tablet 81 mg PO DAILY 04/10/17 04/11/25 History ondansetron 4 mg disintegrating 4 mg PO Q8H PRN PRN Na usea #14 tabs 02/02/23 Unknown Rx tablet nitroglycerin 0.4 mg sublingual 0.4 mg sublingual Q5-1 5M PRN chest 06/26/23 Unknown Rx tablet (Nitrostat) pain #25 tabs atenolol 25 mg tablet 25 mg PO DAILY #90 tabs 12/0704/18/25 04:45 Rx clopidogrel 75 mg tablet 75 mg PO DAILY #90 tabs 12/0704/11/25 Rx simvastatin 40 mg tablet 40 mg PO DAILY #90 tabs 12/07 Unknown Rx hydrochlorothiazide 25 mg tablet 25 mg PO DAILY #90 TA BLETS 09/21/24 Unknown Rx losartan 50 mg tablet 50 mg PO BID This is a dose 11/23/24 04/18/25 04:45 Rx increase #180 tabs albuterol sulfate 2.5 mg/3 mL 2.5 mg (3 mL) inhalation Q4-6H PRN 12/30/24 Unknown Rx (0.083 %) solution for nebulization shortness of breat h or wheezing #180 mL budesonide 0.5 mg/2 mL suspension 0.5 mg (2 mL) inhala tion QDAY #60 12/30/24 Unknown Rx for nebulization mL levothyroxine 25 mcg capsule 25 mcg PO QDAY 03/20/25 1 06/18/24 04:45 History cholecalciferol (vitamin D3) 25 25 mcg PO DAILY Unknown History mcg (1,000 unit) capsule (Vitamin D3) lansoprazole 30 mg capsule,delayed 30 mg PO DAILY 03/1704/10/25 History release Allergy/AdvReac Type Severity Reaction Status Date / Time Opioids - Morphine Analogues Allergy Mild Nausea Verified 04/18/25 05:53 lisinopril AdvReac cough Verified 04/18/25 05:53 Family History Father CAD (coronary artery disease) Mother CAD (coronary artery disease) CVA (cerebral vascular accident) Brother CAD (coronary artery disease) Sister CAD (coronary artery disease) Hypertension Sister Hypertension Brother Hypertension Surgical History History of colonoscopy History of coronary artery stent placement (05/18/14) History of bilateral carotid endarterectomy History of dental surgery History of tubal ligation Social History Smoking Status: Former smoker alcohol intake: never substance use type: does not use ROS Constitutional Constitutional: Denies fatigue, fever(s), poor appetite, weight gain or weight loss Gastrointestinal Gastrointestinal: Denies belching, bloating, change in bowel habits, change in stool character, chewing difficulty, coffee ground emesis, constipation, cramping, diarrhea, dyspepsia, dysphagia, early satiety, excessive flatus, fecal incontinence, heartburn, hematemesis, hematochezia, hemorrhoids, loose stools, melena, nausea, odynophagia, rectal bleeding, tenesmus, vomiting or weight changes Vital Signs Vital Signs Vital Signs: 04/18/25 05:55 04/18/25 05:55 Temperature 98.0 F Temperature Source Temporal Pulse Rate 48 L Respiratory Rate 16 Respiratory Pattern Normal Blood Pressure 148/67 H Blood Pressure Mean 94 Blood Pressure Source Monitor Blood Pressure Position Sitting Blood Pressure Location Left Arm Pulse Ox 97 Oxygen Delivery Method Room Air Weight Weight: 147 lb 11.355 oz Body Mass Index (BMI) 29.8 Physical Exam Const alert, oriented x3, no apparent distress and healthy appearing General Appearance: cooperative GI normal to inspection, nondistended, normoactive bowel sounds, soft to palpation, non-tender and non-distended Percussion: normal to percussion Rectal Exam: deferred Assessment & Plan Assessment/Plan (1) Mild intermittent asthma: QUALIFIERS: Asthma complication type: uncomplicated Qualified Code(s): J45.20 - Mild intermittent asthma, uncomplicated (2) Cough: QUALIFIERS: Cough type: unspecified Qualified Code(s): R05.9 - Cough, unspecified PLAN: Assessment and Plan Assessment and Plan (1) Cough: Status: Chronic Qualifiers: Cough type: unspecified Qualified Code(s): R05.9 - Cough, unspecified Plan: Assessment * Primary Diagnosis: Chronic cough, likely due to upper airway or reflux issues, though less common causes like NAEB are still in consideration. * Differential Diagnosis: * Gastroesophageal Reflux Disease (GERD): Acid reflux can cause a chronic cough, sometimes without classic heartburn symptoms. In fact, up to 75% of those with GERD-related cough do not experience typical heartburn. * Nonasthmatic Eosinophilic Bronchitis (NAEB): Characterized by eosinophilic inflammation in the airways, NAEB can cause a chronic cough and normal lung function. It is distinguished from asthma by the lack of variable airflow obstruction and normal spirometry results. * Post-infectious Cough: A cough can linger for weeks to months after a viral respiratory infection. * Persistent Upper Airway Cough Syndrome (UACS): The initial trial of antihistamines was not effective, but a more thorough evaluation or a longer course of treatment may be needed. * Chronic Bronchitis: Though less likely given the nonproductive nature, some forms of chronic bronchitis can present with clear sputum and minimal findings on CT. Plan * Further Workup: * Empiric GERD Treatment: She was on initial trial of PPI therapy and that did not help. She also was instructed to avoid late-night meals, caffeine, alcohol and elevate the head of her bed and that did not help either. We will get an upper endoscopy with Castañeda pH monitoring and possible esophageal manometry to see if she has atypical reflux, esophageal dysmotility disorder or any structural abnormalities of the upper esophagus that may be contributing to her symptoms. * Induced Sputum Test: If the empiric GERD therapy fails, consider a sputum test to check for eosinophils, which would point towards NAEB. * Pulmonary Function Test (Spirometry): Even though albuterol was ineffective , a more formal test could help evaluate for subtle obstructive patterns or provoke a cough response. * Medications: * Discontinue omeprazole (Prilosec) 20mg once daily for 8 weeks. * Consider discontinuing antihistamines and albuterol as they were ineffective. I will leave that up to pulmonary.
--- NOTE | 2025-04-18 06:38 | PRE.ANES_ITS ---
ASA Classification* ASA Classification ASA Classification: 3 Assessment & Plan Anesthesia* Anesthesia Assessment Anesthesia Assessment: Discussed sedation and/or anesthesia options, risks, benefits, and alternatives with patient/parents/legal guardian/POA. Questions invited. The patient/parents/legal guardian/POA seems to understand and agrees to proceed with anesthesia plan. Reviewed the physical assessment, medical history, allergy history and patient home medications list prior to surgery/procedure/anesthetic and documented any changes. Performed airway and anesthesia risk assessments. Anesthesia Type Anesthesia Type: MAC History Source History Obtained from:: Patient and Chart Anesthesia Focused Assessment* Temperature: 98.0 F Pulse Rate: 48 Blood Pressure: 148/67 Respiratory Rate: 16 Pulse Ox: 97 Oxygen Delivery Method: Room Air Airway Assessment Mouth opens: >3 cm Mallampati Score: I Teeth Condition: Dentures Neck Range of motion (ROM): Full ROM Labs Anesthesia Preop lab: CBC WBC, (4.4-11.0) 8.4 K/mm3 02/02/23, 17:00 RBC, (4.2-5.4) 4.84 M/mm3 02/02/23, 17:00 Hgb, (12.0-15.0) 14.4 g/dL 02/02/23, 17:00 Hct, (37-47) 44.9 % 02/02/23, 17:00 Plt Count, (150-450) 266 K/mm3 02/02/23, 17:00 CHEMISTRY Potassium, (3.3-5.1) 3.7 mmol/L 11/30/24, 16:17 Sodium, (133-145) 139 mmol/L 11/30/24, 16:17 Magnesium, (1.6-2.6) 2.2 mg/dL 01/13/22, 14:34 BUN, (4-19) 19 mg/dL 11/30/24, 16:17 Creatinine, (0.70-1.20) 0.90 mg/dL 11/30/24, 16:17 Glucose, (70-99) 121 mg/dL H 11/30/24, 16:17 TSH, (0.358-3.74) 5.30 uIU/mL H 01/13/22, 14:34 COAG Pre-Assessment Diagnosis/Proposed Procedure Planned Operative Procedure(s): EGD WITH PH PROBE Anesthesia History Anesthesia History - process inspector: Anesthesia History - process inspector Hx Hospitalization No 04/13/25 10:56 Any Problems With Anesthesia Yes: NAUSEA 04/13/25 10:56 Cholinesterase deficiency No 04/13/25 10:56 You/Your Family Experience No 04/13/25 10:56 fever (hyperthermia) with Relationship Recent Exposure to Contagious No 04/18/25 05:55 Disease Does patient have nerve No 04/13/25 10:56 stimulator Patient instructed to have device shut off --Does patient have Pacemaker No 04/18/25 05:55 or ICD? When Was Last Pacemaker Check QUESTION #4 FULL TEXT: You/Your Family Experience fever (hyperthermia) with Anesthesia Last Oral Intake Last Oral intake: Last Oral Intake NPO since 04:45 04/18/25 05:55 Meds taken in AM with sips of Yes 04/18/25 05:55 water? Meds patient instructed to SEE MED REC 04/18/25 05:55 take am of surgery Any additional information?: Yes Meds taken in AM with sips of water?: Yes PONV PONV - process inspector: PONV - process inspector Female Yes 04/13/25 10:56 HX of Motion Sickness Yes 04/13/25 10:56 HX of N/V After Surgery Yes 04/13/25 10:56 Non-Smoker Yes 04/13/25 10:56 Duration of Surgery greater No 04/13/25 10:56 than 60 minutes Number of Risk Factors 4 04/13/25 10:56 PONV Score Severe Risk 04/13/25 10:56 Height & Weight Height & Weight: Anesthesia: Height & Weight Height 4 ft 11 in 04/18/25 05:55 Weight: 67 kg 04/18/25 05:55 Body Mass Index (BMI) 29.8 04/18/25 05:55 Respiratory Assessment Respiratory Assessment - process inspector: Respiratory Tract Infection Hx - process inspector Hx Respiratory Tract Infection No 04/13/25 10:56 STOP Sleep Apnea STOP Sleep Apnea - process inspector: STOP Sleep Apnea - process inspector Hx Hypertension Yes: CONTROLLED WITH MEDS 04/13/25 10:56 Hx Sleep Apnea No 04/13/25 10:56 CPAP No 01/28/22 12:00 BIPAP No 01/28/22 12:00 Do you snore loudly (louder No 04/13/25 10:56 than talking or can be heard Do you often feel tired/ No 04/13/25 10:56 fatigued/ sleepy during daytime? Has anyone observed you stop No 04/13/25 10:56 breathing during sleep? STOP Results Negative 04/13/25 10:56 QUESTION #5 FULL TEXT : Do you snore loudly (louder than talking or can be heard through closed doors)? 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 Specify any problems Hx of Preganancy in last 3 No 04/13/25 10:56 Months Nurse Filling Out Transfusion [email or web address] 04/13/25 10:56 & Questions: Date: 04/13/25 04/13/25 10:56 Time: 11:02 04/13/25 10:56 Patient unable to answer at this time (ie. confused, unrespo /Reproduction History /Reproductive History - process inspector: /Reproductive Hx- process inspector Hx Now Gestational Age (in weeks): EDC: Hx Hx Para Hx Section SAB Active Medications Active Medications: Current Medications Generic Name Dose Route Start Last Admin Trade Name Freq PRN Reason Stop Dose Admin Lactated Ringer's 1,000 mls @ 15 mls/hr 04/18/25 05:30 04/18/25 05:50 IV 15 mls/hr .Q48H KYREE Administration PFSH Medical History Wears glasses Wears dentures Arthritis Thyroid disease Ischemic colitis Gastric reflux History of Holter monitoring History of stress test History of echocardiogram Cardiology follow-up encounter Essential hypertension Carotid artery disease Renal artery stenosis Atherosclerotic heart disease of [place] coronary artery without angina pectoris PVD (peripheral vascular disease) Carotid bruit Chronic diastolic (congestive) heart failure HLD (hyperlipidemia) Home Medications Medication Instructions Recorded Last Taken Type aspirin 81 mg chewable tablet 81 mg PO DAILY 04/10/17 04/11/25 History ondansetron 4 mg disintegrating 4 mg PO Q8H PRN PRN Na usea #14 tabs 02/02/23 Unknown Rx tablet nitroglycerin 0.4 mg sublingual 0.4 mg sublingual Q5-1 5M PRN chest 06/26/23 Unknown Rx tablet (Nitrostat) pain #25 tabs atenolol 25 mg tablet 25 mg PO DAILY #90 tabs 12/0704/18/25 04:45 Rx clopidogrel 75 mg tablet 75 mg PO DAILY #90 tabs 12/0704/11/25 Rx simvastatin 40 mg tablet 40 mg PO DAILY #90 tabs 12/07 Unknown Rx hydrochlorothiazide 25 mg tablet 25 mg PO DAILY #90 TA BLETS 09/21/24 Unknown Rx losartan 50 mg tablet 50 mg PO BID This is a dose 11/23/24 04/18/25 04:45 Rx increase #180 tabs albuterol sulfate 2.5 mg/3 mL 2.5 mg (3 mL) inhalation Q4-6H PRN 12/30/24 Unknown Rx (0.083 %) solution for nebulization shortness of breat h or wheezing #180 mL budesonide 0.5 mg/2 mL suspension 0.5 mg (2 mL) inhala tion QDAY #60 12/30/24 Unknown Rx for nebulization mL levothyroxine 25 mcg capsule 25 mcg PO QDAY 03/20/25 1 06/18/24 04:45 History cholecalciferol (vitamin D3) 25 25 mcg PO DAILY Unknown History mcg (1,000 unit) capsule (Vitamin D3) lansoprazole 30 mg capsule,delayed 30 mg PO DAILY 03/1704/10/25 History release Allergy/AdvReac Type Severity Reaction Status Date / Time Opioids - Morphine Analogues Allergy Mild Nausea Verified 04/18/25 05:53 lisinopril AdvReac cough Verified 04/18/25 05:53 Family History Father CAD (coronary artery disease) Mother CAD (coronary artery disease) CVA (cerebral vascular accident) Brother CAD (coronary artery disease) Sister CAD (coronary artery disease) Hypertension Sister Hypertension Brother Hypertension Surgical History History of colonoscopy History of coronary artery stent placement (05/18/14) History of bilateral carotid endarterectomy History of dental surgery History of tubal ligation Social History Smoking Status: Former smoker alcohol intake: never substance use type: does not use Review of Systems (Anesthesia) ROS Narrative System reviewed and no additional complaints, except as documented.
--- NOTE | 2025-04-18 07:06 | OP.PROVAT_ITS ---
04/18/2025 Jacob Claudio Re : Upper GI endoscopy procedure for Sruthi Jewell Dear González This procedure was performed on Friday, April 18, 2025. My impressions and recommendations are as follows: Impressions : - No gross lesions in the entire esophagus. - Abnormal esophageal motility. - Chronic gastritis. Biopsied. - Erythematous duodenopathy. - Biopsies were taken with a cold forceps for evaluation of eosinophilic esophagitis. Recommendations : - Discharge patient to home. - Resume previous diet. - Continue present medications. - Await pathology results. My findings are described in the full procedure note, which is enclosed. If I can be of further assistance, please feel free to contact me at . Sincerely, Hamzah Valdez, 04/18/2025 7:05:32 AM This report has been signed electronically.
--- NOTE | 2025-04-18 07:06 | OP.EGD_ITS ---
Patient Name: Sruthi Jewell Procedure Date: 04/18/2025 6:20 AM Date of : 1945 Age: 79 Procedure: Upper GI endoscopy Indications: Epigastric abdominal pain, Indigestion, Suspected esophageal reflux, Failure to respond to medical treatment Providers: Hamzah Valdez DO Referring MD: Jacob Claudio Medicines: Monitored Anesthesia Care Patient Profile: This is an 79 year old female. Refer to note in patient chart for documentation of history and physical. Patient has symptoms of chronic abdominal distention, chronic cough and chronic nausea. Complications: No immediate complications. Procedure: Pre-Anesthesia Assessment: - Prior to the procedure, a History and Physical was performed, and patient medications and allergies were reviewed. The patient is competent. The risks and benefits of the procedure and the sedation options and risks were discussed with the patient. All questions were answered and informed consent was obtained. Patient identification and proposed procedure were verified by the physician in the pre-procedure area. Mental Status Examination: alert and oriented. Airway Examination: normal oropharyngeal airway and neck mobility. Respiratory Examination: clear to auscultation. CV Examination: normal. Prophylactic Antibiotics: The patient does not require prophylactic antibiotics. Prior Anticoagulants: The patient has taken no anticoagulant or antiplatelet agents. ASA Grade Assessment: II - A patient with mild systemic disease. After reviewing the risks and benefits, the patient was deemed in satisfactory condition to undergo the procedure. The anesthesia plan was to use monitored anesthesia care (MAC). Immediately prior to administration of medications, the patient was re-assessed for adequacy to receive sedatives. The heart rate, respiratory rate, oxygen saturations, blood pressure, adequacy of pulmonary ventilation, and response to care were monitored throughout the procedure. The physical status of the patient was re-assessed after the procedure. After obtaining informed consent, the endoscope was passed under direct vision. Throughout the procedure, the patient's blood pressure, pulse, and oxygen saturations were monitored continuously. The Endoscope was introduced through the mouth, and advanced to the third part of the duodenum. Small bowel enteroscopy was deemed necessary. The upper GI endoscopy was accomplished without difficulty. The patient tolerated the procedure well. Scope In: 6:51:47 AM Scope Out: 7:00:25 AM Total Procedure Duration Time 0 hours 8 minutes 38 seconds Findings: No gross lesions were noted in the entire esophagus. Biopsies were obtained from the proximal and distal esophagus with cold forceps for histology of suspected eosinophilic esophagitis. Abnormal motility was noted in the esophagus. The cricopharyngeus was abnormal. There are extra peristaltic waves in the esophageal body. The distal esophagus/lower esophageal sphincter is spastic, but gives up passage to the endoscope. Patchy mild inflammation characterized by erythema was found in the gastric antrum. Biopsies were taken with a cold forceps for histology. Verification of patient identification for the specimen was done. Estimated blood loss was minimal. Biopsies were taken with a cold forceps for Helicobacter pylori testing. Verification of patient identification for the specimen was done. Estimated blood loss was minimal. Patchy mildly erythematous mucosa without active bleeding and with no stigmata of bleeding was found in the entire duodenum. Impression: - No gross lesions in the entire esophagus. - Abnormal esophageal motility. - Chronic gastritis. Biopsied. - Erythematous duodenopathy. - Biopsies were taken with a cold forceps for evaluation of eosinophilic esophagitis. Recommendation: - Discharge patient to home. - Resume previous diet. - Continue present medications. - Await pathology results. Procedure Code(s): --- Professional --- 94418, Small intestinal endoscopy, enteroscopy beyond second portion of duodenum, not including ileum; with biopsy, single or multiple CPT copyright 2021 [employer]. All rights reserved. The codes documented in this report are preliminary and upon remote inpatient coder review may be revised to meet current compliance requirements. Hamzah Valdez DO 04/18/2025 7:05:32 AM This report has been signed electronically. Number of Addenda: 0 Note Initiated On: 04/18/2025 6:20 AM
--- NOTE | 2025-04-18 07:12 | PCM.POST.ANE ---
Anesthesia: Postop Eval I Current Vital Signs Temperature: 97 F Pulse Rate: 49 Blood Pressure: 129/50 Respiratory Rate: 16 Pulse Ox: 97 Oxygen Delivery Method: Room Air Assessment Airway patent: Yes Spontaneous unlabored respirations: Yes Mental status: Asleep nausea: No Vomiting: No Anesthesia Complication: No Fluid Hydration Crystalloid volume administer (ml): 400 Total IV fluid infused: 400 Progress Note Anesthesia document: Postop Eval 1 completed: Yes
--- NOTE | 2025-04-18 08:41 | PCM.POSTANE2 ---
Anesthesia Postop Eval I Sum Postop Eval Completion status Anesthesia document: Postop Eval 1 completed: Yes Anesthesia Postop Eval I Summary Anesthesia Postop Eval I Summary: Anesthesia Postop Eval I: Assessment Summary Airway patent Yes 04/18/25 07:13 [email or web address] Spontaneous unlabored Yes 04/18/25 07:13 [email or web address] respirations Mental status Asleep 04/18/25 07:13 [email or web address] nausea No 04/18/25 07:13 [email or web address] Vomiting No 04/18/25 07:13 [email or web address] Anesthesia Postop Eval I: Fluid Summary Crystalloid volume administer 400 04/18/25 07:13 [email or web address] (ml) Colloids volume administered ( ml) Blood Product volume administered (ml) Total IV fluid infused 400 04/18/25 07:13 [email or web address] Anesthesia Postop Eval I: Summary Notes Anesthesia Complication No 04/18/25 07:13 [email or web address] Anesthesia Complication Comment: Post-operative progress note Anesthesia: Postop Eval II Evaluation Mental status: Awake and Calm Pain Level: 0 nausea: No Vomiting: No Complications Anesthesia Complication: No
== END 2025-04-18 08:05 | disposition home or self-care (01) ==
LOC: EN 05:16 → AC 05:17
PROVIDERS: PCP Nurse Practitioner Family; Referring Provider Nurse Practitioner Family; Visit Provider Internal Medicine Gastroenterology
DX: K31.A0 Gastric intestinal metaplasia, unspecified (principal); I11.0 Hypertensive heart disease with heart failure; I50.32 Chronic diastolic (congestive) heart failure; K29.50 Unspecified chronic gastritis without bleeding; Z79.82 Long term (current) use of aspirin; I25.10 Atherosclerotic heart disease of native coronary artery without angina pectoris; Z79.02 Long term (current) use of antithrombotics/antiplatelets; Z87.891 Personal history of nicotine dependence; J45.20 Mild intermittent asthma, uncomplicated; K21.9 Gastro-esophageal reflux disease without esophagitis; Z79.899 Other long term (current) drug therapy; E78.5 Hyperlipidemia, unspecified; Z79.890 Hormone replacement therapy
CPT/HCPCS: 44361; 88305; 88342; J2405